=== PATIENT | male | born 1965 | race Caucasian/White ===

== ENCOUNTER 2022-02-05 09:47 | Outpatient (REF) | payer OTHER, SELFPAY ==
[2022-02-05 10:23] LABS: MANUAL DIFF FLAG NO
[2022-02-05 10:35] LABS: Basophils Absolute Auto 0.1 X10*3/uL (0.0-0.2); Basophils Percent Auto 0.7 % (0-2); Eosinophils Absolute Auto 0.5 X10*3/uL (0.0-0.4); Hematocrit 47.3 % (42.0-52.0); Hemoglobin 15.9 g/dl (14.0-18.0); Imm Gran Abs Auto 0.08 X10*3/uL (0.00-0.03); Imm Gran Pct Auto 0.9 % (0.0-0.4); Lymphocytes Absolute Auto 1.1 X10*3/uL (1.2-4.9); Lymphocytes Percent Auto 12.6 % (20-40); Mean Corpuscular HGB Conc 33.6 g/dl (31.0-36.0); Mean Corpuscular Hemoglobin 30.8 pg (27.0-33.0); Mean Corpuscular Volume 91.5 fL (80.0-98.0); Monocytes Absolute Auto 0.9 X10*3/uL (0.1-1.2); Neutrophils Absolute Auto 6.1 x10*3/uL (2.0-8.3); Neutrophils Percent Auto 69.8 % (45-73); Platelet Count 244 X10*3/uL (160-400); Red Blood Count 5.17 X10*6/uL (4.60-5.80); Red Cell Distribution Width 12.7 % (11.0-16.0); White Blood Count 8.7 X10*3/uL (4.8-10.8)
[2022-02-05 11:29] LABS: Alanine Aminotransferase 62 U/L (0-40); Albumin Level 4.7 g/dL (3.5-5.0); Alkaline Phosphatase 68 U/L (39-117); Anion Gap 17 (12-20); Aspartate Amino Transferase 32 U/L (5-37); Bilirubin Total 0.9 mg/dL (0.0-1.0); Blood Urea Nitrogen 18 mg/dL (9-16); Calcium 9.6 mg/dL (8.4-10.2); Carbon Dioxide 24 mmol/L (22-29); Chloride 102 mmol/L (96-108); Cholesterol 283 mg/dL; Estimated Glomerular Filt Rate 51; Glucose Fasting 101 mg/dL (60-99); HDL Cholesterol 47 mg/dL; LDL Cholesterol Calculated 184 mg/dl; Potassium 4.4 mmol/L (3.3-5.1); Sodium 139 mmol/L (135-145); Total Protein 7.5 g/dL (6.5-8.0); Triglycerides 263 mg/dL
[2022-02-12 14:02] LABS: PSA, Ultra Sensitive 0.94 ng/mL
== END 2022-02-05 09:48 | disposition home or self-care (01) ==
LOC: HO.WFDLDS 09:47
PROVIDERS: Visit Provider Nurse Practitioner Family
DX: Z00.00 Encounter for general adult medical examination without abnormal findings (principal); Z12.5 Encounter for screening for malignant neoplasm of prostate
CPT/HCPCS: 36415; 80053; 80061; 84153; 85025

== ENCOUNTER 2022-02-20 07:21 | Outpatient (REF) | payer OTHER, SELFPAY ==
[2022-02-20 12:38] LABS: Alanine Aminotransferase 14 U/L (0-40); Albumin Level 4.6 g/dL (3.5-5.0); Alkaline Phosphatase 68 U/L (39-117); Anion Gap 18 (12-20); Aspartate Amino Transferase 14 U/L (5-37); Blood Urea Nitrogen 16 mg/dL (9-16); Calcium 9.8 mg/dL (8.4-10.2); Carbon Dioxide 26 mmol/L (22-29); Chloride 101 mmol/L (96-108); Estimated Glomerular Filt Rate 52; Glucose Fasting 94 mg/dL (60-99); Potassium 4.1 mmol/L (3.3-5.1); Sodium 141 mmol/L (135-145); Total Protein 7.3 g/dL (6.5-8.0)
== END 2022-02-20 07:22 | disposition home or self-care (01) ==
LOC: HO.WFDLDS 07:21
PROVIDERS: Visit Provider Nurse Practitioner Family
DX: Z00.00 Encounter for general adult medical examination without abnormal findings (principal)
CPT/HCPCS: 36415; 80053

== ENCOUNTER 2022-05-21 08:39 | Outpatient (REF) | payer OTHER, SELFPAY ==
[2022-05-21 12:40] LABS: Influenza A PCR NEGATIVE (Negative); Influenza B PCR NEGATIVE (Negative); Resp Syncy Virus RNA Qual PCR NEGATIVE (Negative); SARS COV2 PCR INHOUSE NEGATIVE (Negative)
== END 2022-05-21 08:40 | disposition home or self-care (01) ==
LOC: HO.LAB 08:39
PROVIDERS: Visit Provider Nurse Practitioner Family
DX: R09.89 Other specified symptoms and signs involving the circulatory and respiratory systems (principal); Z20.822 Contact with and (suspected) exposure to COVID-19
CPT/HCPCS: 0241U

== ENCOUNTER 2022-08-06 09:13 | Outpatient (REF) | payer OTHER, SELFPAY ==
[2022-08-06 11:52] LABS: Estimated Average Glucose 108 mg/dL; Hemoglobin A1c % 5.4 %
[2022-08-06 12:36] LABS: Alanine Aminotransferase 11 U/L (0-40); Alkaline Phosphatase 78 U/L (39-117); Anion Gap 17 (12-20); Aspartate Amino Transferase 12 U/L (5-37); Bilirubin Total 1.3 mg/dL (0.0-1.0); Blood Urea Nitrogen 15 mg/dL (9-16); Calcium 10.1 mg/dL (8.4-10.2); Carbon Dioxide 26 mmol/L (22-29); Chloride 105 mmol/L (96-108); Estimated Glomerular Filt Rate 49; Glucose Fasting 110 mg/dL (60-99); Potassium 4.6 mmol/L (3.3-5.1); Sodium 143 mmol/L (135-145); Total Protein 7.7 g/dL (6.5-8.0)
== END 2022-08-06 09:14 | disposition home or self-care (01) ==
LOC: HO.WFDLDS 09:13
PROVIDERS: Visit Provider Nurse Practitioner Family
DX: E78.5 Hyperlipidemia, unspecified (principal); N17.9 Acute kidney failure, unspecified; R73.01 Impaired fasting glucose
CPT/HCPCS: 36415; 80053; 83036

== ENCOUNTER → 2022-09-08 14:10 | Outpatient (BNVA) | payer OTHER, SELFPAY | PROVIDERS: PCP Nurse Practitioner Family; Visit Provider Nurse Practitioner Family ==

== ENCOUNTER 2022-09-25 07:28 | Outpatient (REF) | payer OTHER, SELFPAY ==
--- NOTE | ~2022-09-25 | CT_ITS ---
EXAMINATION: CT CHEST WITHOUT CONTRAST CLINICAL INFORMATION: Asbestos exposure COMPARISON: None available. TECHNIQUE: Multidetector volumetric CT imaging of the chest was done. Axial MIP volume rendering provided. Sagittal and coronal reformatted images were obtained. This CT examination was performed using dose optimization techniques as appropriate, variously including the following: *Automated exposure control *Adjustment of mA and/or kV according to patient size (this includes techniques or standardized protocols for targeted exams where dose is matched to indication/reason for exam; i.e. extremities or head) *Use of iterative reconstruction technique DLP: 182 mGy-cm FINDINGS: LUNGS: 4 mm middle lobe nodule axial image 1 right middle lobe nodule axial image 111 and 1:30 series 11. 5 mm peripheral or subpleural right lower lobe nodule along the diaphragmatic pleural surface axial image 138 series 11. 7 x 9 mm peripheral or subpleural right lower lobe nodule versus area of atelectasis axial image 140. 3 mm peripheral or subpleural left lower lobe nodule axial image 137 series 11. Scarring or subsegmental atelectasis seen bilaterally greatest at the lung bases. Increased peripheral or subpleural reticulation and interstitial markings questionable for dependent atelectasis versus early interstitial lung disease. This could be better evaluated with prone imaging. MEDIASTINUM: There are enlarged mediastinal and bilateral hilar lymph nodes. Hilar adenopathy difficult to evaluate without IV contrast. Largest lymph node is a subcarinal lymph node measuring 2.3 cm in short axis. Normal heart size. No pericardial effusion. Normal caliber thoracic aorta. Normal thyroid gland. CORONARY ARTERY CALCIFICATION: None PLEURA: There is no pleural effusion. No pleural mass or thickening. AXILLA: No lymphadenopathy. UPPER ABDOMEN: Cystic area in the central left kidney question peripelvic cyst versus hydronephrosis. Spleen not completely imaged but may be upper normal in size. OSSEOUS STRUCTURES: Degenerative changes of the spine. CT/CT chest wo IV con IMPRESSION: Enlarged mediastinal and bilateral hilar lymph nodes. Infectious, inflammatory and neoplastic processes should be considered. Question dependent atelectasis versus mild interstitial lung disease at the lung bases. This could be better evaluated with prone imaging. Bilateral pulmonary nodules. Largest nodule/ question atelectasis measures 7 x 9 mm. According to the UPDATED 2017 Fleischner Society recommendations, the advised follow-up imaging for 6 to 8 mm solid nodule: 6-12 and 18-[address] follow-up recommended. Fleischner guidelines were followed.
== END 2022-09-25 07:29 | disposition home or self-care (01) ==
LOC: HO.CT 07:28
PROVIDERS: Visit Provider Nurse Practitioner Family
DX: Z77.090 Contact with and (suspected) exposure to asbestos (principal)
CPT/HCPCS: 71250

== ENCOUNTER 2022-10-02 15:23 | Outpatient (REF) | payer OTHER, SELFPAY ==
--- NOTE | 2022-10-02 16:06 | PFT_ITS ---
INDICATION: Dyspnea and asthma. SPIROMETRY: The FEV1 to FVC prebronchodilator 68%, postbronchodilator 72% with an FEV1 of 3.43 L, which is 91% predicted and an FVC is 4.79 L, which is 97% predicted. No significant response to bronchodilator is noted. There is some evidence of small airway disease consistent with a diagnosis of asthma. Maximum voluntary ventilation 89% predicted. LUNG VOLUMES: Total lung capacity 90% predicted. DIFFUSION CAPACITY: DLCO of 95% predicted. COMPARISON: None. INTERPRETATION: There appears to be a reversible obstructive ventilatory defects consistent with diagnosis of asthma. No significant response to bronchodilator is noted. There is evidence of small airway disease, likely secondary to asthma. Lung volumes and diffusion capacity are within normal limits. Clinical correlation warranted. Jose Luis Solorio MD MR/MODL / [id number]
== END 2022-10-02 15:24 | disposition home or self-care (01) ==
LOC: HO.RESP 15:23
PROVIDERS: PCP Nurse Practitioner Family; Visit Provider Nurse Practitioner Family
DX: J45.909 Unspecified asthma, uncomplicated (principal)
CPT/HCPCS: 94060; 94727; 94729

== ENCOUNTER 2022-10-29 07:25 | Outpatient (REF) | payer OTHER, SELFPAY ==
[2022-10-29 11:33] LABS: MANUAL DIFF FLAG NO
[2022-10-29 11:54] LABS: Basophils Percent Auto 0.7 % (0-2); Eosinophils Absolute Auto 0.5 X10*3/uL (0.0-0.4); Eosinophils Percent Auto 9.8 % (0-4); Hematocrit 48.2 % (42.0-52.0); Hemoglobin 15.8 g/dl (14.0-18.0); Imm Gran Abs Auto 0.01 X10*3/uL (0.00-0.03); Imm Gran Pct Auto 0.2 % (0.0-0.4); Lymphocytes Absolute Auto 1.1 X10*3/uL (1.2-4.9); Lymphocytes Percent Auto 20.6 % (20-40); Mean Corpuscular HGB Conc 32.8 g/dl (31.0-36.0); Mean Corpuscular Hemoglobin 30.3 pg (27.0-33.0); Mean Corpuscular Volume 92.3 fL (80.0-98.0); Mean Platelet Volume 10.7 fL (9.4-12.4); Monocytes Absolute Auto 0.5 X10*3/uL (0.1-1.2); Monocytes Percent Auto 9.1 % (2-11); Neutrophils Absolute Auto 3.2 x10*3/uL (2.0-8.3); Neutrophils Percent Auto 59.6 % (45-73); Platelet Count 249 X10*3/uL (160-400); Red Blood Count 5.22 X10*6/uL (4.60-5.80); Red Cell Distribution Width 12.2 % (11.0-16.0); White Blood Count 5.4 X10*3/uL (4.8-10.8)
[2022-10-29 14:01] LABS: Cholesterol 111 mg/dL; HDL Cholesterol 35 mg/dL; LDL Cholesterol Calculated 56 mg/dl; Triglycerides 103 mg/dL
[2022-10-31 07:23] LABS: Immunoglobulin E 363 kU/L (<OR=114)
== END 2022-10-29 07:26 | disposition home or self-care (01) ==
LOC: HO.WFDLDS 07:25
PROVIDERS: Nurse Practitioner Family; Visit Provider Nurse Practitioner Family
DX: Z91.09 Other allergy status, other than to drugs and biological substances (principal); R06.02 Shortness of breath; E78.5 Hyperlipidemia, unspecified
CPT/HCPCS: 36415; 80061; 82785; 85025; 86003

== ENCOUNTER 2022-11-03 14:06 | Outpatient (AMB) | payer OTHER, SELFPAY ==
[2022-11-03 14:11] VITALS: BP 124/62; PULSE 76; O2SAT 97; BMI 25.8
--- NOTE | 2022-11-03 14:11 | MHC.OFFVIS ---
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 He quit vaping in April. He did undergo a VATS procedure in 2000 due to empyema, otherwise has not had any respiratory issues until a year ago after his second occurrence of COVID. Today he presents to review chest CT and PFT results. Since the last visit, he reports his symptoms have significantly improved and feels he is back to baseline. He has been using Flovent/Pulmicort regularly with minimal use of albuterol and overall good control of symptoms. He has been able to walk 2-3 miles with no dyspnea. 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 [employer] Current occupational exposures/hazards: Yes Cognitive needs: No Hearing needs: No Vision needs: No Review of Systems Const Denies chills, Denies excessive sweating, Denies fever(s), Denies headache(s) and Denies night sweats Eyes Denies dry eyes and Denies irritation ENT Reports Normal hearing present, Denies headache(s), Denies nasal congestion, Denies post nasal drip and Denies sore throat Card Denies chest pain, Denies chest pain at rest, Denies chest pain with activity and Denies leg edema Resp Denies chest congestion, Denies cough, Denies excessive phlegm production, Denies pain on inspiration, Denies pain with cough and Denies stridor Musc Denies myalgias Neuro Reports Normal hearing present and Denies headache(s) Endo Denies excessive sweating Bal/Lymph Denies lymphadenopathy Physical Exam Vital Signs: Last Vital Signs Pulse 76 11/03/22 14:11 BP 124/62 11/03/22 14:11 Pulse Ox 97 11/03/22 14:11 Oxygen Delivery Method Room Air 11/03/22 14:11 BMI result Body Mass Index 25.8 Const General: cooperative, healthy appearing, comfortable, no acute distress, well developed and alert Orientation/consciousness: patient oriented x3 Limitations: no limitations HEENT Head: Yes normal to inspection, Yes normocephalic and Yes atraumatic Ears: hearing grossly normal bilaterally and external ears normal Eyes General: appearance normal, both eyes and all related structures Eyelids: Yes eyelids normal Sclerae: sclerae normal EOM: EOMs intact bilaterally Neck Neck: Yes normal visual inspection and Yes no lymphadenopathy Lymphatic: no lymphadenopathy noted Chest Chest palpation & inspection: normal inspection of the chest Resp Effort & Inspection: normal respiratory effort, able to speak in complete sentences, no audible wheezes, no cough, no stridor, not tachypneic, no tripod positioning and no use of accessory muscles Auscultation: clear to auscultation bilaterally Cardio Jugular venous distension: no JVD Rate: regular rate Rhythm: regular rhythm Skin Other: warm, dry General skin exam: no rashes or lesions noted Neuro General: patient oriented x3 Cranial nerves: Yes Normal hearing present Cognition (Neuro): normal cognition Gait exam (Neuro): Normal gait present Extrem General: Yes normal to inspection, Yes capillary refill normal, Yes no clubbing, cyanosis or edema and Yes no pedal edema Psych Appearance: grossly normal and well kempt Speech and movement: Normal speech and movement present and Clear speech present Affect: normal affect Attitude: cooperative Thought process: Normal thought process present Thought content: Normal thought content present Insight: Good insight present (Psych) Judgement: Good judgement present (Psych) Results Reviewed Results Reviewed: [place] [address] [address] Scan Report Signed Patient: Alcides Holt MR#: [id number] : 1965 Acct:[id number] Age/Sex: 57 / M ADM Date: 09/25/22 Loc: HO.CT Attending Dr: Eva Mora NP Ordering Physician: Eva Mora NP Date of Service: 09/25/22 Procedure(s): CT chest wo IV con Accession Number(s): [id number] cc: Eva Mora NP~ EXAMINATION: CT CHEST WITHOUT CONTRAST CLINICAL INFORMATION: Asbestos exposure? COMPARISON: None available. TECHNIQUE: Multidetector volumetric CT imaging of the chest was done. Axial MIP volume rendering provided. Sagittal and coronal reformatted images were obtained.? This CT examination was performed using dose optimization techniques as appropriate, variously including the following: *Automated exposure control *Adjustment of mA and/or kV according to patient size (this includes techniques or standardized protocols for targeted exams where dose is matched to indication/reason for exam; i.e. extremities or head) *Use of iterative reconstruction technique DLP: 182 mGy-cm FINDINGS: LUNGS: 4 mm middle lobe nodule axial image 1 right middle lobe nodule axial image 111 and 1:30 series 11. 5 mm peripheral or subpleural right lower lobe nodule along the diaphragmatic pleural surface axial image 138 series 11. 7 x 9 mm peripheral or subpleural right lower lobe nodule versus area of atelectasis axial image 140. 3 mm peripheral or subpleural left lower lobe nodule axial image 137 series 11. Scarring or subsegmental atelectasis seen bilaterally greatest at the lung bases. Increased peripheral or subpleural reticulation and interstitial markings questionable for dependent atelectasis versus early interstitial lung disease. This could be better evaluated with prone imaging. MEDIASTINUM: There are enlarged mediastinal and bilateral hilar lymph nodes. Hilar adenopathy difficult to evaluate without IV contrast. Largest lymph node is a subcarinal lymph node measuring 2.3 cm in short axis. Normal heart size. No pericardial effusion. Normal caliber thoracic aorta. Normal thyroid gland.? CORONARY ARTERY CALCIFICATION: None PLEURA: There is no pleural effusion. No pleural mass or thickening.? AXILLA: No lymphadenopathy.? UPPER ABDOMEN: Cystic area in the central left kidney question peripelvic cyst versus hydronephrosis. Spleen not completely imaged but may be upper normal in size. OSSEOUS STRUCTURES: Degenerative changes of the spine. CT/CT chest wo IV con IMPRESSION: Enlarged mediastinal and bilateral hilar lymph nodes. Infectious, inflammatory and neoplastic processes should be considered. Question dependent atelectasis versus mild interstitial lung disease at the lung bases. This could be better evaluated with prone imaging. Bilateral pulmonary nodules. Largest nodule/ question atelectasis measures 7 x 9 mm. According to the UPDATED 2017 Fleischner Society recommendations, the advised follow-up imaging for 6 to 8 mm solid nodule: 6-12 and 18-[address] follow-up recommended. ? Fleischner guidelines were followed. Dictated By: Unique Manzano MD Assessment & Plan Assessment & Plan (1) Asthma: Code(s): J45.909 - Unspecified asthma, uncomplicated (2) Environmental allergies: Code(s): Z91.09 - Other allergy status, other than to drugs and biological substances (3) Asbestos exposure: Code(s): Z77.090 - Contact with and (suspected) exposure to asbestos (4) Multiple pulmonary nodules: Code(s): R91.8 - Other nonspecific abnormal finding of lung field Plan Since the last visit, Alcides reports he is back to baseline and has had good control of symptoms using an ICS. We reviewed his PFT which revealed a reversible obstructive ventilatory defect consistent with a diagnosis of asthma. Lung volumes and diffusion capacity are within normal limits. At this time, patient would like to continue current regimen. If he becomes more symptomatic will switch to an ICS/LABA. We reviewed chest CT which revealed multiple pulmonary nodules. A 4mm nodule in RML, 5mm nodule in RLL, 7x9mm peripheral RLL nodule versus atelectasis as well as scarring vs atelectatsis of bilateral bases. There was also enlarged mediastinal and bilateral hilar lymph nodes. We discussed the possible etiologies including infection, inflammation or malignancy. Will send for repeat chest CT in three months to evaluate for any changes or resolution. All questions were answered and patient is in agreement of plan. Will follow up in three months to review repeat chest CT or sooner if needed. Coding Level of Care Code Est Pt Level 4 (60025) Diagnoses Asthma J45.909 Environmental allergies Z91.09 Asbestos exposure Z77.090 Multiple pulmonary nodules R91.8
== END 2022-11-03 14:37 | disposition home or self-care (01) ==
PROVIDERS: PCP Nurse Practitioner Family; Visit Provider Nurse Practitioner Family
DX: J45.909 Unspecified asthma, uncomplicated (principal); Z91.09 Other allergy status, other than to drugs and biological substances; Z77.090 Contact with and (suspected) exposure to asbestos; R91.8 Other nonspecific abnormal finding of lung field
CPT/HCPCS: 99214

== ENCOUNTER → 2022-11-03 14:06 | Outpatient (BNVA) | payer OTHER, SELFPAY | PROVIDERS: PCP Nurse Practitioner Family; Visit Provider Nurse Practitioner Family ==

== ENCOUNTER 2022-11-04 08:46 | Outpatient (AMB) | payer OTHER, SELFPAY ==
[2022-11-04 08:50] VITALS: BP 110/74; PULSE 83; RESP 12; TEMP 36.4; O2SAT 99; BMI 25.1
--- NOTE | 2022-11-04 08:50 | A.OFFPC_ITS ---
Vital Signs 11/04/22 08:50 Height 5 ft 10 in Weight 175 lb 4 oz BMI 25.1 BP 110/74 Blood Pressure Location Rt brachial Position Sitting Respiration 12 Pulse 83 Pulse Source Pulse Oximeter Temp 97.5 F Temp Source Temporal Artery Scan Pulse Oximetry (%) 99 Oxygen Delivery Method Room Air Intake Visit Reasons: 3 mos HLD Infrastructure Solutions Architect Required: No Accompanied by: Self / Same As Patient Allergies No Known Allergies Allergy (Verified 11/04/22 09:26) Medication List - Last Reconciled 11/04/22 by Harriet Mccall CNP albuterol sulfate 90 mcg/actuation 2 puffs inhalation Q4-6H PRN 90 days atorvastatin 20 mg PO BEDTIME 90 days budesonide 180 mcg/actuation (Pulmicort Flexhaler) 1 inh inhalation BID Tobacco use date assessed: 08/06/22 Dental Screening Dental Screen Date: 11/04/22 Did you have a dental visit in the last 12 months?: No Did you have a dental problem in the last 6 months where you did not have access to dental care?: No Was dental information given to patient?: Patient has dentist HPI HPI Comments History of Present Illness Details 57-year-old male presents for hyperlipidemia follow-up He is on atorvastatin which he notes he has been taking as prescribed No acute symptoms He notes that he has not been contacted by Gastroenterology for colonoscopy. 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 Current occupational exposures/hazards: Yes Cognitive needs: No Hearing needs: No Vision needs: No Questionnaire Thrive Questionnaire Date Thrive assessed: 03/13/22 Review of Systems Const Details: Const Denies chills, Denies fatigue, Denies fever(s), Denies headache(s) and Denies weakness ENT Denies dizziness and Denies headache(s) Card Denies chest pain, Denies lightheadedness, Denies dyspnea and Denies other (Palpitations) Resp Denies cough, Denies dyspnea, Denies wheezing and Denies other ( shortness of breath) GI Denies abdominal pain, Denies melena, Denies hematochezia, Denies change in bowel habits, Denies dyspepsia and Denies nausea Denies hematuria and Denies dysuria Musc Denies abnormal gait, Denies myalgias, Denies arthralgias, Denies numbness and Denies tingling Skin/Breast Denies rash, Denies unusual bruising and Denies wounds Neuro Denies abnormal gait, Denies dizziness, Denies headache(s), Denies memory loss, Denies numbness, Denies Sensory deficit (Neuro), Denies tingling and Denies weakness Psych Denies anxiety and Denies depression Endo Denies fatigue Aller/Immun Denies wheezing Physical exam (Primary Care) Vital Signs: Last Vital Signs Temp 97.5 F 11/04/22 08:50 Pulse 83 11/04/22 08:50 Resp 12 11/04/22 08:50 BP 110/74 11/04/22 08:50 Pulse Ox 99 11/04/22 08:50 Oxygen Delivery Method Room Air 11/04/22 08:50 BMI result Body Mass Index 25.1 Tobacco/Smoking Status: Tobacco use Status Tobacco use date assessed 08/06/22 11/04/22 08:58 Patient Tobacco Use Status Never used Tobacco 11/04/22 08:58 e-Cigarette/Vaping Use Never Used 11/04/22 08:58 Thrive Assessment: Date of Thrive Assessment Date Thrive assessed 03/13/22 11/04/22 08:58 Const Other: General: no acute distress and well developed Nutritional Appearance: well nourished Orientation/consciousness: patient oriented x3 HENMT Head: Yes normocephalic and Yes atraumatic Eyes General: appearance normal, both eyes and all related structures Pupils: Equal, round and reactive pupils present EOM: EOMs intact bilaterally Resp Effort & Inspection: normal respiratory effort Auscultation: clear to auscultation bilaterally Cardio Rate: regular rate Rhythm: regular rhythm Heart sounds: S1 normal heart sound present, S2 normal heart sound present, no gallops, no murmurs and no rubs GI Palpation (GI): No Abdominal aortic bruit present, Soft to palpation, nontender, No hepatosplenomegaly present and No Rebound tenderness present Auscultation: normal bowel sounds General: Yes no CVA tenderness Back/Spine/Pelvis Back: no CVA tenderness Cervical Spine: cervical ROM normal and No Cervical spine tenderness Thoracic/Lumbar Spine: thoraco-lumbar ROM normal, No pain with thoraco-lumbar ROM, No thoracic spinal tenderness and No lumbar spinal tenderness Extrem General: Yes normal to inspection, No edema and No calf tenderness Skin General: warm and dry. Normal skin color. Normal skin turgor Lesions: no lesions Rashes: no rashes Trauma: no lacerations or abrasions Wounds: no wounds Nails: normal Neuro General: patient oriented x3, gait normal and no focal neuro deficit Cranial nerves: Yes Equal, round and reactive pupils present Cognition (Neuro): normal cognition Gait exam (Neuro): Normal gait present Sensory Exam: No Sensory deficit (Neuro) Psych Affect: normal affect Assessment and Plan Assessment & Plan (1) Hyperlipidemia: Code(s): E78.5 - Hyperlipidemia, unspecified Plan: Lipid levels have significantly improved since January 2022; normal triglycerides, total cholesterol, and LDL, HDL is low Will decrease atorvastatin to 10 mg at bedtime. Take as prescribed Advised to limit foods high in saturated fat and avoid foods high trans fat Routine exercise encouraged Lipid panel ordered. Advised to get fasting blood work done before next visit Follow-up in 3 months for a complete physical exam Return sooner with symptoms or concerns Verbalized understanding and agreed with treatment plan. (2) Colon cancer screening: Code(s): Z12.11 - Encounter for screening for malignant neoplasm of colon Plan: He notes that he has not been contacted by Gastroenterology for colonoscopy. GI referral made He will be contacted by GI department to schedule an appointment (3) Elevated serum creatinine: Code(s): R79.89 - Other specified abnormal findings of blood chemistry Plan: Will also check creatinine level for history of elevated serum creatinine Adequate hydration encouraged Orders: Orders Lipid Panel Today E78.5 - Hyperlipidemia, unspecified Creatinine Today R79.89 - Other specified abnormal findings of blood chemistry Referrals Gastroenterology Referral Z12.11 - Encounter for screening for malignant neoplasm of colon Medications: New atorvastatin 10 mg PO BEDTIME 90 tabs 1RF 90 days Discontinued atorvastatin Discontinued Reason: Doctor's Order 20 mg PO BEDTIME 90 tabs 1RF 90 days Coding Level of Care Code Est Pt Level 3 (26278) Diagnoses Hyperlipidemia E78.5 Colon cancer screening Z12.11 Elevated serum creatinine R79.89 Time Spent (min) 25
== END 2022-11-04 09:38 | disposition home or self-care (01) ==
PROVIDERS: Visit Provider Nurse Practitioner Family
DX: E78.5 Hyperlipidemia, unspecified (principal); Z12.11 Encounter for screening for malignant neoplasm of colon; R79.89 Other specified abnormal findings of blood chemistry
CPT/HCPCS: 99213

== ENCOUNTER 2022-12-21 14:03 | Outpatient (AMB) | payer OTHER, SELFPAY ==
[2022-12-21 14:07] VITALS: BP 138/92; PULSE 96; BMI 25.1
--- NOTE | 2022-12-21 14:07 | A.OFFVIS_ITS ---
Intake Vital Signs 12/21/22 14:07 Height 5 ft 10 in Weight 174 lb 9.698 oz BMI 25.1 BP 138/92 H Blood Pressure Location Rt brachial Position Sitting Pulse 96 Pulse Source Pulse Oximeter Intake Visit Reasons: colon screening Intake Note: Pt presents to the office today for a colonscopy screening. Pt states he is feeling good. Pt denies N/V/D. Allergies No Known Allergies Allergy (Verified 12/21/22 14:07) HPI colon screening HPI Details 57 year old? male here today for pre col onoscopy screening.? Patient was sent to us by his PCP.? This is his first colonoscopy screening.? Patient denies any gastrointestinal symptoms in the past or at present.? Denies any personal or family history of gastrointestinal disease, colon polyps, or cancer.? Denies history of difficulty with sedation or anesthesia in the past.? Negative for history of sleep apnea.? Denies any history of cardiac, pulmonary, or hepatic disease.??History of CKD. No history of infectious? diseases like hepatitis A, B, C, HIV or tuberculosis.? Patient is not on any anticoagulation therapy. 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 Current occupational exposures/hazards: Yes Cognitive needs: No Hearing needs: No Vision needs: No Review of Systems Const Denies weight gain and Denies weight loss ENT Reports no additional complaints, Denies dysphagia and Denies odynophagia Card Reports no additional complaints Resp Reports no additional complaints GI Denies abdominal pain, Denies belching, Denies melena, Denies bloating, Denies change in bowel habits, Denies dysphagia, Denies excessive flatus, Denies dyspepsia, Denies heartburn, Denies diarrhea, Denies loose stools, Denies nausea, Denies odynophagia and Denies vomiting Reports no additional complaints Musc Reports no additional complaints Neuro Reports no additional complaints Psych Reports no additional complaints Endo Reports no additional complaints Physical Exam Vital Signs: Last Vital Signs Pulse 96 12/21/22 14:07 BP 138/92 H 12/21/22 14:07 BMI result Body Mass Index 25.1 Const General: healthy appearing, no acute distress and well developed Nutritional Appearance: well nourished Orientation/consciousness: patient oriented x3 HEENT Head: Yes normal to inspection, Yes normocephalic and Yes atraumatic Face and sinus: Yes normal facial exam Mouth: Normal oral and palatal mucosa present Throat: Yes posterior oropharynx normal, Yes tonsils normal and Yes uvula midline Eyes General: appearance normal, both eyes and all related structures Neck Neck: Yes normal visual inspection, Yes full ROM and Yes trachea midline Thyroid: Thyroid normal Resp Effort & Inspection: normal respiratory effort, able to speak in complete sentences, no tracheal deviation and symmetric chest movement Auscultation: clear to auscultation bilaterally Cardio Rate: regular rate Heart sounds: S1 normal heart sound present and S2 normal heart sound present GI Inspection: Yes normal to inspection and No distended Palpation (GI): Soft to palpation, not firm, nontender and No hepatosplenomegaly present Auscultation: normal bowel sounds General: Yes no CVA tenderness Back/Spine/Pelvis Back: no CVA tenderness Skin General skin exam: elasticity normal, turgor normal and dry skin Neuro General: patient oriented x3 Psych Appearance: grossly normal Mental Status: mental status grossly normal Speech and movement: Normal speech and movement present Assessment & Plan Assessment & Plan (1) Colon cancer screening: Code(s): Z12.11 - Encounter for screening for malignant neoplasm of colon Plan: Patient denies any GI, cardiac or respiratory symptoms.? Denies any issues with anesthesia in the past.? Denies any history of sleep apnea.? No history infectious diseases in the past or present.? Not on any anticoagulation therapy.? No family or personal history of colon cancer or polyps.? Patient denies melena, hematochezia, unintentional weight loss or ribbon like stools.? Discussed at length the pre-procedure,? prep, diet & medications as well as what to expect prior, during and after the procedure.?? Stressed the importance of g ood bowel prep. ?Recommended the use of Vaseline or Calmoseptine OTC & baby wipes with bowel movements to promote comfort.? ?Patient verbalizes understanding and agrees to plan of care.? He was given the opportunity to ask questions and all questions answered.? We will see him after the procedure.? Medications: New bisacodyl (Dulcolax (bisacodyl)) take 2 tabs at noon the day before your colonoscopy 10 mg (2 x 5 mg) PO ONCE 1 day 2 tabs 0RF Z12.11 - Encounter for screening for malignant neoplasm of colon polyethylene glycol 3350 (Miralax) As directed by gastroenterology department at [facility] 238 grams PO ONCE 238 grams 0RF Z12.11 - Encounter for screening for malignant neoplasm of colon Coding Level of Care Code New Pt Level 3 (41584) Diagnoses Colon cancer screening Z12.11 Time Spent (min) 40 Comment 30 minutes spent with patient and additional 10 minutes spent reviewing his records
== END 2022-12-21 16:17 | disposition home or self-care (01) ==
PROVIDERS: PCP Nurse Practitioner Family; Visit Provider Nurse Practitioner Family
DX: Z12.11 Encounter for screening for malignant neoplasm of colon (principal); Z01.818 Encounter for other preprocedural examination
CPT/HCPCS: 99203

== ENCOUNTER → 2022-12-21 14:03 | Outpatient (BNVA) | payer OTHER, SELFPAY | PROVIDERS: PCP Nurse Practitioner Family; Visit Provider Nurse Practitioner Family ==

== ENCOUNTER 2022-12-28 12:36 | Outpatient (REF) | payer OTHER, SELFPAY ==
--- NOTE | ~2022-12-28 | CT_ITS ---
EXAMINATION: CT CHEST WITHOUT CONTRAST CLINICAL INFORMATION: Follow up pulmonary nodules. COMPARISON: Previous chest CT most recent September 2022. TECHNIQUE: Multidetector volumetric CT imaging of the chest was done. Axial MIP volume rendering provided. Sagittal and coronal reformatted images were obtained. This CT examination was performed using dose optimization techniques as appropriate, variously including the following: *Automated exposure control *Adjustment of mA and/or kV according to patient size (this includes techniques or standardized protocols for targeted exams where dose is matched to indication/reason for exam; i.e. extremities or head) *Use of iterative reconstruction technique DLP: 181 mGy-cm FINDINGS: CITY COUNCILMAN: LUNGS: There is interval increase in size now 0.6 x 1.6 cm right lower lobe nodule versus atelectasis posterior costophrenic sulcus axial image 146 series 6 compared to 7 x 10 mm October 2022 exam. Pulmonary nodules are otherwise stable. Largest 5 mm right middle lobe axial image 113 series 6, 5 x 8 mm pleural right lower lobe nodule along the posterior diaphragmatic pleural surface axial image 2 series 6 and 5 mm peripheral or subpleural right lower lobe nodule along the posterior medial costophrenic sulcus axial image 162 series 6. There are increased peripheral reticular markings and parenchymal attenuation questionable for mild interstitial lung disease versus dependent atelectasis. MEDIASTINUM: There are enlarged mediastinal and bilateral hilar lymph nodes. Larger nodes are slightly increased in size, for example subcarinal node measures 3 cm in short axis compared to September 2022 exam. CORONARY ARTERY CALCIFICATION: None visualized on this study. PLEURA: There is no pleural effusion. No pleural mass or thickening. AXILLA: No lymphadenopathy. UPPER ABDOMEN: Central cystic area in the upper pole of the left kidney, question hydronephrosis versus peripelvic cyst. Small upper abdominal retroperitoneal lymph nodes. OSSEOUS STRUCTURES: Unremarkable. CT/CT chest wo IV con IMPRESSION: Increasing right lower lobe posterior costophrenic sulcus nodule versus atelectasis. Other pulmonary nodules are stable. Slight interval increase in size in the enlarged mediastinal and bilateral hilar lymph nodes. Differential would include infectious, Inflammatory neoplastic processes. PET/CT or tissue sampling should be considered. Fleischner guidelines were followed.
== END 2022-12-28 12:37 | disposition home or self-care (01) ==
LOC: HO.CT 12:36
PROVIDERS: PCP Nurse Practitioner Family; Visit Provider Nurse Practitioner Family
DX: R91.8 Other nonspecific abnormal finding of lung field (principal); Z77.090 Contact with and (suspected) exposure to asbestos
CPT/HCPCS: 71250

== ENCOUNTER 2023-01-11 14:44 | Outpatient (AMB) | payer OTHER, SELFPAY ==
[2023-01-11 15:06] VITALS: BP 140/70; PULSE 77; O2SAT 98; BMI 25.4
--- NOTE | 2023-01-11 15:06 | A.OFFVIS_ITS ---
Intake Vital Signs 01/11/23 15:06 Height 5 ft 10 in Weight 177 lb BMI 25.4 BP 140/70 H Blood Pressure Location Rt brachial Position Sitting Pulse 77 Pulse Source Pulse Oximeter Pulse Oximetry (%) 98 Oxygen Delivery Method Room Air Intake Visit Reasons: follow up on CT Surgical Attendant Required: No Lens Finisher: Lens Finisher offered & declined Accompanied by: Self / Same As Patient Allergies No Known Allergies Allergy (Verified 01/11/23 15:15) Medication List - Last Reconciled 01/11/23 by Rizwana Kim LPN albuterol sulfate 90 mcg/actuation 2 puffs inhalation Q4-6H PRN 90 days atorvastatin 10 mg PO BEDTIME 90 days bisacodyl (Dulcolax (bisacodyl)) 10 mg (2 x 5 mg) PO ONCE 1 day budesonide 180 mcg/actuation (Pulmicort Flexhaler) 1 inh inhalation BID fluticasone propionate 44 mcg/actuation (Flovent HFA) 2 puffs inhalation BID 90 days polyethylene glycol 3350 (Miralax) 238 grams PO ONCE HPI follow up on CT HPI Details Alcides is a pleasant 57 year old male, denies any tobacco use but has smoked marijuana as well as vaped for quite some time with underlying asthma and asbestos exposure. He quit vaping in April. He did undergo a VATS procedure in 2000 due to empyema, otherwise has not had any respiratory issues until a year ago after his second occurrence of COVID. Today he presents to review 3 month follow up on chest CT as prior revealed multiple abnormalities. Of note, he did report having an upper respiratory infection at the end of November that lasted approximately 2 weeks. He did state that he felt his symptoms were back to baseline by the time the chest CT was performed. 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 Current occupational exposures/hazards: Yes Cognitive needs: No Hearing needs: No Vision needs: No Review of Systems Const Denies chills, Denies excessive sweating, Denies fever(s), Denies headache(s) and Denies night sweats Eyes Denies dry eyes and Denies irritation ENT Reports Normal hearing present, Denies headache(s), Denies nasal congestion, Denies post nasal drip and Denies sore throat Card Denies chest pain, Denies chest pain at rest, Denies chest pain with activity and Denies leg edema Resp Denies chest congestion, Denies cough, Denies excessive phlegm production, Denies pain on inspiration, Denies pain with cough and Denies stridor Musc Denies myalgias Neuro Reports Normal hearing present and Denies headache(s) Endo Denies excessive sweating Bal/Lymph Denies lymphadenopathy Physical Exam Vital Signs: Last Vital Signs Pulse 77 01/11/23 15:06 BP 140/70 H 01/11/23 15:06 Pulse Ox 98 01/11/23 15:06 Oxygen Delivery Method Room Air 01/11/23 15:06 BMI result Body Mass Index 25.4 Const General: cooperative, healthy appearing, comfortable, no acute distress, well developed and alert Orientation/consciousness: patient oriented x3 Limitations: no limitations HEENT Head: Yes normal to inspection, Yes normocephalic and Yes atraumatic Ears: hearing grossly normal bilaterally and external ears normal Eyes General: appearance normal, both eyes and all related structures Eyelids: Yes eyelids normal Sclerae: sclerae normal EOM: EOMs intact bilaterally Neck Neck: Yes normal visual inspection and Yes no lymphadenopathy Lymphatic: no lymphadenopathy noted Chest Chest palpation & inspection: normal inspection of the chest Resp Effort & Inspection: normal respiratory effort, able to speak in complete sentences, no audible wheezes, no cough, no stridor, not tachypneic, no tripod positioning and no use of accessory muscles Auscultation: clear to auscultation bilaterally Cardio Jugular venous distension: no JVD Rate: regular rate Rhythm: regular rhythm Skin Other: warm, dry General skin exam: no rashes or lesions noted Neuro General: patient oriented x3 Cranial nerves: Yes Normal hearing present Cognition (Neuro): normal cognition Gait exam (Neuro): Normal gait present Extrem General: Yes normal to inspection, Yes capillary refill normal, Yes no clubbing, cyanosis or edema and Yes no pedal edema Psych Appearance: grossly normal and well kempt Speech and movement: Normal speech and movement present and Clear speech present Affect: normal affect Attitude: cooperative Thought process: Normal thought process present Thought content: Normal thought content present Insight: Good insight present (Psych) Judgement: Good judgement present (Psych) Results Reviewed Results Reviewed: [address] [address] [address] Scan Report Signed Patient: Alcides Holt MR#: [id number] : 1965 Acct:[id number] Age/Sex: 57 / M ADM Date: 12/28/22 Loc: .CT Attending Dr: Eva Mora NP Ordering Physician: Eva Mora NP Date of Service: 12/28/22 Procedure(s): CT chest wo IV con Accession Number(s): [id number] cc: Eva Mora SMOKING TOBACCO PACKER HAND; Harriet Mccall EDUCATION COUNSELOR~ EXAMINATION: CT CHEST WITHOUT CONTRAST CLINICAL INFORMATION: Follow up pulmonary nodules. COMPARISON: Previous chest CT most recent September 2022. TECHNIQUE: Multidetector volumetric CT imaging of the chest was done. Axial MIP volume rendering provided. Sagittal and coronal reformatted images were obtained. This CT examination was performed using dose optimization techniques as appropriate, variously including the following: *Automated exposure control *Adjustment of mA and/or kV according to patient size (this includes techniques or standardized protocols for targeted exams where dose is matched to indication/reason for exam; i.e. extremities or head) *Use of iterative reconstruction technique DLP: 181 mGy-cm FINDINGS: CLINICAL CARE LEADER: LUNGS: There is interval increase in size now 0.6 x 1.6 cm right lower lobe nodule versus atelectasis posterior costophrenic sulcus axial image 146 series 6 compared to 7 x 10 mm October 2022 exam. Pulmonary nodules are otherwise stable. Largest 5 mm right middle lobe axial image 113 series 6, 5 x 8 mm pleural right lower lobe nodule along the posterior diaphragmatic pleural surface axial image 2 series 6 and 5 mm peripheral or subpleural right lower lobe nodule along the posterior medial costophrenic sulcus axial image 162 series 6. There are increased peripheral reticular markings and parenchymal attenuation questionable for mild interstitial lung disease versus dependent atelectasis. MEDIASTINUM: There are enlarged mediastinal and bilateral hilar lymph nodes. Larger nodes are slightly increased in size, for example subcarinal node measures 3 cm in short axis compared to September 2022 exam. CORONARY ARTERY CALCIFICATION: None visualized on this study. PLEURA: There is no pleural effusion. No pleural mass or thickening. AXILLA: No lymphadenopathy. UPPER ABDOMEN: Central cystic area in the upper pole of the left kidney, question hydronephrosis versus peripelvic cyst. Small upper abdominal retroperitoneal lymph nodes. OSSEOUS STRUCTURES: Unremarkable. CT/CT chest wo IV con IMPRESSION: Increasing right lower lobe posterior costophrenic sulcus nodule versus atelectasis. Other pulmonary nodules are stable. Slight interval increase in size in the enlarged mediastinal and bilateral hilar lymph nodes. Differential would include infectious, Inflammatory neoplastic processes. PET/CT or tissue sampling should be considered. Fleischner guidelines were followed. Dictated By: Unique Manzano MD Assessment & Plan Assessment & Plan (1) Asthma: Code(s): J45.909 - Unspecified asthma, uncomplicated (2) Environmental allergies: Code(s): Z91.09 - Other allergy status, other than to drugs and biological substances (3) Asbestos exposure: Code(s): Z77.090 - Contact with and (suspected) exposure to asbestos (4) Multiple pulmonary nodules: Code(s): R91.8 - Other nonspecific abnormal finding of lung field (5) Incidental pulmonary nodule, greater than or equal to 8mm: Code(s): R91.1 - Solitary pulmonary nodule Plan We reviewed chest CT which revealed increasing RLL nodule versus atelectasis as well as slight interval increase in size in the enlarged mediastinal and bilateral hilar lymph nodes. We discussed the possible etiologies including infection, inflammation or malignancy. Will send for PET scan to evaluate for malignancies given the increasing size of nodules and lymph nodes compared to the chest CT three months ago. All questions were answered and patient is in agreement of plan. Will follow up to review results. Orders: Orders PET CT fusion skull to thigh Today R91.1 - Solitary pulmonary nodule, R91.8 - Other nonspecific abnormal finding of lung field Coding Level of Care Code Est Pt Level 4 (32880) Diagnoses Asthma J45.909 Environmental allergies Z91.09 Asbestos exposure Z77.090 Multiple pulmonary nodules R91.8 Incidental pulmonary nodule, greater than or equal to 8mm R91.1
== END 2023-01-11 15:31 | disposition home or self-care (01) ==
LOC: HO.HPSW 14:44
PROVIDERS: PCP Nurse Practitioner Family; Visit Provider Nurse Practitioner Family
DX: J45.909 Unspecified asthma, uncomplicated (principal); Z91.09 Other allergy status, other than to drugs and biological substances; Z77.090 Contact with and (suspected) exposure to asbestos; R91.8 Other nonspecific abnormal finding of lung field; R91.1 Solitary pulmonary nodule
CPT/HCPCS: 99214

== ENCOUNTER 2023-01-26 07:15 | Outpatient (REF) | payer OTHER, SELFPAY ==
[2023-01-26 12:21] LABS: Cholesterol 134 mg/dL (<200); Estimated Glomerular Filt Rate 59; HDL Cholesterol 37 mg/dL (>40); LDL Cholesterol Calculated 71 mg/dL (<100); Triglycerides 132 mg/dL (<150)
== END 2023-01-26 07:16 | disposition home or self-care (01) ==
LOC: HO.WFDLDS 07:15
PROVIDERS: Visit Provider Nurse Practitioner Family
DX: R79.89 Other specified abnormal findings of blood chemistry (principal); E78.5 Hyperlipidemia, unspecified
CPT/HCPCS: 36415; 80061; 82565

== ENCOUNTER 2023-02-02 12:57 | Outpatient (AMB) | payer OTHER, SELFPAY ==
--- NOTE | 2023-02-02 13:00 | A.OFFPC_ITS ---
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 Accompanied by: Self / Same As Patient Allergies No Known Allergies Allergy (Verified 02/02/23 13:18) Medication List - Last Reconciled 02/02/23 by Harriet Mccall CNP albuterol sulfate 90 mcg/actuation 2 puffs inhalation Q4-6H PRN 90 days atorvastatin 10 mg PO BEDTIME 90 days bisacodyl (Dulcolax (bisacodyl)) 10 mg (2 x 5 mg) PO ONCE 1 day budesonide 180 mcg/actuation (Pulmicort Flexhaler) 1 inh inhalation BID fluticasone propionate 44 mcg/actuation (Flovent HFA) 2 puffs inhalation BID 90 days polyethylene glycol 3350 (Miralax) 238 grams PO ONCE Tobacco use date assessed: 08/06/22 Dental Screening Dental Screen Date: 02/02/23 Did you have a dental visit in the last 12 months?: No Did you have a dental problem in the last 6 months where you did not have access to dental care?: No Was dental information given to patient?: Patient has dentist HPI HPI Comments History of Present Illness Details 57-year-old male presents for complete p hysical exam. He has past medical history of asthma, hyperlipidemia, chronic bronchitis, chronic kidney disease, and multiple pulmonary nodules. He admits to taking his medications as prescribed. He offers no complaints and denies acute symptoms. He is followed by [facility] pulmonology and was last seen early this month to discuss CT scan in September 2022 which revealed revealed increasing RLL nodule versus atelectasis as well as slight interval increase in size in the enlarged mediastinal and bilateral hilar lymph nodes. PET scan was ordered. He notes that he is followed by [facility] for chronic kidney disease and was advised to follow-up in a year from her last visit in September. However, he requests transferred to [facility] Nephrology for consult. He notes that he is waiting to be contacted by [facility] GI to schedule an appointment for a colonoscopy. He has not received the shingles vaccines but intend to do so. He notes that he no longer vapes. He denies cigarette smoking or drinking alcohol. [facility] Medical History No pertinent past medical history Surgical History No pertinent past surgical history Family History Father Stented coronary artery No family history of mental disorder Mother No family history of mental disorder Social History Household Members: Spouse and Children Housing: House Alcohol intake: never Patient Tobacco Use Status: Never used Tobacco e-Cigarette/Vaping Use: Never Used Substance Use Type: Marijuana service: No Current occupational status: employed 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 Current occupational exposures/hazards: Yes Cognitive needs: No Hearing needs: No Vision needs: No Questionnaire PHQ-9 Over the last 2 weeks, how often have you been bothered by any of the following problems? 1. Little interest or pleasure in doing things: not at all 2. Feeling down, depressed, or hopeless: not at all 3. Trouble falling or staying asleep, or sleeping too much: not at all 4. Feeling tired or having little energy: not at all 5. Poor appetite or overeating: not at all 6. Feeling bad about yourself - or that you are a failure or have let yourself or your family down: not at all 7. Trouble concentrating on things, such as reading the newspaper or watching television: not at all 8. Moving or speaking so slowly that other people could have noticed. Or the opposite - being so fidgety or restless that you have been moving around a lot more than usual: not at all 9. Thoughts that you would be better off or of hurting yourself in some way: not at all Total score: 0 Depression Screening Interpretation: Negative Depression Screening Done: Yes 45352 - PHQ-9 Billing: Yes Source: Developed by Drs. Willie Jrodan, Nickie Aly, Gabriel Caldera and colleagues, with an educational dev from [employer]. Thrive Questionnaire Date Thrive assessed: 02/02/23 I am a: Patient What is your living situation today?: I have a steady place to live Within the past 12 months, did the food you bought not last and you didn't have the money to get more?: Never true Within the past 12 months, did you worry whether your food would run out before you got money to buy more?: Never true Do you have trouble paying for medicines?: No Do you have trouble getting transportation to medical appointments?: No Do you have trouble paying your heating and electricity bill?: No Do you have trouble taking care of your child, family member or friend?: No Do you have trouble with day-to-day activities such as bathing, preparing meals, shopping, managing finances, etc.?: No Are you currently unemployed and looking for a job?: No Are you interested in more education?: No Please select the resources that you would like help with: None Currently or been in a relationship where the following occur: no concerns reported AUDIT C Alcohol Use Questionnaire (AUDIT-C) 1. How often do you have a drink containing alcohol?: Never 3. How often do you have six or more drinks on one occasion?: Never Total Score: 0 MINA-7 AMB Questionnaire MINA-7 Date MINA - 7 assessed: 02/02/23 Feeling nervous, anxious, or on edge: 1 = Several days Not being able to stop or control worryin = Not at all Worrying too much about different things: 0 = Not at all Trouble relaxin = Not at all Being so restless that it is hard to sit still: 0 = Not at all Becoming easily annoyed or irritable: 0 = Not at all Feeling afraid as if something awful might happen: 0 = Not at all Total MINA-7 score (0-4 normal; 5-9 mild; 10-14 moderate; 15-21 severe): 1 Source: Developed by Drs. Willie Jordan, Nickie Aly, Gabriel Caldera and colleagues, with an educational dev from [employer]. ACT Questionnaire In the past 4 weeks, how much of the time did your asthma keep you from getting as much done at work, school or at home?: A little of the time During the past 4 weeks, how often have you had shortness of breath?: 1-2 times a week During the past 4 weeks, how often did your asthma symptoms wake you up at night or earlier than usual in the morning?: Not at all During the past 4 weeks, how often have you had to use your rescue inhaler or nebulizer medication?: Once a week or less How would you rate your asthma control during the past 4 weeks?: Completely controlled ACT Interpretation: Negative Score: 22 Physical exam (Primary Care) Vital Signs: Last Vital Signs Temp 97.3 F 02/02/23 13:01 Pulse 77 02/02/23 13:01 Resp 13 02/02/23 13:01 BP 132/76 02/02/23 13:01 Pulse Ox 99 02/02/23 13:01 Oxygen Delivery Method Room Air 02/02/23 13:01 BMI result Body Mass Index 25.1 Tobacco/Smoking Status: Tobacco use Status Tobacco use date assessed 08/06/22 02/02/23 13:06 Patient Tobacco Use Status Never used Tobacco 02/02/23 13:06 e-Cigarette/Vaping Use Never Used 02/02/23 13:06 PHQ-9: PHQ-9 Score PHQ-9: Total score 0 02/02/23 13:42 Depression Screening Interpretation: Negative Thrive Assessment: Date of Thrive Assessment Date Thrive assessed 02/02/23 02/02/23 13:42 Currently or been in a relationship where the following occur: no concerns reported Assessment and Plan Assessment & Plan (1) Normal physical examination, routine: Code(s): Z00.00 - Encounter for general adult medical examination without abnormal findings Plan: No significant physical restrictions or limitations noted Advised to follow-up in 6 months for hyperlipidemia Continue follow-up with pulmonology as planned Return sooner with worsening or new symptoms Verbalized understanding and agreed with treatment plan. (2) Chronic kidney disease, stage II (mild): Code(s): N18.2 - Chronic kidney disease, stage 2 (mild) Plan: He notes that he was followed by [facility] for chronic kidney disease and was advised to follow-up in a year from her last visit in September. However, he requests transferred to [facility] Nephrology for consult. Recent creatinine and GFR levels have improved Referred to [facility] Nephrology. (3) Hyperlipidemia: Code(s): E78.5 - Hyperlipidemia, unspecified Plan: He had lipid panel blood work done this month. Triglyceride, total cholesterol, and LDL levels were normal. HDL level was slightly low. Continue to take atorvastatin as prescribed Limit foods high in saturated fat and avoid foods high trans fat Routine exercise encouraged Will recheck cholesterol levels in 6 months. Advised to fast for 10-12 hours b efore getting blood work done Follow-up in 6 months or return sooner with symptoms or concerns Verbalized understanding and agreed with treatment plan. (4) Asthma, well controlled: Code(s): J45.909 - Unspecified asthma, uncomplicated Plan: Stable (5) Vaccine counseling: Code(s): Z71.85 - Encounter for immunization safety counseling Plan: He has not had the Shingrix vaccines Instructed on importance of vaccination and advised to get the Shingrix vaccines Verbalized understanding and agreed with the plan. Orders: Orders Lipid Panel 6 Months E78.5 - Hyperlipidemia, unspecified Coding Level of Care Code Est Pt Prev Care 40-64y(10166) Diagnoses Normal physical examination, routine Z00.00 Chronic kidney disease, stage II (mild) N18.2 Hyperlipidemia E78.5 Asthma, well controlled J45.909 Vaccine counseling Z71.85
[2023-02-02 13:01] VITALS: BP 132/76; PULSE 77; RESP 13; TEMP 36.3; O2SAT 99; BMI 25.1
== END 2023-02-02 13:43 | disposition home or self-care (01) ==
PROVIDERS: PCP Nurse Practitioner Family; Visit Provider Nurse Practitioner Family
DX: Z00.00 Encounter for general adult medical examination without abnormal findings (principal); N18.2 Chronic kidney disease, stage 2 (mild); E78.5 Hyperlipidemia, unspecified; J45.909 Unspecified asthma, uncomplicated; Z71.85 Encounter for immunization safety counseling
CPT/HCPCS: 99396

== ENCOUNTER 2023-02-09 12:34 | Outpatient (REF) | payer OTHER, SELFPAY ==
--- NOTE | ~2023-02-09 | PE_ITS ---
EXAMINATION: Fluorine-18 FDG PET/CT Scan CLINICAL INDICATION: Initial treatment management. Solitary pulmonary nodule (abnormal finding lung field) PROCEDURE: 61 minutes following the intravenous administration of 16.4 mCi of fluorine 18 FDG, images from the base of the skull to the mid thighs were obtained using a combined PET/CT scanner with CT scan based attenuation correction. No oral contrast was administered. No intravenous contrast was administered. Transverse, coronal, sagittal, and volume reconstruction projections were obtained. The patient's blood glucose as determined by a finger stick, was 88 mg/dl immediately prior to injection. Total CT exam dose-length product 688.92 mGy-cm * These CT images were obtained using dose optimization techniques as appropriate, variously including the following: Automated exposure control * Adjustment of mA and/or kV according to patient size (this includes techniques or standardized protocols for targeted exams where dose is matched to indication/reason for exam; i.e. extremities or head) * Use of iterative reconstruction technique COMPARISON: No previous PET/CT scan is available for comparison. CT of the chest dated 12/28/2022 is available for comparison. FINDINGS: (Slice numbers described in this report are numbered superiorly to inferiorly with slice #1 in the head) NECK AND VISUALIZED HEAD: Bilateral maxillary sinus mucosal thickening is noted, with mildly increased FDG activity diffusely. No other foci of abnormal FDG activity are noted. The distribution of FDG activity is physiological. There is no cervical lymphadenopathy. THORAX: A focus of scarring or atelectasis abutting the pleura in the right lower lobe measuring 1.6 x 0.7 cm is noted, unchanged from 12/28/2022 and showing no abnormal FDG activity. There is a 0.5 right middle lobe nodule, slice 99/267 and a 0.4 medial costophrenic posterior right lower lobe nodule, slice 123/267. These appear unchanged from 12/28/2022. No additional nodules are visualized on these nondiagnostic CT images, and both of these are much too small to be characterized on the FDG PET images. There is no pleural or pericardial fluid, or pneumothorax. Multiple FDG avid enlarged mediastinal, bilateral hilar and bilateral proximal peribronchial lymph nodes are present. The most superior of these is a right paratracheal lymph node at the T2 level showing SUVmax 6.6, slice 63/267 measuring 1.6 x 0.9 cm in largest transverse dimensions, and the most inferior is a lower paratracheal lymph node showing SUVmax 5.1, slice 112/267 measuring 1.5 x 1.1 cm. The most intense is a right hilar lymph node showing SUVmax 8.5, slice 85/267 measuring 3.7 x 2.6 cm in largest transverse dimensions. Extensive AP window, periaortic and subcarinal FDG avid lymphadenopathy is present. There is no axillary or supraclavicular lymphadenopathy present. ABDOMEN AND PELVIS: There is marked distortion of the left kidney architecture by multiple FDG photopenic fluid density cysts. There is coexisting moderate hydronephrosis with a densely calcified obstructing calculus present in the mid left ureter measuring 1.5 x 0.8 cm at the L4 level. FDG activity in the left ureter distal to this obstructing calculus is not visualized. An additional densely calcified 1.5 x 1.0 cm calculus posteriorly in the lower pole of the left kidney is probably not obstructing. The left kidney is unremarkable and there is faint visualization of the left ureter extending to the urinary bladder which is well visualized. Some bladder wall thickening is present, but the FDG avidity of this cannot be evaluated because of the intense physiological urinary FDG activity within the bladder. There is mild FDG activity throughout the gastrointestinal tract without a suspicious focal component. There is diverticulosis without evidence of diverticulitis. The hollow viscera are otherwise unremarkable. The liver, gallbladder, spleen, adrenal glands, and pancreas appear unremarkable. There is no retroperitoneal, mesenteric, pelvic or inguinal lymphadenopathy. MUSCULOSKELETAL: There are no foci of abnormal FDG activity in the osseous structures. There are diffuse degenerative changes in the spine. There are no suspicious sclerotic or lytic lesions visualized. VASCULAR: No significant abnormalities are present. Reference SUVmax Levels: Mediastinal Blood Pool: 2.3, Slice 115/349 Liver: 3.8, Slice 161/349 PET/PET CT fusion skull to thigh IMPRESSION: 1. Extensive FDG avid mediastinal lymphadenopathy is noted as described above. This is most likely malignant in etiology and strongly suspicious for lymphoma. 2. An opacity abutting the posterior pleura of the right lower lobe is unchanged in appearance from the 12/28/2022 CT scan and shows no abnormal FDG activity. This is likely due to scarring or atelectasis. 3. Additional subcentimeter nodules are present as described above, all too small to be characterized on the FDG PET images. Continued monitoring of these with diagnostic CT imaging in approximately 6 months is recommended. 4. There is left-sided hydronephrosis caused by an obstructing calculus in the mid left ureter as described above. This is likely an acute obstruction as the function of the left kidney appears well-preserved. Coexisting fluid density cysts are also present within this kidney and these are markedly FDG photopenic. Further characterization of these findings with CT colonoscopy is strongly suggested. 5. No additional abnormalities suspicious for other metastatic or malignant lesions are noted. 6. Bilateral maxillary sinusitis.
== END 2023-02-09 12:35 | disposition home or self-care (01) ==
LOC: HO.PET 12:34
PROVIDERS: PCP Nurse Practitioner Family; Visit Provider Internal Medicine Pulmonary Disease
DX: Z13.89 Encounter for screening for other disorder (principal)

== ENCOUNTER 2023-02-12 10:27 | Outpatient (AMB) | payer OTHER, SELFPAY ==
[2023-02-12 10:28] VITALS: BP 142/66; PULSE 114; O2SAT 94
--- NOTE | 2023-02-12 10:28 | MHC.OFFVIS ---
Intake Vital Signs 02/12/23 10:28 Height 5 ft 10 in BP 142/66 H Blood Pressure Location Rt brachial Position Sitting Pulse 114 H Pulse Source Pulse Oximeter Pulse Oximetry (%) 94 Oxygen Delivery Method Room Air Intake Visit Reasons: PET scan review Political Science Research Assistant Required: No Freezer Laboratory Technician: Freezer Laboratory Technician offered & declined Accompanied by: Self / Same As Patient Allergies No Known Allergies Allergy (Verified 02/12/23 10:35) Medication List - Last Reconciled 02/12/23 by Rizwana Kim LPN albuterol sulfate 90 mcg/actuation 2 puffs inhalation Q4-6H PRN 90 days atorvastatin 10 mg PO BEDTIME 90 days bisacodyl (Dulcolax (bisacodyl)) 10 mg (2 x 5 mg) PO ONCE 1 day budesonide 180 mcg/actuation (Pulmicort Flexhaler) 1 inh inhalation BID fluticasone propionate 44 mcg/actuation (Flovent HFA) 2 puffs inhalation BID 90 days polyethylene glycol 3350 (Miralax) 238 grams PO ONCE HPI PET scan review HPI Details Alcides is a pleasant 57 year old male, never tobacco smoker, with underlying asthma and asbestos exposure. He did undergo a VATS procedure in 2000 due to empyema, otherwise has not had any respiratory issues until a year ago after his second occurrence of COVID. Today he presents to review PET scan results. Prior chest CT and three month follow up scan revealed multiple abnormalities including interval increase in size in the enlarged mediastinal and bilateral hilar lymph nodes. He denies any respiratory symptoms at this time. He denies fevers, chills, nightsweats or weight loss. He denies any family history of cancer. [facility] Medical History (Updated 02/12/23 @ 13:39 by Eva Mora NP) Mediastinal lymphadenopathy Multiple pulmonary nodules Asbestos exposure Asthma Environmental allergies Chronic kidney disease, stage II (mild) Hyperlipidemia Surgical History (Updated 02/12/23 @ 08:35 by Natalie Carmona PA-C) History of lung surgery Family History Father Stented coronary artery No family history of mental disorder Mother No family history of mental disorder Social History Household Members: Spouse and Children Housing: House Alcohol intake: never Patient Tobacco Use Status: Never used Tobacco e-Cigarette/Vaping Use: Never Used Substance Use Type: Marijuana service: No Current occupational status: employed 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 Current occupational exposures/hazards: Yes Cognitive needs: No Hearing needs: No Vision needs: No Review of Systems Const Denies chills, Denies excessive sweating, Denies fever(s), Denies headache(s) and Denies night sweats Eyes Denies dry eyes and Denies irritation ENT Reports Normal hearing present, Denies headache(s), Denies nasal congestion, Denies post nasal drip and Denies sore throat Card Denies chest pain, Denies chest pain at rest, Denies chest pain with activity and Denies leg edema Resp Denies chest congestion, Denies cough, Denies excessive phlegm production, Denies pain on inspiration, Denies pain with cough and Denies stridor Musc Denies myalgias Neuro Reports Normal hearing present and Denies headache(s) Endo Denies excessive sweating Bal/Lymph Denies lymphadenopathy Physical Exam Vital Signs: Last Vital Signs Pulse 114 H 02/12/23 10:28 BP 142/66 H 02/12/23 10:28 Pulse Ox 94 02/12/23 10:28 Oxygen Delivery Method Room Air 02/12/23 10:28 Const General: cooperative, healthy appearing, comfortable, no acute distress, well developed and alert Orientation/consciousness: patient oriented x3 Limitations: no limitations HEENT Head: Yes normal to inspection, Yes normocephalic and Yes atraumatic Ears: hearing grossly normal bilaterally and external ears normal Eyes General: appearance normal, both eyes and all related structures Eyelids: Yes eyelids normal Sclerae: sclerae normal EOM: EOMs intact bilaterally Neck Neck: Yes normal visual inspection and Yes no lymphadenopathy Lymphatic: no lymphadenopathy noted Chest Chest palpation & inspection: normal inspection of the chest Resp Effort & Inspection: normal respiratory effort, able to speak in complete sentences, no audible wheezes, no cough, no stridor, not tachypneic, no tripod positioning and no use of accessory muscles Cardio Jugular venous distension: no JVD Rate: regular rate Rhythm: regular rhythm Skin Other: warm, dry General skin exam: no rashes or lesions noted Neuro General: patient oriented x3 Cranial nerves: Yes Normal hearing present Cognition (Neuro): normal cognition Gait exam (Neuro): Normal gait present Extrem General: Yes normal to inspection, Yes capillary refill normal, Yes no clubbing, cyanosis or edema and Yes no pedal edema Psych Appearance: grossly normal and well kempt Speech and movement: Normal speech and movement present and Clear speech present Affect: normal affect Attitude: cooperative Thought process: Normal thought process present Thought content: Normal thought content present Insight: Good insight present (Psych) Judgement: Good judgement present (Psych) Results Reviewed Results Reviewed: [address] [address] PET Report Signed with Addenda Patient: Alcides Holt MR#: [id number] : 1965 Acct:[id number] Age/Sex: 57 / M ADM Date: 02/09/23 Loc: HO.PET Attending Dr: Asif Epstein MD Ordering Physician: Eva Mora NP Date of Service: 02/09/23 Procedure(s): PET CT fusion skull to thigh Accession Number(s): [id number] cc: Eva Mora DATA CENTER PROJECT MANAGER; Harriet Mccall [facility]~ ADDENDUMThis Critical Result was discussed with Dr. Epstein at 11:32 AM on 02/11/2023 and it was ascertained that the content and urgency of the report was understood at the time of direct communication. Addendum Dictated By: Rocco Wright MD Addendum Signed By: <Electronically signed by Rocco Wright MD in OV> 02/11/23 1136 Addendum Cosigned By: DD/ TD/TT: / EXAMINATION: Fluorine-18 FDG PET/CT Scan CLINICAL INDICATION: Initial treatment management. Solitary pulmonary nodule (abnormal finding lung field) PROCEDURE: 61 minutes following the intravenous administration of 16.4 mCi of fluorine 18 FDG, images from the base of the skull to the mid thighs were obtained using a combined PET/CT scanner with CT scan based attenuation correction. No oral contrast was administered. No intravenous contrast was administered. Transverse, coronal, sagittal, and volume reconstruction projections were obtained. The patient's blood glucose as determined by a finger stick, was 88 mg/dl immediately prior to injection. Total CT exam dose-length product 688.92 mGy-cm * These CT images were obtained using dose optimization techniques as appropriate, variously including the following: Automated exposure control * Adjustment of mA and/or kV according to patient size (this includes techniques or standardized protocols for targeted exams where dose is matched to indication/reason for exam; i.e. extremities or head) * Use of iterative reconstruction technique COMPARISON: No previous PET/CT scan is available for comparison. CT of the chest dated 12/28/2022 is available for comparison. FINDINGS: (Slice numbers described in this report are numbered superiorly to inferiorly with slice #1 in the head) NECK AND VISUALIZED HEAD: Bilateral maxillary sinus mucosal thickening is noted, with mildly increased FDG activity diffusely. No other foci of abnormal FDG activity are noted. The distribution of FDG activity is physiological. There is no cervical lymphadenopathy. THORAX: A focus of scarring or atelectasis abutting the pleura in the right lower lobe measuring 1.6 x 0.7 cm is noted, unchanged from 12/28/2022 and showing no abnormal FDG activity. There is a 0.5 right middle lobe nodule, slice 99/267 and a 0.4 medial costophrenic posterior right lower lobe nodule, slice 123/267. These appear unchanged from 12/28/2022. No additional nodules are visualized on these nondiagnostic CT images, and both of these are much too small to be characterized on the FDG PET images. There is no pleural or pericardial fluid, or pneumothorax. Multiple FDG avid enlarged mediastinal, bilateral hilar and bilateral proximal peribronchial lymph nodes are present. The most superior of these is a right paratracheal lymph node at the T2 level showing SUVmax 6.6, slice 63/267 measuring 1.6 x 0.9 cm in largest transverse dimensions, and the most inferior is a lower paratracheal lymph node showing SUVmax 5.1, slice 112/267 measuring 1.5 x 1.1 cm. The most intense is a right hilar lymph node showing SUVmax 8.5, slice 85/267 measuring 3.7 x 2.6 cm in largest transverse dimensions. Extensive AP window, periaortic and subcarinal FDG avid lymphadenopathy is present. There is no axillary or supraclavicular lymphadenopathy present. ABDOMEN AND PELVIS: There is marked distortion of the left kidney architecture by multiple FDG photopenic fluid density cysts. There is coexisting moderate hydronephrosis with a densely calcified obstructing calculus present in the mid left ureter measuring 1.5 x 0.8 cm at the L4 level. FDG activity in the left ureter distal to this obstructing calculus is not visualized. An additional densely calcified 1.5 x 1.0 cm calculus posteriorly in the lower pole of the left kidney is probably not obstructing. The left kidney is unremarkable and there is faint visualization of the left ureter extending to the urinary bladder which is well visualized. Some bladder wall thickening is present, but the FDG avidity of this cannot be evaluated because of the intense physiological urinary FDG activity within the bladder. There is mild FDG activity throughout the gastrointestinal tract without a suspicious focal component. There is diverticulosis without evidence of diverticulitis. The hollow viscera are otherwise unremarkable. The liver, gallbladder, spleen, adrenal glands, and pancreas appear unremarkable. There is no retroperitoneal, mesenteric, pelvic or inguinal lymphadenopathy. MUSCULOSKELETAL: There are no foci of abnormal FDG activity in the osseous structures. There are diffuse degenerative changes in the spine. There are no suspicious sclerotic or lytic lesions visualized. VASCULAR: No significant abnormalities are present. Reference SUVmax Levels: Mediastinal Blood Pool: 2.3, Slice 115/349 Liver: 3.8, Slice 161/349 PET/PET CT fusion skull to thigh IMPRESSION: 1. Extensive FDG avid mediastinal lymphadenopathy is noted as described above. This is most likely malignant in etiology and strongly suspicious for lymphoma. 2. An opacity abutting the posterior pleura of the right lower lobe is unchanged in appearance from the 12/28/2022 CT scan and shows no abnormal FDG activity. This is likely due to scarring or atelectasis. 3. Additional subcentimeter nodules are present as described above, all too small to be characterized on the FDG PET images. Continued monitoring of these with diagnostic CT imaging in approximately 6 months is recommended. 4. There is left-sided hydronephrosis caused by an obstructing calculus in the mid left ureter as described above. This is likely an acute obstruction as the function of the left kidney appears well-preserved. Coexisting fluid density cysts are also present within this kidney and these are markedly FDG photopenic. Further characterization of these findings with CT colonoscopy is strongly suggested. 5. No additional abnormalities suspicious for other metastatic or malignant lesions are noted. 6. Bilateral maxillary sinusitis. Assessment & Plan Assessment & Plan (1) Asthma: Code(s): J45.909 - Unspecified asthma, uncomplicated (2) Environmental allergies: Code(s): Z91.09 - Other allergy status, other than to drugs and biological substances (3) Asbestos exposure: Code(s): Z77.090 - Contact with and (suspected) exposure to asbestos (4) Multiple pulmonary nodules: Code(s): R91.8 - Other nonspecific abnormal finding of lung field (5) Incidental pulmonary nodule, greater than or equal to 8mm: Code(s): R91.1 - Solitary pulmonary nodule (6) Hydronephrosis: Code(s): N13.30 - Unspecified hydronephrosis Plan We reviewed PET scan which revealed extensive FDG avid mediastinal lymphadenopathy which is concerning for malignancy. Discussed in detail with patient the findings and the possibility of a neoplastic process, but can not be certain without biopsy. Reviewed with Dr. Epstein and will schedule patient for EBUS. Also reviewed incidental finding of left sided hydronephrosis. Patient states he is aware he had an obstruction as well as elevated creatinine and was previously under the care of nephrology but has had difficulty following up. Denies any back pain, fevers, nausea/vomiting or difficulty urinating. Will enter urgent referral to urology. All questions were answered and patient is in agreement of plan. Will follow up to review results. Orders: Referrals Urology Referral N13.30 - Unspecified hydronephrosis Coding Level of Care Code Est Pt Level 4 (80323) Diagnoses Asthma J45.909 Environmental allergies Z91.09 Asbestos exposure Z77.090 Multiple pulmonary nodules R91.8 Incidental pulmonary nodule, greater than or equal to 8mm R91.1 Hydronephrosis N13.30
== END 2023-02-12 10:51 | disposition home or self-care (01) ==
PROVIDERS: PCP Nurse Practitioner Family; Visit Provider Nurse Practitioner Family
DX: J45.909 Unspecified asthma, uncomplicated (principal); Z91.09 Other allergy status, other than to drugs and biological substances; Z77.090 Contact with and (suspected) exposure to asbestos; R91.8 Other nonspecific abnormal finding of lung field; R91.1 Solitary pulmonary nodule; N13.30 Unspecified hydronephrosis
CPT/HCPCS: 99214

== ENCOUNTER → 2023-02-12 10:27 | Outpatient (BNVA) | payer OTHER, SELFPAY | PROVIDERS: PCP Nurse Practitioner Family; Visit Provider Nurse Practitioner Family ==

== ENCOUNTER 2023-02-16 13:37 | Outpatient (REF) | payer OTHER, SELFPAY | END 2023-02-16 13:38 | disposition home or self-care (01) | LOC: HO.LNP 13:37 | PROVIDERS: PCP Nurse Practitioner Family; Visit Provider Nurse Practitioner Family | DX: N13.30 Unspecified hydronephrosis (principal); N39.0 Urinary tract infection, site not specified; N13.2 Hydronephrosis with renal and ureteral calculous obstruction | CPT/HCPCS: 81003; 87086 ==

== ENCOUNTER 2023-02-16 13:37 | Outpatient (AMB) | payer OTHER, SELFPAY ==
--- NOTE | 2023-02-16 14:00 | A.OFFVIS_ITS ---
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 Vocal Required: No Accompanied by: Self / Same As Patient Allergies No Known Allergies Allergy (Verified 02/16/23 14:53) Medication List - Last Reconciled 02/16/23 by HAI Thomas- albuterol sulfate 90 mcg/actuation 2 puffs inhalation Q4-6H PRN 90 days atorvastatin 10 mg PO BEDTIME 90 days bisacodyl (Dulcolax (bisacodyl)) 10 mg (2 x 5 mg) PO ONCE 1 day fluticasone propionate 44 mcg/actuation (Flovent HFA) 2 puffs inhalation BID 90 days polyethylene glycol 3350 (Miralax) 238 grams PO ONCE HPI HPI Comments History of Present Illness Details Alcides is a very pleasant 57-year-old male patient of Dr. Mccall. He has a past medical history of mediastinal lymphadenopathy, multiple pulmonary nodules, asbestos exposure, asthma, environmental allergies, chronic kidney disease stage 2, and hyperlipidemia. He presents to the office today as a new patient for left-sided hydronephrosis noted on recent PET scan. Patient reports having had recent PET scan due to recent diagnosis of lung cancer. There is left-sided hydronephrosis caused by an obstructing calculus in the mid left ureter as described above. This is likely an acute obstruction as the function of the left kidney appears well-preserved. Coexisting fluid density cysts are also present within this kidney and these are markedly FDG photopenic. When asked patient reports previous history of nephrolithiasis and having had ESWL in the past with [facility]. He reports last follow-up with Urology was approximately 5-6 years ago. He discusses having had a bad experience with [facility] regarding loss of kidney stone he had given them for further assessment evaluation. He otherwise denies any bothersome urinary issues or concerns at this time. In office urinalysis with 3+ leukocytes and 2+ microscopic hematuria. When asked patient currently denies urinary urgency, urinary frequency, incontinence, nocturia, hematuria, dysuria, foul smelling urine, changes to urinary stream, flank pain, fever, and or chills. He is happy with his current voiding parameters. Discussed at length surgical intervention regarding left-sided hydronephrosis related to obstructing calculus. Discussed risks and benefits of cystoscopy, retrograde, ureteroscopy, possible lithotripsy/stone basketing and stent on the left side. All questions were answered. [facility] Medical History Mediastinal lymphadenopathy Multiple pulmonary nodules Asbestos exposure Asthma Environmental allergies Chronic kidney disease, stage II (mild) Hyperlipidemia Surgical History History of lung surgery Family History Father Stented coronary artery No family history of mental disorder Mother No family history of mental disorder Social History Household Members: Spouse and Children Housing: House Alcohol intake: never Patient Tobacco Use Status: Never used Tobacco e-Cigarette/Vaping Use: Never Used Substance Use Type: Marijuana service: No Current occupational status: employed 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 Current occupational exposures/hazards: Yes Cognitive needs: No Hearing needs: No Vision needs: No Review of Systems Const Reports as per HPI Eyes Reports no additional complaints ENT Reports no additional complaints Card Reports as per HPI Resp Reports as per HPI GI Reports as per HPI Reports as per HPI Musc Reports no additional complaints Neuro Reports no additional complaints Psych Reports no additional complaints Endo Reports no additional complaints Bal/Lymph Reports as per HPI Physical Exam Const General: cooperative, healthy appearing, comfortable, no acute distress, well developed, alert and awake Nutritional Appearance: average body habitus Orientation/consciousness: patient oriented x3 Limitations: no limitations HEENT Head: Yes normal to inspection, Yes normocephalic and Yes atraumatic Ears: hearing grossly normal bilaterally Eyes General: appearance normal, both eyes and all related structures Neck Neck: Yes normal visual inspection and Yes trachea midline Chest Chest palpation & inspection: normal inspection of the chest Resp Effort & Inspection: normal respiratory effort and able to speak in complete sentences Cardio Rate: regular rate GI Inspection: Yes normal to inspection General: Yes no CVA tenderness Back/Spine/Pelvis Back: no CVA tenderness Skin General skin exam: no rashes or lesions noted Neuro General: patient oriented x3 Extrem General: Yes normal to inspection Psych Appearance: grossly normal and well kempt Mental Status: mental status grossly normal Speech and movement: Normal speech and movement present and Clear speech present Affect: normal affect Attitude: cooperative Thought process: Normal thought process present Thought content: Normal thought content present Insight: Fair insight present (Psych) Judgement: Fair judgement present (Psych) Results AMB Urinalysis, Automated UA Leukoctes 500 Lisa/uL Last Edit by Goyo Aguilar on 02/16/23 14:24 UA Nitrite Negative Last Edit by Goyo Aguilar on 02/16/23 14:24 UA Urobilinogen 0.2 mg/dL Last Edit by Goyo Aguilar on 02/16/23 14:24 UA Protein 30 mg/dL Last Edit by [employer] Aguilar on 02/16/23 14:24 UA pH 6.0 Last Edit by Goyo Aguilar on 02/16/23 14:24 UA Blood 80 Dario/uL Last Edit by Goyo Aguilar on 02/16/23 14:24 UA Specific [place] 1.025 Last Edit by Goyo Aguilar on 02/16/23 14:24 UA Ketone Negative Last Edit by Goyo Aguilar on 02/16/23 14:24 UA Bilirubin 0 mg/dL Last Edit by [employer] Agu[facility] on 02/16/23 14:24 UA Glucose 0 mg/dL Last Edit by Goyo Aguilar on 02/16/23 14:24 Results Reviewed Results Reviewed: Laboratory Last Values Urine pH (Auto) 6.0 02/16/23 14:23 Specific [place] (Auto) 1.025 02/16/23 14:23 Urine Protein (Auto) 30 mg/dL 02/16/23 14:23 Glucose (UA)(Auto) 0 mg/dL 02/16/23 14:23 Urine Ketones (Auto) Negative 02/16/23 14:23 Urine Blood (Auto) 80 Dario/uL 02/16/23 14:23 Urine Nitrite (Auto) Negative 02/16/23 14:23 Urine Bilirubin (Auto) 0 mg/dL 02/16/23 14:23 Urine Urobilinogen (Auto) 0.2 mg/dL 02/16/23 14:23 Leukocyte Esterase (Auto) 500 Lisa/uL 02/16/23 14:23 Date of Service: 02/09/23 Procedure(s): PET CT fusion skull to thigh EXAMINATION: Fluorine-18 FDG PET/CT Scan FINDINGS: (Slice numbers described in this report are numbered superiorly to inferiorly with slice #1 in the head) NECK AND VISUALIZED HEAD: Bilateral maxillary sinus mucosal thickening is noted, with mildly increased FDG activity diffusely. No other foci of abnormal FDG activity are noted. The distribution of FDG activity is physiological. There is no cervical lymphadenopathy. THORAX: A focus of scarring or atelectasis abutting the pleura in the right lower lobe measuring 1.6 x 0.7 cm is noted, unchanged from 12/28/2022 and showing no abnormal FDG activity. There is a 0.5 right middle lobe nodule, slice 99/267 and a 0.4 medial costophrenic posterior right lower lobe nodule, slice 123/267. These appear unchanged from 12/28/2022. No additional nodules are visualized on these nondiagnostic CT images, and both of these are much too small to be characterized on the FDG PET images. There is no pleural or pericardial fluid, or pneumothorax. Multiple FDG avid enlarged mediastinal, bilateral hilar and bilateral proximal peribronchial lymph nodes are present. The most superior of these is a right paratracheal lymph node at the T2 level showing SUVmax 6.6, slice 63/267 measuring 1.6 x 0.9 cm in largest transverse dimensions, and the most inferior is a lower paratracheal lymph node showing SUVmax 5.1, slice 112/267 measuring 1.5 x 1.1 cm. The most intense is a right hilar lymph node showing SUVmax 8.5, slice 85/267 measuring 3.7 x 2.6 cm in largest transverse dimensions. Extensive AP window, periaortic and subcarinal FDG avid lymphadenopathy is present. There is no axillary or supraclavicular lymphadenopathy present. ABDOMEN AND PELVIS: There is marked distortion of the left kidney architecture by multiple FDG photopenic fluid density cysts. There is coexisting moderate hydronephrosis with a densely calcified obstructing calculus present in the mid left ureter measuring 1.5 x 0.8 cm at the L4 level. FDG activity in the left ureter distal to this obstructing calculus is not visualized. An additional densely calcified 1.5 x 1.0 cm calculus posteriorly in the lower pole of the left kidney is probably not obstructing. The left kidney is unremarkable and there is faint visualization of the left ureter extending to the urinary bladder which is well visualized. Some bladder wall thickening is present, but the FDG avidity of this cannot be evaluated because of the intense physiological urinary FDG activity within the bladder. There is mild FDG activity throughout the gastrointestinal tract without a suspicious focal component. There is diverticulosis without evidence of diverticulitis. The hollow viscera are otherwise unremarkable. The liver, gallbladder, spleen, adrenal glands, and pancreas appear unremarkable. There is no retroperitoneal, mesenteric, pelvic or inguinal lymphadenopathy. MUSCULOSKELETAL: There are no foci of abnormal FDG activity in the osseous structures. There are diffuse degenerative changes in the spine. There are no suspicious sclerotic or lytic lesions visualized. VASCULAR: No significant abnormalities are present. Reference SUVmax Levels: Mediastinal Blood Pool: 2.3, Slice 115/349 Liver: 3.8, Slice 161/349 IMPRESSION: 1. Extensive FDG avid mediastinal lymphadenopathy is noted as described above. This is most likely malignant in etiology and strongly suspicious for lymphoma. 2. An opacity abutting the posterior pleura of the right lower lobe is unchanged in appearance from the 12/28/2022 CT scan and shows no abnormal FDG activity. This is likely due to scarring or atelectasis. 3. Additional subcentimeter nodules are present as described above, all too small to be characterized on the FDG PET images. Continued monitoring of these with diagnostic CT imaging in approximately 6 months is recommended. 4. There is left-sided hydronephrosis caused by an obstructing calculus in the mid left ureter as described above. This is likely an acute obstruction as the function of the left kidney appears well-preserved. Coexisting fluid density cysts are also present within this kidney and these are markedly FDG photopenic. Further characterization of these findings with CT colonoscopy is strongly suggested. 5. No additional abnormalities suspicious for other metastatic or malignant lesions are noted. 6. Bilateral maxillary sinusitis. Assessment & Plan Assessment & Plan (1) Hydronephrosis: Code(s): N13.30 - Unspecified hydronephrosis (2) Urinary tract infection: Code(s): N39.0 - Urinary tract infection, site not specified (3) Hydronephrosis with obstructing calculus: Code(s): N13.2 - Hydronephrosis with renal and ureteral calculous obstruction Plan: Ureteroscopy We discussed the nature of the decision and reasonable alternatives for performing ureteroscopy. Options such as medical therapy were discussed. Interventions include chemical dissolution, ESWL, ureteroscopy with laser lithotripsy and stent placement, PCNL. The relative uncertainties and benefits related to each alternate procedure were adequately discussed. General surgical risks including, but not limited to - pain, bleeding, infection, myocardial infarction, pulmonary embolus, deep vein thrombosis and cerebrovascular accident which may result in further hospitalization were discussed.? Full disclosure of the procedure as well as all major risks, benefits and complications were discussed including but not limited to damage to the urethra, bladder and kidney infection, damage to the ureter, stent migration or malposition, scarring to the renal pelvis, remnant stone fragments, subsequent stone passage with need for secondary procedures. The overall secondary procedure rate is approximately 10-15%.? The overall clearance rate is approximately 90-95%. Success of the procedure in the short-term does not necessarily guarantee that long-term success will be maintained. Suitable follow up will need to be maintained. The patient showed understanding of discussion and wishes to proceed with - cystoscopy, retrograde, ureteroscopy, possible lithotripsy/stone basketing and stent on the left side Plan In office urinalysis results reviewed with the patient today; as noted above; will send for urine culture. Start Bactrim b.i.d. as discussed and prescribed. Will schedule for left-sided cystoscopy, retrograde, ureteroscopy, possible lithotripsy/stone basketing and stent placement; this was discussed at length risks and benefits. Information provided regarding surgical procedure. Patient denies any bothersome urinary issues or concerns at this time. PET scan results reviewed with the patient today; as noted above. Patient reports be happy with current voiding parameters. All questions were answered. Will schedule for surgical procedure with Dr. Graff; or sooner with any issues, concerns, and or questions. Orders: Orders AMB Urinalysis Automated Today Z13.9 - Encounter for screening, unspecified Urine Culture Today N39.0 - Urinary tract infection, site not specified Medications: New sulfamethoxazole-trimethoprim 800-160 mg (Bactrim DS) 1 tab PO BID 20 tabs 0RF 10 days N39.0 - Urinary tract infection, site not specified Patient Instructions: The patient had an opportunity to ask questions regarding the treatment plan. All questions were answered. Physical exam, labs, and imaging were discussed and reviewed in detail. As well as risks, benefits, and discussion of treatment choices. No major barriers to understanding were identified. The patient expressed understanding and agreement with the above treatment plan. The patient was made aware they should contact our office by phone for worsening of their current condition, the appearance of new symptoms, or with any questions or concerns. Compliance is encouraged with any medications and follow up testing that is ordered. It is a privilege to be allowed the opportunity to participate in? your urological care.? Again, if you have any questions or concerns If you have any questions or concerns please do not hesitate to contact me. The office is [phone]. This note is constructed using voice recognition software. While every effort has been made to ensure accuracy jboss architect errors may have been included. Yours sincerely, ANA Thomas Coding Level of Care Code New Pt Level 4 (47177) Diagnoses Hydronephrosis N13.30 Urinary tract infection N39.0 Hydronephrosis with obstructing calculus N13.2
== END 2023-02-16 14:51 | disposition home or self-care (01) ==
PROVIDERS: PCP Nurse Practitioner Family; Visit Provider Nurse Practitioner Family
DX: N13.30 Unspecified hydronephrosis (principal); N39.0 Urinary tract infection, site not specified; N13.2 Hydronephrosis with renal and ureteral calculous obstruction; Z13.9 Encounter for screening, unspecified
CPT/HCPCS: 99204

== ENCOUNTER 2023-02-22 12:02 | Day surgery (SDC) | payer OTHER, SELFPAY ==
[2023-02-22] VITALS (7 sets, daily range): BP systolic 115–149; BP diastolic 79–97; PULSE 90–99; RESP 18–24; TEMP 36.1–36.4; O2SAT 95–99; BMI 24.4
--- NOTE | ~2023-02-22 | FL_ITS ---
EXAMINATION: XR FLUOROSCOPY WITH IMAGES CLINICAL INFORMATION: Cystoscopy, ureteroscopy, retrograde, left. COMPARISON: Head CT January 2023 TECHNIQUE: Fluoroscopy Supervised By: Dr. Ronnie Graff. Fluoroscopy Time: 370.3 seconds. Cumulative Dose: 97.43 mGy. DAP: Not available. Images: 3. FINDINGS: Initial image demonstrates contrast opacification of the left proximal ureter. There is a filling defect seen which when compared with PET scan probably represents a stone. Later images demonstrate placement of a left internal ureteral stent. There may be contrast extravasation around the left renal collecting system. FL/FL guidance in OR IMPRESSION: Fluoroscopy guidance for left retrograde exam and ureteral stent placement.
[2023-02-22] MEDS: Lactated Ringers 1,000 ML 100 ML IVCONT (12:32)
--- NOTE | 2023-02-22 15:09 | P.CONAN_ITS ---
[facility] Active Problems Active Problems: All Active Problems (Updated 02/16/23 @ 15:22 by Joanne Menon [facility]) Hydronephrosis with obstructing calculus (Acute) Urinary tract infection (Acute) Hydronephrosis (Acute) Chronic kidney disease, stage II (mild) (Acute) Elevated fasting glucose (Acute) Hyperlipidemia (Acute) Mediastinal lymphadenopathy (Acute) Multiple pulmonary nodules (Acute) Asthma (Acute) Asbestos exposure (Acute) Environmental allergies (Acute) Incidental pulmonary nodule, greater than or equal to 8mm (Acute) Shortness of breath (Acute) Current cannabis vaping on some days (Acute) Bronchitis, chronic with acute exacerbation (Acute) Elevated serum creatinine (Acute) Colon cancer screening (Acute) Vaccine counseling (Acute) Past Medical History Medical History Mediastinal lymphadenopathy Multiple pulmonary nodules Asbestos exposure Asthma Environmental allergies Chronic kidney disease, stage II (mild) Hyperlipidemia Family History Family History Father Stented coronary artery No family history of mental disorder Mother No family history of mental disorder Surgical History Surgical History History of lung surgery History of Problems with Anesthesia: No Social History Social History Household Members: Spouse and Children Housing: House Alcohol intake: never Patient Tobacco Use Status: Never used Tobacco e-Cigarette/Vaping Use: Never Used Substance Use Type: Marijuana Substance Use Frequency: Weekly Have you been hit, kicked, punched, or otherwise hurt by someone within the past year? 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 Current occupational exposures/hazards: Yes Cognitive needs: No Hearing needs: No Vision needs: No Meds Allergies Allergy/AdvReac Type Severity Reaction Status Date / Time No Known Allergies Allergy Verified 02/16/23 14:53 Active Medications: Current Medications Albuterol Sulfate (Albuterol Sulfate (0.083%) 2.5 Mg/3 Ml Vial.Neb) 2.5 mg INHALE ONCE PRN PRN Reason: Shortness of Breath/Wheezing Lactated Ringer's (Lr) 1,000 mls @ 100 mls/hr IVCONT .Q10H EUGENIA Last Admin: 02/22/23 12:32 Dose: 100 mls/hr Levofloxacin (Levaquin) 500 mg in 100 mls @ 100 mls/hr IV PREOP ONE Stop: 02/22/23 15:14 Exam Exam Date and Time: February 22, 2023 1509 Height,Weight and Vital Signs: Height 5 ft 10 in Weight 77.111 kg Last Vital Signs Temp 97.5 F 02/22/23 12:27 Pulse 90 02/22/23 12:27 Resp 18 02/22/23 12:27 BP 115/79 02/22/23 12:27 Pulse Ox 95 02/22/23 12:27 O2 Del Method Room Air 02/22/23 12:27 Airway Mallampati Class: II TM Dist: >3cm Neck ROM: Full Loose/Missing/Broken Teeth: No Heart: RRR Lungs: CTA Assessment and Plan Assessment Anesthesia Assessment: Anesthesia Plan Discussed and Chart Reviewed Final Anesthetic Review History of Problems with Anesthesia: No NPO: Yes ASA Class: III Final Preanesthetic Review: Meds/Allgs Chart Reviewed, Consent Obtained/Reviewed and Anes Risks/Benef Reviewed Patient Risk: Intermediate Procedure Risk: Low Anesthetic Plan Anesthetic Plan: GA Disposition: Standard PACU
--- NOTE | 2023-02-22 16:02 | P.HPSUR_ITS ---
Pre-Procedural Eval Section A Date of Service: 02/22/23 The patient is an INPATIENT: No Changes since office visit: No Cold of Flu in the past 2 weeks, No New Medical Problems, No Changes in Medication and No Patient answered all questions The History & Physical has been completed within 30 days and I have reviewed it.: Yes Section B Chief Complaint: Unspecified hydronephrosis Details of Present Illness: Left hydronephrosis with left upper ureteric stone Allergies: Allergies Allergy/AdvReac Type Severity Reaction Status Date / Time No Known Allergies Allergy Verified 02/16/23 14:53 Review of Systems Sugical H&P ROS: Negative: Constitution, Cardiovascular, Respiratory, Neur ological, Psychiatric, Hem-Onc, Allergic/Immunologic, Gastrointestinal, Genitourinary, Musculoskeletal, Integumentary, Endocrine and Eyes/Ears/Nose/Throat Exam Surgical H&P Exam: Normal: HEENT, Normal: Heart, Normal: Lungs, Normal: Extremities, Normal: Abdomen, Normal: Skin and Normal: Neurological Plan Diagnosis/Plan: Unchanged ( cystoscopy, left retrograde, left ureteroscopy with laser lithotripsy and stent placement) I have reviewed the history and physical and performed a pertinent physical examination on my patient. No changes have occurred unless specified. Time Spent With Patient Time: Total time managing care of this patient today ____ minutes.
--- NOTE | 2023-02-22 17:28 | P.OP_ITS ---
Operative Note Operative Note Date of Service: 02/22/23 Narrative: PreOperative Diagnosis: impacted left proximal ureteric stone with hydronephrosis Post Operative Diagnosis: same Procedure: - cystoscopy, left retrograde - left dilatation of ureteric orifice under fluoroscopy - left ureteroscopy, laser lithotripsy - modified 22 tortuous ureter, embedded stone - 100% longer than typical - left stent placement Surgeon: Dr Ronnie Graff Anesthesia: General Indications for procedure: PET-CT performed last week for oncology showed left hydronephrosis with impacted proximal stone. No prior symptoms. Did have ESWL performed proximally 5 years ago. Procedure performed to try to salvage renal function, current creatinine 1.2 Procedure: After informed consent was verified the patient was brought to the operating room and placed in a supine position. Anesthesia was administered per protocol. The patient was placed in a modified dorsal lithotomy position and prepped and draped in a sterile fashion. Safety pause time-out and side of surgery were confirmed. Images were available for review. Antibiotic administration confirmed. A 22 [place] cystoscope was inserted per urethra. The urethra was without aabnormality. The bladder was normal in its entirety. Both ureteric orifices were seen in normal position. The left ureteric orifice was cannulated and a retrograde examination was performed. significant tortuosity seen, impacted stone in proximal ureter. Attempt made to place a Sensor guidewire. Wire unable to be advanced. Open- ended catheter placed over wire. Angled Glidewire placed. Angled Glidewire with lubrication able to navigate past stone. Open it catheter placed. Retrograde examination performed. Appeared to be in renal pelvis. Due to tortuosity and difficulty superstiff wire placed. The rigid cystoscope was removed. A Servando dilator was placed over the Sensor guidewire and used to dilate the ureteric orifice under fluoroscopy. The dilator was removed. The semi rigid ureteral scope was placed alongside the Sensor guidewire. Impacted stone encountered.. Using a 365 micro holmium laser fiber the stone was broken into small pieces using a combination of hammer and dusting techiques - This took 30 minutes of approximately 100% longer than typical. Once tunnel had been both through stone that was seen that the superstiff wire entered submucosally. The Sensor guidewire was placed through uterus scope into the renal pelvis. This was confirmed on fluoroscopy. The rigid ureteral scope was removed. The updated catheter was placed of the Sensor guidewire. The superstiff wire was removed. The Sensor guidewire was removed. The hydronephrotic left renal pelvis was aspirated. Retrograde performed once again confirming outline. The superstiff wire was placed through the open-ended catheter into the renal pelvis. The decision was made to place a variable length Stent. The rigid cystoscope was backloaded over the wire and advanced into the bladder. A 6 [place]er by Variable length cm double-J stent was placed into the renal pelvis and bladder under a combination of fluoroscopy and direct visualization. The bladder was emptied. The patient tolerated the procedure well and was extubated in the operating room. They were transferred in stable condition to the recovery area. Pathology: - Drains: Double J stent as described above
[2023-02-22] MEDS: Albuterol Sulfate (0.083%) 2.5 MG/3 ML VIAL.NEB INHALE (17:48)
--- NOTE | 2023-02-22 17:57 | PC.NURSE ---
PATIENT REPORTS NAUSEA AFTER SIPS PO FLUIDS. HOB ELEVATED. +BURP LARGE. MEDICATED FOR NAUSEA.
[2023-02-22] MEDS: ondansetron HCL 4 MG/2 ML VIAL IVPUSH (17:58)
== END 2023-02-24 10:28 | disposition home or self-care (01) ==
PROVIDERS: PCP Nurse Practitioner Family; Visit Provider Urology
PROC: (CPT 52356; principal; 2023-02-22 16:00)
DX: N13.2 Hydronephrosis with renal and ureteral calculous obstruction (principal); N18.2 Chronic kidney disease, stage 2 (mild); N39.0 Urinary tract infection, site not specified; E78.5 Hyperlipidemia, unspecified; J45.909 Unspecified asthma, uncomplicated; R91.8 Other nonspecific abnormal finding of lung field; Z77.090 Contact with and (suspected) exposure to asbestos; Z79.51 Long term (current) use of inhaled steroids; Z79.899 Other long term (current) drug therapy
CPT/HCPCS: 52356; 94640; C1758; C1769; C2617; J1100; J1956; J2250; J2405; J2704; J3010; Q9967

== ENCOUNTER → 2023-02-22 12:02 | Outpatient (BNV) | payer OTHER, SELFPAY | PROVIDERS: PCP Nurse Practitioner Family; Visit Provider Urology | DX: N13.2 Hydronephrosis with renal and ureteral calculous obstruction (principal) | CPT/HCPCS: 52356; 74420 ==

== ENCOUNTER 2023-02-24 09:33 | Day surgery (SDC) | payer OTHER, SELFPAY ==
--- NOTE | 2023-02-18 08:50 | P.CONAN_ITS ---
HPI - Anesthesia Eval Consult details Narrative: 57yo M for Endoscopic Bronchial Ultrasound [facility] Active Problems Active Problems: All Active Problems (Updated 02/16/23 @ 15:22 by [facility]) Hydronephrosis with obstructing calculus (Acute) Urinary tract infection (Acute) Hydronephrosis (Acute) Chronic kidney disease, stage II (mild) (Acute) Elevated fasting glucose (Acute) Hyperlipidemia (Acute) Mediastinal lymphadenopathy (Acute) Multiple pulmonary nodules (Acute) Asthma (Acute) Asbestos exposure (Acute) Environmental allergies (Acute) Incidental pulmonary nodule, greater than or equal to 8mm (Acute) Shortness of breath (Acute) Current cannabis vaping on some days (Acute) Bronchitis, chronic with acute exacerbation (Acute) Elevated serum creatinine (Acute) Colon cancer screening (Acute) Vaccine counseling (Acute) Past Medical History Medical History Mediastinal lymphadenopathy Multiple pulmonary nodules Asbestos exposure Asthma Environmental allergies Chronic kidney disease, stage II (mild) Hyperlipidemia Family History Family History Father Stented coronary artery No family history of mental disorder Mother No family history of mental disorder Surgical History Surgical History History of lung surgery Social History Social History Household Members: Spouse and Children Housing: House Alcohol intake: never Patient Tobacco Use Status: Never used Tobacco e-Cigarette/Vaping Use: Never Used Second Hand Smoke Exposure: No Substance Use Type: Marijuana service: No Current occupational status: employed 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 Current occupational exposures/hazards: Yes Cognitive needs: No Hearing needs: No Vision needs: No Meds Allergies Allergy/AdvReac Type Severity Reaction Status Date / Time No Known Allergies Allergy Verified 02/16/23 14:53 Exam Exam Date and Time: February 18, 2023 0850 Pertinent Lab Results Pertinent Lab Results: Laboratory Tests 08/06/22 08/06/22 10/29/22 09:20 09:20 07:28 WBC 5.4 Hgb 15.8 Hct 48.2 Plt Count 249 Sodium 143 Potassium 4.6 Chloride 105 Carbon Dioxide 26 BUN 15 Creatinine 01/26/23 07:18 WBC Hgb Hct Plt Count Sodium Potassium Chloride Carbon Dioxide BUN Creatinine 1.26 Narrative Narrative: PFT 09/2022 INTERPRETATION: There appears to be a reversible obstructive ventilatory defects consistent with diagnosis of asthma. No significant response to bronchodilator is noted. There is evidence of small airway disease, likely secondary to asthma. Lung volumes and diffusion capacity are within normal limits. Clinical correlation warranted. Assessment and Plan Assessment Anesthesia Assessment: Chart Reviewed
[2023-02-24] VITALS (11 sets, daily range): BP systolic 115–145; BP diastolic 70–85; PULSE 94–110; RESP 16–20; TEMP 36.8–37.2; O2SAT 88–98; BMI 24.4
[2023-02-24] MEDS: Lactated Ringers 1,000 ML 100 ML IVCONT (10:26)
--- NOTE | 2023-02-24 10:27 | HO.ANESPROP2 ---
[facility] Active Problems Active Problems: All Active Problems (Updated 02/16/23 @ 15:22 by Joanne Menon [facility]) Hydronephrosis with obstructing calculus (Acute) Urinary tract infection (Acute) Hydronephrosis (Acute) Chronic kidney disease, stage II (mild) (Acute) Elevated fasting glucose (Acute) Hyperlipidemia (Acute) Mediastinal lymphadenopathy (Acute) Multiple pulmonary nodules (Acute) Asthma (Acute) Asbestos exposure (Acute) Environmental allergies (Acute) Incidental pulmonary nodule, greater than or equal to 8mm (Acute) Shortness of breath (Acute) Current cannabis vaping on some days (Acute) Bronchitis, chronic with acute exacerbation (Acute) Elevated serum creatinine (Acute) Colon cancer screening (Acute) Vaccine counseling (Acute) Past Medical History Medical History Mediastinal lymphadenopathy Multiple pulmonary nodules Asbestos exposure Asthma Environmental allergies Chronic kidney disease, stage II (mild) Hyperlipidemia Functional capacity: independent ambulation Family History Family History Father Stented coronary artery No family history of mental disorder Mother No family history of mental disorder Family history of problems with anesthesia: No Surgical History Surgical History History of lung surgery History of Problems with Anesthesia: No Social History Social History Household Members: Spouse and Children Housing: House Alcohol intake: never Patient Tobacco Use Status: Never used Tobacco e-Cigarette/Vaping Use: Never Used Second Hand Smoke Exposure: No Use of substances other than those prescribed or required for medical reasons: Yes Substance Use Type: Marijuana Substance Use Frequency: Weekly Are you DNR?: No Advance Directives: No Advance Directives Information Provided: Yes Advance Directives on File: No service: No Current occupational status: employed 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 Current occupational exposures/hazards: Yes Cognitive needs: No Hearing needs: No Vision needs: No Meds Allergies Allergy/AdvReac Type Severity Reaction Status Date / Time No Known Allergies Allergy Verified 02/16/23 14:53 Active Medications: Current Medications Lactated Ringer's (Lr) 1,000 mls @ 100 mls/hr IVCONT .Q10H EUGENIA Last Admin: 02/24/23 10:26 Dose: 100 mls/hr Exam Exam Date and Time: February 24, 2023 1027 Height,Weight and Vital Signs: Height 5 ft 10 in Weight 77.09 kg Last Vital Signs Temp 98.9 F 02/24/23 10:15 Pulse 102 H 02/24/23 10:15 Resp 18 02/24/23 10:15 BP 131/81 02/24/23 10:15 Pulse Ox 92 02/24/23 10:15 O2 Del Method Room Air 02/24/23 10:15 Airway Mallampati Class: II TM Dist: >3cm Neck ROM: Full Heart: RRR Lungs: CTA Assessment and Plan Assessment Anesthesia Assessment: Anesthesia Plan Discussed and Smoking Cess. Discussed Final Anesthetic Review Family History of Problems with Anesthesia: No History of Problems with Anesthesia: No NPO: Yes ASA Class: II Final Preanesthetic Review: Meds/Allgs Chart Reviewed, Consent Obtained/Reviewed and Anes Risks/Benef Reviewed Patient Risk: Low Procedure Risk: Low Anesthetic Plan Anesthetic Plan: GA Disposition: Standard PACU
--- NOTE | 2023-02-24 10:36 | MHC.SHP ---
Pre-Procedural Eval Section A Date of Service: 02/24/23 Changes since office visit: No Cold of Flu in the past 2 weeks, No New Medical Problems and No Changes in Medication The History & Physical has been completed within 30 days and I have reviewed it.: Yes Section B Chief Complaint: Solitary pulmonary nodule Allergies: Allergies Allergy/AdvReac Type Severity Reaction Status Date / Time No Known Allergies Allergy Verified 02/16/23 14:53 Plan Diagnosis/Plan: Unchanged I have reviewed the history and physical and performed a pertinent physical examination on my patient. No changes have occurred unless specified. Time Spent With Patient Time: Total time managing care of this patient today ____ minutes.
--- NOTE | 2023-02-24 13:23 | P.BOP_ITS ---
Brief Operative Note Date of Service: 02/24/23 Pre-op diagnosis: Mediastinal lymphadenopathy Post-op diagnosis: same Procedure: EBUS flexible bronchoscope advanced through ET tube with patient intubated for the procedure. Tracheobronchial tree surveyed to segmental level with no endobronchial lesions noted. Thereafter station 4R and station 7 mediastinal lymph nodes biopsied under endobronchial ultrasound guidance with 19 gauge needl e. Aspiration samples were sent for pathology testing. Post biopsy puncture sites were observed with no active bleeding noted. Patient tolerated procedure well and was returned to PACU in stable condition. Surgeon: Asif Epstein MD Anesthesia: GETA Was an Rn Oncology Research used for this Procedure?: No Estimated blood loss (mL): 0 Condition: stable Disposition: PACU
[2023-02-24] MEDS: Albuterol/Iprat 2.5/0.5MG 3 ML AMPUL.NEB INHALE (13:37)
== END 2023-02-24 15:37 | disposition home or self-care (01) ==
PROVIDERS: PCP Nurse Practitioner Family; Visit Provider Internal Medicine Pulmonary Disease
PROC: (CPT 31652; principal; 2023-02-24 11:30)
DX: R59.0 Localized enlarged lymph nodes (principal); J84.10 Pulmonary fibrosis, unspecified; J45.909 Unspecified asthma, uncomplicated; R91.8 Other nonspecific abnormal finding of lung field; E78.5 Hyperlipidemia, unspecified; N18.2 Chronic kidney disease, stage 2 (mild); R06.02 Shortness of breath; N13.2 Hydronephrosis with renal and ureteral calculous obstruction; Z79.51 Long term (current) use of inhaled steroids; Z79.899 Other long term (current) drug therapy; F12.90 Cannabis use, unspecified, uncomplicated; Z77.090 Contact with and (suspected) exposure to asbestos; Z98.890 Other specified postprocedural states
CPT/HCPCS: 31652; 36415; 88172; 88173; 88177; 88184; 88185; 88305; 88312; 88342; 94640; J0171; J1100; J2250; J2405; J2704; J3010

== ENCOUNTER → 2023-02-24 09:33 | Outpatient (BNV) | payer OTHER, SELFPAY | PROVIDERS: PCP Nurse Practitioner Family; Visit Provider Internal Medicine Pulmonary Disease | DX: R59.0 Localized enlarged lymph nodes (principal) | CPT/HCPCS: 31653 ==

== ENCOUNTER 2023-02-26 00:55 | Emergency (ER) | payer OTHER, SELFPAY ==
[2023-02-26 01:00] VITALS: BP 141/97; PULSE 106; RESP 18; TEMP 37; O2SAT 96; BMI 24.4
[2023-02-26 01:16] LABS: MANUAL DIFF FLAG NO
[2023-02-26 01:20] LABS: Basophils Absolute Auto 0.1 X10*3/uL (0.0-0.2); Basophils Percent Auto 0.8 % (0-2); Eosinophils Absolute Auto 0.3 X10*3/uL (0.0-0.4); Eosinophils Percent Auto 3.5 % (0-4); Hematocrit 41.8 % (42.0-52.0); Hemoglobin 14.1 g/dl (14.0-18.0); Imm Gran Abs Auto 0.04 X10*3/uL (0.00-0.03); Imm Gran Pct Auto 0.5 % (0.0-0.4); Lymphocytes Absolute Auto 1.3 X10*3/uL (1.2-4.9); Lymphocytes Percent Auto 16.4 % (20-40); Mean Corpuscular HGB Conc 33.7 g/dl (31.0-36.0); Mean Corpuscular Hemoglobin 30.3 pg (27.0-33.0); Mean Corpuscular Volume 89.7 fL (80.0-98.0); Mean Platelet Volume 9.9 fL (9.4-12.4); Monocytes Absolute Auto 0.7 X10*3/uL (0.1-1.2); Monocytes Percent Auto 8.9 % (2-11); Neutrophils Absolute Auto 5.6 x10*3/uL (2.0-8.3); Neutrophils Percent Auto 69.9 % (45-73); Platelet Count 294 X10*3/uL (160-400); Red Blood Count 4.66 X10*6/uL (4.60-5.80); Red Cell Distribution Width 12.5 % (11.0-16.0)
[2023-02-26 01:36] LABS: Alanine Aminotransferase 11 U/L (0-40); Albumin Level 4.2 g/dL (3.5-5.0); Alkaline Phosphatase 61 U/L (39-117); Anion Gap 13 (12-20); Aspartate Amino Transferase 13 U/L (5-37); Bilirubin Total 0.5 mg/dL (0.0-1.0); Blood Urea Nitrogen 16 mg/dL (9-16); Calcium 9.2 mg/dL (8.4-10.2); Carbon Dioxide 26 mmol/L (22-29); Chloride 105 mmol/L (96-108); Creatinine Clr Calc Pharmacy 75.5; Estimated Glomerular Filt Rate > 60; Glucose Random 131 mg/dL (60-115); Lipase 42 U/L (8-78); Potassium 3.4 mmol/L (3.3-5.1); Sodium 141 mmol/L (135-145); Total Protein 6.9 g/dL (6.5-8.0)
[2023-02-26 02:27] LABS: Appearance Urine Turbid; Color Urine RED; Glucose Urine UA Negative (Negative); Leukocyte Esterase Urine Moderate (2+) (Negative); Nitrite Urine Positive (Negative); Specific Gravity - Urine 1.025 (1.005-1.025); UMIC TRIGGER UACC YES; Urine Blood Large (3+) (Negative); Urine Ketones Trace mg/dL (Negative); Urine Protein 300 (3+) mg/dL (Neg-Trace)
[2023-02-26 02:28] LABS: Bacteria Urine 1+ (None Seen); Hyaline Casts Urine 0-2 /LPF (0-2); RBC Urine >20 /HPF (0-2); Squamous Epithelial Cell Urine 0-2 /HPF (0-2); UACC Culture Trigger YES
[2023-02-26 03:17] VITALS: BP 128/78; PULSE 86; RESP 16; TEMP 36.9; O2SAT 94
[2023-02-26 06:26] VITALS: BP 142/90; PULSE 99; TEMP 36.9; O2SAT 96
--- NOTE | 2023-02-26 07:05 | ED.MALEGU ---
HPI - Male Genitourinary General Chief complaint: Urogenital-Male Stated complaint: Blood in Urine Time Seen by Provider: 02/26/23 06:23 Source: patient Mode of arrival: ambulatory Limitations: no limitations History of Present Illness HPI Narrative: Patient is a 57-year-old male presenting to the emergency department with complaint of hematuria since Wednesday after having lithotropsy with stent with Dr. Graff. States he did not contact Dr. Graff's office or his PCP with his concerns. Denies any difficulty or inability to urinate. Denies any spontaneous bleeding outside of urination. Complains of lower abdominal pain and mild right flank pain. Also had a biopsy with Dr. Epstein on for a pulmonary nodule. Denies fevers, nausea, vomiting diarrhea. Denies chest pain, palpitations, shortness of breath. Denies dizziness or lightheadedness. He is not anticoagulated. MD Complaint: other (hematuria) Onset (ago): day(s) Duration: constant Location: penis Radiation: penis Quality: aching Relieving factors: none Exacerbating factors: none Context: recent surgery Associated symptoms: Reports denies other symptoms Related Data Previous Rx's Medication Instructions Recorded albuterol sulfate 90 mcg/actuation 2 puff inhalation Q4-6H PRN 08/26/22 aerosol inhaler shortness of breath or wheezing 90 days #6.7 grams atorvastatin 10 mg tablet 10 mg PO BEDTIME 90 days #90 tabs 11/04/22 fluticasone propionate 44 2 puff inhalation BID 90 days 11/04/22 mcg/actuation HFA aerosol inhaler #10.6 grams (Flovent HFA) bisacodyl 5 mg tablet,delayed 10 mg (2 x 5 mg) PO ONCE 1 day #2 12/21/22 release (Dulcolax (bisacodyl)) tabs polyethylene glycol 3350 17 238 g PO ONCE #238 grams 12/21/22 gram/dose oral powder (Miralax) amoxicillin 875 mg-potassium 1 tab PO BID UTI 10 days #20 tabs 02/18/23 clavulanate 125 mg tablet nitrofurantoin macrocrystal 50 mg 50 mg PO BEDTIME #10 caps 02/22/23 capsule oxycodone-acetaminophen 5 mg-325 1 tab PO Q4H PRN pain (scale score 02/22/23 mg tablet 4-6) 7 days #14 tabs phenazopyridine 100 mg tablet 100 mg PO TID PRN Spasm 4 days #12 02/22/23 (Pyridium) tabs sulfamethoxazole 400 1 tab PO DAILY #10 tabs 02/22/23 mg-trimethoprim 80 mg tablet (Bactrim) tamsulosin 0.4 mg capsule 0.4 mg PO BEDTIME 14 days #14 caps 02/22/23 cefuroxime axetil 500 mg tablet 500 mg PO BID #10 tabs 02/26/23 Allergies Allergy/AdvReac Type Severity Reaction Status Date / Time No Known Allergies Allergy Verified 02/26/23 01:03 Review of Systems Review of Systems: As per HPI. Yes all other systems are reviewed and are negative PMFSH Past Medical History Medical History Mediastinal lymphadenopathy Multiple pulmonary nodules Asbestos exposure Asthma Environmental allergies Chronic kidney disease, stage II (mild) Hyperlipidemia Surgical History History of lung surgery Family History Family History Father Stented coronary artery No family history of mental disorder Mother No family history of mental disorder Social History Social History Household Members: Spouse and Children Housing: House Alcohol intake: never Patient Tobacco Use Status: Never used Tobacco e-Cigarette/Vaping Use: Never Used Second Hand Smoke Exposure: No Use of substances other than those prescribed or required for medical reasons: No Substance Use Type: Marijuana Advance Directives: No Advance Directives Information Provided: No service: No Current occupational status: employed 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 Graff. On exam patient is awake, A+Ox3, VS WNL, afebrile, normal neurological exam without focal deficits, physical exam findings as above. Given reported symptoms and physical exam findings, initial differential includes post-op hematuria, UTI, MARTY. Labs notable for no leukocytosis, no anemia, normal BUN/creatinine. Urine positive for 2+ leukocytes, + nitrites, 1+ bacteria. Case discussed with Dr. Graff who does not feel additional imaging is necessary but recommends treatment with antibiotics for UTI. Will discharge home on cefuroxime and instruct patient to follow up with Dr. Graff outpatient. Discussed use of probiotics to prevent antibiotic associated diarrhea with patient. Return precautions discussed at bedside. Patient verbalized understanding of and agreement with plan. Differential Diagnosis Differential Diagnoses: The differential diagnosis associated with the presentation includes As per [facility] Admission/Observation Consideration of admission/observation: Escalation of care including admission/observation considered Consult Healthcare Provider Management of the patient was discussed with: Strapping Machine Tender (Dr. Graff) Lab Data [facility] Lab Attestation statement: I reviewed the patient's lab results. As per [facility] 02/26/23 01:10 02/26/23 01:10 Labs: Lab Results 02/26/23 02/26/23 Range/Units 01:10 02:04 WBC 8.0 (4.8-10.8) X10*3/uL RBC 4.66 (4.60-5.80) X10*6/uL Hgb 14.1 (14.0-18.0) g/dl Hct 41.8 L (42.0-52.0) % MCV 89.7 (80.0-98.0) fL MCH 30.3 (27.0-33.0) pg MCHC 33.7 (31.0-36.0) g/dl RDW 12.5 (11.0-16.0) % Plt Count 294 (160-400) X10*3/uL MPV 9.9 (9.4-12.4) fL Immature Gran % (Auto) 0.5 H (0.0-0.4) % Neut % (Auto) 69.9 (45-73) % Lymph % (Auto) 16.4 L (20-40) % [place] % (Auto) 8.9 (2-11) % Eos % (Auto) 3.5 (0-4) % Baso % (Auto) 0.8 (0-2) % Lymph # (Auto) 1.3 (1.2-4.9) X10*3/uL [place] # (Auto) 0.7 (0.1-1.2) X10*3/uL Eos # (Auto) 0.3 (0.0-0.4) X10*3/uL Baso # (Auto) 0.1 (0.0-0.2) X10*3/uL Abs Immat Gran (auto) 0.04 H (0.00-0.03) X10*3/uL Absolute Neuts (auto) 5.6 (2.0-8.3) x10*3/uL Absolute Nucleated RBC 0.000 (0.0-0.012) X10*3/uL Nucleated RBC % (auto) 0.0 (0.0-0.2) /100WBC Sodium 141 (135-145) mmol/L Potassium 3.4 D (3.3-5.1) mmol/L Chloride 105 (96-108) mmol/L Carbon Dioxide 26 (22-29) mmol/L Anion Gap 13 (12-20) BUN 16 (9-16) mg/dL Creatinine 1.14 (0.5-1.4) mg/dL Estim Creat Clear Calc 75.5 Estimated GFR > 60 Random Glucose 131 H (60-115) mg/dL Calcium 9.2 D (8.4-10.2) mg/dL Total Bilirubin 0.5 (0.0-1.0) mg/dL AST 13 (5-37) U/L ALT 11 (0-40) U/L Alkaline Phosphatase 61 (39-117) U/L Total Protein 6.9 (6.5-8.0) g/dL Albumin 4.2 (3.5-5.0) g/dL Lipase 42 (8-78) U/L Urine Color RED Urine Appearance Turbid Urine pH 7.0 (5.0-9.0) Ur Specific [place] 1.025 (1.005-1.025) Urine Protein 300 (3+) H (Neg-Trace) mg/dL Urine Glucose (UA) Negative (Negative) mg/dL Urine Ketones Trace (Negative) mg/dL Urine Blood Large (3+) H (Negative) Urine Nitrite Positive H (Negative) Ur Leukocyte Esterase Moderate (2+) H (Negative) Urine RBC >20 H (0-2) /HPF Urine WBC 11-20 H (0-5) /HPF Ur Squamous Epith Cells 0-2 (0-2) /HPF Urine Bacteria 1+ (None Seen) Hyaline Casts 0-2 (0-2) /LPF External Record Review External record reviewed: Inpatient record, Office record and Outpatient record Tests considered The following testing was considered but not selected: considered CT, not recommended by urology Prescription Management I considered prescription management with: Antibiotic Discharge Plan Discharge Clinical Impression: Urinary tract infection, Gross hematuria Patient Disposition: Home, Self-Care Instructions: Urinary Tract Infection in Men (DC), Hematuria (ED), Ureteral Stent Placement (DC) Additional Instructions: You have been evaluated in the emergency department today for your urinary symptoms. Your evaluation, including urinalysis, suggests that your symptoms are due to urinary tract infection. Please take your prescribed antibiotics for the full course of medication as directed. Please follow-up with Dr. Graff's office within 2 days. You should follow up with your primary care provider as well. Return to the emergency department if you experience fevers 100.4? F or greater, worsening or uncontrolled pain, vomiting, flank pain, or for any other concerning symptoms. You should begin taking saccharomyces boulardii which is a probiotic to prevent antibiotic associated diarrhea. Prescriptions: New cefuroxime axetil 500 mg tablet 500 mg PO BID Qty: 10 0RF No Action albuterol sulfate 90 mcg/actuation HFA aerosol inhaler 2 puff inhalation Q4-6H PRN (Reason: shortness of breath or wheezing) 90 Days Qty: 6.7 1RF fluticasone propionate [Flovent HFA] 44 mcg/actuation HFA aerosol inhaler 2 puff inhalation BID 90 Days Qty: 10.6 1RF Rx Instructions: administer with spacer No substitution amoxicillin-pot clavulanate 875-125 mg tablet 1 tab PO BID 10 Days Qty: 20 0RF nitrofurantoin macrocrystal 50 mg capsule 50 mg PO BEDTIME Qty: 10 0RF Rx Instructions: must administer with a meal/food sulfamethoxazole-trimethoprim [Bactrim] 400-80 mg tablet 1 tab PO DAILY Qty: 10 0RF oxycodone-acetaminophen 5-325 mg tablet 1 tab PO Q4H PRN (Reason: pain (scale score 4-6)) 7 Days Qty: 14 0RF Rx Instructions: Partial Fill upon patient request. tamsulosin 0.4 mg capsule 0.4 mg PO BEDTIME 14 Days Qty: 14 0RF phenazopyridine [Pyridium] 100 mg tablet 100 mg PO TID PRN (Reason: Spasm) 4 Days Qty: 12 0RF atorvastatin 10 mg tablet 10 mg PO BEDTIME 90 Days Qty: 90 1RF bisacodyl [Dulcolax (bisacodyl)] 5 mg tablet,delayed release (DR/EC) 10 mg PO ONCE 1 Days Qty: 2 0RF Rx Instructions: take 2 tabs at noon the day before your colonoscopy polyethylene glycol 3350 [Miralax] 17 gram/dose powder 238 g PO ONCE Qty: 238 0RF Rx Instructions: As directed by gastroenterology department at [facility] Referrals: [facility] [Provider Group]
--- NOTE | 2023-02-26 07:06 | PC.NURSE ---
Notified provider pt requesting to be seen, Charge nurse Yuly notified several times. Pt continues to have blood in his urine since post op. Provider will be in shortly to assess pt.
== END 2023-02-26 08:19 | disposition home or self-care (01) ==
PROVIDERS: Emergency Provider Emergency Medicine; PCP Nurse Practitioner Family
DX: N39.0 Urinary tract infection, site not specified (principal); R31.9 Hematuria, unspecified; Z79.899 Other long term (current) drug therapy
CPT/HCPCS: 36415; 80053; 81001; 83690; 85025; 87086; 99283; 99284

== ENCOUNTER 2023-03-12 14:40 | Outpatient (AMB) | payer OTHER, SELFPAY ==
[2023-03-12 14:44] VITALS: BP 130/70; PULSE 78; O2SAT 97; BMI 26.7
--- NOTE | 2023-03-12 14:44 | A.OFFVIS_ITS ---
Intake Vital Signs 3 03/12/23 14:44 Height 5 ft 10 in Weight 186 lb BMI 26.7 BP 130/70 Blood Pressure Location Lt brachial Position Sitting Pulse 78 Pulse Source Pulse Oximeter Pulse Oximetry (%) 97 Oxygen Delivery Method Room Air Intake Visit Reasons: s/p ebus Patent Chemist Required: No Recyclable Materials Sorter: Recyclable Materials Sorter offered & declined Accompanied by: Self / Same As Patient Allergies No Known Allergies Allergy (Verified 03/12/23 14:53) Medication List - Last Reconciled 03/12/23 by Rizwana Kim LPN albuterol sulfate 90 mcg/actuation 2 puffs inhalation Q4-6H PRN 90 days atorvastatin 10 mg PO BEDTIME 90 days bisacodyl (Dulcolax (bisacodyl)) 10 mg (2 x 5 mg) PO ONCE 1 day fluticasone propionate 44 mcg/actuation (Flovent HFA) 2 puffs inhalation BID 90 days nitrofurantoin macrocrystal 50 mg PO BEDTIME polyethylene glycol 3350 (Miralax) 238 grams PO ONCE prednisone 50 mg PO DAILY tamsulosin 0.4 mg PO BEDTIME 14 days HPI s/p ebus 2 HPI0 Details Alcides is a pleasant 57 year old male, never tobacco smoker, with underlying asthma and asbestos exposure. He did undergo a VATS procedure in 2000 due to empyema, otherwise has not had any respiratory issues until a year ago after his second occurrence of COVID. He was sent for a PET after chest CT revealed multiple abnormalities including interval increase in size in the enlarged mediastinal and bilateral hilar lymph nodes. PET revleaed extensive FDG avid mediastinal lymphadenopathy which was concerning for malignancy, therefore underwent EBUS on 02/[address] Epstein. Today he presents to review results. He denies any respiratory symptoms at this time. [facility] Medical History Mediastinal lymphadenopathy Multiple pulmonary nodules Asbestos exposure Asthma Environmental allergies Chronic kidney disease, stage II (mild) Hyperlipidemia Surgical History History of lung surgery Family History Father Stented coronary artery No family history of mental disorder Mother No family history of mental disorder Social History (Updated 03/12/23 @ 14:57 by Rizwana Kim LPN) Household Members: Spouse and Children Housing: House Alcohol intake: never Comment: non counts needed Patient Tobacco Use Status: Never used Tobacco e-Cigarette/Vaping Use: Never Used Second Hand Smoke Exposure: No Substance Use Type: Marijuana service: No Current occupational status: employed 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 Current occupational exposures/hazards: Yes Cognitive needs: No Hearing needs: No Vision needs: No Review of Systems Const Denies chills, Denies excessive sweating, Denies fever(s), Denies headache(s) and Denies night sweats Eyes Denies dry eyes and Denies irritation ENT Reports Normal hearing present, Denies headache(s), Denies nasal congestion, Denies post nasal drip and Denies sore throat Card Denies chest pain, Denies chest pain at rest, Denies chest pain with activity and Denies leg edema Resp Denies chest congestion, Denies cough, Denies excessive phlegm production, Denies pain on inspiration, Denies pain with cough and Denies stridor Musc Denies myalgias Neuro Reports Normal hearing present and Denies headache(s) Endo Denies excessive sweating Bal/Lymph Denies lymphadenopathy Physical Exam Vital Signs: Last Vital Signs Pulse 78 03/12/23 14:44 BP 130/70 03/12/23 14:44 Pulse Ox 97 03/12/23 14:44 Oxygen Delivery Method Room Air 03/12/23 14:44 BMI result Body Mass Index 26.7 Const General: cooperative, healthy appearing, comfortable, no acute distress, well developed and alert Orientation/consciousness: patient oriented x3 Limitations: no limitations HEENT Head: Yes normal to inspection, Yes normocephalic and Yes atraumatic Ears: hearing grossly normal bilaterally and external ears normal Eyes General: appearance normal, both eyes and all related structures Eyelids: Yes eyelids normal Sclerae: sclerae normal EOM: EOMs intact bilaterally Neck Neck: Yes normal visual inspection and Yes no lymphadenopathy Lymphatic: no lymphadenopathy noted Chest Chest palpation & inspection: normal inspection of the chest Resp Effort & Inspection: normal respiratory effort, able to speak in complete sentences, no audible wheezes, no cough, no stridor, not tachypneic, no tripod positioning and no use of accessory muscles Cardio Jugular venous distension: no JVD Rate: regular rate Rhythm: regular rhythm Skin Other: warm, dry General skin exam: no rashes or lesions noted Neuro General: patient oriented x3 Cranial nerves: Yes Normal hearing present Cognition (Neuro): normal cognition Gait exam (Neuro): Normal gait present Extrem General: Yes normal to inspection, Yes capillary refill normal, Yes no clubbing, cyanosis or edema and Yes no pedal edema Psych Appearance: grossly normal and well kempt Speech and movement: Normal speech and movement present and Clear speech present Affect: normal affect Attitude: cooperative Thought process: Normal thought process present Thought content: Normal thought content present Insight: Good insight present (Psych) Judgement: Good judgement present (Psych) Results Reviewed Results Reviewed: Assessment & Plan Assessment & Plan (1) Sarcoidosis: Code(s): D86.9 - Sarcoidosis, unspecified (2) Asthma: Code(s): J45.909 - Unspecified asthma, uncomplicated (3) Environmental allergies: Code(s): Z91.09 - Other allergy status, other than to drugs and biological substances (4) Asbestos exposure: Code(s): Z77.090 - Contact with and (suspected) exposure to asbestos (5) Multiple pulmonary nodules: Code(s): R91.8 - Other nonspecific abnormal finding of lung field Plan We reviewed results from lymph node biopsy which was negative for carcinoma and revealed granulomas with AFB stain negative as well as negative fungal stain, suggestive of sarcoidosis. We discussed in length what sarcoidosis is, potential organs it may affect and course of treatment. Will send for baseline EKG and recommended ophthalmology exam. At this time, he denies any respiratory symptoms or systemic symptoms, other than symptoms associated with acute hydronephrosis which he is under the care of urology. He was given patient education from [facility] regarding this diagnosis. He was started on prednisone 50 mg and will continue for a total of 4 weeks then have a follow up chest CT performed. This has been already scheduled. Patient is aware that he will either continue on 50 mg prednisone x 3 months or taper depending on results of chest CT. We reviewed importance of tapering and not discontinuing prednisone abruptly. At this time, he is tolerating prednisone well. We again discussed potential side effects. All questions were answered and patient is in agreement of plan. Will follow up to review chest CT results or sooner if needed. Coding Level of Care Code Est Pt Level 4 (38331) Diagnoses Sarcoidosis D86.9 Asthma J45.909 Environmental allergies Z91.09 Asbestos exposure Z77.090 Multiple pulmonary nodules R91.8
== END 2023-03-12 15:21 | disposition home or self-care (01) ==
PROVIDERS: PCP Nurse Practitioner Family; Visit Provider Nurse Practitioner Family
DX: D86.9 Sarcoidosis, unspecified (principal); J45.909 Unspecified asthma, uncomplicated; Z91.09 Other allergy status, other than to drugs and biological substances; Z77.090 Contact with and (suspected) exposure to asbestos; R91.8 Other nonspecific abnormal finding of lung field
CPT/HCPCS: 99214

== ENCOUNTER → 2023-03-12 14:40 | Outpatient (BNVA) | payer OTHER, SELFPAY | PROVIDERS: PCP Nurse Practitioner Family; Visit Provider Nurse Practitioner Family ==

== ENCOUNTER 2023-04-01 07:13 | Outpatient (REF) | payer OTHER, SELFPAY | END 2023-04-01 07:14 | disposition home or self-care (01) | LOC: HO.CT 07:13 | PROVIDERS: PCP Nurse Practitioner Family; Visit Provider Nurse Practitioner Family | DX: J84.9 Interstitial pulmonary disease, unspecified (principal) | CPT/HCPCS: 71250 ==

== ENCOUNTER 2023-05-27 14:35 | Outpatient (AMB) | payer OTHER, SELFPAY ==
--- NOTE | 2023-05-27 14:41 | A.OFFVIS_ITS ---
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 Mccall. He has a past medical history of mediastinal lymphadenopathy, multiple pulmonary nodules, asbestos exposure, asthma, environmental allergies, chronic kidney disease stage 2, and hyperlipidemia. He presents to the office today for follow-up. Of note, patient underwent previous surgical intervention with Dr. Graff on 02/22/2023. Cystoscopy, left retrograde, left dilatation of ureteric orifice under fluoroscopy, left ureteroscopy, laser lithotripsy and left ureteral stent was placed as PET-CT with oncology had showed left hydronephrosis with impacted proximal stone. He reports having seeked emergency room care last week for new onset right-sided flank pain at which time a CT of the abdomen was ordered and performed. These results were reviewed with the patient today. Mild right hydronephrosis secondary to a 0.3 cm calculus in the right mid ureter. Moderate left hydronephrosis, with nephroureteral stent in place. There are calculi along the course of the left stent measuring up to 0.8 cm at the midportion. 0.9 cm focal soft tissue thickening along the right UVJ, possibly a urethral lesion. He discusses having follow-up with pulmonology and undergoing EBUS on 02/[address] Epstein. He reports having followed up with Eva Mora approximately 2 months ago to review biopsy results. He reports biopsy results were suggestive of sarcoidosis. He reports having completed steroid therapy as prescribed and is undergoing CT for surveillance monitoring. He does have a previous history of surgical intervention for nephrolithiasis approximately 5 years ago. In office urinalysis results reviewed with the patient today 3+ leukocytes negative nitrates. Discussed at length further surgical intervention with cystoscopy, left-sided stent exchange, ureteroscopy, retrograde, and laser lithotripsy on the left side as well as right-sided retrograde with possible cystoscopy, ureteroscopy, laser lithotripsy and stent placement. He does continue to report urinary frequency, urgency, and dysuria. Discussed sending urine today for urine culture for further assessment evaluation. He otherwise denies incontinence, nocturia, hematuria, foul smelling urine, changes to urinary stream, flank pain, fever, and or chills. All questions were answered. [facility] Medical History Mediastinal lymphadenopathy Multiple pulmonary nodules Asbestos exposure Asthma Environmental allergies Chronic kidney disease, stage II (mild) Hyperlipidemia Surgical History History of lung surgery Family History Father Stented coronary artery No family history of mental disorder Mother No family history of mental disorder Social History Household Members: Spouse and Children Housing: House Alcohol intake: never Comment: non counts needed Patient Tobacco Use Status: Never used Tobacco e-Cigarette/Vaping Use: Never Used Second Hand Smoke Exposure: No Substance Use Type: Marijuana service: No Current occupational status: employed 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[employer] Current occupational exposures/hazards: Yes Cognitive needs: No Hearing needs: No Vision needs: No Review of Systems Const Reports as per HPI Eyes Reports no additional complaints ENT Reports no additional complaints Card Reports as per HPI Resp Reports as per HPI GI Reports as per HPI Reports as per HPI Musc Reports no additional complaints Neuro Reports no additional complaints Psych Reports no additional complaints Endo Reports no additional complaints Bal/Lymph Reports as per HPI Physical Exam Const General: cooperative, healthy appearing, comfortable, no acute distress, well developed, alert and awake Nutritional Appearance: average body habitus Orientation/consciousness: patient oriented x3 Limitations: no limitations HEENT Head: Yes normal to inspection, Yes normocephalic and Yes atraumatic Ears: hearing grossly normal bilaterally Eyes General: appearance normal, both eyes and all related structures Neck Neck: Yes normal visual inspection and Yes trachea midline Chest Chest palpation & inspection: normal inspection of the chest Resp Effort & Inspection: normal respiratory effort and able to speak in complete sentences Cardio Rate: regular rate GI Inspection: Yes normal to inspection General: Yes no CVA tenderness Back/Spine/Pelvis Back: no CVA tenderness Skin General skin exam: no rashes or lesions noted Neuro General: patient oriented x3 Extrem General: Yes normal to inspection Psych Appearance: grossly normal and well kempt Mental Status: mental status grossly normal Speech and movement: Normal speech and movement present and Clear speech present Affect: normal affect Attitude: cooperative Thought process: Normal thought process present Thought content: Normal thought content present Insight: Fair insight present (Psych) Judgement: Fair judgement present (Psych) Results AMB Urinalysis, Automated UA Leukoctes 500 Lisa/uL Last Edit by [employer] on 05/27/23 14:58 UA Nitrite Negative Last Edit by [employer] on 05/27/23 14:58 UA Urobilinogen 0.2 mg/dL Last Edit by [employer] on 05/27/23 14:58 UA Protein 300 mg/dL Last Edit by [employer] on 05/27/23 14:58 UA pH 6.0 Last Edit by [employer] on 05/27/23 14:58 UA Blood 200 Dario/uL Last Edit by [employer] on 05/27/23 14:58 UA Specific [place] 1.030 Last Edit by [employer] on 05/27/23 14:58 UA Ketone Negative Last Edit by [employer] on 05/27/23 14:58 UA Bilirubin 0 mg/dL Last Edit by [employer] on 05/27/23 14:58 UA Glucose 0 mg/dL Last Edit by [employer] on 05/27/23 14:58 Results Reviewed Results Reviewed: Laboratory Last Values Urine pH (Auto) 6.0 05/27/23 14:50 Specific [place] (Auto) 1.030 05/27/23 14:50 Urine Protein (Auto) 300 mg/dL 05/27/23 14:50 Glucose (UA)(Auto) 0 mg/dL 05/27/23 14:50 Urine Ketones (Auto) Negative 05/27/23 14:50 Urine Blood (Auto) 200 Dario/uL 05/27/23 14:50 Urine Nitrite (Auto) Negative 05/27/23 14:50 Urine Bilirubin (Auto) 0 mg/dL 05/27/23 14:50 Urine Urobilinogen (Auto) 0.2 mg/dL 05/27/23 14:50 Leukocyte Esterase (Auto) 500 Lisa/uL 05/27/23 14:50 Assessment & Plan Assessment & Plan (1) Hydronephrosis with obstructing calculus: Code(s): N13.2 - Hydronephrosis with renal and ureteral calculous obstruction (2) Urinary tract infection: Code(s): N39.0 - Urinary tract infection, site not specified (3) Lower urinary tract symptoms: Code(s): R39.9 - Unspecified symptoms and signs involving the genitourinary system Plan: Ureteroscopy We discussed the nature of the decision and reasonable alternatives for performing ureteroscopy. Options such as medical therapy were discussed. Int erventions include chemical dissolution, ESWL, ureteroscopy with laser lithotripsy and stent placement, PCNL. The relative uncertainties and benefits related to each alternate procedure were adequately discussed. General surgical risks including, but not limited to - pain, bleeding, infection, myocardial infarction, pulmonary embolus, deep vein thrombosis and cerebrovascular accident which may result in further hospitalization were discussed.? Full disclosure of the procedure as well as all major risks, benefits and complications were discussed including but not limited to damage to the urethra, bladder and kidney infection, damage to the ureter, stent migration or malposition, scarring to the renal pelvis, remnant stone fragments, subsequent stone passage with need for secondary procedures. The overall secondary procedure rate is approximately 10-15%.? The overall clearance rate is approximately 90-95%. Success of the procedure in the short-term does not necessarily guarantee that long-term success will be maintained. Suitable follow up will need to be maintained. The patient showed understanding of discussion and wishes to proceed with - cystoscopy, retrograde, ureteroscopy, possible lithotripsy/stone basketing and stent exchange on the left side with right sided retrograde and possible ureteroscopy, possible lithotripsy/stone basketing and stent placement on the right Plan In office urinalysis results reviewed with the patient today; as noted above; will send for urine culture. Recent CT results reviewed with the patient today; as noted above. Start Bactrim as discussed and prescribed. Discussed at length surgical procedure as noted above discussed risks and benefits of this intervention at length Discussed, educated, encouraged on the importance of drinking plenty of water daily. Discussed at length potential causes of nephrolithiasis and near future metabolic workup with 24 hour urine collection and labs as well as further assessment of hydronephrosis with possible nuclear renal scan. Will schedule for procedure with Dr. Noguera. Follow-up status post Dr. Guru Brody's orders or sooner with any issues, concerns, or questions. Orders: Orders Urine Culture 05/27/23 N39.0 - Urinary tract infection, site not specified AMB Urinalysis Automated 05/27/23 Z13.9 - Encounter for screening, unspecified Urine Cytology 05/27/23 N13.2 - Hydronephrosis with renal and ureteral calculous obstruction Medications: New sulfamethoxazole-trimethoprim 800-160 mg (Bactrim DS) 1 tab PO BID 14 tabs 0RF 7 days N39.0 - Urinary tract infection, site not specified Patient Instructions: The patient had an opportunity to ask questions regarding the treatment plan. All questions were answered. Physical exam, labs, and imaging were discussed and reviewed in detail. As well as risks, benefits, and discussion of treatment choices. No major barriers to understanding were identified. The patient expressed understanding and agreement with the above treatment plan. The patient was made aware they should contact our office by phone for worsening of their current condition, the appearance of new symptoms, or with any questions or concerns. Compliance is encouraged with any medications and follow up testing that is ordered. It is a privilege to be allowed the opportunity to participate in? your urological care.? Again, if you have any questions or concerns If you have any questions or concerns please do not hesitate to contact me. The office is [phone]. This note is constructed using voice recognition software. While every effort has been made to ensure accuracy software intern errors may have been included. Yours sincerely, ANA Thomas Coding Level of Care Code Est Pt Level 4 (78951) Diagnoses Hydronephrosis with obstructing calculus N13.2 Urinary tract infection N39.0 Lower urinary tract symptoms R39.9
== END 2023-05-27 15:26 | disposition home or self-care (01) ==
PROVIDERS: PCP Nurse Practitioner Family; Visit Provider Nurse Practitioner Family
DX: N13.2 Hydronephrosis with renal and ureteral calculous obstruction (principal); N39.0 Urinary tract infection, site not specified; R39.9 Unspecified symptoms and signs involving the genitourinary system
CPT/HCPCS: 99214

== ENCOUNTER 2023-05-27 14:35 | Outpatient (REF) | payer OTHER, SELFPAY ==
[2023-05-27 16:30] LABS: Urine Cytology See Pathology rpt
== END 2023-05-27 14:36 | disposition home or self-care (01) ==
LOC: HO.LNP 14:35
PROVIDERS: PCP Nurse Practitioner Family; Visit Provider Nurse Practitioner Family
DX: N13.2 Hydronephrosis with renal and ureteral calculous obstruction (principal); N39.0 Urinary tract infection, site not specified; R39.9 Unspecified symptoms and signs involving the genitourinary system
CPT/HCPCS: 81003; 87086; 88112

== ENCOUNTER 2023-06-02 15:21 | Outpatient (AMB) | payer OTHER, SELFPAY ==
[2023-06-02 15:26] VITALS: BP 130/70; PULSE 82; O2SAT 97; BMI 26.0
--- NOTE | 2023-06-02 15:26 | MHC.OFFVIS ---
Intake Vital Signs 06/02/23 15:26 Height 5 ft 10 in Weight 181 lb BMI 26.0 BP 130/70 Blood Pressure Location Lt brachial Position Sitting Pulse 82 Pulse Source Pulse Oximeter Pulse Oximetry (%) 97 Oxygen Delivery Method Room Air Intake Visit Reasons: pulmonary clearance Abrasives Sales Representative Required: No Senior Data Analyst: Senior Data Analyst offered & declined Accompanied by: Self / Same As Patient Allergies No Known Allergies Allergy (Verified 06/02/23 15:29) Medication List - Last Reconciled 06/02/23 by Rizwana Kim LPN albuterol sulfate 90 mcg/actuation 2 puffs inhalation Q4-6H PRN 90 days atorvastatin 10 mg PO BEDTIME 90 days bisacodyl (Dulcolax (bisacodyl)) 10 mg (2 x 5 mg) PO ONCE 1 day polyethylene glycol 3350 (Miralax) 238 grams PO ONCE sulfamethoxazole-trimethoprim 800-160 mg (Bactrim DS) 1 tab PO BID 7 days tamsulosin 0.4 mg PO DAILY 30 days HPI pulmonary clearance HPI Details Alcides is a pleasant 57 year old male, never tobacco smoker, with underlying asthma and asbestos exposure. He did undergo a VATS procedure in 2000 due to empyema, otherwise has not had any respiratory issues until a year ago after his second occurrence of COVID. He was sent for a PET after chest CT revealed multiple abnormalities including interval increase in size in the enlarged mediastinal and bilateral hilar lymph nodes. PET revealed extensive FDG avid mediastinal lymphadenopathy which was concerning for malignancy, therefore underwent EBUS on 02/24/[address] Epstein. Lymph node biopsy was negative for carcinoma and revealed granulomas with negative AFB stain as well as negative fungal stain, suggestive of sarcoidosis. Since the last visit patient denies any respiratory symptoms and has used albuterol very infrequently. Not currently using Flovent. Today he presents for perioperative pulmonary evaluation for proposed urological procedure scheduled for next week. [facility] Medical History Mediastinal lymphadenopathy Multiple pulmonary nodules Asbestos exposure Asthma Environmental allergies Chronic kidney disease, stage II (mild) Hyperlipidemia Surgical History History of lung surgery Family History Father Stented coronary artery No family history of mental disorder Mother No family history of mental disorder Social History Household Members: Spouse and Children Housing: House Alcohol intake: never Comment: non counts needed Patient Tobacco Use Status: Never used Tobacco e-Cigarette/Vaping Use: Never Used Second Hand Smoke Exposure: No Substance Use Type: Marijuana service: No Current occupational status: employed 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or Current occupational exposures/hazards: Yes Cognitive needs: No Hearing needs: No Vision needs: No Review of Systems Const Denies chills, Denies excessive sweating, Denies fever(s), Denies headache(s) and Denies night sweats Eyes Denies dry eyes and Denies irritation ENT Reports Normal hearing present and Denies headache(s) Card Denies chest pain, Denies chest pain at rest, Denies chest pain with activity and Denies leg edema Resp Denies chest congestion, Denies cough, Denies excessive phlegm production, Denies pain on inspiration, Denies pain with cough and Denies stridor Musc Denies myalgias Neuro Reports Normal hearing present and Denies headache(s) Endo Denies excessive sweating Bal/Lymph Denies lymphadenopathy Physical Exam Vital Signs: Last Vital Signs Pulse 82 06/02/23 15:26 BP 130/70 06/02/23 15:26 Pulse Ox 97 06/02/23 15:26 Oxygen Delivery Method Room Air 06/02/23 15:26 BMI result Body Mass Index 26.0 Const General: cooperative, healthy appearing, comfortable, no acute distress, well developed and alert Orientation/consciousness: patient oriented x3 Limitations: no limitations HEENT Head: Yes normal to inspection, Yes normocephalic and Yes atraumatic Ears: hearing grossly normal bilaterally and external ears normal Eyes General: appearance normal, both eyes and all related structures Eyelids: Yes eyelids normal Sclerae: sclerae normal EOM: EOMs intact bilaterally Neck Neck: Yes normal visual inspection and Yes no lymphadenopathy Lymphatic: no lymphadenopathy noted Chest Chest palpation & inspection: normal inspection of the chest Resp Effort & Inspection: normal respiratory effort, able to speak in complete sentences, no audible wheezes, no cough, no stridor, not tachypneic, no tripod positioning and no use of accessory muscles Auscultation: clear to auscultation bilaterally Cardio Jugular venous distension: no JVD Rate: regular rate Rhythm: regular rhythm Skin Other: warm, dry General skin exam: no rashes or lesions noted Neuro General: patient oriented x3 Cranial nerves: Yes Normal hearing present Cognition (Neuro): normal cognition Gait exam (Neuro): Normal gait present Extrem General: Yes normal to inspection, Yes capillary refill normal, Yes no clubbing, cyanosis or edema and Yes no pedal edema Psych Appearance: grossly normal and well kempt Speech and movement: Normal speech and movement present and Clear speech present Affect: normal affect Attitude: cooperative Thought process: Normal thought process present Thought content: Normal thought content present Insight: Good insight present (Psych) Judgement: Good judgement present (Psych) Assessment & Plan Assessment & Plan (1) Sarcoidosis: Code(s): D86.9 - Sarcoidosis, unspecified (2) Asthma: Code(s): J45.909 - Unspecified asthma, uncomplicated (3) Environmental allergies: Code(s): Z91.09 - Other allergy status, other than to drugs and biological substances (4) Asbestos exposure: Code(s): Z77.090 - Contact with and (suspected) exposure to asbestos (5) Multiple pulmonary nodules: Code(s): R91.8 - Other nonspecific abnormal finding of lung field (6) Encounter for preoperative pulmonary examination: Code(s): Z01.811 - Encounter for preprocedural respiratory examination Plan Alcides presents for preoperative pulmonary evaluation for proposed urologic procedure under general anesthesia. He denies respiratory symptoms at this time. He had COVID at the end of March but was asymptomic, otherwise denies any URI. He has not required steroids or antibiotics in the last three months. At this time, he is considered low risk for perioperative pulmonary complications. Consider bronchodilators during the perioperative period. All questions were answered and patient is in agreement of plan. Will follow up to review chest CT results or sooner if needed. Coding Level of Care Code Est Pt Level 4 (93077) Diagnoses Sarcoidosis D86.9 Asthma J45.909 Environmental allergies Z91.09 Asbestos exposure Z77.090 Multiple pulmonary nodules R91.8 Encounter for preoperative pulmonary examination Z01.811
== END 2023-06-02 15:51 | disposition home or self-care (01) ==
PROVIDERS: PCP Nurse Practitioner Family; Visit Provider Nurse Practitioner Family
DX: D86.9 Sarcoidosis, unspecified (principal); J45.909 Unspecified asthma, uncomplicated; Z91.09 Other allergy status, other than to drugs and biological substances; Z77.090 Contact with and (suspected) exposure to asbestos; R91.8 Other nonspecific abnormal finding of lung field; Z01.811 Encounter for preprocedural respiratory examination
CPT/HCPCS: 99214

== ENCOUNTER → 2023-06-02 15:21 | Outpatient (BNVA) | payer OTHER, SELFPAY | PROVIDERS: PCP Nurse Practitioner Family; Visit Provider Nurse Practitioner Family ==

== ENCOUNTER 2023-06-08 19:12 | Observation (INO) | payer OTHER, SELFPAY ==
--- NOTE | 2023-06-07 10:47 | P.CONAN_ITS ---
Documented by User: Yesy Cole NP 06/07/23 10:52 HPI - Anesthesia Eval Consult details Narrative: 57yo M for Left Cystoscopy, Ureteroroscopy, Retro, Laser,with stent exchange, Right Cystoscopy retrograde with possible Cystoscopy, Ureteroroscopy, Retro, Laser,possible stent placement s/p cysto, etc 02/2023 with GA-LMA 4 s/p EBUS 02/2023 with GA-ETT 7.5 (negative for infection or malignancy) Pulmo cleared at low risk. Hx asbestos exposure, sarcoid, ILD, hx VATS 2000 [facility] Active Problems Active Problems: All Active Problems (Updated 06/02/23 @ 16:46 by Eva Mora NP) Encounter for preoperative pulmonary examination (Acute) Lower urinary tract symptoms (Acute) Sarcoidosis (Acute) Interstitial lung disease (Acute) Hydronephrosis with obstructing calculus (Acute) Urinary tract infection (Acute) Hydronephrosis (Acute) Chronic kidney disease, stage II (mild) (Acute) Elevated fasting glucose (Acute) Hyperlipidemia (Acute) Mediastinal lymphadenopathy (Acute) Multiple pulmonary nodules (Acute) Asthma (Acute) Asbestos exposure (Acute) Environmental allergies (Acute) Incidental pulmonary nodule, greater than or equal to 8mm (Acute) Shortness of breath (Acute) Current cannabis vaping on some days (Acute) Bronchitis, chronic with acute exacerbation (Acute) Elevated serum creatinine (Acute) Colon cancer screening (Acute) Vaccine counseling (Acute) Past Medical History Medical History Mediastinal lymphadenopathy Multiple pulmonary nodules Asbestos exposure Asthma Environmental allergies Chronic kidney disease, stage II (mild) Hyperlipidemia Family History Family History Father Stented coronary artery No family history of mental disorder Mother No family history of mental disorder Family history of problems with anesthesia: No Surgical History Surgical History History of lung surgery History of Problems with Anesthesia: No Social History Social History Household Members: Spouse and Children Housing: House Alcohol intake: never Comment: non counts needed Patient Tobacco Use Status: Never used Tobacco e-Cigarette/Vaping Use: Never Used Second Hand Smoke Exposure: No Use of substances other than those prescribed or required for medical reasons: No Substance Use Type: Marijuana Are you DNR?: No Advance Directives: No Advance Directives Information Provided: Yes Advance Directives on File: No service: No Current occupational status: employed 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 Current occupational exposures/hazards: Yes Cognitive needs: No Hearing needs: No Vision needs: No Meds Allergies Allergy/AdvReac Type Severity Reaction Status Date / Time No Known Allergies Allergy Verified 06/02/23 15:29 Exam Pertinent Lab Results Pertinent Lab Results: Laboratory Tests 02/26/23 01:10 WBC 8.0 Hgb 14.1 Hct 41.8 L Plt Count 294 Sodium 141 Potassium 3.4 D Chloride 105 Carbon Dioxide 26 BUN 16 Creatinine 1.14 Assessment and Plan Assessment Anesthesia Assessment: Chart Reviewed Final Anesthetic Review Family History of Problems with Anesthesia: No History of Problems with Anesthesia: No Documented by User: Job Guajardo MD 06/08/23 11:42 PMFSH Past Medical History Medical History Mediastinal lymphadenopathy Multiple pulmonary nodules Asbestos exposure Asthma Environmental allergies Chronic kidney disease, stage II (mild) Hyperlipidemia Family History Family History Father Stented coronary artery No family history of mental disorder Mother No family history of mental disorder Surgical History Surgical History History of lung surgery Social History Social History Household Members: Spouse and Children Housing: House Alcohol intake: never Comment: non counts needed Patient Tobacco Use Status: Never used Tobacco e-Cigarette/Vaping Use: Never Used Second Hand Smoke Exposure: No Use of substances other than those prescribed or required for medical reasons: No Substance Use Type: Marijuana Are you DNR?: No Advance Directives: No Advance Directives Information Provided: Yes Advance Directives on File: No service: No Current occupational status: employed 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 Assessment and Plan Assessment Anesthesia Assessment: Anesthesia Plan Discussed Final Anesthetic Review NPO: Yes ASA Class: III Final Preanesthetic Review: No Changes in Pt Med Stat, Meds/Allgs Chart Reviewed, Consent Obtained/Reviewed and Anes Risks/Benef Reviewed Patient Risk: Intermediate Procedure Risk: Low Anesthetic Plan Anesthetic Plan: GA and Agree w/ Assess. and Plan Disposition: Standard PACU
[2023-06-08] VITALS (33 sets, daily range): BP systolic 121–181; BP diastolic 68–107; PULSE 66–93; RESP 16–20; TEMP 36.2–37.2; O2SAT 94–98; BMI 25.5
--- NOTE | ~2023-06-08 | FL_ITS ---
EXAMINATION: XR FLUOROSCOPY WITH IMAGES CLINICAL INFORMATION: Stone, stent. COMPARISON: Chest CT from 04/01/[address] imaging from 02/09/2023. TECHNIQUE: Fluoroscopy Supervised By: Dr. Noguera. Fluoroscopy Time: 31 seconds Cumulative Dose: 8.33 mGy. DAP: This information is not provided on the dose data sheet. Images: 6. FL/FL guidance in OR FINDINGS AND IMPRESSION: Fluoroscopic imaging equipment utilized during urologic procedures. One of the images was acquired during retrograde injection of iodinated contrast into the right ureter, and there appears to be normal opacification of the right renal collecting system; no right sided hydronephrosis. A left ureteral stent is in its expected position.
[2023-06-08] MEDS: Lactated Ringers 1,000 ML 100 ML IVCONT (10:13)
--- NOTE | 2023-06-08 10:56 | MHC.SHP ---
Pre-Procedural Eval Section A - 24 Hr Update-Section A only Date of Service: 06/08/23 The patient is an INPATIENT: No The patient has been examined within 24 hours of the surgical procedure. The History & Physical has been completed within 30 days and I have reviewed it.: Yes Section B - Complete if H&P > 30 days Chief Complaint: Hydronephrosis with renal and ureteral calculous Details of Present Illness: Alcides is a 57-year-old male who had a left ureteral ureteroscopy laser lithotripsy and stent placement in February. He was evaluated for right flank pain CT scan imaging noted a 3 mm mid ureteral stone, left hydronephrosis with ureteral stent in place and ureteral calcifications along the stent and bilateral renal stones. A 0.9 cm soft tissue defect was noted in the area of the right ureteral orifice. Allergies: Allergies Allergy/AdvReac Type Severity Reaction Status Date / Time No Known Allergies Allergy Verified 06/02/23 15:29 Plan Diagnosis/Plan: Unchanged I have reviewed the history and physical and performed a pertinent physical examination on my patient. No changes have occurred unless specified. Cystoscopy left ureteroscopy laser lithotripsy, left ureteral stent exchange versus removal. Right retrograde ureteroscopy possible laser ureteral stent insertion Possible bladder biopsy. Time Spent With Patient Time: Total time managing care of this patient today ____ minutes.
--- NOTE | 2023-06-08 13:13 | W.PM.OPN ---
Operative Note Operative Note Date of Service: 06/08/23 Narrative: PreOperative Diagnosis:?? Right ureteral stone, retained left ureteral stent with ureteral stone. Post Operative Diagnosis:?? Retained left ureteral stent with ureteral stone. Procedure: Cystoscopy, right retrograde, left ureteroscopy, laser lithotripsy greater than 75 % of usual time due to stone being impacted Surgeon:?Dr Frances Noguera Anesthesia:? General Indications for procedure: The patient had a left ureteroscopy laser lithotripsy and stent placement 02/22/2023. CT scan imaging 05/13/2023 noted a 3 mm mid right ureteral stone, left hydronephrosis with ureteral stent in place and ureteral calcifications along the stent and bilateral renal stones. A 0.9 cm soft tissue defect was noted in the area of the right ureteral orifice. Findings: No suspicious bladder lesions visualized, mild edema along the right trigone, distal end of the left ureteral stent calcified with moderate edema at the left ureteral orifice. Proximal left ureteral stone visualized impacted. Procedure: After informed consent was verified the patient was brought to the operating placed on the OR table in supine position.? General Anesthesia was administered per protocol.? The patient was placed in lithotomy position, prepped and draped in the usual sterile fashion.? Safety pause time-out and side of surgery confirmed.? Antibiotics confirmed. A 22 [place] cystoscope was inserted transurethrally, the bulbous urethra was within normal limits. The prostatic urethra was nonobstructive. The bladder was visualized.? No suspicious bladder lesions visualized, mild edema along the right trigone, the distal end of the left ureteral stent was calcified and moderate edema which is expected was noted at the left ureteral orifice. The? distal end of the left ureteral stent was grasped with the flexible grasping forceps. The stent was not able to be pulled out of the ureter. A guidewire was passed alongside the stent up into the kidney. The cystoscope was removed, leaving the guidewire in place. The guidewire was used as the safety and was attached to the draping. The semi rigid ureteroscope was passed transurethrally to the level of the stone in the proximal left ureter. The stone was impacted along the brown of the ureter. Laser lithotripsy of the stone was done using the 365 fiber with a combination of dusting and hammer technique, settings 0.5 J by 20 hertz and 0.6 joules by 6 hertz was adjusted and up to 1.0 J by 12 hertz, due to the density of the stone; care was taken and the lower settings were used in the area where the stone was adherent to the ureter; lithotripsy of the stone took 75% more time due to the density of the stone and as it was impacted along the ureter. There was not significant calcifications along the mid portion of the stent in the ureter. The ureteroscope was removed the guidewire was left in place. The cystoscope was placed and again using the grasping forceps attempts to remove the stent was not successful. On fluoroscopy the proximal curl of the stent remained in the left renal pelvis. The guidewire was removed. The patient will need further management to remove the retained stent. The bladder was emptied.? The rigid cystoscope was removed. ? The patient tolerated the procedure well and was brought to the recovery room in stable condition. Complications: None Drains: Retained Ureteral stent, review of chart the patient had a multi length (22 cm -32 cm) left ureteral stent placed February 22, 2023
[2023-06-08] MEDS: ondansetron HCL 4 MG/2 ML VIAL IVPUSH (15:21)
[2023-06-08] MEDS: fentaNYL citrate/PF 100 MCG/2 ML VIAL 50 MCG IVPUSH ×4 (16:02→16:20)
[2023-06-08] MEDS: HYDROmorphone HCl 0.5 MG/0.5 ML SYRINGE 0.25 MG IVPUSH ×2 (16:28→16:33)
[2023-06-08] MEDS: Ketorolac Tromethamine 15 MG/ML VIAL IVPUSH (17:42)
[2023-06-08] MEDS: oxyCODONE HCl Immed Release 5 MG TABLET 10 MG PO (17:51)
[2023-06-08] MEDS: droPERidol 5 MG/2 ML VIAL 1.25 MG IVPUSH (18:40)
[2023-06-08] MEDS: Phenazopyridine HCL 200 MG TABLET PO (19:51)
--- NOTE | 2023-06-08 20:53 | PHA.MEDREC ---
Pharmacy Consult ? Medication Reconciliation Pharmacy has completed the medication reconciliation. Patient confirmed medications. Reports that he is not using Flovent anymore, and rarely uses his albuterol inhaler.
[2023-06-08] MEDS: 0.9 % Sodium Chloride 1,000 ML 100 ML IVCONT (21:48)
[2023-06-09 03:23] VITALS: BP 137/82; PULSE 85; RESP 16; TEMP 36.8; O2SAT 97
[2023-06-09 05:52] LABS: MANUAL DIFF FLAG NO
[2023-06-09 05:57] LABS: Basophils Percent Auto 0.3 % (0-2); Eosinophils Percent Auto 0.3 % (0-4); Hematocrit 31.8 % (42.0-52.0); Hemoglobin 10.9 g/dl (14.0-18.0); Imm Gran Abs Auto 0.06 X10*3/uL (0.00-0.03); Imm Gran Pct Auto 0.6 % (0.0-0.4); Lymphocytes Absolute Auto 0.7 X10*3/uL (1.2-4.9); Lymphocytes Percent Auto 7.3 % (20-40); Mean Corpuscular HGB Conc 34.3 g/dl (31.0-36.0); Mean Corpuscular Hemoglobin 31.5 pg (27.0-33.0); Mean Corpuscular Volume 91.9 fL (80.0-98.0); Mean Platelet Volume 10.2 fL (9.4-12.4); Monocytes Absolute Auto 0.9 X10*3/uL (0.1-1.2); Monocytes Percent Auto 9.1 % (2-11); Neutrophils Absolute Auto 8.3 x10*3/uL (2.0-8.3); Neutrophils Percent Auto 82.4 % (45-73); Platelet Count 247 X10*3/uL (160-400); Red Blood Count 3.46 X10*6/uL (4.60-5.80)
[2023-06-09 06:15] LABS: Anion Gap 11 (12-20); Carbon Dioxide 23 mmol/L (22-29); Chloride 107 mmol/L (96-108); Potassium 4.6 mmol/L (3.3-5.1); Sodium 136 mmol/L (135-145)
[2023-06-09] MEDS: 0.9 % Sodium Chloride 1,000 ML 100 ML IVCONT (06:27)
[2023-06-09 07:34] VITALS: BP 145/87; PULSE 97; RESP 18; TEMP 36.7; O2SAT 97
[2023-06-09 09:26] VITALS: O2SAT 94
--- NOTE | 2023-06-09 09:45 | MHC.CM.PN ---
Addendum entered by Ruby Neri RN 06/09/23 13:48: Patient medically cleared for dc home self care. will transport home. Original Note: [facility] DELIVERED. PATIENT IS FROM HOME W/ AND ADULT SON. FUNCTIONALLY INDEPENDENT. DENIES USE OF SERVICES OR DME. PCP - JEANNA FIORE [employer] DRIVER HCP - PT COMPLETED HCP NAMING AGENTS: 1) [facility] [phone], 2) SON [employer] [phone] DP: GOAL IS HOME SELF CARE. TO TRANSPORT. CM WILL CONTINUE TO FOLLOW.
[2023-06-09 10:42] VITALS: O2SAT 93
[2023-06-09 11:20] VITALS: BP 142/90; PULSE 98; RESP 18; TEMP 37.1; O2SAT 93
--- NOTE | 2023-06-09 14:20 | HO.POSTANES ---
Post Anesthesia Evaluation Post Anesthesia Evaluation Date of Service: 06/09/23 Vital Signs: Vital Signs Temp Pulse Resp BP Pulse Ox O2 Del Method O2 Flow Rate 06/09/23 11:20 98.8 F 98 18 142/90 H 93 Room Air 06/09/23 10:42 93 Room Air 06/09/23 09:26 94 Room Air 06/09/23 07:34 98.1 F 97 18 145/87 H 97 Nasal Cannula 2 06/09/23 03:23 98.3 F 85 16 137/82 97 Nasal Cannula 2 Anesthesia: General Mental Status: Awake Pain Control: Satisfactory Nausea/Vomiting: None Hydration: Adequate Anesthesia-Related Issues: No Anes. Related Issues
[2023-06-09] MEDS: oxyCODONE HCl Immed Release 5 MG TABLET 10 MG PO (14:21)
--- NOTE | 2023-06-16 10:02 | PM.DS ---
DS: Providers Provider Date of Service: 06/09/23 Date of admission: 06/08/23 19:12 Primary care physician: Harriet Mccall CNP DS: Diagnosis Discharge Diagnosis (1) Hydronephrosis with obstructing calculus: Start date: 06/08/23 Status: Acute DS: Summary Hospital Course Hospital Course: Underwent intervention with left-sided stone Procedure Time spent discussing smoking cessation with patient: 3 to 10 minutes Status at Discharge Functional status at discharge: independent ambulation Overall status at discharge: patient is back to baseline Time Attestation Discharge Coordination Time: discharge time of ____ minutes Quality: Safe Use of Opioids Does Pt have an Active Cancer Diagnosis on the Problem List?: No Quality: Stroke Does the patient have a stroke diagnosis?: No Physical Exam Vital Signs: Vital Signs: Last Vital Signs Temp 98.8 F 06/09/23 11:20 Pulse 98 06/09/23 11:20 Resp 18 06/09/23 11:20 BP 142/90 H 06/09/23 11:20 Pulse Ox 93 06/09/23 11:20 O2 Del Method Room Air 06/09/23 11:20 O2 Flow Rate 2 06/09/23 07:34 BMI result Body Mass Index 25.5 DS: Data Imaging CT scan - abdomen: Radiologist's impression: ITS Impressions Guidance Fluoroscopy 06/08/23 12:57 FINDINGS AND IMPRESSION: Fluoroscopic imaging equipment utilized during urologic procedures. One of the images was acquired during retrograde injection of iodinated contrast into the right ureter, and there appears to be normal opacification of the right renal collecting system; no right sided hydronephrosis. A left ureteral stent is in its expected position. Discharge Plan Discharge Patient Disposition: Home, Self-Care Referrals: Harriet Mccall CNP [Primary Care Provider] - None Discharge Medications: New phenazopyridine [Pyridium] 200 mg tablet 200 mg PO TID PRN (Reason: Urinary discomfort) Qty: 20 0RF oxycodone-acetaminophen 5-325 mg tablet 1 tab PO Q4H PRN (Reason: pain (scale score 4-6)) 7 Days Qty: 14 0RF Rx Instructions: Partial Fill upon patient request. Continued albuterol sulfate 90 mcg/actuation HFA aerosol inhaler 2 puff inhalation Q4-6H PRN (Reason: shortness of breath or wheezing) 90 Days Qty: 6.7 1RF tamsulosin 0.4 mg capsule 0.4 mg PO DAILY 30 Days Qty: 30 2RF atorvastatin 10 mg tablet 10 mg PO BEDTIME 90 Days Qty: 90 1RF Discharge Orders: Discharge Order (Routine); Ordered 06/09/23 Ordered By: Ronnie Graff Diet: Advance to usual diet Activity on Discharge: As tolerated Activity Restrictions/Additional Instructions: The patient will need follow up imaging for further re-evaluation of retained left ureteral stent, Dr. Brody will schedule and Urology staff will call patient for follow-up appointment with Dr. Brody. Care Plan Goals: stent Health Concerns: stent Plan of Treatment: stent Assessment: stent Discharge Date/Time: 06/09/23 15:23
== END 2023-06-09 15:23 | disposition home or self-care (01) ==
LOC: HO.S3 20:12
PROVIDERS: Admitting Provider Urology; PCP Nurse Practitioner Family; Visit Provider Urology
PROC: (CPT 52353; principal; 2023-06-08 11:50)
PROC: 0TJB8ZZ Inspection of Bladder, Via Natural or Artificial Opening Endoscopic (ICD-10-PCS; CPT 52000; 2023-06-08 11:50)
DX: N13.2 Hydronephrosis with renal and ureteral calculous obstruction (principal); Z96.0 Presence of urogenital implants; N18.2 Chronic kidney disease, stage 2 (mild)
CPT/HCPCS: 52353; 36415; 80051; 85025; 96361; 96374; 96375; 96376; 99221; C1769; J0690; J1170; J1790; J1885; J2405; J2704; J3010; Q9967

== ENCOUNTER → 2023-06-08 19:12 | Outpatient (BNV) | payer OTHER, SELFPAY | PROVIDERS: Admitting Provider Urology; PCP Nurse Practitioner Family; Visit Provider Urology | DX: N13.2 Hydronephrosis with renal and ureteral calculous obstruction (principal) | CPT/HCPCS: 52353; 74420; 99238 ==

== ENCOUNTER 2023-06-21 14:56 | Outpatient (AMB) | payer OTHER, SELFPAY ==
--- NOTE | 2023-06-21 14:58 | A.OFFVIS_ITS ---
Intake Intake Visit Reasons: Discuss next procedure (confirmed Intake Note: Patient of Rodolfo presents today via telephone to discuss next procedure for Hydronephrosis: Urology Medications: Tamsulosin & Pyridium Blood Thinner: none Nursing Home Assistant Required: No Accompanied by: Self / Same As Patient Allergies No Known Allergies Allergy (Verified 06/21/23 15:00) Medication List - Last Reconciled 06/21/23 by Frances Noguera MD albuterol sulfate 90 mcg/actuation 2 puffs inhalation Q4-6H PRN 90 days atorvastatin 10 mg PO BEDTIME 90 days oxycodone-acetaminophen 5-325 mg 1 tab PO Q4H PRN 7 days phenazopyridine (Pyridium) 200 mg PO TID PRN tamsulosin 0.4 mg PO DAILY 30 days HPI HPI Comments History of Present Illness Details 06/21/2023--status post OR procedure on -- cystoscopy right retrograde which was within normal limits no filling defects noted. Left ureteroscopy laser lithotripsy for impacted proximal ureteral stone. Unable to remove retained left ureteral stent at the time of the procedure. The patient was admitted overnight for evaluation due to pain. He states that since being discharged he is feeling much better he does have some discomfort from the stent but no significant pain. I have discussed that he passed the right ureteral stone as it was not seen at time of procedure on 06/08/2023 I have discussed follow-up evaluation with [facility] x-ray and will need further stone management and stent removal to be scheduled. Review of chart: 05/27/2023-- Alcides is a very pleasa nt 57-year-old male patient of Dr. Mccall. He has a past medical history of mediastinal lymphadenopathy, multiple pulmonary nodules, asbestos exposure, asthma, environmental allergies, chronic kidney disease stage 2, and hyperlipidemia. He presents to the office today for follow-up. Of note, patient underwent previous surgical intervention with Dr. Graff on 02/22/2023. Cystoscopy, left retrograde, left dilatation of ureteric orifice under fluoroscopy, left ureteroscopy, laser lithotripsy and left ureteral stent was placed as PET-CT with oncology had showed left hydronephrosis with impacted proximal stone. He reports having seeked emergency room care last week for new onset right-sided flank pain at which time a CT of the abdomen was ordered and performed. These results were reviewed with the patient today. Mild right hydronephrosis secondary to a 0.3 cm calculus in the right mid ureter. Moderate left hydronephrosis, with nephroureteral stent in place. There are calculi along the course of the left stent measuring up to 0.8 cm at the midportion. 0.9 cm focal soft tissue thickening along the right UVJ, possibly a urethral lesion. He discusses having follow-up with pulmonology and undergoing EBUS on 02/[address] Epstein. He reports having followed up with Eva Mora approximately 2 months ago to review biopsy results. He reports biopsy results were suggestive of sarcoidosis. He reports having completed steroid therapy as prescribed and is undergoing CT for surveillance monitoring. He does have a previous history of surgical intervention for nephrolithiasis approximately 5 years ago. In office urinalysis results reviewed with the patient today 3+ leukocytes negative nitrates. Discussed at length further surgical intervention with cystoscopy, left-sided stent exchange, ureteroscopy, retrograde, and laser lithotripsy on the left side as well as right-sided retrograde with possible cystoscopy, ureteroscopy, laser lithotripsy and stent placement. He does continue to report urinary frequency, urgency, and dysuria. Discussed sending urine today for urine culture for further assessment evaluation. He otherwise denies incontinence, nocturia, hematuria, foul smelling urine, changes to urinary stream, flank pain, fever, and or chills. All questions were answered. 06/21/2023--PLAN: [facility] x-ray follow-up post [facility] Medical History Mediastinal lymphadenopathy Multiple pulmonary nodules Asbestos exposure Asthma Environmental allergies Chronic kidney disease, stage II (mild) Hyperlipidemia Surgical History History of lung surgery Family History Father Stented coronary artery No family history of mental disorder Mother No family history of mental disorder Social History Household Members: Spouse and Children Housing: House Alcohol intake: never Comment: non counts needed Patient Tobacco Use Status: Never used Tobacco e-Cigarette/Vaping Use: Never Used Second Hand Smoke Exposure: No Substance Use Type: Marijuana service: No Current occupational status: employed 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 Current occupational exposures/hazards: Yes Cognitive needs: No Hearing needs: No Vision needs: No Review of Systems Const All systems reviewed & are unremarkable except as noted in HPI and below Reports no additional complaints Eyes Reports no additional complaints ENT Reports no additional complaints Card Denies dyspnea Resp Denies cough and Denies dyspnea GI Reports no additional complaints Musc Reports no additional complaints Skin/Breast Denies rash and Denies unusual bruising Neuro Reports no additional complaints Psych Reports no additional complaints Endo Reports no additional complaints Bal/Lymph Reports no additional complaints Aller/Immun Reports no additional complaints Assessment & Plan Assessment & Plan (1) Ureteral stent retained: Code(s): Z96.0 - Presence of urogenital implants (2) Kidney stone on left side: Code(s): N20.0 - Calculus of kidney (3) Hydronephrosis: Code(s): N13.30 - Unspecified hydronephrosis Plan KUB x-ray follow-up post Orders: Orders XR KUB Today N20.0 - Calculus of kidney, Z96.0 - Presence of urogenital implants Patient Instructions: The patient had an opportunity to ask questions regarding treatment plan. All questions were answered. Imaging, Laboratory studies and physical exam results were discussed and reviewed in detail. No major barriers to understanding were identified. The patient expressed understanding and agreement with the above treatment plan. The patient is aware they should contact our office by phone for worsening of their current condition or the appearance of new symptoms. Compliance is encouraged with any medications and followup testing that is ordered. It is a privilege to be allowed the opportunity to participate in the urologic care of your patient. If you have any questions or concerns regarding treatment for the above conditions please do not hesitate to contact me. The office telephone contact is [phone]. This note is constructed in part using voice recognition software. While every effort has been made to ensure accuracy technology director errors may have been included. Yours sincerely, Frances Noguera MD Telehealth Telehealth Location of provider rendering services: practice address Location of patient: address on file Patient Identification confirmed using: Name, : Yes Telehealth method: voice only Patient verbally consented to treatment: Yes Patient verbally consented to billing insurance company: Yes Patient informed of any privacy concerns related to visit: Yes Minutes spent on Phone/Video with Pt.: 18 Coding Level of Care Code Tele Est Pt Level 4 (87653) Diagnoses Ureteral stent retained Z96.0 Kidney stone on left side N20.0 Hydronephrosis N13.30
== END 2023-06-21 16:13 | disposition home or self-care (01) ==
LOC: HO.HUSH 14:56
PROVIDERS: PCP Nurse Practitioner Family; Visit Provider Urology
DX: Z96.0 Presence of urogenital implants (principal); N20.0 Calculus of kidney; N13.30 Unspecified hydronephrosis
CPT/HCPCS: 99214

== ENCOUNTER → 2023-06-21 14:56 | Outpatient (BNVA) | payer OTHER, SELFPAY | PROVIDERS: PCP Nurse Practitioner Family; Visit Provider Urology ==

== ENCOUNTER 2023-06-29 14:36 | Outpatient (REF) | payer OTHER, SELFPAY ==
--- NOTE | ~2023-06-29 | XR_ITS ---
EXAMINATION: XR ABDOMEN KUB CLINICAL INDICATION: Calculus of kidney. COMPARISON: 06/08/2023 fluoroscopic guidance in OR images, TECHNIQUE: 2 AP views of the abdomen. FINDINGS: Left ureteral stent with proximal portion overlying left kidney and distal portion overlying bladder. 5 mm calculus along the [id number] course of the stent. Multiple renal calcifications, largest calcification/cluster of calcifications lower pole measures 1.3 cm. Nonobstructive bowel gas pattern. Degenerative changes in the lumbar spine. Moderate amount of stool in the colon. XR/XR KUB IMPRESSION: 1. Left ureteral stent with proximal portion overlying left kidney and distal portion overlying bladder. 5 mm calculus along the [id number] course of the stent. 2. Multiple renal calcifications, largest calcification/cluster of calcifications lower pole measures 1.3 cm.
== END 2023-06-29 14:37 | disposition home or self-care (01) ==
LOC: HO.XRAY 14:36
PROVIDERS: PCP Nurse Practitioner Family; Visit Provider Urology
DX: N20.0 Calculus of kidney (principal); Z96.0 Presence of urogenital implants
CPT/HCPCS: 74018

== ENCOUNTER 2023-08-10 14:46 | Outpatient (AMB) | payer OTHER, SELFPAY ==
--- NOTE | 2023-08-10 14:51 | A.OFFPC_ITS ---
Vital Signs 08/10/23 14:52 Height 5 ft 10 in Weight 182 lb BMI 26.1 BP 142/70 H Blood Pressure Location Rt brachial Position Sitting Respiration 14 Pulse 95 Pulse Source Pulse Oximeter Temp 97.6 F Temp Source Temporal Artery Scan Pulse Oximetry (%) 99 Oxygen Delivery Method Room Air Intake Visit Reasons: HDF visit Methods Specialist Required: No Accompanied by: Self / Same As Patient Allergies No Known Allergies Allergy (Verified 08/10/23 15:21) Medication List - Last Reconciled 08/10/23 by Harriet Mccall CNP albuterol sulfate 90 mcg/actuation 2 puffs inhalation Q4-6H PRN 90 days atorvastatin 10 mg PO BEDTIME 90 days tamsulosin 0.4 mg PO DAILY 30 days Tobacco use date assessed: 08/10/23 Dental Screening Dental Screen Date: 08/10/23 Did you have a dental visit in the last 12 months?: No Did you have a dental problem in the last 6 months where you did not have access to dental care?: No Was dental information given to patient?: Patient has dentist HPI HPI Comments History of Present Illness Details 58-year-old male presents for a HDF. He was evaluated and treated at [facility] ED for right flank pain on 05/18/2023. X-ray revealed mild right hydronephrosis caused by 3 mm stone in the right ureter near the junction of the proximal and middle thirds of the right ureter. CT abdomen and pelvis without contrast revealed mild right hydronephrosis secondary to a 0.3 cm call us in the right mid ureter. He was diagnosed with renal colic on the right side and discharged home on tamsulosin 0.4 mg daily and instructed to follow-up with his urologist and PCP. He is followed by [facility] who is aware of his history of urethral stents, calculus of kidney, and hydronephrosis; he had lithotripsy of left renal colic last month; he has a follow up appointment next month. He denies flank pain or any acute symptoms at this time [facility] Medical History Mediastinal lymphadenopathy Multiple pulmonary nodules Asbestos exposure Asthma Environmental allergies Chronic kidney disease, stage II (mild) Hyperlipidemia Surgical History History of lung surgery Family History Father Stented coronary artery No family history of mental disorder Mother No family history of mental disorder Social History (Updated 08/10/23 @ 15:03 by TONNY Arias) Household Members: Spouse and Children Both parents involved: No Caregiver staying overnight: No Housing: House Are you a primary resident care aid to a significant other at home: No Do you presently have visiting nurse or other home services: No 75 years or older and lives alone: No Alcohol intake: never Comment: non counts needed Patient Tobacco Use Status: Never used Tobacco e-Cigarette/Vaping Use: Never Used Second Hand Smoke Exposure: No Substance Use Type: Marijuana service: No Current occupational status: employed 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 Willie Jordan, Nickie Aly, Gabriel Caldera and colleagues, with an educational dev from [employer]. Review of Systems Const Details: Const Denies chills, Denies fatigue, Denies fever(s), Denies headache(s) and Denies weakness ENT Denies dizziness and Denies headache(s) Card Denies chest pain, Denies lightheadedness, Denies dyspnea and Denies other (Palpitations) Resp Denies cough, Denies dyspnea, Denies wheezing and Denies other ( shortness of breath) GI Denies abdominal pain, Denies melena, Denies hematochezia, Denies change in bowel habits, Denies dyspepsia and Denies nausea Denies hematuria and Denies dysuria Musc Denies abnormal gait, Denies myalgias, Denies arthralgias, Denies numbness and Denies tingling Skin/Breast Denies rash, Denies unusual bruising and Denies wounds Neuro Denies abnormal gait, Denies dizziness, Denies headache(s), Denies memory loss, Denies numbness, Denies Sensory deficit (Neuro), Denies tingling and Denies weakness Psych Denies anxiety, Denies depression, Denies memory loss Endo Denies cold intolerance, Denies fatigue, Denies heat intolerance, Denies polydipsia and Denies polyuria Aller/Immun Denies wheezing Physical exam (Primary Care) Vital Signs: Last Vital Signs Temp 97.6 F 08/10/23 14:52 Pulse 95 08/10/23 14:52 Resp 14 08/10/23 14:52 BP 142/70 H 08/10/23 14:52 Pulse Ox 99 08/10/23 14:52 Oxygen Delivery Method Room Air 08/10/23 14:52 BMI result Body Mass Index 26.1 Tobacco/Smoking Status: Tobacco use Status Tobacco use date assessed 08/10/23 08/10/23 15:03 Patient Tobacco Use Status Never used Tobacco 08/10/23 15:03 e-Cigarette/Vaping Use Never Used 08/10/23 15:03 Thrive Assessment: Date of Thrive Assessment Date Thrive assessed 06/09/23 08/10/23 15:03 Const Other: General: no acute distress and well developed Nutritional Appearance: well nourished Orientation/consciousness: patient oriented x3 HENMT Head: Yes normocephalic and Yes atraumatic Eyes General: appearance normal, both eyes and all related structures Pupils: Equal, round and reactive pupils present EOM: EOMs intact bilaterally Resp Effort & Inspection: normal respiratory effort Auscultation: clear to auscultation bilaterally Cardio Rate: regular rate Rhythm: regular rhythm Heart sounds: S1 normal heart sound present, S2 normal heart sound present, no gallops, no murmurs and no rubs GI Palpation (GI): No Abdominal aortic bruit present, Soft to palpation, nontender, No hepatosplenomegaly present and No Rebound tenderness present Auscultation: normal bowel sounds General: Yes no CVA tenderness Back/Spine/Pelvis Back: no CVA tenderness Cervical Spine: cervical ROM normal and No Cervical spine tenderness Thoracic/Lumbar Spine: thoraco-lumbar ROM normal, No pain with thoraco-lumbar ROM, No thoracic spinal tenderness and No lumbar spinal tenderness Extrem General: Yes normal to inspection, No edema and No calf tenderness Skin General: warm and dry. Normal skin color. Normal skin turgor Neuro General: patient oriented x3, gait normal and no focal neuro deficit Cranial nerves: Yes Equal, round and reactive pupils present Cognition (Neuro): normal cognition Gait exam (Neuro): Normal gait present Sensory Exam: No Sensory deficit (Neuro) Psych Appearance: grossly normal Affect: normal affect Attitude: cooperative Thought process: Normal thought process present Assessment and Plan Assessment & Plan (1) Hospital discharge follow-up: Code(s): Z09 - Encounter for follow-up examination after completed treatment for conditions other than malignant neoplasm Plan: He was evaluated and treated at [facility] ED for right flank pain on 05/18/2023. X-ray revealed mild right hydronephrosis caused by 3 mm stone in the right ureter near the junction of the proximal and middle thirds of the right ureter. CT abdomen and pelvis without contrast revealed mild right hydronephrosis secondary to a 0.3 cm call us in the right mid ureter. He was diagnosed with renal colic on the right side and discharged home on tamsulosin 0.4 mg daily and instructed to follow-up with his urologist and PCP. He denies flank pain or any acute symptoms at this time. Advised to continue current treatment regimen. Follow-up with urology as planned Encouraged to get lipid panel blood work done before his next visit; fast for 10-12 hours, may drink water only Follow-up in 1 month or return sooner with symptoms or concerns Verbalized understanding and agreed with the plan Coding Level of Care Code Est Pt Level 4 (10449) Diagnoses Hospital discharge follow-up Z09
[2023-08-10 14:52] VITALS: BP 142/70; PULSE 95; RESP 14; TEMP 36.4; O2SAT 99; BMI 26.1
== END 2023-08-10 15:39 | disposition home or self-care (01) ==
PROVIDERS: PCP Nurse Practitioner Family; Visit Provider Nurse Practitioner Family
DX: Z09 Encounter for follow-up examination after completed treatment for conditions other than malignant neoplasm (principal)
CPT/HCPCS: 99214

== ENCOUNTER 2023-08-31 16:04 | Outpatient (REF) | payer OTHER, SELFPAY ==
--- NOTE | ~2023-08-31 | CT_ITS ---
EXAMINATION: CT abdomen pelvis wo IV con CLINICAL INFORMATION: Reason for Exam Z96.0 - Presence of urogenital implants COMPARISON: Prior PET/CT January 2023 TECHNIQUE: Multidetector volumetric imaging was performed from the superior aspect of the liver through the pubic symphysis noncontrasted CT Sagittal and coronal reformatted images were obtained on the technologist's workstation. This CT examination was performed using dose optimization techniques as appropriate, variously including the following: *Automated exposure control *Adjustment of mA and/or kV according to patient size (this includes techniques or standardized protocols for targeted exams where dose is matched to indication/reason for exam; i.e. extremities or head) *Use of iterative reconstruction technique DLP: 462 mGy-cm FINDINGS: LOWER THORAX: Included lung bases are clear. HEPATOBILIARY: Evaluation of the liver is limited due to lack of contrast. No discrete liver mass. GALLBLADDER: Gallbladder small contracted. SPLEEN: Spleen is enlarged measuring 14.5 x 8.5 cm. PANCREAS: No focal mass or ductal dilatation. STOMACH AND GASTROINTESTINAL TRACT: Stomach is grossly unremarkable. There is diverticulosis without CT evidence of acute diverticulitis. No CT evidence of appendicitis. ADRENALS: No adrenal nodules. KIDNEYS/URETERS: There is moderate to severe left renal hydronephrosis and hydroureter, double pigtail stent properly positioned in the left ureter with its proximal loop in the left renal pelvis, distal loop in the urinary bladder. There is mild perinephric fat stranding around the left kidney. There is a stone in the lower calyx left kidney measures up to 1.3 cm unchanged. URINARY BLADDER: Partially decompressed. PELVIC VISCERA: Unremarkable PERITONEUM: No free air or fluid. LYMPH NODES: Borderline enlarged retroperitoneal para-aortic lymph nodes unchanged from prior exam. No bulky adenopathy. VASCULAR:Abdominal aorta normal in size, no aneurysm found. BONES, ABDOMINAL WALL AND SOFT TISSUES: Age-appropriate changes of the spine and skeletal system, no destructive osteolytic or osteosclerotic bone lesion found CT/CT abdomen pelvis wo IV con IMPRESSION: 1. Moderate to severe left renal hydronephrosis and hydroureter, double pigtail stent properly positioned in the left ureter. There is mild perinephric fat stranding around the left kidney could be sequela of prior obstruction and/or caused by nephritis. Please correlate clinically.. 2. Stable 1.3 cm stone lower calyx left kidney. 3. Splenomegaly. 4. Diverticulosis without evidence of acute diverticulitis. 5. Borderline enlarged retroperitoneal para-aortic lymph nodes unchanged.
== END 2023-08-31 16:05 | disposition home or self-care (01) ==
LOC: HO.CT 16:04
PROVIDERS: PCP Nurse Practitioner Family; Visit Provider Urology
DX: N20.0 Calculus of kidney (principal); N20.1 Calculus of ureter; Z96.0 Presence of urogenital implants
CPT/HCPCS: 74176

== ENCOUNTER 2023-09-03 07:21 | Outpatient (REF) | payer OTHER, SELFPAY ==
[2023-09-03 11:56] LABS: Cholesterol 126 mg/dL (<200); HDL Cholesterol 41 mg/dL (>40); LDL Cholesterol Calculated 69 mg/dL (<100); Triglycerides 80 mg/dL (<150)
== END 2023-09-03 07:22 | disposition home or self-care (01) ==
LOC: HO.WFDLDS 07:21
PROVIDERS: Visit Provider Nurse Practitioner Family
DX: E78.5 Hyperlipidemia, unspecified (principal)
CPT/HCPCS: 36415; 80061

== ENCOUNTER 2023-09-10 14:43 | Outpatient (AMB) | payer OTHER, SELFPAY ==
[2023-09-10 14:47] VITALS: BP 124/80; PULSE 82; RESP 14; TEMP 36.6; O2SAT 99; BMI 25.7
--- NOTE | 2023-09-10 14:47 | A.OFFPC_ITS ---
Vital Signs 09/10/23 14:47 Height 5 ft 10 in Weight 179 lb 6 oz BMI 25.7 BP 124/80 Blood Pressure Location Rt brachial Position Sitting Respiration 14 Pulse 82 Pulse Source Pulse Oximeter Temp 97.8 F Temp Source Temporal Artery Scan Pulse Oximetry (%) 99 Oxygen Delivery Method Room Air Intake Visit Reasons: 1 months HLD Procedures Nurse Required: No Accompanied by: Self / Same As Patient Allergies No Known Allergies Allergy (Verified 09/10/23 15:04) Medication List - Last Reconciled 09/10/23 by Harriet Mccall CNP albuterol sulfate 90 mcg/actuation 2 puffs inhalation Q4-6H PRN 90 days atorvastatin 10 mg PO BEDTIME 90 days tamsulosin 0.4 mg PO DAILY 30 days Tobacco use date assessed: 08/10/23 Dental Screening Dental Screen Date: 08/10/23 HPI HPI Comments History of Present Illness Details 57-year-old male presents for hyperlipid emia follow-up He is on atorvastatin which he notes he has been taking as prescribed without adverse reactions He admits to making healthy dietary choices No acute symptoms at this time [facility] Medical History Mediastinal lymphadenopathy Multiple pulmonary nodules Asbestos exposure Asthma Environmental allergies Chronic kidney disease, stage II (mild) Hyperlipidemia Surgical History History of lung surgery Family History Father Stented coronary artery No family history of mental disorder Mother No family history of mental disorder Social History (Updated 08/10/23 @ 15:03 by TONNY Arias) Household Members: Spouse and Children Both parents involved: No Caregiver staying overnight: No Housing: House Are you a primary care analyst to a significant other at home: No Do you presently have visiting nurse or other home services: No 75 years or older and lives alone: No Alcohol intake: never Comment: non counts needed Patient Tobacco Use Status: Never used Tobacco e-Cigarette/Vaping Use: Never Used Second Hand Smoke Exposure: No Substance Use Type: Marijuana service: No Current occupational status: employed 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 Current occupational exposures/hazards: Yes Cognitive needs: No Hearing needs: No Vision needs: No Questionnaire Thrive Questionnaire Date Thrive assessed: 06/09/23 MINA-7 AMB Questionnaire MINA-7 Date MINA - 7 assessed: 02/02/23 Source: Developed by Drs. Willie Jordan, Nickie Aly, Gabriel Caldera and colleagues, with an educational dev from [employer]. Review of Systems Const Details: Const Denies chills, Denies fatigue, Denies fever(s), Denies headache(s) and Denies weakness ENT Denies dizziness and Denies headache(s) Card Denies chest pain, Denies lightheadedness, Denies dyspnea and Denies other (Palpitations) Resp Denies cough, Denies dyspnea, Denies wheezing and Denies other ( shortness of breath) GI Denies abdominal pain, Denies melena, Denies hematochezia, Denies change in bowel habits, Denies dyspepsia and Denies nausea Denies hematuria and Denies dysuria Musc Denies abnormal gait, Denies myalgias, Denies arthralgias, Denies numbness and Denies tingling Skin/Breast Denies rash, Denies unusual bruising and Denies wounds Neuro Denies abnormal gait, Denies dizziness, Denies headache(s), Denies memory loss, Denies numbness, Denies Sensory deficit (Neuro), Denies tingling and Denies weakness Psych Denies anxiety, Denies depression, Denies memory loss Endo Denies cold intolerance, Denies fatigue, Denies heat intolerance, Denies polydipsia and Denies polyuria Aller/Immun Denies wheezing Physical exam (Primary Care) Tobacco/Smoking Status: Tobacco use Status Tobacco use date assessed 08/10/23 08/10/23 15:03 Patient Tobacco Use Status Never used Tobacco 08/10/23 15:03 e-Cigarette/Vaping Use Never Used 08/10/23 15:03 Thrive Assessment: Date of Thrive Assessment Date Thrive assessed 06/09/23 08/10/23 15:03 Const Other: General: no acute distress and well developed Nutritional Appearance: well nourished Orientation/consciousness: patient oriented x3 HENMT Head: Yes normocephalic and Yes atraumatic Eyes General: appearance normal, both eyes and all related structures Pupils: Equal, round and reactive pupils present EOM: EOMs intact bilaterally Resp Effort & Inspection: normal respiratory effort Auscultation: clear to auscultation bilaterally Cardio Rate: regular rate Rhythm: regular rhythm Heart sounds: S1 normal heart sound present, S2 normal heart sound present, no gallops, no murmurs and no rubs GI Palpation (GI): No Abdominal aortic bruit present, Soft to palpation, nontender, No hepatosplenomegaly present and No Rebound tenderness present Auscultation: normal bowel sounds General: Yes no CVA tenderness Back/Spine/Pelvis Back: no CVA tenderness Cervical Spine: cervical ROM normal and No Cervical spine tenderness Thoracic/Lumbar Spine: thoraco-lumbar ROM normal, No pain with thoraco-lumbar ROM, No thoracic spinal tenderness and No lumbar spinal tenderness Extrem General: Yes normal to inspection, No edema and No calf tenderness Skin General: warm and dry. Normal skin color. Normal skin turgor Neuro General: patient oriented x3, gait normal and no focal neuro deficit Cranial nerves: Yes Equal, round and reactive pupils present Cognition (Neuro): normal cognition Gait exam (Neuro): Normal gait present Sensory Exam: No Sensory deficit (Neuro) Psych Appearance: grossly normal Affect: normal affect Attitude: cooperative Thought process: Normal thought process present Assessment and Plan Assessment & Plan (1) Hyperlipidemia: Code(s): E78.5 - Hyperlipidemia, unspecified Plan: Triglycerides, total cholesterol, LDL, and HDL levels on 09/03/2023 were normal, 80, 126, 69, and 41 respectively Continue current treatment regimen Advised to limit foods high in saturated fat and avoid foods high in trans fat Routine exercise encouraged Advised to get fasting blood work before his next visit Follow-up in 5 months for an extended physical exam and hyperlipidemia or return sooner with symptoms or concerns Verbalized understanding and agreed with treatment plan (2) Mild anemia: Code(s): D64.9 - Anemia, unspecified Plan: RBC and H&H in 06/01/2023 were low, 3.46 and 10.9/31.8 respectively. MCV was normal Unlikely iron-deficiency anemia Will recheck CBC Will check vitamin B12 and folate levels (3) Laboratory tests ordered as part of a complete physical exam (CPE): Code(s): Z00.00 - Encounter for general adult medical examination without abnormal findings Plan: Fasting labs ordered in preparation of a complete physical exam. Advised to fast for at least 10 hours before getting labs drawn. May drink water Verbalized understanding and agreed with treatment plan. Orders: Orders Complete Blood Count no Diff Today D64.9 - Anemia, unspecified Comprehensive [place]. Panel Fast 5 Months Z00.00 - Encounter for general adult medical examination without abnormal findings TSH reflex Free T4 5 Months Z00.00 - Encounter for general adult medical examination without abnormal findings UA CC w/rflx Micro + Cult 5 Months Z00.00 - Encounter for general adult medical examination without abnormal findings Complete Blood Count Auto Diff 5 Months Z00.00 - Encounter for general adult medical examination without abnormal findings Lipid Panel 5 Months Z00.00 - Encounter for general adult medical examination without abnormal findings Microalbumin, Random (w Creat) 5 Months Z00.00 - Encounter for general adult medical examination without abnormal findings PSA, Ultra Sensitive 5 Months Z00.00 - Encounter for general adult medical examination without abnormal findings Vitamin B12 and Folate Today D64.9 - Anemia, unspecified Coding Level of Care Code Est Pt Level 4 (25262) Complex EM visit Add On G2211 Diagnoses Hyperlipidemia E78.5 Mild anemia D64.9 Laboratory tests ordered as part of a complete physical exam (CPE) Z00.00
== END 2023-09-10 15:14 | disposition home or self-care (01) ==
PROVIDERS: PCP Nurse Practitioner Family; Visit Provider Nurse Practitioner Family
DX: E78.5 Hyperlipidemia, unspecified (principal); D64.9 Anemia, unspecified; Z00.00 Encounter for general adult medical examination without abnormal findings
CPT/HCPCS: 99214; G2211

== ENCOUNTER 2023-09-17 13:05 | Outpatient (REF) | payer OTHER, SELFPAY ==
[2023-09-17 14:39] LABS: Hematocrit 44.3 % (42.0-52.0); Hemoglobin 14.8 g/dl (14.0-18.0); Mean Corpuscular HGB Conc 33.4 g/dl (31.0-36.0); Mean Corpuscular Hemoglobin 29.4 pg (27.0-33.0); Mean Corpuscular Volume 87.9 fL (80.0-98.0); Mean Platelet Volume 10.8 fL (9.4-12.4); Platelet Count 244 X10*3/uL (160-400); Red Blood Count 5.04 X10*6/uL (4.60-5.80); Red Cell Distribution Width 13.1 % (11.0-16.0); White Blood Count 4.9 X10*3/uL (4.8-10.8)
[2023-09-17 15:32] LABS: Folate 5.5 ng/mL (> or = 4.0); Vitamin B12 225 pg/mL (200-900)
== END 2023-09-17 13:06 | disposition home or self-care (01) ==
LOC: HO.WFDLDS 13:05
PROVIDERS: Visit Provider Nurse Practitioner Family
DX: D64.9 Anemia, unspecified (principal)
CPT/HCPCS: 36415; 82607; 82746; 85027

== ENCOUNTER 2023-09-28 08:51 | Day surgery (SDC) | payer OTHER, SELFPAY ==
[2023-09-24 13:06] VITALS: BMI 25.7
--- NOTE | 2023-09-27 10:39 | HO.ANESPROP2 ---
Documented by User: Yesy Cole NP 09/27/23 10:41 HPI - Anesthesia Eval Consult details Narrative: 58yo M for Colonoscopy s/p cysto, etc 05/2023 with GA-LMA 5 Pulmo optimized prior (Hx asbestos exposure, sarcoid, ILD, hx VATS 2000, s/p EBUS 02/2023 with GA-ETT 7.5: negative for infection or malignancy, +sarcoid) PMFSH Active Problems Active Problems: All Active Problems (Updated 09/24/23 @ 13:16 by Misty Hutchins RN) Mild anemia (Acute) Hospital discharge follow-up (Acute) Ureteral calculus, left (Acute) Ureteral stent retained (Acute) Kidney stone on left side (Acute) Encounter for preoperative pulmonary examination (Acute) Lower urinary tract symptoms (Acute) Sarcoidosis (Acute) Interstitial lung disease (Acute) Hydronephrosis with obstructing calculus (Acute) Urinary tract infection (Acute) Hydronephrosis (Acute) Vaccine counseling (Acute) Incidental pulmonary nodule, greater than or equal to 8mm (Acute) Elevated serum creatinine (Acute) Colon cancer screening (Acute) Shortness of breath (Acute) Elevated fasting glucose (Acute) Bronchitis, chronic with acute exacerbation (Acute) Current cannabis vaping on some days (Acute) Chronic kidney disease, stage II (mild) (Acute) Hyperlipidemia (Acute) Mediastinal lymphadenopathy (Acute) Multiple pulmonary nodules (Acute) Asthma (Acute) Asbestos exposure (Acute) Environmental allergies (Acute) Past Medical History Medical History (Updated 09/24/23 @ 13:16 by Misty Hutchins RN) Sarcoidosis Mediastinal lymphadenopathy Multiple pulmonary nodules Asbestos exposure Asthma Environmental allergies Chronic kidney disease, stage II (mild) Hyperlipidemia Family History Family History Father Stented coronary artery No family history of mental disorder Mother No family history of mental disorder Family history of problems with anesthesia: No Surgical History Surgical History History of bronchoscopy Hx of cystoscopy History of lung surgery History of Problems with Anesthesia: No Social History Social History Household Members: Spouse and Children Housing: House Are you a primary residential care officer to a significant other at home: No Do you presently have visiting nurse or other home services: No Alcohol intake: never Comment: non counts needed Patient Tobacco Use Status: Never used Tobacco e-Cigarette/Vaping Use: Never Used Second Hand Smoke Exposure: No Use of substances other than those prescribed or required for medical reasons: Yes Substance Use Type: Marijuana Substance Use Type Other:: CBD/THC edibles Are you DNR?: No Advance Directives: No Advance Directives Information Provided: Yes service: No Current occupational status: employed 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er Current occupational exposures/hazards: Yes Cognitive needs: No Hearing needs: No Vision needs: No Meds Allergies Allergy/AdvReac Type Severity Reaction Status Date / Time No Known Allergies Allergy Verified 09/10/23 15:04 Exam Height,Weight and Vital Signs: Height 5 ft 10 in Weight 81.193 kg Pertinent Lab Results Pertinent Lab Results: Laboratory Tests 02/26/23 01:10 WBC 8.0 Hgb 14.1 Hct 41.8 L Plt Count 294 Sodium 141 Potassium 3.4 D Chloride 105 Carbon Dioxide 26 BUN 16 Creatinine 1.14 Narrative Narrative: CT chest wo IV con 03/2023 IMPRESSION: 1. Mediastinal lymphadenopathy. 2. Splenomegaly. 3. Stable lung nodules. 4. Left renal cyst versus hydronephrosis. Assessment and Plan Assessment Anesthesia Assessment: Chart Reviewed Final Anesthetic Review Family History of Problems with Anesthesia: No History of Problems with Anesthesia: No Documented by User: Job Guajardo MD 09/28/23 10:01 [facility] Past Medical History Medical History (Updated 09/24/23 @ 13:16 by Misty Hutchins RN) Sarcoidosis Mediastinal lymphadenopathy Multiple pulmonary nodules Asbestos exposure Asthma Environmental allergies Chronic kidney disease, stage II (mild) Hyperlipidemia Family History Family History Father Stented coronary artery No family history of mental disorder Mother No family history of mental disorder Surgical History Surgical History History of bronchoscopy Hx of cystoscopy History of lung surgery Social History Social History Household Members: Spouse and Children Housing: House Are you a primary residential care officer to a significant other at home: No Do you presently have visiting nurse or other home services: No Alcohol intake: never Comment: non counts needed Patient Tobacco Use Status: Never used Tobacco e-Cigarette/Vaping Use: Never Used Second Hand Smoke Exposure: No Use of substances other than those prescribed or required for medical reasons: Yes Substance Use Type: Marijuana Substance Use Type Other:: CBD/THC edibles Are you DNR?: No Advance Directives: No Advance Directives Information Provided: Yes service: No Current occupational status: employed 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er Current occupational exposures/hazards: Yes Cognitive needs: No Hearing needs: No Vision needs: No Meds Allergies Allergy/AdvReac Type Severity Reaction Status Date / Time No Known Allergies Allergy Verified 09/10/23 15:04 Exam Airway Mallampati Class: I TM Dist: >3cm Neck ROM: Full Loose/Missing/Broken Teeth: No Heart: ok Lungs: ok Assessment and Plan Assessment Anesthesia Assessment: Anesthesia Plan Discussed Final Anesthetic Review NPO: Yes ASA Class: III Final Preanesthetic Review: No Changes in Pt Med Stat, Meds/Allgs Chart Reviewed, Consent Obtained/Reviewed and Anes Risks/Benef Reviewed Patient Risk: Intermediate Procedure Risk: Low Anesthetic Plan Anesthetic Plan: MAC: and Agree w/ Assess. and Plan Disposition: Standard PACU
--- NOTE | 2023-09-28 09:19 | P.HPSUR_ITS ---
Pre-Procedural Eval Section A - 24 Hr Update-Section A only Date of Service: 09/28/23 The patient is an INPATIENT: No The patient has been examined within 24 hours of the surgical procedure. The History & Physical has been completed within 30 days and I have reviewed it.: No Section B - Complete if H&P > 30 days Chief Complaint: Colon cancer screening Relevant Family History (Specify if Yes): No Relevant Social History: None Present Medications: see Short Stay Collaborative assessment Medical History: No relevant PMH History of Previous Operations: No relevant previous surgery Allergies: Allergies Allergy/AdvReac Type Severity Reaction Status Date / Time No Known Allergies Allergy Verified 09/10/23 15:04 Review of Systems Sugical H&P ROS: Negative: Constitution, Cardiovascular, Respiratory and Gastro intestinal Exam Surgical H&P Exam: Normal: Heart, Normal: Lungs, Normal: Extremities and Normal: Abdomen Plan Diagnosis/Plan: Unchanged I have reviewed the history and physical and performed a pertinent physical examination on my patient. No changes have occurred unless specified. Time Spent With Patient Time: Total time managing care of this patient today ____ minutes.
[2023-09-28 09:34] VITALS: BP 143/97; PULSE 83; RESP 16; TEMP 37.1; O2SAT 94
[2023-09-28] MEDS: Lactated Ringers 1,000 ML 100 ML IVCONT (09:47)
--- NOTE | 2023-09-28 10:55 | HO.OPN-COLON ---
Colonoscopy Operative Note Operative Note Date of Service: 09/28/23 Narrative: COLONOSCOPY TILL CECUM WITH SNARE POLYPECTOMY AND HEMOCLIP PLACEMENT Pre-op diagnosis: Colon cancer screening (First coonoscopy). Post-op diagnosis:? Colon polyp, Diverticulosis, hemorrhoids Endoscopist:? Ruy Leal MD Anesthesia:?MAC Consent: Indications for the procedure and potential complications of bleeding, perforation, reaction to medications and missed diagnosis were discussed with the patient and informed consent was obtained. Instrument: Olympus CF H 190 L variable stiffness adult colonoscope Monitoring: Vital signs and clinical assessment, intermittent blood pressure monitoring, continuous EKG monitoring, Pulse oximetry and Carbon Dioxide monitoring were done throughout the procedure. Please see anesthesia flowsheet. Colon withdrawl time was 25 minutes. Procedure: The patient was placed in the left lateral decubitis position and pre-procedure medications were administered. After a digital rectal examination of the ano-rectum, the video colonoscope was inserted into the rectum and advanced through the colon to the cecum. The colonoscope was slowly withdrawn in a retrograde panoramic fashion and the colon mucosa was carefully examined including a retroflexed view of the rectum. Findings and interventions are described below. Procedure Difficulty: without difficulty Findings: Terminal Ileum: Not evaluated Cecum: Normal Ascending Colon: Normal Transverse Colon: Normal Descending Colon: Normal Sigmoid Colon: Moderate diverticulosis Rectum: A 7-8 mm sessile polyp - removed with a cold snare. Some bleeding noted from polypectomy site controlled with application of 1 hemoclip Ano-rectum: Small internal hemorrhoids Colon preparation: Good after some irrigation. [place] Bowel Preparation Scale Right colon; 2 Transverse colon: 2 Left colon; 2 (0 = Unprepared colon segment with mucosa not seen due to solid stool that cannot be cleared. 1 = Portion of mucosa of the colon segment seen, but other areas of the colon segment not well seen due to staining, residual stool and/or opaque liquid. 2 = Minor amount of residual staining, small fragments of stool and/or opaque liquid, but mucosa of colon segment seen well. 3 = Entire mucosa of colon segment seen well with no residual staining, small fragments of stool or opaque liquid) Impression and Post Procedure Diagnosis: Colonoscopy Findings: One small polyp was removed Moderate diverticulosis seen in the sigmoid colon Small hemorrhoids on retroflexed exam. Plan: I will send a letter with biopsy results. Repeat Colonoscopy in 5 years if polyps are adenomatous and 10 year if polyps are hyperplastic. Above findings were reviewed with the patient and relevant handouts were given and the discharge area.
[2023-09-28 11:02] VITALS: BP 126/88; PULSE 80; RESP 12; TEMP 36.6; O2SAT 98
[2023-09-28 11:16] VITALS: BP 153/87; PULSE 75; RESP 18; TEMP 36.2; O2SAT 99
== END 2023-09-28 11:41 | disposition home or self-care (01) ==
PROVIDERS: PCP Nurse Practitioner Family; Visit Provider Internal Medicine Gastroenterology
PROC: 0DJD8ZZ Inspection of Lower Intestinal Tract, Via Natural or Artificial Opening Endoscopic (ICD-10-PCS; CPT 45378; principal; 2023-09-28 10:00)
DX: Z12.11 Encounter for screening for malignant neoplasm of colon (principal); D12.8 Benign neoplasm of rectum; K57.30 Diverticulosis of large intestine without perforation or abscess without bleeding; K64.8 Other hemorrhoids; N18.2 Chronic kidney disease, stage 2 (mild); E78.5 Hyperlipidemia, unspecified; D86.9 Sarcoidosis, unspecified; R91.8 Other nonspecific abnormal finding of lung field; R59.0 Localized enlarged lymph nodes; J45.909 Unspecified asthma, uncomplicated; Z79.899 Other long term (current) drug therapy; Z77.090 Contact with and (suspected) exposure to asbestos
CPT/HCPCS: 45385; 88305; J2704

== ENCOUNTER → 2023-09-28 08:51 | Outpatient (BNV) | payer OTHER, SELFPAY | PROVIDERS: PCP Nurse Practitioner Family; Visit Provider Internal Medicine Gastroenterology | DX: Z12.11 Encounter for screening for malignant neoplasm of colon (principal); D12.8 Benign neoplasm of rectum; K57.30 Diverticulosis of large intestine without perforation or abscess without bleeding; K64.8 Other hemorrhoids | CPT/HCPCS: 45385 ==

== ENCOUNTER 2023-10-04 14:45 | Outpatient (REF) | payer OTHER, SELFPAY ==
--- NOTE | ~2023-10-04 | CT_ITS ---
EXAMINATION: CT CHEST WITHOUT CONTRAST CLINICAL INFORMATION: Sarcoidosis COMPARISON: 04/01/2023 TECHNIQUE: Multidetector volumetric CT imaging of the chest was done. Axial MIP volume rendering provided. Sagittal and coronal reformatted images were obtained. This CT examination was performed using dose optimization techniques as appropriate, variously including the following: *Automated exposure control *Adjustment of mA and/or kV according to patient size (this includes techniques or standardized protocols for targeted exams where dose is matched to indication/reason for exam; i.e. extremities or head) *Use of iterative reconstruction technique DLP: 177 mGy-cm FINDINGS: LUNGS: Central airways are patent. No new or enlarging pulmonary nodule. Right middle lobe 4 mm nodule is unchanged (4:117). PLEURA: No pleural effusion. MEDIASTINUM: No cardiomegaly. Aorta and pulmonary artery are normal in caliber. Prominent right mediastinal lymph node measuring approximately 2.3 cm (10:29). Subcarinal mediastinal lymph node measures 1.2 cm (10:26), unchanged. Additional subcarinal bulky adenopathy measures up to 2.6 cm in short axis, increased from prior study when it measured 1.9 cm. Bulky appearance of the marisel may reflect underlying hilar adenopathy, although lack of IV contrast limits evaluation. CORONARY ARTERY CALCIFICATION: No coronary artery calcification appreciated. CHEST WALL/AXILLA: No axillary or internal mammary lymphadenopathy. UPPER ABDOMEN: Unremarkable. OSSEOUS STRUCTURES: Degenerative changes of the thoracolumbar spine. CT/CT chest wo IV con IMPRESSION: * Right middle lobe 4 mm nodule is unchanged. No new or enlarging pulmonary nodule. * Interval increase in mediastinal adenopathy. Bulky appearance of the marisel may reflect underlying hilar adenopathy, although lack of IV contrast limits evaluation.
== END 2023-10-04 14:46 | disposition home or self-care (01) ==
LOC: HO.CT 14:45
PROVIDERS: PCP Nurse Practitioner Family; Visit Provider Nurse Practitioner Family
DX: D86.9 Sarcoidosis, unspecified (principal)
CPT/HCPCS: 71250

== ENCOUNTER 2023-10-25 15:25 | Outpatient (AMB) | payer OTHER, SELFPAY ==
--- NOTE | 2023-10-25 15:26 | A.OFFVIS_ITS ---
Intake Visit Reasons: follow up/CT Intake Note: Patient presents today for follow up visit on: hydronephrosis, kidney stones, and CT Scan results Imaging Completed: 08/31/23 Urology Medications: Tamsulosin Blood Thinner: none Director Industrial Relations Required: No Accompanied by: Self / Same As Patient Allergies No Known Allergies Allergy (Verified 10/25/23 16:52) Medication List - Last Reconciled 10/25/23 by GUNNAR Thomas albuterol sulfate 90 mcg/actuation 2 puffs inhalation Q4-6H PRN 90 days atorvastatin 10 mg PO BEDTIME 90 days tamsulosin 0.4 mg PO DAILY 30 days HPI Comments Details: Alcides is a very pleasant 58-year-old male patient of Dr. Mccall. He has a past medical history of mediastinal lymphadenopathy, multiple pulmonary nodules, asbestos exposure, asthma, environmental allergies, chronic kidney disease stage 2, and hyperlipidemia. He presents to the office today for follow-up of his nephrolithiasis and hydronephrosis. Of note, patient s/p OR procedure on 06/08/2023-- cystoscopy right retrograde which was within normal limits no filling defects noted. Left ureteroscopy laser lithotripsy for impacted proximal ureteral stone. Unable to remove retained left ureteral stent at the time of the procedure. The patient was admitted overnight for evaluation due to pain. Recent CT KUB results reviewed with the patient today. There is moderate to severe left renal hydronephrosis and hydroureter, double pigtail st ent properly positioned in the left ureter with its proximal loop in the left renal pelvis, distal loop in the urinary bladder. There is mild perinephric fat stranding around the left kidney. There is a stone in the lower calyx left kidney measures up to 1.3 cm unchanged. The bladder is partially. In discussion with the patient today he reports to be doing and feeling well. He discusses having followed up with Gastroenterology and undergoing colonoscopy. When asked he does report noting episodes of urinary urgency and frequency however feels they have somewhat subsided when compared to symptoms he had been feeling in May of this year. In office urinalysis results reviewed with the patient today 3+ leukocytes negative nitrates. 3+ protein. 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 Will send for urine culture. Discussed further treatment options of nephrolithiasis as well as left-sided ureteral stent. He otherwise denies any other issues or concerns at this time. [facility] Medical History Sarcoidosis Mediastinal lymphadenopathy Multiple pulmonary nodules Asbestos exposure Asthma Environmental allergies Chronic kidney disease, stage II (mild) Hyperlipidemia Surgical History History of bronchoscopy Hx of cystoscopy History of lung surgery Family History Father Stented coronary artery No family history of mental disorder Mother No family history of mental disorder Social History Household Members: Spouse and Children Both parents involved: No Caregiver staying overnight: No Housing: House Are you a primary pediatric care coordinator to a significant other at home: No Do you presently have visiting nurse or other home services: No 75 years or older and lives alone: No Alcohol intake: never Comment: non counts needed Patient Tobacco Use Status: Never used Tobacco e-Cigarette/Vaping Use: Never Used Second Hand Smoke Exposure: No Substance Use Type: Marijuana service: No Current occupational status: employed 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 Current occupational exposures/hazards: Yes Cognitive needs: No Hearing needs: No Vision needs: No Review of Systems Const Reports as per HPI Eyes Reports no additional complaints ENT Reports no additional complaints Card Reports as per HPI Resp Reports as per HPI GI Reports as per HPI Reports as per HPI Musc Reports no additional complaints Neuro Reports no additional complaints Psych Reports no additional complaints Endo Reports no additional complaints Bal/Lymph Reports as per HPI Physical Exam Const General: cooperative, healthy appearing, comfortable, no acute distress, well developed, alert and awake Nutritional Appearance: average body habitus Orientation/consciousness: patient oriented x3 Limitations: no limitations HEENT Head: Yes normal to inspection, Yes normocephalic and Yes atraumatic Ears: hearing grossly normal bilaterally Eyes General: appearance normal, both eyes and all related structures Neck Neck: Yes normal visual inspection and Yes trachea midline Chest Chest palpation & inspection: normal inspection of the chest Resp Effort & Inspection: normal respiratory effort and able to speak in complete sentences Cardio Rate: regular rate GI Inspection: Yes normal to inspection General: Yes no CVA tenderness Back/Spine/Pelvis Back: no CVA tenderness Skin General skin exam: no rashes or lesions noted Neuro General: patient oriented x3 Extrem General: Yes normal to inspection Psych Appearance: grossly normal and well kempt Mental Status: mental status grossly normal Speech and movement: Normal speech and movement present and Clear speech present Affect: normal affect Attitude: cooperative Thought process: Normal thought process present Thought content: Normal thought content present Insight: Fair insight present (Psych) Judgement: Fair judgement present (Psych) Results AMB Urinalysis, Automated UA Leukoctes 500 Lisa/uL Last Edit by Technical Machine on 10/25/23 16:15 UA Nitrite Negative Last Edit by Technical Machine on 10/25/23 16:15 UA Urobilinogen 0.2 mg/dL Last Edit by Technical Machine on 10/25/23 16:15 UA Protein 300 mg/dL Last Edit by Technical Machine on 10/25/23 16:15 UA pH 6.0 Last Edit by Technical Machine on 10/25/23 16:15 UA Blood 200 Dario/uL Last Edit by Technical Machine on 10/25/23 16:15 UA Specific [place] 1.025 Last Edit by Technical Machine on 10/25/23 16:15 UA Ketone Negative Last Edit by Technical Machine on 10/25/23 16:15 UA Bilirubin 0 mg/dL Last Edit by Technical Machine on 10/25/23 16:15 UA Glucose 0 mg/dL Last Edit by Technical Machine on 10/25/23 16:15 Results Reviewed Results Reviewed: Laboratory Last Values Urine pH (Auto) 6.0 10/25/23 16:04 Specific [place] (Auto) 1.025 10/25/23 16:04 Urine Protein (Auto) 300 mg/dL 10/25/23 16:04 Glucose (UA)(Auto) 0 mg/dL 10/25/23 16:04 Urine Ketones (Auto) Negative 10/25/23 16:04 Urine Blood (Auto) 200 Dario/uL 10/25/23 16:04 Urine Nitrite (Auto) Negative 10/25/23 16:04 Urine Bilirubin (Auto) 0 mg/dL 10/25/23 16:04 Urine Urobilinogen (Auto) 0.2 mg/dL 10/25/23 16:04 Leukocyte Esterase (Auto) 500 Lisa/uL 10/25/23 16:04 Date of Service: 08/31/23 EXAMINATION: CT abdomen pelvis wo IV con FINDINGS: LOWER THORAX: Included lung bases are clear. HEPATOBILIARY: Evaluation of the liver is limited due to lack of contrast. No discrete liver mass. GALLBLADDER: Gallbladder small contracted. SPLEEN: Spleen is enlarged measuring 14.5 x 8.5 cm. PANCREAS: No focal mass or ductal dilatation. STOMACH AND GASTROINTESTINAL TRACT: Stomach is grossly unremarkable. There is diverticulosis without CT evidence of acute diverticulitis. No CT evidence of appendicitis. ADRENALS: No adrenal nodules. KIDNEYS/URETERS: There is moderate to severe left renal hydronephrosis and hydroureter, double pigtail stent properly positioned in the left ureter with its proximal loop in the left renal pelvis, distal loop in the urinary bladder. There is mild perinephric fat stranding around the left kidney. There is a stone in the lower calyx left kidney measures up to 1.3 cm unchanged. URINARY BLADDER: Partially decompressed. PELVIC VISCERA: Unremarkable PERITONEUM: No free air or fluid. LYMPH NODES: Borderline enlarged retroperitoneal para-aortic lymph nodes unchanged from prior exam. No bulky adenopathy. VASCULAR:Abdominal aorta normal in size, no aneurysm found. BONES, ABDOMINAL WALL AND SOFT TISSUES: Age-appropriate changes of the spine and skeletal system, no destructive osteolytic or osteosclerotic bone lesion found IMPRESSION: 1. Moderate to severe left renal hydronephrosis and hydroureter, double pigtail stent properly positioned in the left ureter. There is mild perinephric fat stranding around the left kidney could be sequela of prior obstruction and/or caused by nephritis. Please correlate clinically.. 2. Stable 1.3 cm stone lower calyx left kidney. 3. Splenomegaly. 4. Diverticulosis without evidence of acute diverticulitis. 5. Borderline enlarged retroperitoneal para-aortic lymph nodes unchanged. Assessment & Plan Assessment & Plan (1) Proteinuria: Code(s): R80.9 - Proteinuria, unspecified Category: Medical (2) Ureteral calculus, left: Code(s): N20.1 - Calculus of ureter Category: Medical (3) Ureteral stent retained: Code(s): Z96.0 - Presence of urogenital implants Category: Medical (4) Kidney stone on left side: Code(s): N20.0 - Calculus of kidney Category: Medical (5) Hydronephrosis with obstructing calculus: Code(s): N13.2 - Hydronephrosis with renal and ureteral calculous obstruction Category: Medical Plan: Plan Extracorporeal Shock Wave Lithotripsy We discussed the nature of the decision and reasonable alternatives for performing the above surgery. Interventions include chemical dissolution, ESWL, ureteroscopy with laser lithotripsy and stent placement, PCNL. ? Options such as medical therapy were discussed. The relative uncertainties and benefits related to each alternate procedure were adequately discussed. General surgical risks including, but not limited to, pain, bleeding, infection, myocardial infarction, pulmonary embolus, deep vein thrombosis and cerebrovascular accident which may result in further hospitalization were discussed.? Full disclosure of the procedure as well as all major risks, benefits and complications were discussed including but not limited to risks of bleeding, injury to the kidney with hematoma or jd-hematoma, failure to fragments stone, potential for ureteric obstruction from stone passage and need for secondary procedures.? There is a small long-term risk of hypertension and a question samantha of diabetes.? Success rate of fragmentation and passage is approximately 70- 75%.? This is compared to the risks and benefits for ureteroscopy which has a higher success rate but is a more invasive procedure. The success rate of the procedure was discussed. Success of the procedure in the short-term does not necessarily guarantee that long-term success will be maintained. Suitable follow up will need to be maintained. The patient showed understanding of the discussion as well as the typical recovery time, and the outpatient nature of this procedure. Opportunity was given for questions. Repeat-back protocol used to confirm understanding. They wish to proceed with Left ESWL Plan In office urinalysis results reviewed with the patient today; as noted above; will send for urine culture. Recent CT results reviewed with the patient today; as noted above. Patient currently denies any bothersome urinary issues or concerns. He reports be happy with current voiding parameters. Will refer to Nephrology for further assessment evaluation of proteinuria. Discussed at length left-sided ESWL. Discussed importance of adequate hydration in relation to nephrolithiasis as well as overall health and well being. All questions were answered. Follow-up per doctor's orders; or sooner with any issues, concerns, and or questions. Orders: Orders Urine Culture Today R39.9 - Unspecified symptoms and signs involving the genitourinary system AMB Urinalysis Automated Today R39.9 - Unspecified symptoms and signs involving the genitourinary system, Z13.9 - Encounter for screening, unspecified Referrals Nephrology Referral R80.9 - Proteinuria, unspecified Patient Instructions: The patient had an opportunity to ask questions regarding the treatment plan. All questions were answered. Physical exam, labs, and imaging were discussed and reviewed in detail. As well as risks, benefits, and discussion of treatment choices. No major barriers to understanding were identified. The patient expressed understanding and agreement with the above treatment plan. The patient was made aware they should contact our office by phone for worsening of their current condition, the appearance of new symptoms, or with any questions or concerns. Compliance is encouraged with any medications and follow up testing that is ordered. It is a privilege to be allowed the opportunity to participate in? your urological care.? Again, if you have any questions or concerns If you have any questions or concerns please do not hesitate to contact me. The office is [phone]. This note is constructed using voice recognition software. While every effort has been made to ensure accuracy power sewing machine operator errors may have been included. Yours sincerely, ANA Thomas Coding Level of Care Code Est Pt Level 4 (05965) Diagnoses Proteinuria R80.9 Ureteral calculus, left N20.1 Ureteral stent retained Z96.0 Kidney stone on left side N20.0 Hydronephrosis with obstructing calculus N13.2
== END 2023-10-25 16:02 | disposition home or self-care (01) ==
PROVIDERS: PCP Nurse Practitioner Family; Visit Provider Nurse Practitioner Family
DX: N13.2 Hydronephrosis with renal and ureteral calculous obstruction (principal); R80.9 Proteinuria, unspecified; Z96.0 Presence of urogenital implants; Z13.9 Encounter for screening, unspecified; R39.9 Unspecified symptoms and signs involving the genitourinary system
CPT/HCPCS: 99214

== ENCOUNTER 2023-10-25 15:25 | Outpatient (REF) | payer OTHER, SELFPAY | END 2023-10-25 15:26 | disposition home or self-care (01) | LOC: HO.LNP 15:25 | PROVIDERS: PCP Nurse Practitioner Family; Visit Provider Nurse Practitioner Family | DX: R39.9 Unspecified symptoms and signs involving the genitourinary system (principal); R80.9 Proteinuria, unspecified; N13.2 Hydronephrosis with renal and ureteral calculous obstruction | CPT/HCPCS: 81003; 87086 ==

== ENCOUNTER 2023-11-11 14:22 | Outpatient (AMB) | payer OTHER, SELFPAY ==
[2023-11-11 14:24] VITALS: BP 112/80; PULSE 75; O2SAT 95; BMI 25.3
--- NOTE | 2023-11-11 14:24 | HO.NEPHOV ---
Vital Signs 11/11/23 14:24 Height 5 ft 10 in Weight 176 lb BMI 25.3 BP 112/80 Blood Pressure Location Lt brachial Position Sitting Pulse 75 Pulse Source Pulse Oximeter Pulse Oximetry (%) 95 Oxygen Delivery Method Room Air Intake Visit Reasons: Proteinuria/ Conf Game Artist Required: No Accompanied by: Self / Same As Patient Allergies No Known Allergies Allergy (Verified 11/11/23 14:26) Medication List - Last Reconciled 11/11/23 by Melvin Gimenez MD albuterol sulfate 90 mcg/actuation 2 puffs inhalation Q4-6H PRN 90 days atorvastatin 10 mg PO BEDTIME 90 days tamsulosin 0.4 mg PO DAILY 30 days HPI Comments Details: . 58-year-old man with a history of sarcoidosis and multiple renal stones has been referred for evaluation of proteinuria. He had nephrolithiasis several years ago and underwent ESWL. Left kidney is atrophic with chronic hydronephrosis. Stent is in place. Right kidney had a 0.3 cm stone and underwent ESWL. He has history of sarcoidosis he was treated with the prednisone. He is currently in remission. In Recent serum calcium levels have been normal. He has not undergone any metabolic workup for nephrolithiasis [facility] Medical History Sarcoidosis Mediastinal lymphadenopathy Multiple pulmonary nodules Asbestos exposure Asthma Environmental allergies Chronic kidney disease, stage II (mild) Hyperlipidemia Surgical History History of bronchoscopy Hx of cystoscopy History of lung surgery Family History Father Stented coronary artery No family history of mental disorder Mother No family history of mental disorder Social History Household Members: Spouse and Children Both parents involved: No Caregiver staying overnight: No Housing: House Are you a primary rehab care assistant to a significant other at home: No Do you presently have visiting nurse or other home services: No 75 years or older and lives alone: No Alcohol intake: never Comment: non counts needed Patient Tobacco Use Status: Never used Tobacco e-Cigarette/Vaping Use: Never Used Second Hand Smoke Exposure: No Substance Use Type: Marijuana service: No Current occupational status: employed 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 Current occupational exposures/hazards: Yes Cognitive needs: No Hearing needs: No Vision needs: No Review of Systems Const Denies fever(s) and Denies weight loss Card Denies chest pain Resp Denies cough and Denies hemoptysis GI Denies abdominal pain, Denies diarrhea and Denies nausea Musc Denies back pain Neuro Denies focal weakness Physical Exam Vital Signs: Last Vital Signs Pulse 75 11/11/23 14:24 BP 112/80 11/11/23 14:24 Pulse Ox 95 11/11/23 14:24 Oxygen Delivery Method Room Air 11/11/23 14:24 BMI result Body Mass Index 25.3 Const General: comfortable; No acute distress Orientation/consciousness: patient oriented x3 Eyes General: appearance normal, both eyes and all related structures Visual Holbrook: normal visual holbrook by confrontation Neck Neck: Yes supple and Yes no JVD Resp Effort & Inspection: normal respiratory effort and respiratory effort not decreased Auscultation: rhonchi Cardio Palpation: no palpable S3 and no palpable S4 Heart sounds: no rubs GI Inspection: Yes normal to inspection Palpation (GI): Soft to palpation Percussion: Yes normal to percussion Auscultation: normal bowel sounds General: Yes no CVA tenderness Back/Spine/Pelvis Back: no CVA tenderness Skin General skin exam: no petechiae and no purpura Neuro General: patient oriented x3 and no focal motor deficits Extrem General: No clubbing and No edema Results Reviewed Results Reviewed: All medical records from [facility] and [facility] were reviewed Nephrology Results: Hgb 14.8 g/dl (14.0-18.0) 09/17/23 WBC 4.9 X10*3/uL (4.8-10.8) 09/17/23 Plt Count 244 X10*3/uL (160-400) 09/17/23 Assessment & Plan Assessment & Plan (1) Kidney stone on left side: Code(s): N20.0 - Calculus of kidney Category: Medical (2) Sarcoidosis: Code(s): D86.9 - Sarcoidosis, unspecified Category: Medical Plan Middle-aged man with a sarcoidosis has recurrent nephrolithiasis. History of atrophic left kidney with chronic hydronephrosis. I will initiate a metabolic workup for nephrolithiasis. Obtain 24 urine collection for stone studies Check intact PTH serum calcium and phosphorus levels. Check vitamin-D levels as well. Encouraged him to stay on low-sodium diet Maintain urine output more than 2 L by increasing p.o. fluid intake. Stay on low oxalate diet and increase citrate intake by drinking lemonade. Check urine protein creatinine ratio Further workup will be based on the outcome of the above investigations. Orders: Orders Comprehensive Met. Panel Today N20.0 - Calculus of kidney Phosphorus Today N20.0 - Calculus of kidney Total Protein Urine Random Today N20.0 - Calculus of kidney Creatinine Urine Today N20.0 - Calculus of kidney Sodium, 24Hr Urine Group Today N20.0 - Calculus of kidney Calcium, 24 Hr Ur Today N20.0 - Calculus of kidney Complete Blood Count Auto Diff Today N20.0 - Calculus of kidney Parathyroid Hormone Intact Today N20.0 - Calculus of kidney Vitamin D 25-OH (D2 and D3) Today N20.0 - Calculus of kidney Creatinine, 24 Hr Group Today N20.0 - Calculus of kidney Oxalate, 24 Hr Today N20.0 - Calculus of kidney Uric Acid, 24Hr Urine Group Today N20.0 - Calculus of kidney Citric Acid 24hr Urine Today N20.0 - Calculus of kidney Coding Level of Care Code New Pt Level 4 (99477) Diagnoses Kidney stone on left side N20.0 Sarcoidosis D86.9
== END 2023-11-11 14:57 | disposition home or self-care (01) ==
PROVIDERS: PCP Nurse Practitioner Family; Referring Provider Nurse Practitioner Family; Visit Provider Internal Medicine Hypertension Specialist
DX: N20.0 Calculus of kidney (principal); D86.9 Sarcoidosis, unspecified
CPT/HCPCS: 99204

== ENCOUNTER → 2023-11-11 14:22 | Outpatient (BNVA) | payer OTHER, SELFPAY | PROVIDERS: PCP Nurse Practitioner Family; Referring Provider Nurse Practitioner Family; Visit Provider Internal Medicine Hypertension Specialist ==

== ENCOUNTER 2023-11-22 13:32 | Outpatient (AMB) | payer OTHER, SELFPAY ==
[2023-11-22 13:39] VITALS: BP 150/84; PULSE 71; BMI 25.4
--- NOTE | 2023-11-22 13:39 | A.OFFVIS_ITS ---
Vital Signs 11/22/23 13:39 Height 5 ft 10 in Weight 177 lb 4.026 oz BMI 25.4 BP 150/84 H Blood Pressure Location Lt brachial Position Sitting Pulse 71 Intake Visit Reasons: post-op Intake Note: Alcides returns to in office follow up s/p colonoscopy. CC: Patient reports doing good. Denies having any GI concerns today. 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 Denies any issues with anesthesia in the past.? Denies any history of sleep apnea.? No history infectious diseases in the past or present.? Not on any anticoagulation therapy.? No family or personal history of colon cancer or polyps.? Patient denies melena, hematochezia, unintentional weight loss or ribbon like stools.? Discussed at length the pre-procedure,? prep, diet & medications as well as what to expect prior, during and after the procedure.?? Stressed the importance of good bowel prep. ?Recommended the use of Vaseline or Calmoseptine OTC & baby wipes with bowel movements to promote comfort.? ?Patient verbalizes understanding and agrees to plan of care.? He was given the opportunity to ask questions and all questions answered.? We will see him after the procedure.? Plan Medications New bisacodyl (Dulcolax (bisacodyl)) take 2 tabs at noon the day before your colonoscopy 10 mg (2 x 5 mg) PO ONCE 1 day 2 tabs 0RF Z12.11 polyethylene glycol 3350 (Miralax) As directed by gastroenterology department at [facility] 238 grams PO ONCE 238 grams 0RF Z12.11 COLONOSCOPY Findings: Terminal Ileum: Not evaluated Cecum: Normal Ascending Colon: Normal Transverse Colon: Normal Descending Colon: Normal Sigmoid Colon: Moderate diverticulosis Rectum: A 7-8 mm sessile polyp - removed with a cold snare. Some bleeding noted from polypectomy site controlled with application of 1 hemoclip Ano-rectum: Small internal hemorrhoids Colon preparation: Good after some irrigation. [place] Bowel Preparation Scale Right colon; 2 Transverse colon: 2 Left colon; 2 (0 = Unprepared colon segment with mucosa not seen due to solid stool that cannot be cleared. 1 = Portion of mucosa of the colon segment seen, but other areas of the colon segment not well seen due to staining, residual stool and/or opaque liquid. 2 = Minor amount of residual staining, small fragments of stool and/or opaque liquid, but mucosa of colon segment seen well. 3 = Entire mucosa of colon segment seen well with no residual staining, small fragments of stool or opaque liquid) Impression and Post Procedure Diagnosis: Colonoscopy Findings: One small polyp was removed Moderate diverticulosis seen in the sigmoid colon Small hemorrhoids on retroflexed exam. Plan: I will send a letter with biopsy results. Repeat Colonoscopy in 5 years if polyps are adenomatous and 10 year if polyps are hyperplastic. PATHOLOGY RESULTS Diagnosis Rectum, polypectomy: Tubular adenoma; negative for high-grade dysplasia TODAY'S VISIT Patient is here today for follow-up and to discuss colonoscopy results. Denies any ill effects from the prep, anesthesia or procedure itself. Patient denies melena, hematochezia. Reports that he moves his bowels without any issues. One tubular adenoma without high-grade dysplasia or carcinoma found in rectum, Hemoccult clipped. Patient denies any rectal pain. Colonoscopy in 5 years recommended, patient denies any GI concerning symptoms. [facility] Medical History (Updated 11/22/23 @ 14:00 by Cynthia Garcia, [facility]-) Tubular adenoma of colon Diverticulosis Sarcoidosis Mediastinal lymphadenopathy Multiple pulmonary nodules Asbestos exposure Asthma Environmental allergies Chronic kidney disease, stage II (mild) Hyperlipidemia Surgical History H/O colonoscopy History of bronchoscopy Hx of cystoscopy History of lung surgery Family History Father Stented coronary artery No family history of mental disorder Mother No family history of mental disorder Social History Household Members: Spouse and Children Both parents involved: No Caregiver staying overnight: No Housing: House Are you a primary care navigator to a significant other at home: No Do you presently have visiting nurse or other home services: No 75 years or older and lives alone: No Alcohol intake: never Comment: non counts needed Patient Tobacco Use Status: Never used Tobacco e-Cigarette/Vaping Use: Never Used Second Hand Smoke Exposure: No Substance Use Type: Marijuana service: No Current occupational status: employed 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 Current occupational exposures/hazards: Yes Cognitive needs: No Hearing needs: No Vision needs: No Review of Systems Const Denies weight gain and Denies weight loss ENT Reports no additional complaints, Denies dysphagia and Denies odynophagia Card Reports no additional complaints Resp Reports no additional complaints GI Denies abdominal pain, Denies belching, Denies melena, Denies bloating, Denies change in bowel habits, Denies dysphagia, Denies excessive flatus, Denies dyspepsia, Denies heartburn, Denies diarrhea, Denies loose stools, Denies nausea, Denies odynophagia and Denies vomiting Reports no additional complaints Musc Reports no additional complaints Neuro Reports no additional complaints Psych Reports no additional complaints Endo Reports no additional complaints Physical Exam Vital Signs: Last Vital Signs Pulse 71 11/22/23 13:39 BP 150/84 H 11/22/23 13:39 BMI result Body Mass Index 25.4 Const General: healthy appearing, no acute distress and well developed Nutritional Appearance: well nourished Orientation/consciousness: patient oriented x3 Resp Effort & Inspection: normal respiratory effort, able to speak in complete sentences, no tracheal deviation and symmetric chest movement Auscultation: clear to auscultation bilaterally Cardio Rate: regular rate GI Inspection: Yes normal to inspection and No distended Palpation (GI): Soft to palpation, not firm, nontender and No hepatosplenomegaly present Auscultation: normal bowel sounds General: Yes no CVA tenderness Back/Spine/Pelvis Back: no CVA tenderness Skin General skin exam: elasticity normal, turgor normal and dry skin Neuro General: patient oriented x3 Psych Appearance: grossly normal Mental Status: mental status grossly normal Assessment & Plan Assessment & Plan (1) Diverticulosis: Code(s): K57.90 - Diverticulosis of intestine, part unspecified, without perforation or abscess without bleeding Category: Medical (2) Tubular adenoma of colon: Code(s): D12.6 - Benign neoplasm of colon, unspecified Category: Medical (3) Status post colonoscopy: Code(s): Z98.890 - Other specified postprocedural states Plan Tubular adenoma without high-grade dysplasia or carcinoma, colonoscopy in 5 years, sooner if clinically necessary. Moderate diverticulosis in sigmoid colon. Discussed with patient the importance of increasing fiber in his diet. List of food high in fiber given to patient. Patient can start also fiber supplement supplement and probiotic. Follow-up in the office on as needed basis. He is agreeable to this plan and verbalizes understanding of instructions. He was given the opportunity to ask questions and all questions answered. Thank you for allowing me to participate in his care Coding Level of Care Code Est Pt Level 3 (85475) Diagnoses Diverticulosis K57.90 Tubular adenoma of colon D12.6 Status post colonoscopy Z98.890 Time Spent (min) 25 Comment 15 minutes spent with patient and additional 10 minutes spent reviewing his records
== END 2023-11-22 14:02 | disposition home or self-care (01) ==
PROVIDERS: PCP Nurse Practitioner Family; Visit Provider Nurse Practitioner Family
DX: K57.90 Diverticulosis of intestine, part unspecified, without perforation or abscess without bleeding (principal); D12.6 Benign neoplasm of colon, unspecified; Z98.890 Other specified postprocedural states
CPT/HCPCS: 99213

== ENCOUNTER → 2023-11-22 13:32 | Outpatient (BNVA) | payer OTHER, SELFPAY | PROVIDERS: PCP Nurse Practitioner Family; Visit Provider Nurse Practitioner Family ==

== ENCOUNTER 2023-11-26 07:46 | Outpatient (REF) | payer OTHER, SELFPAY ==
[2023-11-26 11:08] LABS: MANUAL DIFF FLAG NO
[2023-11-26 11:20] LABS: Basophils Absolute Auto 0.1 X10*3/uL (0.0-0.2); Eosinophils Absolute Auto 0.4 X10*3/uL (0.0-0.4); Eosinophils Percent Auto 8.2 % (0-4); Hematocrit 44.3 % (42.0-52.0); Imm Gran Abs Auto 0.03 X10*3/uL (0.00-0.03); Imm Gran Pct Auto 0.6 % (0.0-0.4); Lymphocytes Absolute Auto 0.8 X10*3/uL (1.2-4.9); Lymphocytes Percent Auto 15.3 % (20-40); Mean Corpuscular HGB Conc 33.9 g/dl (31.0-36.0); Mean Corpuscular Hemoglobin 30.1 pg (27.0-33.0); Mean Corpuscular Volume 88.8 fL (80.0-98.0); Mean Platelet Volume 10.4 fL (9.4-12.4); Monocytes Absolute Auto 0.5 X10*3/uL (0.1-1.2); Monocytes Percent Auto 8.6 % (2-11); Neutrophils Absolute Auto 3.5 x10*3/uL (2.0-8.3); Neutrophils Percent Auto 66.3 % (45-73); Platelet Count 237 X10*3/uL (160-400); Red Blood Count 4.99 X10*6/uL (4.60-5.80); Red Cell Distribution Width 13.7 % (11.0-16.0); White Blood Count 5.2 X10*3/uL (4.8-10.8)
[2023-11-26 11:48] LABS: Total Protein Urine Random 89 mg/dL (<12)
[2023-11-26 11:49] LABS: Alanine Aminotransferase 12 U/L (0-40); Albumin Level 4.2 g/dL (3.5-5.0); Alkaline Phosphatase 69 U/L (39-117); Anion Gap 11 (12-20); Aspartate Amino Transferase 13 U/L (5-37); Bilirubin Total 0.9 mg/dL (0.0-1.0); Blood Urea Nitrogen 13 mg/dL (9-16); Calcium 9.3 mg/dL (8.4-10.2); Carbon Dioxide 28 mmol/L (22-29); Chloride 106 mmol/L (96-108); Estimated Glomerular Filt Rate 54; Glucose Random 107 mg/dL (60-115); Phosphorus 2.5 mg/dL (2.7-4.5); Potassium 3.9 mmol/L (3.3-5.1); Sodium 141 mmol/L (135-145); Total Protein 6.6 g/dL (6.5-8.0)
[2023-11-26 11:55] LABS: Parathyroid Hormone Intact 33.8 pg/mL (8.7-77.1)
[2023-12-03 15:37] LABS: Vitamin D 25-OH, D2 <4 ng/mL; Vitamin D 25-OH, D3 23 ng/mL; Vitamin D 25-OH, Total 23 ng/mL (30-100)
== END 2023-11-26 07:47 | disposition home or self-care (01) ==
LOC: HO.WFDLDS 07:46
PROVIDERS: Visit Provider Internal Medicine Hypertension Specialist
DX: N20.0 Calculus of kidney (principal)
CPT/HCPCS: 36415; 80053; 82306; 83970; 84100; 84156; 85025

== ENCOUNTER 2023-11-29 11:56 | Outpatient (REF) | payer OTHER, SELFPAY ==
[2023-11-29 12:59] LABS: Creatinine, mg/dL 78.35
[2023-11-29 13:00] LABS: Creatinine, mg/dL 80.47
[2023-11-29 13:02] LABS: Creatinine, mg/dL 78.05; Uric Acid, mg/dL 20.6 mg/dL
[2023-11-29 13:12] LABS: Creatinine, 24Hr Urine 1.7 G/Day (1.0-2.0); Sodium 24 Hr Urine 141.9 mmol/Day (40-220); Total Volume 24 Hour Urine 2150 mL; Uric Acid, 24 Hr Urine 442.9 mg/Day (250-750)
[2023-11-29 13:13] LABS: Creatinine, 24Hr Urine 1.7 G/Day (1.0-2.0); Total Volume 24 Hour Urine 2150 mL
[2023-11-30 18:29] LABS: Calcium, 24 Hr Urine 288 mg/24 h; Calcium/Creatinine Ratio 163 mg/g creat (30-210); Creatinine 24Hr Urine 1.76 g/24 h (0.50-2.15)
[2023-12-03 08:23] LABS: 24hr Urine Total Volume 2150 mL; Citric Acid, 24hr Urine 449 mg/24 h (100-1300); Citric Acid/Creat Ratio 24U 255 mg/g creat (60-660); Creatinine, 24U 1.76 g/24 h (0.50-2.15)
[2023-12-09 21:33] LABS: 24hr Urine Total Volume 2150 mL; Oxalic Acid 24 Urine 43.1 mg/24 h (3.6-38.0)
== END 2023-11-29 11:57 | disposition home or self-care (01) ==
LOC: HO.WFDLDS 11:56
PROVIDERS: Visit Provider Internal Medicine Hypertension Specialist
DX: N20.0 Calculus of kidney (principal)
CPT/HCPCS: 82340; 82507; 82570; 83945; 84300; 84560

== ENCOUNTER 2023-12-01 08:28 | Day surgery (SDC) | payer OTHER, SELFPAY ==
--- NOTE | 2023-11-29 15:05 | HO.ANESPROP2 ---
HPI - Anesthesia Eval Consult details Narrative: 58yo M for Left Lithotripsy ESW s/p colo 09/2023 with TIVA Hx asbestos exposure, sarcoid, ILD, hx VATS 2000, s/p EBUS 02/2023 with GA-ETT 7.5: negative for infection or malignancy, +sarcoid PMFSH Active Problems Active Problems: All Active Problems Tubular adenoma of colon (Acute) Diverticulosis (Acute) Proteinuria (Acute) Mild anemia (Acute) Hospital discharge follow-up (Acute) Ureteral calculus, left (Acute) Ureteral stent retained (Acute) Kidney stone on left side (Acute) Encounter for preoperative pulmonary examination (Acute) Lower urinary tract symptoms (Acute) Sarcoidosis (Acute) Interstitial lung disease (Acute) Hydronephrosis with obstructing calculus (Acute) Urinary tract infection (Acute) Hydronephrosis (Acute) Vaccine counseling (Acute) Incidental pulmonary nodule, greater than or equal to 8mm (Acute) Elevated serum creatinine (Acute) Colon cancer screening (Acute) Shortness of breath (Acute) Elevated fasting glucose (Acute) Bronchitis, chronic with acute exacerbation (Acute) Current cannabis vaping on some days (Acute) Chronic kidney disease, stage II (mild) (Acute) Hyperlipidemia (Acute) Mediastinal lymphadenopathy (Acute) Multiple pulmonary nodules (Acute) Asthma (Acute) Asbestos exposure (Acute) Environmental allergies (Acute) Past Medical History Medical History Tubular adenoma of colon Diverticulosis Sarcoidosis Mediastinal lymphadenopathy Multiple pulmonary nodules Asbestos exposure Asthma Environmental allergies Chronic kidney disease, stage II (mild) Hyperlipidemia Family History Family History Father Stented coronary artery No family history of mental disorder Mother No family history of mental disorder Family history of problems with anesthesia: No Surgical History Surgical History H/O lithotripsy H/O colonoscopy History of bronchoscopy Hx of cystoscopy History of lung surgery History of Problems with Anesthesia: No Social History Social History Household Members: Spouse and Children Housing: House Are you a primary care center manager to a significant other at home: No Do you presently have visiting nurse or other home services: No Alcohol intake: never Comment: non counts needed Patient Tobacco Use Status: Never used Tobacco e-Cigarette/Vaping Use: Never Used Second Hand Smoke Exposure: No Substance Use Type: Marijuana service: No Current occupational status: employed 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 Mediastinal lymphadenopathy. 2. Splenomegaly. 3. Stable lung nodules. 4. Left renal cyst versus hydronephrosis. Assessment and Plan Assessment Anesthesia Assessment: Chart Reviewed Final Anesthetic Review Family History of Problems with Anesthesia: No History of Problems with Anesthesia: No
--- NOTE | ~2023-12-01 | XR_ITS ---
EXAMINATION: XR ABDOMEN KUB CLINICAL INDICATION: Left kidney stone COMPARISON: KUB on 06/29/2023 TECHNIQUE: AP view of the abdomen. FINDINGS: AP supine x-rays of the abdomen show nonspecific bowel gas pattern. Air-filled colon is seen. A prominent left lower pole calcification is seen measuring 0.6 cm in vertical height, 1.5 cm in width (previously 1.3 cm. Additional smaller left mid renal calcification is seen. Unchanged Left ureteric double pigtail stent is seen. XR/XR KUB IMPRESSION: 1. Unchanged left renal calculi. 2. No interval change in position of left ureteric stent . 3. Interval passage of the left ureteric calculus at L3 level. 4. No signs of intestinal obstruction on supine x-rays. Electronically signed by: Chel Tracey MD 12/01/2023 12:24 PM EDT
[2023-12-01 09:23] VITALS: BMI 25.0
[2023-12-01 09:40] VITALS: BP 141/87; PULSE 77; RESP 16; TEMP 36.8; O2SAT 94
[2023-12-01] MEDS: levoFLOXacin 500 MG TABLET PO (09:51)
[2023-12-01] MEDS: Lactated Ringers 1,000 ML 100 ML IVCONT (10:03)
--- NOTE | 2023-12-01 10:25 | P.CONAN_ITS ---
[facility] Active Problems Active Problems: All Active Problems Proteinuria (Acute) Mild anemia (Acute) Hospital discharge follow-up (Acute) Ureteral calculus, left (Acute) Ureteral stent retained (Acute) Kidney stone on left side (Acute) Encounter for preoperative pulmonary examination (Acute) Lower urinary tract symptoms (Acute) Sarcoidosis (Acute) Interstitial lung disease (Acute) Hydronephrosis with obstructing calculus (Acute) Urinary tract infection (Acute) Hydronephrosis (Acute) Vaccine counseling (Acute) Incidental pulmonary nodule, greater than or equal to 8mm (Acute) Elevated serum creatinine (Acute) Colon cancer screening (Acute) Shortness of breath (Acute) Elevated fasting glucose (Acute) Bronchitis, chronic with acute exacerbation (Acute) Current cannabis vaping on some days (Acute) Tubular adenoma of colon (Acute) Diverticulosis (Acute) Chronic kidney disease, stage II (mild) (Acute) Hyperlipidemia (Acute) Mediastinal lymphadenopathy (Acute) Multiple pulmonary nodules (Acute) Asthma (Acute) Asbestos exposure (Acute) Environmental allergies (Acute) Past Medical History Medical History (Updated 11/22/23 @ 14:00 by Cynthia Garcia [facility]) Tubular adenoma of colon Diverticulosis Sarcoidosis Mediastinal lymphadenopathy Multiple pulmonary nodules Asbestos exposure Asthma Environmental allergies Chronic kidney disease, stage II (mild) Hyperlipidemia Family History Family History Father Stented coronary artery No family history of mental disorder Mother No family history of mental disorder Family history of problems with anesthesia: No Surgical History Surgical History H/O lithotripsy H/O colonoscopy History of bronchoscopy Hx of cystoscopy History of lung surgery History of Problems with Anesthesia: No Social History Social History Household Members: Spouse and Children Housing: House Are you a primary care technician to a significant other at home: No Do you presently have visiting nurse or other home services: No Alcohol intake: never Comment: non counts needed Patient Tobacco Use Status: Never used Tobacco e-Cigarette/Vaping Use: Never Used Second Hand Smoke Exposure: No Use of substances other than those prescribed or required for medical reasons: Yes Substance Use Type: Marijuana Are you DNR?: No Advance Directives: No Advance Directives Information Provided: Yes service: No Current occupational status: employed 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 [employer] Current occupational exposures/hazards: Yes Cognitive needs: No Hearing needs: No Vision needs: No Meds Allergies Allergy/AdvReac Type Severity Reaction Status Date / Time No Known Allergies Allergy Verified 11/11/23 14:26 Active Medications: Current Medications Albuterol Sulfate (Albuterol Sulfate (0.083%) 2.5 Mg/3 Ml Vial.Neb) 2.5 mg INHALE ONCE PRN PRN Reason: Shortness of Breath/Wheezing Lactated Ringer's (Lr) 1,000 mls @ 100 mls/hr IVCONT .Q10H [facility] Last Admin: 12/01/23 10:03 Dose: 100 mls/hr Exam Height,Weight and Vital Signs: Height 5 ft 10 in Weight 79.038 kg Last Vital Signs Temp 98.2 F 12/01/23 09:40 Pulse 77 12/01/23 09:40 Resp 16 12/01/23 09:40 BP 141/87 H 12/01/23 09:40 Pulse Ox 94 12/01/23 09:40 O2 Del Method Room Air 12/01/23 09:40 Airway Mallampati Class: II TM Dist: >3cm Neck ROM: Full Heart: RRR Lungs: CTA Assessment and Plan Assessment Anesthesia Assessment: Anesthesia Plan Discussed Final Anesthetic Review Family History of Problems with Anesthesia: No History of Problems with Anesthesia: No NPO: Yes ASA Class: II Final Preanesthetic Review: Meds/Allgs Chart Reviewed, Consent Obtained/Reviewed and Anes Risks/Benef Reviewed Patient Risk: Low Procedure Risk: Low Anesthetic Plan Anesthetic Plan: MAC: Disposition: Standard PACU
[2023-12-01] MEDS: Lactated Ringers 1,000 ML 50 ML IVCONT (11:20)
--- NOTE | 2023-12-01 12:06 | MHC.SHP ---
Pre-Procedural Eval Section A - 24 Hr Update-Section A only Date of Service: 12/01/23 The patient is an INPATIENT: No Changes since office visit: No Cold of Flu in the past 2 weeks, No New Medical Problems, No Changes in Medication and No Patient answered all questions The patient has been examined within 24 hours of the surgical procedure. The History & Physical has been completed within 30 days and I have reviewed it.: No Section B - Complete if H&P > 30 days Chief Complaint: Calculus of kidney Details of Present Illness: ESWL of left retained stent with cystoscopy stent removal Relevant Family History (Specify if Yes): No Relevant Social History: None Present Medications: see Short Stay Collaborative assessment Medical History: No relevant PMH History of Previous Operations: Relevant previous surgery/procedure and date(s) Allergies: Allergies Allergy/AdvReac Type Severity Reaction Status Date / Time No Known Allergies Allergy Verified 11/11/23 14:26 Review of Systems Sugical H&P ROS: Negative: Constitution, Cardiovascular, Respiratory, Neurological, Psychiatric, Hem-Onc, Allergic/Immunologic, Gastrointestinal, Genitourinary, Musculoskeletal, Integumentary, Endocrine and Eyes/Ears/Nose/Throat Exam Surgical H&P Exam: Normal: HEENT, Normal: Heart, Normal: Lungs, Normal: Extremities, Normal: Abdomen, Normal: Skin and Normal: Neurological Plan Diagnosis/Plan: Unchanged (left stent eswl with cysto and stent removal) I have reviewed the history and physical and performed a pertinent physical examination on my patient. No changes have occurred unless specified. Time Spent With Patient Time: Total time managing care of this patient today ____ minutes.
--- NOTE | 2023-12-01 12:46 | W.PM.OPN ---
Operative Note Operative Note Date of Service: 12/01/23 Narrative: PreOperative Diagnosis: Retained left renal stent with calcification Post Operative Diagnosis: Retained left renal stent calcification Procedure: Left stent ESWL Surgeon: Dr Ronnie Graff Anesthesia: mac/sedation Indications for procedure: The patient understands ESWL may be a staged procedure and subsequent intervention may be required based on imaging after ESWL. Quoted stone clearance rates for a solitary procedure are in the 70-80% range based primarily on stone location. They also understand there is a risk of bleeding to the kidney, infection, damage to adjacent organs, and stone migration following the procedure. - Imaging retained left renal stent with calcification Procedure optimization has been performed with IV acetaminophen given in the holding area and 1 L of lactated Ringer's to be given in order to optimize the fluid-stone interface. 20 mg of IV Lasix will be given in the last 5 minutes of the procedure to optimize stone clearance. Procedure: After informed consent was verified the patient was brought to the operating room and placed in a supine position. Anesthesia was performed per protocol. Safety pause time-out was performed. Imaging was displayed in the room and laterality confirmed. ESWL was performed. The 1st 500 shocks were performed at 60 hertz. These were performed with increasing power. Once maximum power was reached the rate was increased to 180 hertz. A total of 2500 shocks were given. Targeted imaging with ultrasound/fluoroscopy showed stone smudging around stent The patient tolerated the procedure well and was transferred to the recovery area upon completion. Post procedure imaging will be organized. There was no evidence for flank discoloration.
--- NOTE | 2023-12-01 12:49 | HO.ANESPROP2 ---
[facility] Active Problems Active Problems: All Active Problems Proteinuria (Acute) Mild anemia (Acute) Hospital discharge follow-up (Acute) Ureteral calculus, left (Acute) Ureteral stent retained (Acute) Kidney stone on left side (Acute) Encounter for preoperative pulmonary examination (Acute) Lower urinary tract symptoms (Acute) Sarcoidosis (Acute) Interstitial lung disease (Acute) Hydronephrosis with obstructing calculus (Acute) Urinary tract infection (Acute) Hydronephrosis (Acute) Vaccine counseling (Acute) Incidental pulmonary nodule, greater than or equal to 8mm (Acute) Elevated serum creatinine (Acute) Colon cancer screening (Acute) Shortness of breath (Acute) Elevated fasting glucose (Acute) Bronchitis, chronic with acute exacerbation (Acute) Current cannabis vaping on some days (Acute) Tubular adenoma of colon (Acute) Diverticulosis (Acute) Chronic kidney disease, stage II (mild) (Acute) Hyperlipidemia (Acute) Mediastinal lymphadenopathy (Acute) Multiple pulmonary nodules (Acute) Asthma (Acute) Asbestos exposure (Acute) Environmental allergies (Acute) Past Medical History Medical History (Updated 11/22/23 @ 14:00 by Cynthia Garcia [facility]) Tubular adenoma of colon Diverticulosis Sarcoidosis Mediastinal lymphadenopathy Multiple pulmonary nodules Asbestos exposure Asthma Environmental allergies Chronic kidney disease, stage II (mild) Hyperlipidemia Family History Family History Father Stented coronary artery No family history of mental disorder Mother No family history of mental disorder Family history of problems with anesthesia: No Surgical History Surgical History H/O lithotripsy H/O colonoscopy History of bronchoscopy Hx of cystoscopy History of lung surgery History of Problems with Anesthesia: No Social History Social History Household Members: Spouse and Children Housing: House Are you a primary residential caregiver to a significant other at home: No Do you presently have visiting nurse or other home services: No Alcohol intake: never Comment: non counts needed Patient Tobacco Use Status: Never used Tobacco e-Cigarette/Vaping Use: Never Used Second Hand Smoke Exposure: No Substance Use Type: Marijuana service: No Current occupational status: employed 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 Current occupational exposures/hazards: Yes Cognitive needs: No Hearing needs: No Vision needs: No Meds Allergies Allergy/AdvReac Type Severity Reaction Status Date / Time No Known Allergies Allergy Verified 11/11/23 14:26 Active Medications: Current Medications Albuterol Sulfate (Albuterol Sulfate (0.083%) 2.5 Mg/3 Ml Vial.Neb) 2.5 mg INHALE ONCE PRN PRN Reason: Shortness of Breath/Wheezing Fentanyl (Fentanyl Citrate/Pf 100 Mcg/2 Ml Vial) 25 mcg IVPUSH Q5M PRN PRN Reason: Pain, Moderate to Severe (Pain Scale 4-10) Stop: 12/01/23 16:28 Lactated Ringer's (Lr) 1,000 mls @ 100 mls/hr IVCONT .Q10H [facility] Last Admin: 12/01/23 10:03 Dose: 100 mls/hr Lactated Ringer's (Lr) 1,000 mls @ 50 mls/hr IVCONT .Q20H [facility] Last Admin: 12/01/23 11:20 Dose: 50 mls/hr Ondansetron HCl (Ondansetron Odt 4 Mg Tab.Rapdis) 4 mg TRANSLINGU ONCE PRN PRN Reason: Nausea and Vomiting Stop: 12/01/23 16:28 Oxycodone HCl (Oxycodone Hcl Immed Release 5 Mg Tablet) 5 mg PO Q4H PRN PRN Reason: Pain, Mild (Pain Scale 1-3) Exam Height,Weight and Vital Signs: Height 5 ft 10 in Weight 79.038 kg Last Vital Signs Temp 98.2 F 12/01/23 09:40 Pulse 77 12/01/23 09:40 Resp 16 12/01/23 09:40 BP 141/87 H 12/01/23 09:40 Pulse Ox 94 12/01/23 09:40 O2 Del Method Room Air 12/01/23 09:40 Assessment and Plan Final Anesthetic Review Family History of Problems with Anesthesia: No History of Problems with Anesthesia: No
[2023-12-01 13:17] VITALS: BP 128/82; PULSE 84; RESP 16; TEMP 36.6; O2SAT 94
[2023-12-01 13:21] VITALS: BP 138/89; PULSE 85; RESP 18; O2SAT 94
[2023-12-01 13:27] VITALS: BP 132/82; PULSE 86; RESP 18; O2SAT 94
[2023-12-01 13:32] VITALS: BP 124/86; PULSE 84; RESP 18; O2SAT 95
[2023-12-01 13:47] VITALS: BP 156/93; PULSE 85; RESP 16; TEMP 36.6; O2SAT 96
--- NOTE | 2023-12-01 14:31 | HO.POSTANES ---
Post Anesthesia Evaluation Post Anesthesia Evaluation Date of Service: 12/01/23 Vital Signs: Vital Signs Temp Pulse Resp BP Pulse Ox O2 Del Method 12/01/23 13:47 97.9 F 85 16 156/93 H 96 Room Air 12/01/23 13:32 84 18 124/86 95 12/01/23 13:27 86 18 132/82 94 12/01/23 13:21 85 18 138/89 94 12/01/23 13:17 97.9 F 84 16 128/82 94 Room Air 12/01/23 09:40 98.2 F 77 16 141/87 H 94 Room Air Anesthesia: General LMA Mental Status: Awake Pain Control: Satisfactory Nausea/Vomiting: None Hydration: Adequate Anesthesia-Related Issues: No Anes. Related Issues
== END 2023-12-01 14:26 | disposition home or self-care (01) ==
PROVIDERS: PCP Nurse Practitioner Family; Visit Provider Urology
PROC: (CPT 50590; principal; 2023-12-01 10:50)
DX: N20.0 Calculus of kidney (principal); Z96.0 Presence of urogenital implants; Z87.442 Personal history of urinary calculi; E78.5 Hyperlipidemia, unspecified; N18.2 Chronic kidney disease, stage 2 (mild); D86.9 Sarcoidosis, unspecified; R91.8 Other nonspecific abnormal finding of lung field; Z79.899 Other long term (current) drug therapy; J45.909 Unspecified asthma, uncomplicated; Z98.890 Other specified postprocedural states
CPT/HCPCS: 50590; 74018; J0131; J1940; J2250; J2405; J2704; J3010

== ENCOUNTER → 2023-12-01 08:28 | Outpatient (BNV) | payer OTHER, SELFPAY | PROVIDERS: PCP Nurse Practitioner Family; Visit Provider Urology | DX: N20.0 Calculus of kidney (principal) | CPT/HCPCS: 50590 ==

== ENCOUNTER 2023-12-06 13:30 | Day surgery (SDC) | payer OTHER, SELFPAY ==
[2023-12-06] VITALS (7 sets, daily range): BP systolic 134–169; BP diastolic 88–98; PULSE 82–108; RESP 16–18; TEMP 36.3–36.8; O2SAT 93–96; BMI 24.7
[2023-12-06] MEDS: Lactated Ringers 1,000 ML 80 ML IVCONT (14:09)
--- NOTE | 2023-12-06 18:05 | PC.NURSE ---
Report given to Megan Good RN.
--- NOTE | 2023-12-06 18:13 | HO.ANESPROP2 ---
HPI - Anesthesia Eval Consult details Narrative: retained ureter stent PMFSH Active Problems Active Problems: All Active Problems Proteinuria (Acute) Mild anemia (Acute) Hospital discharge follow-up (Acute) Ureteral calculus, left (Acute) Ureteral stent retained (Acute) Kidney stone on left side (Acute) Encounter for preoperative pulmonary examination (Acute) Lower urinary tract symptoms (Acute) Sarcoidosis (Acute) Interstitial lung disease (Acute) Hydronephrosis with obstructing calculus (Acute) Urinary tract infection (Acute) Hydronephrosis (Acute) Vaccine counseling (Acute) Incidental pulmonary nodule, greater than or equal to 8mm (Acute) Elevated serum creatinine (Acute) Colon cancer screening (Acute) Shortness of breath (Acute) Elevated fasting glucose (Acute) Bronchitis, chronic with acute exacerbation (Acute) Current cannabis vaping on some days (Acute) Tubular adenoma of colon (Acute) Diverticulosis (Acute) Chronic kidney disease, stage II (mild) (Acute) Hyperlipidemia (Acute) Mediastinal lymphadenopathy (Acute) Multiple pulmonary nodules (Acute) Asthma (Acute) Asbestos exposure (Acute) Environmental allergies (Acute) Past Medical History Medical History Tubular adenoma of colon Diverticulosis Sarcoidosis Mediastinal lymphadenopathy Multiple pulmonary nodules Asbestos exposure Asthma Environmental allergies Chronic kidney disease, stage II (mild) Hyperlipidemia Family History Family History Father Stented coronary artery No family history of mental disorder Mother No family history of mental disorder Family history of problems with anesthesia: No Surgical History Surgical History H/O lithotripsy H/O colonoscopy History of bronchoscopy Hx of cystoscopy History of lung surgery History of Problems with Anesthesia: No Social History Social History Household Members: Spouse and Children Housing: House Are you a primary hemodialysis patient care specialist to a significant other at home: No Do you presently have visiting nurse or other home services: No Alcohol intake: never Comment: non counts needed Patient Tobacco Use Status: Never used Tobacco e-Cigarette/Vaping Use: Never Used Second Hand Smoke Exposure: No Use of substances other than those prescribed or required for medical reasons: No Substance Use Type: Marijuana Have you been hit, kicked, punched, or otherwise hurt by someone within the past year? 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 Current occupational exposures/hazards: Yes Cognitive needs: No Hearing needs: No Vision needs: No Meds Allergies Allergy/AdvReac Type Severity Reaction Status Date / Time No Known Allergies Allergy Verified 11/11/23 14:26 Active Medications: Current Medications Lactated Ringer's (Lr) 1,000 mls @ 80 mls/hr IVCONT .[id number] EUGENIA Last Admin: 12/06/23 14:09 Dose: 80 mls/hr Exam Height,Weight and Vital Signs: Height 5 ft 10 in Weight 78.018 kg Last Vital Signs Temp 97.3 F 12/06/23 14:07 Pulse 82 12/06/23 14:07 Resp 16 12/06/23 14:07 BP 140/98 H 12/06/23 14:07 Pulse Ox 94 12/06/23 14:07 O2 Del Method Room Air 12/06/23 14:07 Airway Mallampati Class: II TM Dist: >3cm Neck ROM: Full Loose/Missing/Broken Teeth: No Heart: RRR Lungs: CTA Assessment and Plan Assessment Anesthesia Assessment: Anesthesia Plan Discussed, Smoking Cess. Discussed and Chart Reviewed Final Anesthetic Review Family History of Problems with Anesthesia: No History of Problems with Anesthesia: No NPO: Yes ASA Class: III Final Preanesthetic Review: No Changes in Pt Med Stat, Meds/Allgs Chart Reviewed, Consent Obtained/Reviewed and Anes Risks/Benef Reviewed Patient Risk: Intermediate Procedure Risk: Low Anesthetic Plan Anesthetic Plan: GA Disposition: Standard PACU
--- NOTE | 2023-12-06 20:57 | W.PM.OPN ---
Operative Note Operative Note Date of Service: 12/06/23 Narrative: PreOperative Diagnosis: Retained, calcified ureteric stent Post Operative Diagnosis: Retained, calcified ureteric stent Procedure: - cystoscopy - laser of bladder stone that had formed around retained ureteric stent. Stone greater than 2 cm. - modifier 22 - left retrograde - left semi rigid and flexible ureteroscopy, laser lithotripsy of stone around retained stent - partial left stent removal Surgeon: Dr Ronnie Graff Anesthesia: General Indications for procedure: Stent placed in 03/01/2023 for a proximal left ureteric stent. Patient then had delayed follow-up secondary to scheduling. Initially underwent attempted removal of stent in May. Subsequently underwent recent ESWL for retained stent however minimal change was seen. Presents today for planned and staged removal of calcified left retained stent. Procedure: After informed consent was verified the patient was brought to the operating room and placed in a supine position. Anesthesia was administered per protocol. The patient was placed in a modified dorsal lithotomy position and prepped and draped in a sterile fashion. Safety pause time-out and side of surgery were confirmed. Images were available for review. Antibiotic administration confirmed. A 22 [place] cystoscope was inserted per urethra. The urethra was without abnormality. Calcified stent seen emerging from left ureteric orifice. This is known to be a variable length stent. It appeared to be just a single stone running in a coil around the stent. Using a 550 micron fiber through the cystoscope the stone was broken up slowly. During the slow breaking up we found that both coils of the stent were present within the stone. The entire length of the coils had to be traced exiting the ureteric orifice. This took approximately 60 minutes which is under% longer than typical. At this point in time the end of the stent was grasped and brought to the penile meatus. A clamp was used to keep it in position. Fluoroscopy of the proximal portion of the stent showed calcification on the proximal 3rd. Retrograde was performed which similarly showed this approach to narrowed portion of the upper ureter. The semi rigid ureteral scope was placed alongside the Sensor guidewire. An attempt was made to laser the stone from the stent. The angle was quite difficult and could not be easily achieved. The sensor wire had stopped at the upper ureter and not passed into the kidney. The sensor wire was removed. A Glidewire was placed. Again this could not pass the narrowed part of the stent. The semi rigid stent was removed. Flexible ureteral scope was placed. The wire was removed. A 265 nm holmium laser was then used to start breaking the stone on the stent. Decision was made to laser through 1 spot to break the stent and remove the stent from the distal portion of the ureter and from the bladder and allow this area to heal. The proximal portion will remain retained and will be addressed at a 2nd stage. This was able to be accomplished. The stent stone was broken and the stent itself divided. It was then able to be removed under direct visualization which was achieved and the ureter had minimal other irritation. The bladder was emptied. The patient tolerated the procedure well and was extubated in the operating room. They were transferred in stable condition to the recovery area. Pathology: stones Drains: Proximal portion of stent
[2023-12-06] MEDS: droPERidol 5 MG/2 ML VIAL 0.625 MG IVPUSH (21:14)
== END 2023-12-06 21:54 | disposition home or self-care (01) ==
PROVIDERS: PCP Nurse Practitioner Family; Visit Provider Urology
PROC: (CPT 52353; principal; 2023-12-06 15:40)
DX: T83.192A Other mechanical complication of indwelling ureteral stent, initial encounter (principal); N20.1 Calculus of ureter; Z96.0 Presence of urogenital implants; Y73.2 Prosthetic and other implants, materials and accessory gastroenterology and urology devices associated with adverse incidents; N18.2 Chronic kidney disease, stage 2 (mild); Z87.442 Personal history of urinary calculi; J45.909 Unspecified asthma, uncomplicated; R91.8 Other nonspecific abnormal finding of lung field; Z79.899 Other long term (current) drug therapy; Z98.890 Other specified postprocedural states
CPT/HCPCS: 52353; 88300; C1758; C1769; J0131; J1100; J1790; J1885; J1956; J2704; J3010; Q9967

== ENCOUNTER → 2023-12-06 13:30 | Outpatient (BNV) | payer OTHER, SELFPAY | PROVIDERS: PCP Nurse Practitioner Family; Visit Provider Urology | DX: N20.1 Calculus of ureter (principal) | CPT/HCPCS: 52353; 74420 ==

== ENCOUNTER 2023-12-07 14:29 | Outpatient (AMB) | payer OTHER, SELFPAY ==
--- NOTE | 2023-12-07 14:33 | A.OFFVIS_ITS ---
Vital Signs 12/07/23 14:34 Height 5 ft 10 in Weight 173 lb 6 oz BMI 24.9 BP 136/78 Blood Pressure Location Rt brachial Position Sitting Pulse 75 Pulse Source Pulse Oximeter Pulse Oximetry (%) 96 Oxygen Delivery Method Room Air Intake Visit Reasons: CT Scan results Allergies No Known Allergies Allergy (Verified 12/07/23 14:38) HPI HPI CT Scan results : Details: Alcides is a pleasant 57 year old male, never tobacco smoker, with underlying asthma and asbestos exposure. He did undergo a VATS procedure in 2000 due to empyema, otherwise has not had any respiratory issues until a year ago after his second occurrence of COVID. He noted ongoing cough and was sent for chest CT which revealed medistinal lymphadenopathy. Ultimately sent for PET which revealed extensive FDG avid mediastinal lymphadenopathy which was concerning for malignancy, therefore underwent EBUS on 02/24/[address] Epstein. Lymph node biopsy was negative for carcinoma and revealed granulomas with negative AFB stain as well as negative fungal stain, suggestive of sarcoidosis. He continues to deny any respiratory symptoms and has used albuterol very infrequently. Today he presents to review repeat chest CT. Of note, since the last visit, patient has had multiple visits with urology and nephrology for recurrent nephrolithiasis and atrophic left kidney with chronic hydronephrosis, thought to have a component of sarcoidosis affecting kidneys. [facility] Medical History Tubular adenoma of colon Diverticulosis Sarcoidosis Mediastinal lymphadenopathy Multiple pulmonary nodules Asbestos exposure Asthma Environmental allergies Chronic kidney disease, stage II (mild) Hyperlipidemia Surgical History H/O lithotripsy H/O colonoscopy History of bronchoscopy Hx of cystoscopy History of lung surgery Family History Father Stented coronary artery No family history of mental disorder Mother No family history of mental disorder Social History Household Members: Spouse and Children Housing: House Are you a primary health care law specialist to a significant other at home: No Do you presently have visiting nurse or other home services: No Alcohol intake: never Comment: non counts needed Patient Tobacco Use Status: Never used Tobacco e-Cigarette/Vaping Use: Never Used Second Hand Smoke Exposure: No Substance Use Type: Marijuana service: No Current occupational status: employed 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 Current occupational exposures/hazards: Yes Cognitive needs: No Hearing needs: No Vision needs: No Review of Systems Const Denies chills, Denies excessive sweating, Denies fever(s), Denies headache(s) and Denies night sweats Eyes Denies dry eyes, Denies irritation and Denies itchy eyes ENT Reports Normal hearing present, Denies headache(s), Denies nasal congestion, Denies nasal discharge, Denies post nasal drip and Denies sore throat Card Denies chest pain, Denies chest pain at rest, Denies chest pain with activity, Denies claudication, Denies leg edema, Denies dyspnea, Denies dyspnea on exertion, Denies orthopnea and Denies paroxysmal nocturnal dyspnea Resp Denies chest congestion, Denies cough, Denies excessive phlegm production, Denies pain on inspiration, Denies pain with cough, Denies dyspnea, Denies dyspnea on exertion, Denies stridor and Denies wheezing Musc Denies myalgias Neuro Reports Normal hearing present and Denies headache(s) Endo Denies excessive sweating Bal/Lymph Denies lymphadenopathy Aller/Immun Denies itchy eyes, Denies seasonal rhinorrhea and Denies wheezing Physical Exam Vital Signs: Last Vital Signs Pulse 75 12/07/23 14:34 BP 136/78 12/07/23 14:34 Pulse Ox 96 12/07/23 14:34 Oxygen Delivery Method Room Air 12/07/23 14:34 BMI result Body Mass Index 24.9 Const General: cooperative, healthy appearing, comfortable, no acute distress, well developed and alert Orientation/consciousness: patient oriented x3 Limitations: no limitations HEENT Head: Yes normal to inspection, Yes normocephalic and Yes atraumatic Ears: hearing grossly normal bilaterally and external ears normal Eyes General: appearance normal, both eyes and all related structures Eyelids: Yes eyelids normal Sclerae: sclerae normal EOM: EOMs intact bilaterally Neck Neck: Yes normal visual inspection and Yes no lymphadenopathy Lymphatic: no lymphadenopathy noted Chest Chest palpation & inspection: normal inspection of the chest Resp Effort & Inspection: normal respiratory effort, able to speak in complete sentences, no audible wheezes, no cough, no stridor, not tachypneic, no tripod positioning and no use of accessory muscles Auscultation: clear to auscultation bilaterally Cardio Jugular venous distension: no JVD Rate: regular rate Rhythm: regular rhythm Skin Other: warm, dry General skin exam: no rashes or lesions noted Neuro General: patient oriented x3 Cranial nerves: Yes Normal hearing present Cognition (Neuro): normal cognition Gait exam (Neuro): Normal gait present Extrem General: Yes normal to inspection, Yes capillary refill normal, Yes no clubbing, cyanosis or edema and Yes no pedal edema Psych Appearance: grossly normal and well kempt Speech and movement: Normal speech and movement present and Clear speech present Affect: normal affect Attitude: cooperative Thought process: Normal thought process present Thought content: Normal thought content present Insight: Good insight present (Psych) Judgement: Good judgement present (Psych) Results Reviewed Results Reviewed: [address] [address] [address] Scan Report Signed Patient: Alcides Holt MR#: [id number] : 1965 Acct:[id number] Age/Sex: 58 / M ADM Date: 10/04/23 Loc: HO.CT Attending Dr: Eva Mora NP Ordering Physician: Eva Mora NP Date of Service: 10/04/23 Procedure(s): CT chest wo IV con Accession Number(s): [id number] cc: Eva Mora HOCKEY PLAYER; Harriet Mccall STEAM FLATTENER~ EXAMINATION: CT CHEST WITHOUT CONTRAST CLINICAL INFORMATION: Sarcoidosis COMPARISON: 04/01/2023 TECHNIQUE: Multidetector volumetric CT imaging of the chest was done. Axial MIP volume rendering provided. Sagittal and coronal reformatted images were obtained. This CT examination was performed using dose optimization techniques as appropriate, variously including the following: *Automated exposure control *Adjustment of mA and/or kV according to patient size (this includes techniques or standardized protocols for targeted exams where dose is matched to indication/reason for exam; i.e. extremities or head) *Use of iterative reconstruction technique DLP: 177 mGy-cm FINDINGS: LUNGS: Central airways are patent. No new or enlarging pulmonary nodule. Right middle lobe 4 mm nodule is unchanged (4:117). PLEURA: No pleural effusion. MEDIASTINUM: No cardiomegaly. Aorta and pulmonary artery are normal in caliber. Prominent right mediastinal lymph node measuring approximately 2.3 cm (10:29). Subcarinal mediastinal lymph node measures 1.2 cm (10:26), unchanged. Additional subcarinal bulky adenopathy measures up to 2.6 cm in short axis, increased from prior study when it measured 1.9 cm. Bulky appearance of the marisel may reflect underlying hilar adenopathy, although lack of IV contrast limits evaluation. CORONARY ARTERY CALCIFICATION: No coronary artery calcification appreciated. CHEST WALL/AXILLA: No axillary or internal mammary lymphadenopathy. UPPER ABDOMEN: Unremarkable. OSSEOUS STRUCTURES: Degenerative changes of the thoracolumbar spine. CT/CT chest wo IV con IMPRESSION: * Right middle lobe 4 mm nodule is unchanged. No new or enlarging pulmonary nodule. * Interval increase in mediastinal adenopathy. Bulky appearance of the marisel may reflect underlying hilar adenopathy, although lack of IV contrast limits evaluation. Dictated By: Ira Sheets MD Signed By: <Electronically signed by Ira Sheets MD in OV> 11/16/23 195 DD/ 1500 TD/TT: Park Attendant: Assessment & Plan Assessment & Plan (1) Sarcoidosis: Code(s): D86.9 - Sarcoidosis, unspecified Category: Medical (2) Asthma: Code(s): J45.909 - Unspecified asthma, uncomplicated Category: Medical (3) Multiple pulmonary nodules: Code(s): R91.8 - Other nonspecific abnormal finding of lung field Category: Medical (4) Mediastinal lymphadenopathy: Code(s): R59.0 - Localized enlarged lymph nodes Category: Medical Plan Reviewed chest CT which revealed stable RML 4 mm nodule and unchanged subcarinal mediastinal lymph node measuring 1.2 cm. However there was an increase in the subcarinal lymph node, previously measured 1.9 cm, now 2.6 cm with associated bulky hilar adenopathy. Had long discussion with patient that although previously lymphadenopathy and biopsy were consistent with sarcoidosis, CT findings did not improve with steroids and now patient with increasing lymphadenopathy, which may be suggestive of carcinoma. Discussed importance of a more definitive diagnosis with mediastinoscopy. He was agreeable to procedure and referral to thoracic surgery however requested to wait a few weeks before procedure is performed. Discussed importance of early definitive diagnosis if this is a carcinoma. He is aware that waiting may lead to progression of carcinoma and delays in treatment. Will enter referral to be placed in two weeks for consultation to thoracic surgery. All questions were answered and patient is in agreement of plan. Will follow up to review results or sooner if needed. Orders: Referrals Thoracic/General Surgery Referral R59.0 - Localized enlarged lymph nodes Coding Level of Care Code Est Pt Level 4 (85361) Diagnoses Sarcoidosis D86.9 Asthma J45.909 Multiple pulmonary nodules R91.8 Mediastinal lymphadenopathy R59.0
[2023-12-07 14:34] VITALS: BP 136/78; PULSE 75; O2SAT 96; BMI 24.9
== END 2023-12-07 15:09 | disposition home or self-care (01) ==
PROVIDERS: PCP Nurse Practitioner Family; Visit Provider Nurse Practitioner Family
DX: D86.9 Sarcoidosis, unspecified (principal); J45.909 Unspecified asthma, uncomplicated; R91.8 Other nonspecific abnormal finding of lung field; R59.0 Localized enlarged lymph nodes
CPT/HCPCS: 99214

== ENCOUNTER → 2023-12-07 14:29 | Outpatient (BNVA) | payer OTHER, SELFPAY | PROVIDERS: PCP Nurse Practitioner Family; Visit Provider Nurse Practitioner Family ==

== ENCOUNTER → 2023-12-20 05:54 | Outpatient (BNV) | payer OTHER, SELFPAY | PROVIDERS: PCP Nurse Practitioner Family; Visit Provider Urology | DX: R09.02 Hypoxemia (principal) | CPT/HCPCS: 52353; 74420; 99238 ==

== ENCOUNTER 2023-12-20 15:01 | Inpatient (IN) | payer OTHER, SELFPAY ==
[2023-12-16 10:55] VITALS: BMI 24.7
--- NOTE | 2023-12-17 09:40 | P.CONAN_ITS ---
Documented by User: Yesy Cole NP 12/17/23 09:41 HPI - Anesthesia Eval Consult details Narrative: 58yo M for Left Cystoscopy, Ureteroroscopy, Retro, Laser with stent removal s/p cysto, etc 11/2023 with [facility] 5 Hx asbestos exposure, sarcoid, ILD, hx VATS 2000, s/p EBUS 02/2023 with [facility]-ETT 7.5: negative for infection or malignancy, +sarcoid PMFSH Active Problems Active Problems: All Active Problems Proteinuria (Acute) Mild anemia (Acute) Hospital discharge follow-up (Acute) Ureteral calculus, left (Acute) Ureteral stent retained (Acute) Kidney stone on left side (Acute) Encounter for preoperative pulmonary examination (Acute) Lower urinary tract symptoms (Acute) Sarcoidosis (Acute) Interstitial lung disease (Acute) Hydronephrosis with obstructing calculus (Acute) Urinary tract infection (Acute) Hydronephrosis (Acute) Vaccine counseling (Acute) Incidental pulmonary nodule, greater than or equal to 8mm (Acute) Elevated serum creatinine (Acute) Colon cancer screening (Acute) Shortness of breath (Acute) Elevated fasting glucose (Acute) Bronchitis, chronic with acute exacerbation (Acute) Current cannabis vaping on some days (Acute) Tubular adenoma of colon (Acute) Diverticulosis (Acute) Chronic kidney disease, stage II (mild) (Acute) Hyperlipidemia (Acute) Mediastinal lymphadenopathy (Acute) Multiple pulmonary nodules (Acute) Asthma (Acute) Asbestos exposure (Acute) Environmental allergies (Acute) Past Medical History Medical History Tubular adenoma of colon Diverticulosis Sarcoidosis Mediastinal lymphadenopathy Multiple pulmonary nodules Asbestos exposure Asthma Environmental allergies Chronic kidney disease, stage II (mild) Hyperlipidemia Family History Family History Father Stented coronary artery No family history of mental disorder Mother No family history of mental disorder Family history of problems with anesthesia: No Surgical History Surgical History H/O lithotripsy H/O colonoscopy History of bronchoscopy Hx of cystoscopy History of lung surgery History of Problems with Anesthesia: No Social History Social History Household Members: Spouse and Children Housing: House Are you a primary animal care technician to a significant other at home: No Do you presently have visiting nurse or other home services: No Alcohol intake: never Comment: non counts needed Patient Tobacco Use Status: Never used Tobacco e-Cigarette/Vaping Use: Never Used Second Hand Smoke Exposure: No Substance Use Type: Marijuana Substance Use Type Other:: vapes marijuana last smoked yesterday Have you been hit, kicked, punched, or otherwise hurt by someone within the past year? 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 Mediastinal lymphadenopathy. 2. Splenomegaly. 3. Stable lung nodules. 4. Left renal cyst versus hydronephrosis. Assessment and Plan Assessment Anesthesia Assessment: Chart Reviewed Final Anesthetic Review Family History of Problems with Anesthesia: No History of Problems with Anesthesia: No Documented by User: Job Guajardo MD 12/20/23 07:35 [facility] Past Medical History Medical History Tubular adenoma of colon Diverticulosis Sarcoidosis Mediastinal lymphadenopathy Multiple pulmonary nodules Asbestos exposure Asthma Environmental allergies Chronic kidney disease, stage II (mild) Hyperlipidemia Family History Family History Father Stented coronary artery No family history of mental disorder Mother No family history of mental disorder Surgical History Surgical History H/O lithotripsy H/O colonoscopy History of bronchoscopy Hx of cystoscopy History of lung surgery Social History Social History Household Members: Spouse and Children Housing: House Are you a primary animal care technician to a significant other at home: No Do you presently have visiting nurse or other home services: No Alcohol intake: never Comment: non counts needed Patient Tobacco Use Status: Never used Tobacco e-Cigarette/Vaping Use: Never Used Second Hand Smoke Exposure: No Substance Use Type: Marijuana Substance Use Type Other:: vapes marijuana last smoked yesterday Have you been hit, kicked, punched, or otherwise hurt by someone within the past year? 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 Current occupational exposures/hazards: Yes Cognitive needs: No Hearing needs: No Vision needs: No Meds Allergies Allergy/AdvReac Type Severity Reaction Status Date / Time No Known Allergies Allergy Verified 12/07/23 14:38 Exam Airway Mallampati Class: II TM Dist: <=3cm Neck ROM: Full Loose/Missing/Broken Teeth: No Heart: ok Lungs: ok Other: ok Assessment and Plan Assessment Anesthesia Assessment: Anesthesia Plan Discussed Final Anesthetic Review NPO: Yes ASA Class: III Final Preanesthetic Review: No Changes in Pt Med Stat, Meds/Allgs Chart Reviewed, Consent Obtained/Reviewed and Anes Risks/Benef Reviewed Patient Risk: Intermediate Procedure Risk: Low Anesthetic Plan Anesthetic Plan: GA and Agree w/ Assess. and Plan Disposition: Standard PACU
[2023-12-20] VITALS (20 sets, daily range): BP systolic 105–155; BP diastolic 60–95; PULSE 71–112; RESP 11–22; TEMP 36.1–37.1; O2SAT 88–97; BMI 25.1; BMI 27.5
--- NOTE | ~2023-12-20 | XR_ITS ---
EXAMINATION: XR CHEST CLINICAL INFORMATION: Evaluate for aspiration. COMPARISON: CT chest 10/04/2023. TECHNIQUE: Frontal view of the chest was obtained. FINDINGS: No focal air space density, pleural effusion or pneumothorax. Subcentimeter right middle lobe nodule better visualized on prior CT. Prominent appearance of the right cardiomediastinum and bilateral hilar regions, most likely related with lymphadenopathy described on recent CT chest. No acute osseous findings. XR/XR chest 1V IMPRESSION: 1. No focal airspace opacities, pleural effusion or pneumothorax. 2. Prominent appearance of the right cardiomediastinum and bilateral hilar regions, most likely related with lymphadenopathy described on prior CT chest. Electronically signed by: Pooja Monroy MD 12/20/2023 12:12 PM EDT
[2023-12-20] MEDS: Lactated Ringers 1,000 ML 100 ML IVCONT ×2 (06:24→16:23)
--- NOTE | 2023-12-20 07:38 | MHC.SHP ---
Pre-Procedural Eval Section A - 24 Hr Update-Section A only Date of Service: 12/20/23 The patient is an INPATIENT: No Changes since office visit: No Cold of Flu in the past 2 weeks, No New Medical Problems, No Changes in Medication and No Patient answered all questions The patient has been examined within 24 hours of the surgical procedure. The History & Physical has been completed within 30 days and I have reviewed it.: No Section B - Complete if H&P > 30 days Chief Complaint: Presence of urogenital implants Details of Present Illness: Has reatined left ureteric stent Relevant Family History (Specify if Yes): No Relevant Social History: None Present Medications: see Short Stay Collaborative assessment Medical History: No relevant PMH History of Previous Operations: Relevant previous surgery/procedure and date(s) Allergies: Allergies Allergy/AdvReac Type Severity Reaction Status Date / Time No Known Allergies Allergy Verified 12/07/23 14:38 Review of Systems Sugical H&P ROS: Negative: Constitution, Cardiovascular, Respiratory, Neurological, Psychiatric, Hem-Onc, Allergic/Immunologic, Gastrointestinal, Genitourinary, Musculoskeletal, Integumentary, Endocrine and Eyes/Ears/Nose/Throat Exam Surgical H&P Exam: Normal: HEENT, Normal: Heart, Normal: Lungs, Normal: Extremities, Normal: Abdomen, Normal: Skin and Normal: Neurological Plan Diagnosis/Plan: Unchanged (Cystoscopy, left retrograde, left ureteroscopy with laser lithotripsy) I have reviewed the history and physical and performed a pertinent physical examination on my patient. No changes have occurred unless specified. Time Spent With Patient Time: Total time managing care of this patient today ____ minutes.
--- NOTE | 2023-12-20 11:32 | P.OP_ITS ---
Operative Note Operative Note Date of Service: 12/20/23 Narrative: PreOperative Diagnosis: Left retained stent with extensive calcifications Post Operative Diagnosis: Left retained ureteric stent with extensive proximal calcifications Procedure: - cystoscopy, left retrograde - left dilatation of ureteric orifice under fluoroscopy - left ureteroscopy, laser lithotripsy, stone basketing - stent removal modifier 22 150% longer than typical proximally 120 minutes longer Surgeon: Dr Ronnie Graff Anesthesia: General Indications for procedure: Retained left stent. Stent had been retained for 9 months. Patient at formed extensive calcifications around proximal stent coil and through the entire length of the stent and distal coil inside bladder. Has had previous procedure were bladder coil was lasered and lithotripsy used to break down stone around the stent. The stent had then been divided at the junction between the proximal and middle 3rd of the stent. Here for completion procedure to remove the proximal portion of the stent prevent any further stone encrustation. Procedure: After informed consent was verified patient was brought to the operating placed in supine position. Anesthesia was administered per protocol. Patient was placed in modified dorsal lithotomy position and prepped and draped in a sterile fashion. Safety pause time-out and side of surgery confirmed. Antibiotics confirmed. 22 [place]ian cystoscope was inserted per urethra. Bladder was normal in its entirety. Both ureteric orifices were in normal position. The left ureteric orifice was cannulated and a retrograde examination was performed. Proximal stent portion seen with extensive calcification. A Sensor guidewire was placed up to the level of the renal pelvis under fluoroscopy. The rigid cystoscope was removed and the inner cannula of ureteric access sheath was used under fluoroscopy to dilate the ureteric orifice. The ureteric access sheath was placed and the inner cannula with access wire removed. The digital flexible ureteral scope was placed. The stent with nephrolithiasis encasing it was encountered in the proximal 3rd of the ureter. Using the 350 nm holmium laser the stone was removed circumferentially around the length of the stent. This was slow progress and was followed gradually into the kidney. The whole area in the kidney the coiled stent was also covered with stone and this was also addressed. This took approximately 2-1/2 hours. This is over 150% longer than typical. Once the stent was exposed decision was made to then try and basket the stent and and remove it. This was done using a ZeroTip basket. Initially small pieces of stent were removed. Then segment was removed. The remaining stent ended up partially in the proximal ureter and in the renal pelvis. It was restricted from for movement by stone that had not been fully removed along the length of the stent. We alternated between basketing and lasering the stone that was further around the stent. In order to remove the stent with more ease we lasered and divided the stent in [address]. We then used the open-ended basket to remove each piece. Under fluoroscopy there was no evidence of any further remaining stent. The sheath and the flexible scope were removed under direct vision. The bladder was emptied. The patient tolerated the procedure well and was extubated in the operating room, and transferred in stable condition to the recovery area. Pathology: Stent pieces plus stone Drains: []
[2023-12-20] MEDS: ondansetron HCL 4 MG/2 ML VIAL IVPUSH ×2 (12:45→15:26)
[2023-12-20] MEDS: ceFAZolin Sodium/Dextrose,Iso 2 GM/50 ML PIGGYBACK IV (14:35)
[2023-12-20] MEDS: Albuterol Sulfate (0.083%) 2.5 MG/3 ML VIAL.NEB INHALE (14:46)
[2023-12-20] MEDS: Haloperidol Lactate 5 MG/ML VIAL 1 MG IVPUSH (15:49)
[2023-12-20] MEDS: 0.9 % Sodium Chloride Flush 3 ML SYRINGE IVFLUSH (16:20)
--- NOTE | 2023-12-20 16:29 | HO.PM.IMCN ---
History of Present Illness Data of Consult Service Date: 12/20/23 Requesting physician: Ronnie Graff Primary Care Provider: Harriet Mccall CNP HPI Reason for consult: hypoxia, concern for aspriation 58 year old male with history of asbestos exposure, sarcoidosis, hld admitted to urology for left retained ureteric stent with extensive proximal calcifications s/p cystoscopy with left-sided dilatation of the ureteric orifice under fluoroscopy with laser lithotripsy and stone basketing with consult placed hospitalist service due to intraoperative hypoxia. The patient reportedly had a regurgitation event while intubated and desaturated to 88% was placed on 2 L supplemental O2. Upon arrival to the floor, oxygen was removed and is now maintaining oximetry 96% on room air. He was mildly tachycardic during procedure up to 105 with heart rate now 95, no fevers. CBC and lactic acid pending. He denies any productive cough, shortness of breath, chest pain. He is experiencing postoperative nausea, lightheadedness, and sweats. No syncope. The procedure was longer than anticipated. See operative note. Review of Systems Review of Systems: Yes all other systems are reviewed and are negative REPLACED BY [facility] Medical History Tubular adenoma of colon Diverticulosis Sarcoidosis Mediastinal lymphadenopathy Multiple pulmonary nodules Asbestos exposure Asthma Environmental allergies Chronic kidney disease, stage II (mild) Hyperlipidemia Family History Father Stented coronary artery No family history of mental disorder Mother No family history of mental disorder Surgical History H/O lithotripsy H/O colonoscopy History of bronchoscopy Hx of cystoscopy History of lung surgery Social History Household Members: Spouse, Family and Children Housing: House Are you a primary rn progressive care to a significant other at home: No Do you presently have visiting nurse or other home services: No Alcohol intake: never Comment: non counts needed Patient Tobacco Use Status: Never used Tobacco e-Cigarette/Vaping Use: Never Used Second Hand Smoke Exposure: No Use of substances other than those prescribed or required for medical reasons: Yes Substance Use Type: Marijuana Substance Use Type Other:: vapes marijuana last smoked yesterday Substance Use Frequency: Daily Last Used Substance: Days (ago) Last Used Substance Other:: Yesterday Currently Displaying Signs/Symptoms of Drug Intoxication Withdrawal: No Any prior treatment program specific to substance use: No Have you been hit, kicked, punched, or otherwise hurt by someone within the past year? If so, by whom?: No Do you feel safe in your current relationship?: Yes Is there a partner from a previous relationship who is making you feel unsafe now?: No Are you made to feel afraid or neglected: No Are you DNR?: No Advance Directives: No Advance Directives Information Provided: Yes Do you have a plan to hurt others: No Plan Recently lost weight without trying: No Nutrition Risks: No Nutritional Risk Poor oral hygiene: No service: No Current occupational status: employed 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 Current occupational exposures/hazards: Yes Cognitive needs: No Hearing needs: No Vision needs: No Meds Allergies Allergy/AdvReac Type Severity Reaction Status Date / Time No Known Allergies Allergy Verified 12/07/23 14:38 Active Medications: Current Medications Acetaminophen (Acetaminophen 325 Mg Tablet) 650 mg PO Q6H PRN PRN Reason: Pain, Mild (Pain Scale 1-3), fever or headache Albuterol Sulfate (Albuterol Sulfate (0.083%) 2.5 Mg/3 Ml Vial.Neb) 2.5 mg INHALE ONCE PRN PRN Reason: Shortness of Breath/Wheezing Last Admin: 12/20/23 14:46 Dose: 2.5 mg Calcium Carbonate (Calcium Carbonate 750 Mg Tab.Chew) 750 mg PO Q4H PRN PRN Reason: Heartburn Haloperidol Lactate (Haloperidol Lactate 5 Mg/Ml Vial) 1 mg IVPUSH ONCE PRN PRN Reason: Nausea and Vomiting Last Admin: 12/20/23 15:49 Dose: 1 mg Lactated Ringer's (Lr) 1,000 mls @ 100 mls/hr IVCONT .Q10H EUGENIA Last Admin: 12/20/23 16:23 Dose: 100 mls/hr Magnesium Hydroxide (Milk Of Magnesia 30 Ml Oral.Susp) 30 ml PO DAILY PRN PRN Reason: Constipation Melatonin (Melatonin 3 Mg Tablet) 6 mg PO BEDTIME PRN PRN Reason: Insomnia Oxycodone HCl (Oxycodone Hcl Immed Release 5 Mg Tablet) 5 mg PO Q4H PRN PRN Reason: Pain, Mild (Pain Scale 1-3) Sodium Chloride (0.9 % Sodium Chloride Flush 3 Ml Syringe) 3 ml IVFLUSH QSHIFT [facility] Last Admin: 12/20/23 16:20 Dose: 3 ml Physical Exam Vital Signs and Narrative: Vital Signs: Last Vital Signs Temp 97 F 12/20/23 16:28 Pulse 95 12/20/23 16:28 Resp 20 12/20/23 16:28 BP 126/70 12/20/23 16:28 Pulse Ox 96 12/20/23 16:28 O2 Del Method Room Air 12/20/23 16:28 O2 Flow Rate 2 12/20/23 15:47 BMI result Body Mass Index 27.5 Constitutional - Awake and Alert, No apparent distress Eyes - PERRLA, EOMI Cardiovascular - S1S2, RRR, No edema Respiratory - Normal lung expansion, Normal respiratory effort, No respiratory distress, CTA bilaterally Gastrointestinal - NT / ND; +BS; No rebound or guarding Extremities - no calf tenderness bilaterally, no swelling Skin - Warm/Dry Neurological - Alert & oriented x3 Psychological - Appropriate affect Results Imaging Radiologist's Impressions: Impressions Chest X-Ray 12/20/23 11:25 IMPRESSION: 1. No focal airspace opacities, pleural effusion or pneumothorax. 2. Prominent appearance of the right cardiomediastinum and bilateral hilar regions, most likely related with lymphadenopathy described on prior CT chest. Electronically signed by: Pooja Monroy MD 12/20/2023 12:12 PM EDT RP Assessment and Plan (1) Hypoxia: Status: Acute Plan 58 year old male with history of asbestos exposure, sarcoidosis, hld admitted to urology for left retained ureteric stent with extensive proximal calcifications s/p cystoscopy with left-sided dilatation of the ureteric orifice under fluoroscopy with laser lithotripsy and stone basketing with consult placed hospitalist service due to intraoperative hypoxia. #Retained ureteral stent -plan per urology. Admit to urology #Intra operative hypoxia- resolved on arrival to the floor -per surgery, had witnessed regurg event while intubated. Pt without fevers, productive cough, sob, chest pain -cxr negative for pneumonia -Maintaining oximetry 96% on RA -?atelectasis vs aspiration even in the OR. No evidence of evolving pneumonia at this time and hypoxia appears to have resolved -CBC, lactic acid/BC ordered by surery, would defer ax at this time. Doubt infection at this time or sepsis but will continue monitoring -Continuous O2 monitoring Thank you for this consult, will continue following
[2023-12-20] MEDS: Metoclopramide HCl 10 MG/2 ML VIAL IVPUSH (16:38)
[2023-12-20 16:56] LABS: Basophils Percent Auto 0.2 % (0-2); Eosinophils Percent Auto 0.1 % (0-4); Hematocrit 44.9 % (42.0-52.0); Hemoglobin 15.6 g/dl (14.0-18.0); Imm Gran Abs Auto 0.07 X10*3/uL (0.00-0.03); Imm Gran Pct Auto 0.4 % (0.0-0.4); Lymphocytes Absolute Auto 0.4 X10*3/uL (1.2-4.9); Lymphocytes Percent Auto 2.6 % (20-40); MANUAL DIFF FLAG SCAN; Mean Corpuscular HGB Conc 34.7 g/dl (31.0-36.0); Mean Corpuscular Hemoglobin 30.8 pg (27.0-33.0); Mean Corpuscular Volume 88.7 fL (80.0-98.0); Mean Platelet Volume 9.9 fL (9.4-12.4); Neutrophils Absolute Auto 14.6 x10*3/uL (2.0-8.3); Neutrophils Percent Auto 90.7 % (45-73); Platelet Count 262 X10*3/uL (160-400); Red Blood Count 5.06 X10*6/uL (4.60-5.80); Red Cell Distribution Width 13.2 % (11.0-16.0); SCAN SMEAR FLAG 1; White Blood Count 16.1 X10*3/uL (4.8-10.8)
[2023-12-20 17:28] LABS: SLIDE REVIEW VERIFIED
--- NOTE | 2023-12-20 18:30 | PHA.MEDREC ---
Pharmacy Consult ? Medication Reconciliation Pharmacy has completed the medication reconciliation. Spoke to patient and confirmed medication list. Patient said he hasn't taken his atorvastatin in about a month so it was taken off of his med list.
[2023-12-21 01:57] VITALS: BP 121/56; PULSE 75; RESP 18; TEMP 36.2; O2SAT 95
[2023-12-21] MEDS: Lactated Ringers 1,000 ML 100 ML IVCONT (02:09)
[2023-12-21 07:59] VITALS: BP 168/76; PULSE 73; RESP 12; TEMP 36.9; O2SAT 97
--- NOTE | 2023-12-21 08:31 | P.PNIM_ITS ---
Subjective Subjective Date of Service: 12/21/23 Interval History: no sob or cough, comfortable on room air Physical Exam 2 Vital Signs: Vital Signs: Last Vital Signs Temp 98.5 F 12/21/23 07:59 Pulse 73 12/21/23 07:59 Resp 12 12/21/23 07:59 BP 168/76 H 12/21/23 07:59 Pulse Ox 97 12/21/23 07:59 O2 Del Method Room Air 12/21/23 07:59 O2 Flow Rate 2 12/20/23 15:47 BMI result Body Mass Index 27.5 General: AO X 3, no acute distress Resp: CTA bilateral, no accessory muscles used CVS: S1,S2,RRR GI: soft, non tender, non distended Neuro: motor grossly intact, alert Psych: appropriate affect, appropriate insight Objective Data Active Medications Acetaminophen (Acetaminophen 325 Mg Tablet) 650 mg PO Q6H PRN PRN Reason: Pain, Mild (Pain Scale 1-3), fever or headache Albuterol Sulfate (Albuterol Sulfate (0.083%) 2.5 Mg/3 Ml Vial.Neb) 2.5 mg INHALE ONCE PRN PRN Reason: Shortness of Breath/Wheezing Last Admin: 12/20/23 14:46 Dose: 2.5 mg Documented By: MORENITA Calcium Carbonate (Calcium Carbonate 750 Mg Tab.Chew) 750 mg PO Q4H PRN PRN Reason: Heartburn Haloperidol Lactate (Haloperidol Lactate 5 Mg/Ml Vial) 1 mg IVPUSH ONCE PRN PRN Reason: Nausea and Vomiting Last Admin: 12/20/23 15:49 Dose: 1 mg Documented By: SANJUANITA Lactated Ringer's (Lr) 1,000 mls @ 100 mls/hr IVCONT .Q10H EUGENIA Last Infusion: 12/21/23 08:30 Dose: Infused Documented By: OBED Magnesium Hydroxide (Milk Of Magnesia 30 Ml Oral.Susp) 30 ml PO DAILY PRN PRN Reason: Constipation Melatonin (Melatonin 3 Mg Tablet) 6 mg PO BEDTIME PRN PRN Reason: Insomnia Oxycodone HCl (Oxycodone Hcl Immed Release 5 Mg Tablet) 5 mg PO Q4H PRN PRN Reason: Pain, Mild (Pain Scale 1-3) Sodium Chloride (0.9 % Sodium Chloride Flush 3 Ml Syringe) 3 ml IVFLUSH QSHIFT [facility] Last Admin: 12/21/23 07:30 Dose: Not Given Documented By: OBED Non-Admin Reason: IV Running Labs 12/20/23 16:45 Labs: Laboratory Results - last 24 hr 12/20/23 16:45 MCV 88.7 MCH 30.8 MCHC 34.7 RDW 13.2 Plt Count 262 MPV 9.9 Immature Gran % (Auto) 0.4 Neut % (Auto) 90.7 H Lymph % (Auto) 2.[address] [place] % (Auto) 6.0 Eos % (Auto) 0.1 Baso % (Auto) 0.2 Lymph # (Auto) 0.[address] [place] # (Auto) 1.0 Eos # (Auto) 0.0 Baso # (Auto) 0.0 Abs Immat Gran (auto) 0.07 H Absolute Neuts (auto) 14.6 H Absolute Nucleated RBC 0.000 Nucleated RBC % (auto) 0.0 Smear Tech's Comments VERIFIED Assessment and Plan (1) Hypoxia: Status: Acute Plan 58M PMH asbestos exposure, hyperlipidemia, sarcoidosis presented with left retained ureteric stent with extensive proximal calcification status post cystoscopy with left-sided dilatation of the ureteric orifice under fluoroscopy with laser lithotripsy and stone basketing. Hospitalist consulted for intraoperative hypoxia Acute hypoxia, intraoperative Resolved Possibly aspiration pneumonitis Patient now comfortable on room air, no need for antibiotics Appears medically stable will sign off for now, please recall if needed Quality Stroke Does the patient have a stroke diagnosis?: No VTE Prior VTE?: No VTE Risk Level:: Surgical - low VTE Device Contraindication: Treatment Not Indicated VTE Drug Contraindication: Treatment Not Indicated
--- NOTE | 2023-12-21 09:05 | HO.POSTANES ---
Post Anesthesia Evaluation Post Anesthesia Evaluation Date of Service: 12/21/23 Vital Signs: Vital Signs Temp Pulse Resp BP Pulse Ox O2 Del Method 12/21/23 07:59 98.5 F 73 12 168/76 H 97 Room Air 12/21/23 01:57 97.2 F 75 18 121/56 L 95 Room Air 12/20/23 23:13 97.6 F 76 18 108/60 96 Room Air Anesthesia: General LMA Mental Status: Awake Pain Control: Satisfactory Nausea/Vomiting: None Hydration: Adequate Anesthesia-Related Issues: No Anes. Related Issues
--- NOTE | 2023-12-21 09:16 | PC.NURSE ---
plan to d/c home today per MD
--- NOTE | 2023-12-21 09:26 | MHC.CM.PN ---
Addendum entered by Ruby Neri RN 12/21/23 10:10: Patient medically cleared for dc home self care. Son will transport. Original Note: Patient lives in a home w/ and adult son. Functionally independent. Denies use of DME or services. PCP Harriet Mccall CNP Reports he has an HCP at home w/ , Ethel, listed as [facility]. Copy requested. DP: Home self care, likely later today. Son will transport. CM will continue to follow.
--- NOTE | 2023-12-21 10:04 | PM.DS ---
DS: Providers Provider Date of Service: 12/21/23 Date of admission: 12/20/23 15:01 Primary care physician: Harriet Mccall CNP Consults: 12/20/23 15:03 Consult to Hospitalist Stat Comment: Consulting Provider: Hospitalist Reason For Exam: desat after surgery - possible aspiration DS: Diagnosis Discharge Diagnosis (1) Hypoxia: Status: Acute DS: Summary Hospital Course Hospital Course: Had hypoxia during procedure Kept overnight Status at Discharge Functional status at discharge: independent ambulation Overall status at discharge: patient is back to baseline Time Attestation Discharge Coordination Time (in mins): 15 Quality: Safe Use of Opioids Does Pt have an Active Cancer Diagnosis on the Problem List?: No Quality: Stroke Does the patient have a stroke diagnosis?: No Physical Exam Vital Signs: Vital Signs: Last Vital Signs Temp 98.5 F 12/21/23 07:59 Pulse 73 12/21/23 07:59 Resp 12 12/21/23 07:59 BP 168/76 H 12/21/23 07:59 Pulse Ox 97 12/21/23 07:59 O2 Del Method Room Air 12/21/23 07:59 O2 Flow Rate 2 12/20/23 15:47 BMI result Body Mass Index 27.5 DS: Data Data Completed and Pending Completed studies during hospitalization [Text1]: Underwent procedure for retained stent with nephrolithiasis Pending studies at discharge: Pending at discharge 12/20/23 11:09 Surgical [PTH] Routine Labs on day of discharge: Laboratory Results - last 24 hr 12/20/23 16:45 WBC 16.1 H RBC 5.06 Hgb 15.6 Hct 44.9 MCV 88.7 MCH 30.8 MCHC 34.7 RDW 13.2 Plt Count 262 MPV 9.9 Immature Gran % (Auto) 0.4 Neut % (Auto) 90.7 H Lymph % (Auto) 2.6 L [place] % (Auto) 6.0 Eos % (Auto) 0.1 Baso % (Auto) 0.2 Lymph # (Auto) 0.4 L [place] # (Auto) 1.0 Eos # (Auto) 0.0 Baso # (Auto) 0.0 Abs Immat Gran (auto) 0.07 H Absolute Neuts (auto) 14.6 H Absolute Nucleated RBC 0.000 Nucleated RBC % (auto) 0.0 Smear Tech's Comments VERIFIED Discharge Plan Discharge Anticipated Discharge Date/Time: 12/21/23 10:03 Patient Disposition: Home, Self-Care Discharge Diagnosis: Hypoxia Referrals: Harriet Mccall CNP [Primary Care Provider] - 1 Week Discharge Medications: Continued albuterol sulfate 90 mcg/actuation HFA aerosol inhaler 2 puff inhalation Q4-6H PRN (Reason: shortness of breath or wheezing) 90 Days Qty: 6.7 1RF Discharge Orders: Discharge Order (Routine); Ordered 12/21/23 Ordered By: Ronnie Graff Diet: Advance to usual diet Activity on Discharge: As tolerated Print Language: German Care Plan Goals: Hypoxia Health Concerns: Hypoxia Plan of Treatment: Hypoxia Assessment: Hypoxia Patient Instructions: Aspiration Pneumonia (GEN)
[2023-12-25 19:43] LABS: Stone Source LEFT RENAL STONE
== END 2023-12-21 10:27 | disposition home or self-care (01) | DRG 446 ==
LOC: HO.SSSA 15:35 → HO.S3 15:42
PROVIDERS: Admitting Provider Urology; PCP Nurse Practitioner Family; Visit Provider Urology
PROC: 0TC78ZZ Extirpation of Matter from Left Ureter, Via Natural or Artificial Opening Endoscopic (ICD-10-PCS; CPT 52353; principal; 2023-12-20 07:30)
DX: T83.192A Other mechanical complication of indwelling ureteral stent, initial encounter (principal); N20.1 Calculus of ureter; Z79.899 Other long term (current) drug therapy; R09.02 Hypoxemia
CPT/HCPCS: 52353; 36415; 71045; 82365; 85025; 87040; 88300; 99221; C1758; C1769; C1894; J0360; J0690; J1630; J1956; J2405; J2704; J2765; J3010; J7120; Q9967

== ENCOUNTER → 2023-12-20 15:01 | Outpatient (BNV) | payer OTHER, SELFPAY | PROVIDERS: Admitting Provider Urology; PCP Nurse Practitioner Family; Visit Provider Physician Assistant | DX: R09.02 Hypoxemia (principal); J95.88 Other intraoperative complications of respiratory system, not elsewhere classified | CPT/HCPCS: 99222; 99232 ==

== ENCOUNTER 2023-12-23 14:42 | Outpatient (AMB) | payer OTHER, SELFPAY ==
[2023-12-23 14:40] VITALS: BP 134/78; PULSE 80; O2SAT 96; BMI 25.1
--- NOTE | 2023-12-23 14:40 | HO.NEPHOV ---
Vital Signs 12/23/23 14:40 Height 5 ft 10 in Weight 175 lb BMI 25.1 BP 134/78 Blood Pressure Location Lt brachial Position Sitting Pulse 80 Pulse Source Pulse Oximeter Pulse Oximetry (%) 96 Oxygen Delivery Method Room Air Intake Visit Reasons: 6wk follow up/ Conf Machine Feeder Floorperson Required: No Accompanied by: Self / Same As Patient Allergies No Known Allergies Allergy (Verified 12/23/23 14:40) Medication List - Last Reconciled 12/23/23 by Melvin Gimenez MD albuterol sulfate 90 mcg/actuation 2 puffs inhalation Q4-6H PRN 90 days HPI Comments Details: . 58-year-old man with a history of sarcoidosis and multiple renal stones has been referred for evaluation of proteinuria. He had nephrolithiasis several years ago and underwent ESWL. Left kidney is atrophic with chronic hydronephrosis. Stent is in place. Right kidney had a 0.3 cm stone and underwent ESWL. He has history of sarcoidosis he was treated with the prednisone. He is currently in remission. In Recent serum calcium levels have been normal. He has not undergone any metabolic workup for nephrolithiasis 12/23/23 Underwent uro proceedure on 12/20/23: PreOperative Diagnosis: Left retained stent with extensive calcifications Post Operative Diagnosis: Left retained ureteric stent with extensive proximal calcifications Procedure: - cystoscopy, left retrograde - left dilatation of ureteric orifice under fluoroscopy - left ureteroscopy, laser lithotripsy, stone basketing - stent removal modifier 22 150% longer than typical proximally 120 minutes longer PFSH Medical History Tubular adenoma of colon Diverticulosis Sarcoidosis Mediastinal lymphadenopathy Multiple pulmonary nodules Asbestos exposure Asthma Environmental allergies Chronic kidney disease, stage II (mild) Hyperlipidemia Surgical History H/O lithotripsy H/O colonoscopy History of bronchoscopy Hx of cystoscopy History of lung surgery Family History Father Stented coronary artery No family history of mental disorder Mother No family history of mental disorder Social History Household Members: Spouse, Family and Children Both parents involved: No Caregiver staying overnight: No Housing: House Are you a primary intensive care anaesthetist to a significant other at home: No Do you presently have visiting nurse or other home services: No 75 years or older and lives alone: No Alcohol intake: never Comment: non counts needed Patient Tobacco Use Status: Never used Tobacco e-Cigarette/Vaping Use: Never Used Second Hand Smoke Exposure: No Substance Use Type: Marijuana service: No Current occupational status: employed 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 Current occupational exposures/hazards: Yes Cognitive needs: No Hearing needs: No Vision needs: No Physical Exam Vital Signs: Last Vital Signs Pulse 80 12/23/23 14:40 BP 134/78 12/23/23 14:40 Pulse Ox 96 12/23/23 14:40 Oxygen Delivery Method Room Air 12/23/23 14:40 BMI result Body Mass Index 25.1 Const General: comfortable; No acute distress Orientation/consciousness: patient oriented x3 Eyes General: appearance normal, both eyes and all related structures Visual Holbrook: normal visual holbrook by confrontation Neck Neck: Yes supple and Yes no JVD Resp Effort & Inspection: normal respiratory effort and respiratory effort not decreased Auscultation: rhonchi Cardio Palpation: no palpable S3 and no palpable S4 Heart sounds: no rubs GI Inspection: Yes normal to inspection Palpation (GI): Soft to palpation Percussion: Yes normal to percussion Auscultation: normal bowel sounds General: Yes no CVA tenderness Back/Spine/Pelvis Back: no CVA tenderness Skin General skin exam: no petechiae and no purpura Neuro General: patient oriented x3 and no focal motor deficits Extrem General: No clubbing and No edema Results Reviewed Nephrology Results: Hgb 15.6 g/dl (14.0-18.0) 12/20/23 WBC 16.1 X10*3/uL (4.8-10.8) H 12/20/23 Plt Count 262 X10*3/uL (160-400) 12/20/23 Sodium 141 mmol/L (135-145) 11/26/23 Potassium 3.9 mmol/L (3.3-5.1) 11/26/23 Chloride 106 mmol/L (96-108) 11/26/23 Carbon Dioxide 28 mmol/L (22-29) 11/26/23 BUN 13 mg/dL (9-16) 11/26/23 Creatinine 1.36 mg/dL (0.5-1.4) 11/26/23 Calcium 9.3 mg/dL (8.4-10.2) 11/26/23 Phosphorus 2.5 mg/dL (2.7-4.5) L 11/26/23 PTH Intact 33.8 pg/mL (8.7-77.1) 11/26/23 Assessment & Plan Assessment & Plan (1) Kidney stone on left side: Code(s): N20.0 - Calculus of kidney Category: Medical (2) Sarcoidosis: Code(s): D86.9 - Sarcoidosis, unspecified Category: Medical Plan Middle-aged man with a Sarcoidosis has recurrent nephrolithiasis. History of atrophic left kidney with chronic hydronephrosis. PreOperative Diagnosis: Left retained stent with extensive calcifications Post Operative Diagnosis: Left retained ureteric stent with extensive proximal calcifications Procedure: - cystoscopy, left retrograde - left dilatation of ureteric orifice under fluoroscopy - left ureteroscopy, laser lithotripsy, stone basketing - stent removal modifier 22 150% longer than typical proximally 120 minutes longer will order repeat renal panel. Results of 24 hour urine collection was reviewed. Encouraged him to stay on low-sodium diet Maintain urine output more than 2 L by increasing p.o. fluid intake. Stay on low oxalate diet and increase citrate intake by drinking lemonade. Avoid strawberries and cola drinks. Orders: Orders Basic Metabolic Panel Today N20.0 - Calculus of kidney Coding Level of Care Code Est Pt Level 4 (98999) Diagnoses Kidney stone on left side N20.0 Sarcoidosis D86.9
== END 2023-12-23 15:01 | disposition home or self-care (01) ==
PROVIDERS: PCP Nurse Practitioner Family; Visit Provider Internal Medicine Hypertension Specialist
DX: N20.0 Calculus of kidney (principal); D86.9 Sarcoidosis, unspecified
CPT/HCPCS: 99214

== ENCOUNTER → 2023-12-23 14:42 | Outpatient (BNVA) | payer OTHER, SELFPAY | PROVIDERS: PCP Nurse Practitioner Family; Visit Provider Internal Medicine Hypertension Specialist ==

== ENCOUNTER 2023-12-27 14:52 | Outpatient (AMB) | payer OTHER, SELFPAY ==
--- NOTE | 2023-12-27 14:55 | MHC.PC.OV ---
Vital Signs 12/27/23 15:13 Height 5 ft 10 in Weight 176 lb 6 oz BMI 25.3 BP 138/80 Blood Pressure Location Lt brachial Position Sitting Respiration 16 Pulse 90 Pulse Source Pulse Oximeter Temp 98.1 F Temp Source Oral Pulse Oximetry (%) 98 Oxygen Delivery Method Room Air Intake Visit Reasons: TCM/Desaturation Intake Note: patient here for TCM/Desaturation. Careers Counsellor Required: No Allergies No Known Allergies Allergy (Verified 12/27/23 15:16) Medication List - Last Reconciled 12/27/23 by Harriet Mccall CNP albuterol sulfate 90 mcg/actuation 2 puffs inhalation Q4-6H PRN 90 days Tobacco use date assessed: 12/27/23 Dental Screening Dental Screen Date: 12/27/23 Did you have a dental visit in the last 12 months?: No Did you have a dental problem in the last 6 months where you did not have access to dental care?: No Was dental information given to patient?: Patient has dentist HPI HPI Comments History of Present Illness Details 58-year-old male presents for TCM He was hospitalized at [facility] urology on 12/20/2023 and 12/21/2023 Hospital notes below: 58 year old male with history of asbestos exposure, sarcoidosis, hld admitted to urology for left retained ureteric stent with extensive proximal calcifications s/p cystoscopy with left-sided dilatation of the ureteric orifice under fluoroscopy with laser lithotripsy and stone basketing with consult placed hospitalist service due to intraoperative hypoxia. #Retained ureteral stent -plan per urology. Admit to urology #Intra operative hypoxia- resolved on arrival to the floor -per surgery, had witnessed regurg event while intubated. Pt without fevers, productive cough, sob, chest pain -cxr negative for pneumonia -Maintaining oximetry 96% on RA -?atelectasis vs aspiration even in the OR. No evidence of evolving pneumonia at this time and hypoxia appears to have resolved -CBC, lactic acid/BC ordered by surery, would defer ax at this time. Doubt infection at this time or sepsis but will continue monitoring -Continuous O2 monitoring He notes that he has been well since his discharge He stopped taking his tamsulosin and atorvastatin about a month ago. He notes that he read about statin can cause amloid plaques buildup. He will consider taking the medication after his next lipid pain blood work. He has been making healthy lifestyle changes, including diet and exercise He denies acute symptoms at this time [facility] Medical History Tubular adenoma of colon Diverticulosis Sarcoidosis Mediastinal lymphadenopathy Multiple pulmonary nodules Asbestos exposure Asthma Environmental allergies Chronic kidney disease, stage II (mild) Hyperlipidemia Surgical History H/O lithotripsy H/O colonoscopy History of bronchoscopy Hx of cystoscopy History of lung surgery Family History Father Stented coronary artery No family history of mental disorder Mother No family history of mental disorder Social History Household Members: Spouse, Family and Children Both parents involved: No Caregiver staying overnight: No Housing: House Are you a primary pharmacist critical care to a significant other at home: No Do you presently have visiting nurse or other home services: No 75 years or older and lives alone: No Alcohol intake: never Comment: non counts needed Patient Tobacco Use Status: Never used Tobacco e-Cigarette/Vaping Use: Former Use Second Hand Smoke Exposure: No Substance Use Type: Marijuana service: No Current occupational status: employed 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 1. Little interest or pleasure in doing things: not at all 2. Feeling down, depressed, or hopeless: not at all 3. Trouble falling or staying asleep, or sleeping too much: not at all 4. Feeling tired or having little energy: not at all 5. Poor appetite or overeating: not at all 6. Feeling bad about yourself - or that you are a failure or have let yourself or your family down: not at all 7. Trouble concentrating on things, such as reading the newspaper or watching television: not at all 8. Moving or speaking so slowly that other people could have noticed. Or the opposite - being so fidgety or restless that you have been moving around a lot more than usual: not at all 9. Thoughts that you would be better off or of hurting yourself in some way: not at all Total score: 0 Depression Screening Done: Yes 88510 - PHQ-9 Billing: Yes Source: Developed by Drs. Willie Jordan, Nickie Aly, Gabriel Caldera and colleagues, with an educational dev from [employer]. Thrive Questionnaire Date Thrive assessed: 12/21/23 MINA-7 AMB Questionnaire MINA-7 Date MINA - 7 assessed: 02/02/23 Source: Developed by Drs. Willie Jordan, Nickie Aly, Gabriel Caldera and colleagues, with an educational dev from [employer]. Review of Systems Const Details: Const Denies chills, Denies fatigue, Denies fever(s), Denies headache(s) and Denies weakness ENT Denies dizziness and Denies headache(s) Card Denies chest pain, Denies lightheadedness, Denies dyspnea and Denies other (Palpitations) Resp Denies cough, Denies dyspnea, Denies wheezing and Denies other ( shortness of breath) GI Denies abdominal pain, Denies melena, Denies hematochezia, Denies change in bowel habits, Denies dyspepsia and Denies nausea Denies hematuria and Denies dysuria Musc Denies abnormal gait, Denies myalgias, Denies arthralgias, Denies numbness and Denies tingling Skin/Breast Denies rash, Denies unusual bruising and Denies wounds Neuro Denies abnormal gait, Denies dizziness, Denies headache(s), Denies memory loss, Denies numbness, Denies Sensory deficit (Neuro), Denies tingling and Denies weakness Psych Denies anxiety, Denies depression, Denies memory loss Endo Denies cold intolerance, Denies fatigue, Denies heat intolerance, Denies polydipsia and Denies polyuria Aller/Immun Denies wheezing Physical exam (Primary Care) Tobacco/Smoking Status: Tobacco use Status Tobacco use date assessed 08/10/23 12/27/23 14:56 Patient Tobacco Use Status Never used Tobacco 12/27/23 14:56 e-Cigarette/Vaping Use Never Used 12/27/23 14:56 Thrive Assessment: Date of Thrive Assessment Date Thrive assessed 12/21/23 12/27/23 14:56 Const Other: General: no acute distress and well developed Nutritional Appearance: well nourished Orientation/consciousness: patient oriented x3 HENMT Head: Yes normocephalic and Yes atraumatic Eyes General: appearance normal, both eyes and all related structures Pupils: Equal, round and reactive pupils present EOM: EOMs intact bilaterally Resp Effort & Inspection: normal respiratory effort Auscultation: clear to auscultation bilaterally Cardio Rate: regular rate Rhythm: regular rhythm Heart sounds: S1 normal heart sound present, S2 normal heart sound present, no gallops, no murmurs and no rubs GI Palpation (GI): No Abdominal aortic bruit present, Soft to palpation, nontender, No hepatosplenomegaly present and No Rebound tenderness present Auscultation: normal bowel sounds General: Yes no CVA tenderness Back/Spine/Pelvis Back: no CVA tenderness Cervical Spine: cervical ROM normal and No Cervical spine tenderness Thoracic/Lumbar Spine: thoraco-lumbar ROM normal, No pain with thoraco-lumbar ROM, No thoracic spinal tenderness and No lumbar spinal tenderness Extrem General: Yes normal to inspection, No edema and No calf tenderness Skin General: warm and dry. Normal skin color. Normal skin turgor Neuro General: patient oriented x3, gait normal and no focal neuro deficit Cranial nerves: Yes Equal, round and reactive pupils present Cognition (Neuro): normal cognition Gait exam (Neuro): Normal gait present Sensory Exam: No Sensory deficit (Neuro) Psych Appearance: grossly normal Affect: normal affect Attitude: cooperative Thought process: Normal thought process present Assessment and Plan Assessment & Plan (1) Hypoxia: Code(s): R09.02 - Hypoxemia Plan: Resolved He had leukocytosis. WBC was 16.1. He notes that he had blood work done after surgery. Likely due to inflammation following surgery He will get CBC done before his next appointment. Will review results and make changes as needed (2) Hyperlipidemia: Code(s): E78.5 - Hyperlipidemia, unspecified Plan: He stopped taking atorvastatin about a month ago after meeting online that it can cause amyloid plaque buildup His recent lipid panel level is unremarkable Advised to limit foods high in saturated fat and avoid foods high in trans fat Routine exercise encouraged Encouraged to get fasting lab work done before his next visit Follow-up next month as planned for an extended physical exam Return sooner with symptoms or concerns Verbalized understanding and agreed with treatment plan (3) Vitamin D deficiency: Code(s): E55.9 - Vitamin D deficiency, unspecified Plan: Recent vitamin-D level is low, 23 Vitamin D3 2000 units daily ordered. Advised to take as prescribed Inform the vitamin-D level tends to be low in individuals residing in areas with lack of sunshine Verbalized understanding and agreed with the plan Medications: New cholecalciferol (vitamin D3) 50 mcg PO DAILY 90 days 90 tabs 1RF Coding Level of Care Code TCM Mod MDM <= 7 Days Diagnoses Hypoxia R09.02 Hyperlipidemia E78.5 Vitamin D deficiency E55.9
[2023-12-27 15:13] VITALS: BP 138/80; PULSE 90; RESP 16; TEMP 36.7; O2SAT 98; BMI 25.3
== END 2023-12-27 15:48 | disposition home or self-care (01) ==
PROVIDERS: PCP Nurse Practitioner Family; Visit Provider Nurse Practitioner Family
DX: R09.02 Hypoxemia (principal); E78.5 Hyperlipidemia, unspecified; E55.9 Vitamin D deficiency, unspecified

== ENCOUNTER → 2023-12-27 14:52 | Outpatient (BNVA) | payer OTHER, SELFPAY | PROVIDERS: PCP Nurse Practitioner Family; Visit Provider Nurse Practitioner Family | DX: R09.02 Hypoxemia (principal); E78.5 Hyperlipidemia, unspecified; E55.9 Vitamin D deficiency, unspecified ==

== ENCOUNTER 2024-01-10 12:47 | Outpatient (AMB) | payer OTHER, SELFPAY ==
--- NOTE | 2024-01-10 12:54 | MHC.OFFVIS ---
Vital Signs 01/10/24 13:00 Height 5 ft 10 in Weight 175 lb BMI 25.1 BP 135/85 Blood Pressure Location Rt brachial Position Sitting Pulse 86 Intake Visit Reasons: Mediastinoscopy consult Intake Note: Patient referred by Dr. Mccall for Mediastinoscopy consult. Patient c/o: denies SOB. Chest X-ray: 12-20-2023. PFT's>: 10-02-2022. Activities Leader Required: No Accompanied by: Self / Same As Patient Allergies No Known Allergies Allergy (Verified 01/10/24 12:58) HPI Comments Details: Patient presents for evaluation of progressively enlarging mediastinal adenopathy. Fact his case was presented at our weekly lung cancer/thoracic conference recently. Because of significant progression of mediastinal adenopathy although the patient had a prior EBUS consistent with sarcoidosis, concern is that there may be underlying neoplastic process per Pulmonary evaluation. At present, patient denies any cough, wheeze, chest pain, or hemoptysis. He denies any fever, chills, night sweats, weight loss. Chart was reviewed and patient evaluated. Patient has history of significant nephrolithiasis as well as presumed sarcoidosis [facility] Medical History Tubular adenoma of colon Diverticulosis Sarcoidosis Mediastinal lymphadenopathy Multiple pulmonary nodules Asbestos exposure Asthma Environmental allergies Chronic kidney disease, stage II (mild) Hyperlipidemia Surgical History H/O lithotripsy H/O colonoscopy History of bronchoscopy Hx of cystoscopy History of lung surgery Family History Father Stented coronary artery No family history of mental disorder Mother No family history of mental disorder Social History Household Members: Spouse, Family and Children Both parents involved: No Caregiver staying overnight: No Housing: House Are you a primary home health care social worker to a significant other at home: No Do you presently have visiting nurse or other home services: No 75 years or older and lives alone: No Alcohol intake: never Comment: non counts needed Patient Tobacco Use Status: Never used Tobacco e-Cigarette/Vaping Use: Former Use Second Hand Smoke Exposure: No Substance Use Type: Marijuana service: No Current occupational status: employed 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 Chest Other: Chest breath sounds bilaterally, HS 1 in 2 GI Other: Abdomen is soft, benign Assessment & Plan Assessment & Plan (1) Mediastinal adenopathy: Code(s): R59.0 - Localized enlarged lymph nodes Category: Surgical Plan A lengthy discussion was had regarding the risks, benefits, and alternatives of mediastinoscopy with the patient which included but not limited to bleeding, infection, non diagnosis, numbness, pain, scarring and the patient wished to proceed. All questions answered. Arrangements were made for this on a day which is convenient for him. Coding Level of Care Code New Pt Level 5 (92386) Diagnoses Mediastinal adenopathy R59.0
[2024-01-10 13:00] VITALS: BP 135/85; PULSE 86; BMI 25.1
== END 2024-01-10 13:06 | disposition home or self-care (01) ==
LOC: HO.HGS 12:47
PROVIDERS: PCP Nurse Practitioner Family; Visit Provider Surgery
DX: J98.59 Other diseases of mediastinum, not elsewhere classified (principal); R59.0 Localized enlarged lymph nodes
CPT/HCPCS: 99205

== ENCOUNTER → 2024-01-10 12:47 | Outpatient (BNVA) | payer OTHER, SELFPAY | PROVIDERS: PCP Nurse Practitioner Family; Visit Provider Surgery ==

== ENCOUNTER 2024-01-27 07:34 | Outpatient (REF) | payer OTHER, SELFPAY ==
[2024-01-27 11:18] LABS: MANUAL DIFF FLAG NO
[2024-01-27 11:22] LABS: Basophils Absolute Auto 0.1 X10*3/uL (0.0-0.2); Basophils Percent Auto 0.8 % (0-2); Eosinophils Absolute Auto 0.3 X10*3/uL (0.0-0.4); Eosinophils Percent Auto 4.3 % (0-4); Hemoglobin 15.3 g/dl (14.0-18.0); Imm Gran Abs Auto 0.02 X10*3/uL (0.00-0.03); Imm Gran Pct Auto 0.3 % (0.0-0.4); Lymphocytes Absolute Auto 0.9 X10*3/uL (1.2-4.9); Lymphocytes Percent Auto 13.7 % (20-40); Mean Corpuscular HGB Conc 33.3 g/dl (31.0-36.0); Mean Corpuscular Hemoglobin 30.8 pg (27.0-33.0); Mean Corpuscular Volume 92.7 fL (80.0-98.0); Mean Platelet Volume 10.6 fL (9.4-12.4); Monocytes Absolute Auto 0.6 X10*3/uL (0.1-1.2); Monocytes Percent Auto 9.6 % (2-11); Neutrophils Absolute Auto 4.6 x10*3/uL (2.0-8.3); Neutrophils Percent Auto 71.3 % (45-73); Platelet Count 274 X10*3/uL (160-400); Red Blood Count 4.96 X10*6/uL (4.60-5.80); Red Cell Distribution Width 12.3 % (11.0-16.0); White Blood Count 6.5 X10*3/uL (4.8-10.8)
[2024-01-27 11:44] LABS: Alanine Aminotransferase 21 U/L (0-40); Albumin Level 4.5 g/dL (3.5-5.0); Alkaline Phosphatase 82 U/L (39-117); Anion Gap 12 (12-20); Aspartate Amino Transferase 16 U/L (5-37); Blood Urea Nitrogen 15 mg/dL (9-16); Calcium 9.7 mg/dL (8.4-10.2); Carbon Dioxide 30 mmol/L (22-29); Chloride 102 mmol/L (96-108); Cholesterol 111 mg/dL (<200); Estimated Glomerular Filt Rate 52; Glucose Fasting 102 mg/dL (60-99); Glucose Random 101 mg/dL (60-115); HDL Cholesterol 39 mg/dL (>40); LDL Cholesterol Calculated 52 mg/dL (<100); Sodium 140 mmol/L (135-145); Triglycerides 101 mg/dL (<150)
[2024-01-27 11:56] LABS: TSH reflex Free T4 1.06 uIU/mL (0.32-4.0)
[2024-01-27 14:40] LABS: Appearance Urine Cloudy; Color Urine Yellow; Glucose Urine UA Negative (Negative); Leukocyte Esterase Urine Trace (Negative); Nitrite Urine Negative (Negative); PH 7.5 (5.0-9.0); Specific Gravity - Urine 1.015 (1.005-1.025); UMIC TRIGGER UACC YES; Urine Blood Negative (Negative); Urine Ketones Negative (Negative); Urine Protein Negative (Neg-Trace)
[2024-01-27 14:48] LABS: Bacteria Urine None Seen (None Seen); Hyaline Casts Urine 0-2 /LPF (0-2); RBC Urine 0-2 /HPF (0-2); Squamous Epithelial Cell Urine 0-2 /HPF (0-2); UACC Culture Trigger YES; WBC Urine 21-50 /HPF (0-5)
[2024-01-27 15:27] LABS: Creatinine Urine 121.14 mg/dL; Microalbum/Creatinine Ratio Ur 40.4 ug/mg cr (<30)
[2024-02-01 21:53] LABS: PSA, Ultra Sensitive 0.56 ng/mL
== END 2024-01-27 07:35 | disposition home or self-care (01) ==
LOC: HO.WFDLDS 07:34
PROVIDERS: Referring Provider Internal Medicine Hypertension Specialist; Visit Provider Nurse Practitioner Family
DX: Z00.00 Encounter for general adult medical examination without abnormal findings (principal); N20.0 Calculus of kidney; Z12.5 Encounter for screening for malignant neoplasm of prostate
CPT/HCPCS: 36415; 80048; 80053; 80061; 81001; 82043; 82570; 84153; 84443; 85025; 87086

== ENCOUNTER 2024-02-17 08:54 | Day surgery (SDC) | payer OTHER, SELFPAY ==
[2024-02-15 07:44] VITALS: BMI 25.1
--- NOTE | 2024-02-15 14:54 | HO.ANESPROP2 ---
Documented by User: Yesy Cole NP 02/15/24 14:59 HPI - Anesthesia Eval Consult details Narrative: 58yo M for Mediastinoscopy s/p cysto etc 12/2023 with GA-LMA 5 - desat post op, CXR negative for aspiration, admit for obs, uneventful with D/C home the next day prior EBUS consistent with sarcoidosis Prominent appearance of the right cardiomediastinum and bilateral hilar regions, most likely related with lymphadenopathy described on prior CT chest. noted on post op CXR PMFSH Active Problems Active Problems: All Active Problems Mediastinal adenopathy (Acute) Vitamin D deficiency (Acute) Proteinuria (Acute) Mild anemia (Acute) Hospital discharge follow-up (Acute) Ureteral calculus, left (Acute) Ureteral stent retained (Acute) Kidney stone on left side (Acute) Encounter for preoperative pulmonary examination (Acute) Lower urinary tract symptoms (Acute) Sarcoidosis (Acute) Interstitial lung disease (Acute) Hydronephrosis with obstructing calculus (Acute) Urinary tract infection (Acute) Hydronephrosis (Acute) Vaccine counseling (Acute) Incidental pulmonary nodule, greater than or equal to 8mm (Acute) Elevated serum creatinine (Acute) Colon cancer screening (Acute) Shortness of breath (Acute) Elevated fasting glucose (Acute) Bronchitis, chronic with acute exacerbation (Acute) Current cannabis vaping on some days (Acute) Tubular adenoma of colon (Acute) Diverticulosis (Acute) Chronic kidney disease, stage II (mild) (Acute) Hyperlipidemia (Acute) Mediastinal lymphadenopathy (Acute) Multiple pulmonary nodules (Acute) Asthma (Acute) Asbestos exposure (Acute) Environmental allergies (Acute) Past Medical History Medical History Tubular adenoma of colon Diverticulosis Sarcoidosis Mediastinal lymphadenopathy Multiple pulmonary nodules Asbestos exposure Asthma Environmental allergies Chronic kidney disease, stage II (mild) Hyperlipidemia Family History Family History Father Stented coronary artery No family history of mental disorder Mother No family history of mental disorder Family history of problems with anesthesia: No Surgical History Surgical History H/O lithotripsy H/O colonoscopy History of bronchoscopy Hx of cystoscopy History of lung surgery History of Problems with Anesthesia: No Social History Social History Household Members: Spouse, Family and Children Housing: House Are you a primary career technical education instructor to a significant other at home: No Do you presently have visiting nurse or other home services: No Alcohol intake: never Comment: non counts needed Patient Tobacco Use Status: Never used Tobacco e-Cigarette/Vaping Use: Former Use Second Hand Smoke Exposure: No Substance Use Type: Marijuana Substance Use Frequency: Occasionally Have you been hit, kicked, punched, or otherwise hurt by someone within the past year? 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 No focal airspace opacities, pleural effusion or pneumothorax. 2. Prominent appearance of the right cardiomediastinum and bilateral hilar regions, most likely related with lymphadenopathy described on prior CT chest. Assessment and Plan Assessment Anesthesia Assessment: Chart Reviewed Final Anesthetic Review Family History of Problems with Anesthesia: No History of Problems with Anesthesia: No Documented by User: Brina Bull MD 02/17/24 10:05 [facility] Past Medical History Medical History Tubular adenoma of colon Diverticulosis Sarcoidosis Mediastinal lymphadenopathy Multiple pulmonary nodules Asbestos exposure Asthma Environmental allergies Chronic kidney disease, stage II (mild) Hyperlipidemia Family History Family History Father Stented coronary artery No family history of mental disorder Mother No family history of mental disorder Surgical History Surgical History H/O lithotripsy H/O colonoscopy History of bronchoscopy Hx of cystoscopy History of lung surgery History of Problems with Anesthesia: Yes (ponv, low saturations in pacu per patient) Social History Social History Household Members: Spouse, Family and Children Housing: House Are you a primary career technical education instructor to a significant other at home: No Do you presently have visiting nurse or other home services: No Alcohol intake: never Comment: non counts needed Patient Tobacco Use Status: Never used Tobacco e-Cigarette/Vaping Use: Former Use Second Hand Smoke Exposure: No Substance Use Type: Marijuana Substance Use Frequency: Occasionally Have you been hit, kicked, punched, or otherwise hurt by someone within the past year? 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 Current occupational exposures/hazards: Yes Cognitive needs: No Hearing needs: No Vision needs: No Meds Allergies Allergy/AdvReac Type Severity Reaction Status Date / Time No Known Allergies Allergy Verified 02/17/24 09:24 Exam Airway Mallampati Class: II TM Dist: >3cm Neck ROM: Full Heart: rrr Lungs: cta Assessment and Plan Assessment Anesthesia Assessment: Anesthesia Plan Discussed Final Anesthetic Review History of Problems with Anesthesia: Yes (ponv, low saturations in pacu per patient) NPO: Yes ASA Class: III Final Preanesthetic Review: No Changes in Pt Med Stat, Meds/Allgs Chart Reviewed, Consent Obtained/Reviewed and Anes Risks/Benef Reviewed Patient Risk: Intermediate Procedure Risk: Intermediate Anesthetic Plan Anesthetic Plan: GA Disposition: Standard PACU
--- NOTE | 2024-02-16 18:01 | MHC.SHP ---
Pre-Procedural Eval Section A - 24 Hr Update-Section A only Date of Service: 02/17/24 The patient is an INPATIENT: No Changes since office visit: No Cold of Flu in the past 2 weeks, No New Medical Problems, No Changes in Medication and No Patient answered all questions Section B - Complete if H&P > 30 days Chief Complaint: Localized enlarged lymph nodes Allergies: Allergies Allergy/AdvReac Type Severity Reaction Status Date / Time No Known Allergies Allergy Verified 01/10/24 12:58 Review of Systems Sugical H&P ROS: Negative: Constitution, Cardiovascular, Respiratory, Neurological, Psychiatric, Hem-Onc, Allergic/Immunologic, Gastrointestinal, Genitourinary, Musculoskeletal, Integumentary, Endocrine and Eyes/Ears/Nose/Throat Exam Surgical H&P Exam: Normal: HEENT, Normal: Heart, Normal: Lungs, Normal: Extremities, Normal: Abdomen, Normal: Skin and Normal: Neurological Plan I have reviewed the history and physical and performed a pertinent physical examination on my patient. No changes have occurred unless specified. Time Spent With Patient Time: Total time managing care of this patient today ____ minutes.
[2024-02-17] VITALS (7 sets, daily range): BP systolic 147–158; BP diastolic 82–94; PULSE 68–91; RESP 18–28; TEMP 36.4–36.7; O2SAT 95–100; BMI 24.5
[2024-02-17] MEDS: Lactated Ringers 1,000 ML 100 ML IVCONT (09:14)
[2024-02-17] MEDS: Scopolamine 1.5 MG PATCH.TD.3 TRANSDERMA (10:08)
--- NOTE | 2024-02-17 11:17 | W.PM.OPN ---
Operative Note Operative Note Date of Service: 02/17/24 Narrative: Preoperative diagnosis: [] Mediastinal adenopathy Postop diagnosis: [] The same Procedure [] mediastinoscopy Surgeon: [] Vj Computer Science Teacher: [] General Type of Anesthesia: [] Kvng Indication for surgery: [] Mediastinal adenopathy. 2R and 4R mediastinal lymph node samples sent both in formalin and in saline for pathologic evaluation Findings: [] Patient was brought to the operating room, placed on operative table supine position, after an adequate level of general anesthesia was induced, patient was appropriately positioned with a shoulder roll and the anterior chest and neck area were prepped and draped in usual sterile fashion. Using a transverse incision approximately 1 fingerbreadth above the sternal notch, this carried down through skin, subcutaneous tissue, cervical fascia. Linea cervicalis was opened and pretracheal fascia was entered and digitally dissected into the mediastinum. Mediastinoscopy was then performed where mediastinal lymph node specimens/biopsy from the above-mentioned stations were uneventfully performed. Wound was irrigated, secured hemostasis. Wound was closed in the following manner; strap muscles reapproximated using interrupted 3-0 Vicryl suture. Cervical fascia was reapproximated using interrupted 3-0 Vicryl suture. Interrupted inverted deep dermal 3-0 Vicryl sutures followed by running subcuticular 4-0 Vicryl sutures were placed. Steri-Strips and sterile dressings were applied. Wound was infiltrated 0.5% Marcaine at completion. Sponge, needle, and instrument counts reported correct. Patient tolerated the procedure well and emerged from anesthesia stable condition. EBL minimal
== END 2024-02-17 12:46 | disposition home or self-care (01) ==
PROVIDERS: Pathology Anatomic Pathology & Clinical Pathology; PCP Nurse Practitioner Family; Visit Provider Surgery
PROC: 0WJC4ZZ Inspection of Mediastinum, Percutaneous Endoscopic Approach (ICD-10-PCS; CPT 39401; principal; 2024-02-17 11:10)
DX: R59.0 Localized enlarged lymph nodes (principal); D86.9 Sarcoidosis, unspecified; J30.2 Other seasonal allergic rhinitis; J45.909 Unspecified asthma, uncomplicated; N18.2 Chronic kidney disease, stage 2 (mild); R91.8 Other nonspecific abnormal finding of lung field; E78.5 Hyperlipidemia, unspecified; Z77.090 Contact with and (suspected) exposure to asbestos; Z87.442 Personal history of urinary calculi; Z98.890 Other specified postprocedural states
CPT/HCPCS: 39402; 88184; 88185; 88305; 88312; J0131; J0690; J1100; J1885; J2003; J2250; J2405; J2704; J2795; J3010

== ENCOUNTER → 2024-02-17 08:54 | Outpatient (BNV) | payer OTHER, SELFPAY | PROVIDERS: PCP Nurse Practitioner Family; Visit Provider Surgery | DX: J98.59 Other diseases of mediastinum, not elsewhere classified (principal) | CPT/HCPCS: 39402 ==

== ENCOUNTER 2024-02-28 10:19 | Outpatient (AMB) | payer OTHER, SELFPAY ==
--- NOTE | 2024-02-28 10:23 | A.OFFVIS_ITS ---
Intake Visit Reasons: S/P mediastinoscopy Intake Note: Patient here s/p mediastinoscopy on 02-17-2024. Reports incision healing well. Patient c/o: denies SOB, pain. Cell Phone Repair Technician Required: No Accompanied by: Self / Same As Patient Allergies No Known Allergies Allergy (Verified 02/28/24 10:25) HPI Comments Details: Patient presents for follow-up. He has minimal incisional discomfort. He is increasing his activity level. Pathology was reviewed as well as having been reviewed with him by pulmonology. Consistent with sarcoid [facility] Medical History Tubular adenoma of colon Diverticulosis Sarcoidosis Mediastinal lymphadenopathy Multiple pulmonary nodules Asbestos exposure Asthma Environmental allergies Chronic kidney disease, stage II (mild) Hyperlipidemia Surgical History H/O lithotripsy H/O colonoscopy History of bronchoscopy Hx of cystoscopy History of lung surgery Family History Father Stented coronary artery No family history of mental disorder Mother No family history of mental disorder Social History Household Members: Spouse, Family and Children Both parents involved: No Caregiver staying overnight: No Housing: House Are you a primary childcare administrator to a significant other at home: No Do you presently have visiting nurse or other home services: No 75 years or older and lives alone: No Alcohol intake: never Comment: non counts needed Patient Tobacco Use Status: Never used Tobacco e-Cigarette/Vaping Use: Former Use Second Hand Smoke Exposure: No Substance Use Type: Marijuana service: No Current occupational status: employed 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 He is scheduled to follow up with his construction millwright. All questions answered. Coding Level of Care Code Global (23113) Diagnoses Postop check Z09
== END 2024-02-28 10:31 | disposition home or self-care (01) ==
PROVIDERS: PCP Nurse Practitioner Family; Visit Provider Surgery
DX: Z09 Encounter for follow-up examination after completed treatment for conditions other than malignant neoplasm (principal)
CPT/HCPCS: 99212

== ENCOUNTER → 2024-02-28 10:19 | Outpatient (BNVA) | payer OTHER, SELFPAY | PROVIDERS: PCP Nurse Practitioner Family; Visit Provider Surgery ==

== ENCOUNTER 2024-06-20 09:19 | Outpatient (AMB) | payer OTHER, SELFPAY ==
[2024-06-20 09:25] VITALS: BP 118/70; PULSE 85; O2SAT 97; BMI 24.7
--- NOTE | 2024-06-20 09:25 | HO.NEPHOV ---
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 58-year-old man with a history of sarcoidosis and multiple renal stones has been referred for evaluation of proteinuria. He had nephrolithiasis several years ago and underwent ESWL. Left kidney is atrophic with chronic hydronephrosis. Stent is in place. Right kidney had a 0.3 cm stone and underwent ESWL. He has history of sarcoidosis he was treated with the prednisone. He is currently in remission. In Recent serum calcium levels have been normal. He has not undergone any metabolic workup for nephrolithiasis 12/23/23 Underwent uro proceedure on 12/20/23: PreOperative Diagnosis: Left retained stent with extensive calcifications Post Operative Diagnosis: Left retained ureteric stent with extensive proximal calcifications Procedure: - cystoscopy, left retrograde - left dilatation of ureteric orifice under fluoroscopy - left ureteroscopy, laser lithotripsy, stone basketing - stent removal modifier 22 150% longer than typical proximally 120 minutes longer PFSH Medical History Tubular adenoma of colon Diverticulosis Sarcoidosis Mediastinal lymphadenopathy Multiple pulmonary nodules Asbestos exposure Asthma Environmental allergies Chronic kidney disease, stage II (mild) Hyperlipidemia Surgical History H/O lithotripsy H/O colonoscopy History of bronchoscopy Hx of cystoscopy History of lung surgery Family History Father Stented coronary artery No family history of mental disorder Mother No family history of mental disorder Social History Household Members: Spouse, Family and Children Both parents involved: No Caregiver staying overnight: No Housing: House Are you a primary director long term care to a significant other at home: No Do you presently have visiting nurse or other home services: No 75 years or older and lives alone: No Alcohol intake: never Comment: non counts needed Patient Tobacco Use Status: Never used Tobacco e-Cigarette/Vaping Use: Former Use Second Hand Smoke Exposure: No Substance Use Type: Marijuana service: No Current occupational status: employed 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 Current occupational exposures/hazards: Yes Cognitive needs: No Hearing needs: No Vision needs: No Physical Exam Vital Signs: Last Vital Signs Pulse 85 06/20/24 09:25 BP 118/70 06/20/24 09:25 Pulse Ox 97 06/20/24 09:25 Oxygen Delivery Method Room Air 06/20/24 09:25 BMI result Body Mass Index 24.7 Const General: comfortable; No acute distress Orientation/consciousness: patient oriented x3 Eyes General: appearance normal, both eyes and all related structures Visual Holbrook: normal visual holbrook by confrontation Neck Neck: Yes supple and Yes no JVD Resp Effort & Inspection: normal respiratory effort and respiratory effort not decreased Auscultation: rhonchi Cardio Palpation: no palpable S3 and no palpable S4 Heart sounds: no rubs GI Inspection: Yes normal to inspection Palpation (GI): Soft to palpation Percussion: Yes normal to percussion Auscultation: normal bowel sounds General: Yes no CVA tenderness Back/Spine/Pelvis Back: no CVA tenderness Skin General skin exam: no petechiae and no purpura Neuro General: patient oriented x3 and no focal motor deficits Extrem General: No clubbing and No edema Results Reviewed Nephrology Results: Hgb 15.3 g/dl (14.0-18.0) 01/27/24 WBC 6.5 X10*3/uL (4.8-10.8) 01/27/24 Plt Count 274 X10*3/uL (160-400) 01/27/24 Sodium 140 mmol/L (135-145) 01/27/24 Potassium 4.0 mmol/L (3.3-5.1) 01/27/24 Chloride 102 mmol/L (96-108) 01/27/24 Carbon Dioxide 30 mmol/L (22-29) H 01/27/24 BUN 15 mg/dL (9-16) 01/27/24 Creatinine 1.41 mg/dL (0.5-1.4) H 01/27/24 Calcium 9.7 mg/dL (8.4-10.2) 01/27/24 Urine Protein Negative mg/dL (Neg-Trace) 01/27/24 Urine Creatinine 121.14 mg/dL 01/27/24 Assessment & Plan Assessment & Plan (1) Kidney stone on left side: Code(s): N20.0 - Calculus of kidney Category: Medical (2) Sarcoidosis: Code(s): D86.9 - Sarcoidosis, unspecified Category: Medical (3) Chronic kidney disease, stage II (mild): Code(s): N18.2 - Chronic kidney disease, stage 2 (mild) Category: Medical Plan Middle-aged man with a Sarcoidosis has recurrent nephrolithiasis. History of atrophic left kidney with chronic hydronephrosis. PreOperative Diagnosis: Left retained stent with extensive calcifications Post Operative Diagnosis: Left retained ureteric stent with extensive proximal calcifications Procedure: - cystoscopy, left retrograde - left dilatation of ureteric orifice under fluoroscopy - left ureteroscopy, laser lithotripsy, stone basketing - stent removal modifier 22 150% longer than typical proximally 120 minutes longer repeat renal panel ordered Results of 24 hour urine collection was reviewed. Encouraged him to stay on low-sodium diet Maintain urine output more than 2 L by increasing p.o. fluid intake. Stay on low oxalate diet and increase citrate intake by drinking lemonade. Avoid strawberries and cola drinks. Orders: Orders Basic Metabolic Panel Today N18.2 - Chronic kidney disease, stage 2 (mild) Coding Level of Care Code Est Pt Level 4 (87359) Diagnoses Kidney stone on left side N20.0 Sarcoidosis D86.9 Chronic kidney disease, stage II (mild) N18.2
--- OUTSIDE RECORDS SUMMARY | 2024-06-20 10:25 | XMS_ITS | Clinical Summary ---
Author Organization [facility] Address [address] [facility] [address] [place] [phone] Phone Care Team Providers Care Hris Developer Name Role Phone Harriet Mccall NERY Primary Care Provider Allergies No known active allergies Medications albuterol HFA (PROVENTIL HFA;VENTOLIN HFA) 108 (90 Base) MCG/ACT inhaler TAKE 2 PUFFS BY MOUTH EVERY 6 HOURS 03/01/2022 Active Flovent HFA 44 MCG/ACT inhaler Inhale 2 puffs 2 (two) times a day 04/03/2022 Active atorvastatin (LIPITOR) 20 MG tablet Take 20 mg by mouth at bed time 09/26/2022 Active Active Problems Problem Noted Date Diagnosed Date Chronic kidney disease, stage 2 (mild) Acute nontraumatic kidney injury 03/24/2022 Nephrolithiasis 03/24/2022 Social History Tobacco Use Types Packs/Day Years Used Date Smoking Tobacco: Former Cigarettes Smokeless Tobacco: Never Tobacco Cessation:Counseling Given: Not Answered Alcohol Use Standard Drinks/Week Comments Not Currently 0 (1 standard drink = 0.6 oz pur e alcohol) Sex and Gender Information Value Date Recorded Sex Assigned at Not on file Legal Sex Male 8:07 AM EST Gender Identity Not on file Sexual Orientation Not on file Last Filed Vital Signs Vital Sign Reading Time Taken Comments Blood Pressure 118/78 10/07/2022 4:16 PM EDT Pulse 80 10/07/2022 4:16 PM EDT Temperature - - Respiratory Rate - - Oxygen Saturation 95% 10/07/2022 4:16 PM EDT Inhaled Oxygen Concentration - - Weight 83 kg (183 lb) 10/07/2022 4:16 PM EDT Height 177.8 cm (5' 10 ) 04/09/2022 3:32 PM EST Body Mass Index 26.26 04/09/2022 3:32 PM EST Plan of Treatment Health Maintenance Due Date Last Done Comments Pneumococcal Vaccine: Pediat rics (0 to 5 Years) and At-Risk Patients (6 to 64 Years) (1 of 2 - PCV) 06/15/1971 Hepatitis B Vaccine (1 of 3 - 19+ 3-dose series) 06/15 Colorectal Cancer Screening: Annual FOBT 06/15/2016 Colorectal Cancer Screening: Colonoscopy 06/15/2016 Colorectal Cancer Screening: Sigmoidoscopy 06/15/2016 Influenza Vaccine (#1) 2023 Insurance [facility] Care Teams Hris Developer Relationship Specialty Start Date End Date Harriet Mccall CNP [address] [place] [address] PCP - General 03/17/22
== END 2024-06-20 09:41 | disposition home or self-care (01) ==
LOC: HO.HKA 09:20
PROVIDERS: PCP Nurse Practitioner Family; Visit Provider Internal Medicine Hypertension Specialist
DX: N20.0 Calculus of kidney (principal); D86.9 Sarcoidosis, unspecified; N18.2 Chronic kidney disease, stage 2 (mild)
CPT/HCPCS: 99214

== ENCOUNTER → 2024-06-20 09:19 | Outpatient (BNVA) | payer OTHER, SELFPAY | PROVIDERS: PCP Nurse Practitioner Family; Visit Provider Internal Medicine Hypertension Specialist ==

== ENCOUNTER 2024-09-19 10:11 | Outpatient (AMB) | payer OTHER, SELFPAY ==
--- NOTE | 2024-09-19 10:13 | A.OFFPC_ITS ---
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: No Allergies No Known Allergies Allergy (Verified 09/19/24 10:29) Medication List - Last Reconciled 09/19/24 by Harriet Mccall CNP albuterol sulfate 90 mcg/actuation 2 puffs inhalation Q4-6H PRN 90 days atorvastatin 10 mg PO BEDTIME 90 days cholecalciferol (vitamin D3) 50 mcg PO DAILY 90 days hydrocodone-acetaminophen 5-325 mg 1 tab PO Q4-6H PRN Tobacco use date assessed: 09/19/24 Dental Screening Dental Screen Date: 09/19/24 Did you have a dental visit in the last 12 months?: No Did you have a dental problem in the last 6 months where you did not have access to dental care?: No Was dental information given to patient?: Patient has dentist HPI HPI Comments History of Present Illness Details 59-year-old male presents for an extende d physical exam. He admits to taking his medications as prescribed without adverse reactions. He notes that his health plan declined refilled for vitamin-D3 and he has been taking multivitamin instead. Acute issue(s) - None Past Medical History - Asthma, chronic bronchitis, sarcoidosi s, hyperlipidemia, CKD stage 2, kidney stone on left side, diverticulosis, tubular adenoma Social History - Nonsmoker. History of vaping. Does n ot drink alcohol. Denies recreational drug use - Has been making healthy dietary choice s. Walk regularly. Generally sleep well Health maintenance - He has never had an eye exam. Referred to Ophthalmology for routine eye exam - Last dental visit was over a years ago ; encouraged to schedule an appointment with his dentist for routine dental care - Last tetanus vaccine was in 02/05/2022 - He notes that he his up-to-date on the flu vaccine - He has not been vaccinated for shingle and shingles - Last colonoscopy was in 09/18/2023: Tub ular adenoma. Recommended repeat colonoscopy in 5 years [facility] Medical History Tubular adenoma of colon Diverticulosis Sarcoidosis Mediastinal lymphadenopathy Multiple pulmonary nodules Asbestos exposure Asthma Environmental allergies Chronic kidney disease, stage II (mild) Hyperlipidemia Surgical History H/O lithotripsy H/O colonoscopy History of bronchoscopy Hx of cystoscopy History of lung surgery Family History Father Stented coronary artery No family history of mental disorder Mother No family history of mental disorder Social History Household Members: Spouse, Family and Children Housing: House Are you a primary assisted living care manager to a significant other at home: No Do you presently have visiting nurse or other home services: No Alcohol intake: never Comment: non counts needed Patient Tobacco Use Status: Never used Tobacco e-Cigarette/Vaping Use: Former Use Second Hand Smoke Exposure: No Substance Use Type: Marijuana service: No Current occupational status: employed 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 1. Little interest or pleasure in doing things: not at all 2. Feeling down, depressed, or hopeless: not at all 3. Trouble falling or staying asleep, or sleeping too much: not at all 4. Feeling tired or having little energy: not at all 5. Poor appetite or overeating: not at all 6. Feeling bad about yourself - or that you are a failure or have let yourself or your family down: not at all 7. Trouble concentrating on things, such as reading the newspaper or watching television: not at all 8. Moving or speaking so slowly that other people could have noticed. Or the opposite - being so fidgety or restless that you have been moving around a lot more than usual: not at all 9. Thoughts that you would be better off or of hurting yourself in some way: not at all Total score: 0 Depression Screening Interpretation: Negative Depression Screening Done: Yes 86850 - PHQ-9 Billing: Yes Source: Developed by Drs. Willie Jordan, Nickie B.Gabriel Ypeez and colleagues, with an educational dev from [employer]. Thrive Questionnaire Date Thrive assessed: 09/19/24 I am a: Patient What is your living situation today?: I have a steady place to live Within the past 12 months, did the food you bought not last and you didn't have the money to get more?: Never true Within the past 12 months, did you worry whether your food would run out before you got money to buy more?: Never true Do you have trouble paying for medicines?: No Do you have trouble getting transportation to medical appointments?: No Do you have trouble paying your heating and electricity bill?: No Do you have trouble taking care of your child, family member or friend?: No Do you have trouble with day-to-day activities such as bathing, preparing meals, shopping, managing finances, etc.?: No Are you currently unemployed and looking for a job?: No Are you interested in more education?: No Please select the resources that you would like help with: None Currently or been in a relationship where the following occur: No concerns reported THRIVE Score: 0 AUDIT C Alcohol Use Questionnaire (AUDIT-C) 1. How often do you have a drink containing alcohol?: Never 3. How often do you have six or more drinks on one occasion?: Never Total Score: 0 Score Reviewed/Action Taken: Yes MINA-7 AMB Questionnaire MINA-7 Date MINA - 7 assessed: 09/19/24 Feeling nervous, anxious, or on edge: 0 = Not at all Not being able to stop or control worryin = Not at all Worrying too much about different things: 0 = Not at all Trouble relaxin = Not at all Being so restless that it is hard to sit still: 0 = Not at all Becoming easily annoyed or irritable: 0 = Not at all Feeling afraid as if something awful might happen: 0 = Not at all Total MINA-7 score (0-4 normal; 5-9 mild; 10-14 moderate; 15-21 severe): 0 Source: Developed by Drs. Willie Jordan, Gabriel Mcpherson and colleagues, with an educational dev from [employer]. MINA-7 Assessment Billing MINA-7 Assessment Tool: MINA-7 Assessment 56187 Review of Systems Const Details: Denies chills, Denies fatigue, Denies fever(s), Denies headache(s) and Denies weakness HEENT Denies change in vision, Denies dizziness, Denies headache(s), Denies hearing loss, Denies nasal congestion, Denies sinus pain, Denies sinus pressure and Denies sore throat Card Denies chest pain, Denies lightheadedness, Denies dyspnea and Denies other (palpitations) Resp Denies cough, Denies dyspnea and Denies wheezing GI Denies abdominal pain, Denies melena, Denies hematochezia, Denies change in bowel habits, Denies dyspepsia and Denies nausea Denies hematuria and Denies dysuria Musc Denies abnormal gait, Denies myalgias, Denies arthralgias, Denies numbness and Denies tingling Skin/Breast Denies rash, Denies unusual bruising and Denies wounds Neuro Denies abnormal gait, Denies dizziness, Denies headache(s), Denies memory loss, Denies numbness, Denies Sensory deficit (Neuro), Denies tingling and Denies weakness Psych Denies anxiety, Denies depression and Denies memory loss Endo Denies cold intolerance, Denies fatigue, Denies heat intolerance, Denies polydipsia and Denies polyuria Bal/Lymph Denies easy bleeding and Denies easy bruising Aller/Immun Denies wheezing Physical exam (Primary Care) Vital Signs: Last Vital Signs Temp 98.0 F 09/19/24 10:18 Pulse 68 09/19/24 10:18 Resp 16 09/19/24 10:18 BP 120/80 09/19/24 10:18 Pulse Ox 98 09/19/24 10:18 Oxygen Delivery Method Room Air 09/19/24 10:18 BMI result Body Mass Index 25.0 Tobacco/Smoking Status: Tobacco use Status Tobacco use date assessed 09/19/24 09/19/24 10:22 Patient Tobacco Use Status Never used Tobacco 09/19/24 10:22 e-Cigarette/Vaping Use Former Use 09/19/24 10:22 PHQ-9: PHQ-9 Score PHQ-9: Total score 0 09/19/24 10:32 Depression Screening Interpretation: Negative Thrive Assessment: Date of Thrive Assessment Date Thrive assessed 09/19/24 09/19/24 10:22 Currently or been in a relationship where the following occur: No concerns reported Const Other: General: no acute distress, well developed, alert and awake Nutritional Appearance: well nourished Orientation/consciousness: patient oriented x3 [facility] Head: Yes normocephalic and Yes atraumatic Ears: hearing grossly normal bilaterally and TM's normal bilaterally General nose exam: Normal external nose present and Normal nares present Mouth: Normal oral and palatal mucosa present and moist mucous membranes Teeth and gingiva: dentition normal Throat: Yes oropharynx normal Eyes Pupils: Equal, round and reactive pupils present and Pupil accommodation reflex normal EOM: EOMs intact bilaterally Neck Neck: Yes normal visual inspection, Yes no lymphadenopathy and Yes trachea midline Thyroid: Thyroid normal Carotids: no bruits Lymphatic: no lymphadenopathy noted Chest Chest palpation & inspection: normal inspection of the chest Resp Effort & Inspection: normal respiratory effort Auscultation: clear to auscultation bilaterally Cardio Rate: regular rate Rhythm: regular rhythm Heart sounds: S1 normal heart sound present, S2 normal heart sound present, no gallops, no murmurs and no rubs Bruits: no abdominal aortic bruits and no carotid bruits GI Palpation (GI): No Abdominal aortic bruit present, Soft to palpation, nontender, No hepatosplenomegaly present and No Rebound tenderness present Auscultation: normal bowel sounds General: Yes no CVA tenderness Back/Spine/Pelvis Back: no CVA tenderness Cervical Spine: cervical ROM normal and No Cervical spine tenderness Thoracic/Lumbar Spine: thoraco-lumbar ROM normal, No pain with thoraco-lumbar ROM, No thoracic spinal tenderness and No lumbar spinal tenderness Skin General: warm and dry. Normal skin color. Normal skin turgor Lesions: no lesions Rashes: no rashes Trauma: no lacerations or abrasions Wounds: no wounds Nails: normal Neuro General: patient oriented x3, gait normal and CN's II-XI intact bilaterally Cranial nerves: Yes Equal, round and reactive pupils present Cognition (Neuro): normal cognition Gait exam (Neuro): Normal gait present Motor exam (neuro): 5/5 motor strength present throughout Sensory Exam: No Sensory deficit (Neuro) Deep tendon reflexes (DTR's): Right patellar reflex intensity grade: 2+ and Left patellar reflex intensity grade: 2+ Extrem General: Yes normal to inspection, No edema and No calf tenderness Psych Appearance: grossly normal Affect: normal affect Attitude: cooperative Thought process: Normal thought process present Coding Level of Care Code Est Pt Prev Care 40-64y(06881) Diagnoses Normal physical examination, routine Z00.00 Vitamin D deficiency E55.9 Hyperlipidemia E78.5 Eye exam, routine Z01. Vaccine counseling Z71. Additional Codes MINA-7 Assessment Billing - MINA-7 Assessment Tool: MINA-7 Assessment 31725 ([id number]) PHQ-9 - 87303 - PHQ-9 Billing: Yes ([id number]) Assessment & Plan Assessment & Plan (1) Normal physical examination, routine: Code(s): Z00.00 - Encounter for general adult medical examination without abnormal findings Category: Medical Plan: No significant functional limitation noted. Continue current treatment regimen. Healthy diet and routine exercise encouraged. Follow-up with specialist as planned. Return for an extended physical exam on/after 09/19/2024; sooner with symptoms or concerns. Verbalized understanding and agreed with the plan. (2) Vitamin D deficiency: Code(s): E55.9 - Vitamin D deficiency, unspecified Category: Medical Plan: He notes that his health plan declined refilled for vitamin-D3 and he has been taking multivitamin instead. Will recheck vitamin-D levels and make changes as needed. Informed that the sun is a good source of vitamin-D Verbalized understanding and agreed with the plan. (3) Hyperlipidemia: Code(s): E78.5 - Hyperlipidemia, unspecified Category: Medical Plan: Continue current treatment regimen. Advised to limit foods high in saturated fat and avoid foods high in trans fat. Routine exercise encouraged. Will check lipid panel levels and make changes as needed. Verbalized understanding and agreed with the plan. (4) Eye exam, routine: Code(s): Z01. - Encounter for examination of eyes and vision without abnormal findings Category: Medical Plan: He has never had an eye exam. Referred to Ophthalmology for routine eye exam. (5) Vaccine counseling: Code(s): Z71.85 - Encounter for immunization safety counseling Category: Medical Plan: He has never been vaccinated for shingles or pneumonia. Instructed on the importance of vaccinations and encouraged to get vaccinated for both shingles and pneumonia. He may get the vaccines from the local pharmacy. Verbalized understanding and agreed with the plan. Orders: Orders Vitamin D 25-OH Total Today E55.9 - Vitamin D deficiency, unspecified Lipid Panel Today E78.5 - Hyperlipidemia, unspecified Referrals Ophthalmology Referral Z01.00 - Encounter for examination of eyes and vision without abnormal findings Medications: Discontinued hydrocodone-acetaminophen 5-325 mg Partial Fill upon patient request. Discontinued Reason: Patient no longer taking 1 tab PO Q4-6H PRN 30 tabs 0RF pain cholecalciferol (vitamin D3) Discontinued Reason: Insurance Denied 50 mcg PO DAILY 90 days 90 tabs 1RF
[2024-09-19 10:18] VITALS: BP 120/80; PULSE 68; RESP 16; TEMP 36.7; O2SAT 98; BMI 25.0
--- OUTSIDE RECORDS SUMMARY | 2024-09-19 11:46 | XMS_ITS | Clinical Summary ---
Author Organization [facility] Address [address] [facility] [address] [place] [phone] Phone Care Team Providers Care Auto Wheel Alignment Specialist Name Role Phone Harriet Mccall NERY Primary Care Provider [phone] Allergies No known active allergies Medications albuterol [...] Health Maintenance Due Date Last Done Comments Hepatitis B Vaccine (1 of 3 - 19+ 3-dose series) 06/15 Pneumococcal Vaccine: 50+ Years (1 of 2 - PCV) 987 Colorectal Cancer Screening: Annual FOBT 06/15/2016 Colorectal Cancer Screening: Colonoscopy 06/15/2016 Colorectal Cancer Screening: Sigmoidoscopy 06/15/2016 Influenza Vaccine (Season Ended) 2024 Insurance [facility] Care Teams Auto Wheel Alignment Specialist Relationship Specialty Start Date End Date Harriet Mccall CNP [address] [place] [address] PCP - General 03/17/22
== END 2024-09-19 10:53 | disposition home or self-care (01) ==
LOC: HO.HMCFM 10:12
PROVIDERS: PCP Nurse Practitioner Family; Visit Provider Nurse Practitioner Family
DX: Z00.00 Encounter for general adult medical examination without abnormal findings (principal); E55.9 Vitamin D deficiency, unspecified; E78.5 Hyperlipidemia, unspecified; Z01.00 Encounter for examination of eyes and vision without abnormal findings; Z71.85 Encounter for immunization safety counseling

== ENCOUNTER → 2024-09-19 10:11 | Outpatient (BNVA) | payer OTHER, SELFPAY | PROVIDERS: PCP Nurse Practitioner Family; Visit Provider Nurse Practitioner Family | DX: Z00.00 Encounter for general adult medical examination without abnormal findings (principal); E55.9 Vitamin D deficiency, unspecified; E78.5 Hyperlipidemia, unspecified; Z71.85 Encounter for immunization safety counseling | CPT/HCPCS: 96127 ==

== ENCOUNTER 2024-09-19 10:55 | Outpatient (REF) | payer OTHER, SELFPAY ==
[2024-09-19 14:16] LABS: Appearance Urine Clear; Color Urine Yellow; Glucose Urine UA Negative (Negative); Leukocyte Esterase Urine Trace (Negative); Nitrite Urine Negative (Negative); UMIC TRIGGER UACC YES; Urine Blood Negative (Negative); Urine Ketones Negative (Negative); Urine Protein Negative (Neg-Trace)
[2024-09-19 14:45] LABS: Bacteria Urine Trace (None Seen); Hyaline Casts Urine 0-2 /LPF (0-2); RBC Urine 0-2 /HPF (0-2); Squamous Epithelial Cell Urine 0-2 /HPF (0-2); WBC Urine 0-5 /HPF (0-5)
[2024-09-19 14:49] LABS: Anion Gap 13 (12-20); Blood Urea Nitrogen 13 mg/dL (9-16); Carbon Dioxide 30 mmol/L (22-29); Chloride 103 mmol/L (96-108); Potassium 4.2 mmol/L (3.3-5.1); Sodium 142 mmol/L (135-145)
[2024-09-19 14:50] LABS: Calcium 9.9 mg/dL (8.4-10.2); Cholesterol 137 mg/dL (<200); Estimated Glomerular Filt Rate 53; Glucose Random 106 mg/dL (60-115); HDL Cholesterol 38 mg/dL (>40); LDL Cholesterol Calculated 73 mg/dL (<100); Triglycerides 133 mg/dL (<150)
[2024-09-19 14:59] LABS: Vitamin D 25-OH Total 56.3 ng/mL (>30)
== END 2024-09-19 10:56 | disposition home or self-care (01) ==
LOC: HO.WFDLDS 10:55
PROVIDERS: Internal Medicine Hypertension Specialist; Visit Provider Nurse Practitioner Family
DX: N18.2 Chronic kidney disease, stage 2 (mild) (principal); E78.5 Hyperlipidemia, unspecified; E55.9 Vitamin D deficiency, unspecified; Z00.00 Encounter for general adult medical examination without abnormal findings
CPT/HCPCS: 36415; 80048; 80061; 81001; 82306

== ENCOUNTER 2024-11-13 07:55 | Outpatient (REF) | payer OTHER, SELFPAY ==
--- OUTSIDE RECORDS SUMMARY | 2024-11-13 07:57 | XMS_ITS | Clinical Summary ---
Author Organization [facility] Address [address] [facility] [address] [place] [phone] Phone Care Team Providers Care Worker'S Compensation Claims Examiner Name Role Phone Harriet Mccall NERY Primary Care Provider [phone] Allergies No known active allergies Medications albuterol [...] Cancer Screening: Sigmoidoscopy 06/15/2016 Influenza Vaccine (#1) 2024 Insurance [facility] Care Teams Worker'S Compensation Claims Examiner Relationship Specialty Start Date End Date Harriet Mccall CNP [address] [place] [address] PCP - General 03/17/22
[2024-11-13 12:08] LABS: Blood Urea Nitrogen 18 mg/dL (9-16); Estimated Glomerular Filt Rate 46
== END 2024-11-13 07:56 | disposition home or self-care (01) ==
LOC: HO.WFDLDS 07:55
PROVIDERS: Visit Provider Nurse Practitioner Family
DX: Z01.818 Encounter for other preprocedural examination (principal)
CPT/HCPCS: 36415; 82565; 84520

== ENCOUNTER 2024-11-17 07:38 | Outpatient (REF) | payer OTHER, SELFPAY ==
--- NOTE | ~2024-11-17 | CT_ITS ---
CLINICAL HISTORY: D86.9 - Sarcoidosis, unspecified CT chest with contrast Comparison: CT/REG/NM/SR - CT CHEST WO IV CON - 10/04/23 14:54 EDT Findings: The heart is normal size. Enlarged hilar and mediastinal lymph nodes. A subcarinal lymph node currently measures 4.6 x 2.6 cm image 80 series 11, previously 5.0 x 2.5 cm. No axillary or supraclavicular adenopathy. Unremarkable thyroid. No chest wall lesions. Esophagus is decompressed. No dense consolidation, pleural effusion or pneumothorax. There is some linear scarring in the right lung base which appears unchanged. A few scattered noncalcified pulmonary nodules on the right appears stable with the largest seen in the right middle lobe measuring up to 6 mm (Image 86 series 12). The partially visualized left kidney demonstrates some morphologic abnormalities. This is only partially seen due to collimation. No significant upper abdominal adenopathy is appreciated. No acute fractures. IMPRESSION: 1. Relatively stable hilar and mediastinal adenopathy which can be seen in the setting of sarcoidosis. Mild scarring in the cddxy-cqhzmpa-wqak-left lung base with scattered benign-appearing pulmonary nodules. 2. No evidence of acute cardiopulmonary disease. No enlarging nodules or masses. 3. Slight morphologic abnormality of the left kidney, incompletely characterized due to collimation. Consider CT or MRI abdomen with contrast on a nonemergent basis. This may simply be a congenital abnormality of the right kidney. This document has been electronically signed by: Natalee Daley MD on 11/17/2024 09:03:34
--- OUTSIDE RECORDS SUMMARY | 2024-11-17 07:40 | XMS_ITS | Clinical Summary ---
Author Organization [facility] Address [address] [facility] [address] [place] [phone] Phone Care Team Providers Care Tray Room Worker Name Role Phone Harriet Mccall NERY Primary Care Provider [phone] Allergies No known active allergies Medications albuterol [...] Sigmoidoscopy 06/15/2016 Influenza Vaccine (#1) 2024 Insurance [facility] Care Teams Tray Room Worker Relationship Specialty Start Date End Date Harriet Mccall CNP [address] [place] [address] PCP - General 03/17/22
[2024-11-17] MEDS: iohexoL 350 MG/ML 100 ML INFUS..BTL IV (08:04)
== END 2024-11-17 07:39 | disposition home or self-care (01) ==
LOC: HO.CT 07:38
PROVIDERS: PCP Nurse Practitioner Family; Visit Provider Nurse Practitioner Family
DX: D86.9 Sarcoidosis, unspecified (principal)
CPT/HCPCS: 71260; Q9967

== ENCOUNTER → 2024-11-17 07:40 | Outpatient (BNV) | payer OTHER, SELFPAY | PROVIDERS: PCP Nurse Practitioner Family; Visit Provider Radiology Diagnostic Radiology | DX: D86.9 Sarcoidosis, unspecified (principal) | CPT/HCPCS: 71260 ==

== ENCOUNTER 2024-12-29 09:59 | Outpatient (AMB) | payer OTHER, SELFPAY ==
[2024-12-29 10:03] VITALS: BP 118/82; PULSE 88; O2SAT 95; BMI 24.6
--- NOTE | 2024-12-29 10:03 | MHC.OFFVIS ---
Vital Signs 12/29/24 10:03 Height 5 ft 10 in Weight 171 lb 2 oz BMI 24.6 BP 118/82 Blood Pressure Location Rt brachial Position Sitting Pulse 88 Pulse Source Pulse Oximeter Pulse Oximetry (%) 95 Oxygen Delivery Method Room Air Intake Visit Reasons: CT FU Allergies No Known Allergies Allergy (Verified 12/29/24 10:07) HPI HPI CT FU: Details: Alcides is a pleasant 59 year old male, never tobacco smoker, with underlying sarcoidosis, asthma, asbestos exposure and h/o VATS procedure in 2000 due to empyema. Previously chest CT 09/2022 revealed medistinal lymphadenopathy and subsequent CT chest 12/2022 with enlarging lymphadnopathy. Ultimately had PET which revealed extensive FDG avid mediastinal lymphadenopathy and underwent EBUS on 02/24/[address] Epstein. Lymph node biopsy was negative for carcinoma and revealed granulomas with negative AFB stain as well as negative fungal stain, suggestive of sarcoidosis. He was treated with a course of prednisone however did not have significant radiographic changes, and had an increase in the subcarinal lymph node, previously measured 1.9 cm, now 2.6 cm with associated bulky hilar adenopathy on chest CT 09/2023. Had long discussion with patient that although previously lymphadenopathy and biopsy were consistent with sarcoidosis, CT findings did not improve with steroids and now patient with increasing lymphadenopathy, which may be suggestive of carcinoma. He then underwent mediastinoscopy with Dr. Zabala on 02/17/2024 and pathology consistent with sarcoidosis. Today he presents to review repeat chest CT. At this time he denies any respiratory symptoms. He reports using albuterol more frequently during the summer for dyspnea on exertion otherwise has used infrequently. He denies any visits to urgent care or hospitalizations related to respiratory distress. He is under the care of nephrology at this time and has previously been recommended to follow with ophthamology which he was agreeable to today. Prior EKGS have been reportedly unremarkable. FOR[facility]LY [facility] Medical History Tubular adenoma of colon Diverticulosis Sarcoidosis Mediastinal lymphadenopathy Multiple pulmonary nodules Asbestos exposure Asthma Environmental allergies Chronic kidney disease, stage II (mild) Hyperlipidemia Surgical History H/O lithotripsy H/O colonoscopy History of bronchoscopy Hx of cystoscopy History of lung surgery Family History Father Stented coronary artery No family history of mental disorder Mother No family history of mental disorder Social History Household Members: Spouse, Family and Children Both parents involved: No Caregiver staying overnight: No Housing: House Are you a primary healthcare corporate account director to a significant other at home: No Do you presently have visiting nurse or other home services: No 75 years or older and lives alone: No Alcohol intake: never Comment: non counts needed Patient Tobacco Use Status: Never used Tobacco e-Cigarette/Vaping Use: Former Use Second Hand Smoke Exposure: No Substance Use Type: Marijuana service: No Current occupational status: employed 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 Current occupational exposures/hazards: Yes Cognitive needs: No Hearing needs: No Vision needs: No Review of Systems Const Denies chills, Denies excessive sweating, Denies fever(s), Denies headache(s) and Denies night sweats Eyes Denies dry eyes, Denies irritation and Denies itchy eyes ENT Reports Normal hearing present, Denies headache(s), Denies nasal congestion, Denies nasal discharge, Denies post nasal drip and Denies sore throat Card Denies chest pain, Denies chest pain at rest, Denies chest pain with activity, Denies claudication, Denies leg edema, Denies dyspnea, Denies dyspnea on exertion, Denies orthopnea and Denies paroxysmal nocturnal dyspnea Resp Denies chest congestion, Denies cough, Denies excessive phlegm production, Denies pain on inspiration, Denies pain with cough, Denies dyspnea, Denies dyspnea on exertion, Denies stridor and Denies wheezing Musc Denies myalgias Neuro Reports Normal hearing present and Denies headache(s) Endo Denies excessive sweating Bal/Lymph Denies lymphadenopathy Aller/Immun Denies itchy eyes, Denies seasonal rhinorrhea and Denies wheezing Physical Exam Vital Signs: Last Vital Signs Pulse 88 12/29/24 10:03 BP 118/82 12/29/24 10:03 Pulse Ox 95 12/29/24 10:03 Oxygen Delivery Method Room Air 12/29/24 10:03 BMI result Body Mass Index 24.6 Const General: cooperative, healthy appearing, comfortable, no acute distress, well developed and alert Orientation/consciousness: patient oriented x3 Limitations: no limitations HEENT Head: Yes normal to inspection, Yes normocephalic and Yes atraumatic Ears: hearing grossly normal bilaterally and external ears normal Eyes General: appearance normal, both eyes and all related structures Eyelids: Yes eyelids normal Sclerae: sclerae normal EOM: EOMs intact bilaterally Neck Neck: Yes normal visual inspection and Yes no lymphadenopathy Lymphatic: no lymphadenopathy noted Chest Chest palpation & inspection: normal inspection of the chest Resp Effort & Inspection: normal respiratory effort, able to speak in complete sentences, no audible wheezes, no cough, no stridor, not tachypneic, no tripod positioning and no use of accessory muscles Auscultation: clear to auscultation bilaterally Cardio Jugular venous distension: no JVD Rate: regular rate Rhythm: regular rhythm Skin Other: warm, dry General skin exam: no rashes or lesions noted Neuro General: patient oriented x3 Cranial nerves: Yes Normal hearing present Cognition (Neuro): normal cognition Gait exam (Neuro): Normal gait present Extrem General: Yes normal to inspection, Yes capillary refill normal, Yes no clubbing, cyanosis or edema and Yes no pedal edema Psych Appearance: grossly normal and well kempt Speech and movement: Normal speech and movement present and Clear speech present Affect: normal affect Attitude: cooperative Thought process: Normal thought process present Thought content: Normal thought content present Insight: Good insight present (Psych) Judgement: Good judgement present (Psych) Results Reviewed Results Reviewed: [address] [address] [address] Scan Report Signed Patient: Alcides Holt MR#: [id number] : 1965 Acct:[id number] Age/Sex: 59 / M ADM Date: 11/17/24 Loc: HO.CT Attending Dr: Eva Mora NP Ordering Physician: Eva Mora NP Date of Service: 11/17/24 Procedure(s): CT chest w IV con Accession Number(s): [id number] cc: Eva Mora SYSTEMS ENGINEER; Harriet Mccall STUDENT ASSISTANT~ Report Number: [id number]: Total DLP = 179.00 mGy-cm CLINICAL HISTORY: D86.9 - Sarcoidosis, unspecified CT chest with contrast Comparison: CT/REG/MI/SR - CT CHEST WO IV CON - 10/04/23 14:54 EDT Findings: The heart is normal size. Enlarged hilar and mediastinal lymph nodes. A subcarinal lymph node currently measures 4.6 x 2.6 cm image 80 series 11, previously 5.0 x 2.5 cm. No axillary or supraclavicular adenopathy. Unremarkable thyroid. No chest wall lesions. Esophagus is decompressed. No dense consolidation, pleural effusion or pneumothorax. There is some linear scarring in the right lung base which appears unchanged. A few scattered noncalcified pulmonary nodules on the right appears stable with the largest seen in the right middle lobe measuring up to 6 mm (Image 86 series 12). The partially visualized left kidney demonstrates some morphologic abnormalities. This is only partially seen due to collimation. No significant upper abdominal adenopathy is appreciated. No acute fractures. IMPRESSION: 1. Relatively stable hilar and mediastinal adenopathy which can be seen in the setting of sarcoidosis. Mild scarring in the [id number]-[id number]-left lung base with scattered benign-appearing pulmonary nodules. 2. No evidence of acute cardiopulmonary disease. No enlarging nodules or masses. 3. Slight morphologic abnormality of the left kidney, incompletely characterized due to collimation. Consider CT or MRI abdomen with contrast on a nonemergent basis. This may simply be a congenital abnormality of the right kidney. This document has been electronically signed by: Natalee Daley MD on 11/17/2024 09:03:34 Dictated By: Natalee Daley MD Signed By: <Electronically signed by Natalee Daley MD in OV> 11/17/24903 DD/ 2 TD/TT: 11/17/24902 Brush Stainer: Assessment & Plan Assessment & Plan (1) Sarcoidosis: Code(s): D86.9 - Sarcoidosis, unspecified Category: Medical (2) Asthma: Code(s): J45.909 - Unspecified asthma, uncomplicated Category: Medical (3) Multiple pulmonary nodules: Code(s): R91.8 - Other nonspecific abnormal finding of lung field Category: Medical (4) Mediastinal lymphadenopathy: Code(s): R59.0 - Localized enlarged lymph nodes Category: Medical Plan Reviewed chest CT which revealed relatively stable hilar and mediastinal adenopathy which can be seen in the setting of sarcoidosis. A subcarinal lymph node currently measures 4.6 x 2.6 cm image 80 series 11, previously 5.0 x 2.5 cm. No axillary or supraclavicular adenopathy, some linear scarring in the right lung base which appears unchanged, a few scattered noncalcified pulmonary nodules on the right appears stable with the largest seen in the right middle lobe measuring up to 6 mm. At this time lymphadenopathy appears stable, will repeat in one year to assess continued stability. Currently patient feels respiratory symptoms are controlled, rarely requiring albuterol MDI. He is aware to call if symptoms change. Encouraged patient to establish with ophthamology and continue to be monitored with nephrology. All questions were answered and patient is in agreement of plan. Will follow up in one year or sooner if needed. Orders: Orders CT chest w IV con 11 Months R59.0 - Localized enlarged lymph nodes, R91.8 - Other nonspecific abnormal finding of lung field Coding Level of Care Code Est Pt Level 4 (07341) Diagnoses Sarcoidosis D86.9 Asthma J45.909 Multiple pulmonary nodules R91.8 Mediastinal lymphadenopathy R59.0
--- OUTSIDE RECORDS SUMMARY | 2024-12-29 10:33 | XMS_ITS | Clinical Summary ---
Author Organization [facility] Address [address] [facility] [address] [place] [address] Phone Care Team Providers Care Drafter Commercial Name Role Phone Harriet Mccall NERY Primary Care Provider [phone] Allergies No known active allergies Medications albuterol [...] Sigmoidoscopy 06/15/2016 Influenza Vaccine (#1) 2024 Insurance [facility] Care Teams Drafter Commercial Relationship Specialty Start Date End Date Harriet Mccall CNP [address] [place] [address] PCP - General 03/17/22
== END 2024-12-29 10:26 | disposition home or self-care (01) ==
LOC: HO.HPSW 10:00
PROVIDERS: PCP Nurse Practitioner Family; Visit Provider Nurse Practitioner Family
DX: D86.9 Sarcoidosis, unspecified (principal); J45.909 Unspecified asthma, uncomplicated; R91.8 Other nonspecific abnormal finding of lung field; R59.0 Localized enlarged lymph nodes
CPT/HCPCS: 99214

== ENCOUNTER 2025-02-21 08:23 | Outpatient (AMB) | payer OTHER, SELFPAY ==
--- OUTSIDE RECORDS SUMMARY | 2025-02-21 08:34 | XMS_ITS | Clinical Summary ---
Author Organization [facility] Address [address] [facility] [address] [place] [phone] Phone Care Team Providers Care Bank Teller Machine Mechanic Name Role Phone Harriet Mccall NERY Primary Care Provider [phone] Allergies No known active allergies Medications albuterol [...] Sigmoidoscopy 06/15/2016 Influenza Vaccine (#1) 2024 Insurance [facility] Care Teams Bank Teller Machine Mechanic Relationship Specialty Start Date End Date Harriet Mccall CNP [address] [place] [address] PCP - General 03/17/22
--- NOTE | 2025-02-21 08:49 | A.OFFVIS_ITS ---
Intake Visit Reasons: left sided hydronephrosis and hydroureter Intake Note: Patient Is Present for [facility] ER Follow up Urology Med: None Antibiotic Allergy: None Blood Thinner: None Lead Relay Tester Required: No Accompanied by: Self / Same As Patient Allergies No Known Allergies Allergy (Verified 02/21/25 08:49) HPI Comments Details: Alexis is a pleasant male. He is a patient of Dr. Mccall. He is seen for the following urology issues - recurrent infection stones Initial presentation with mediastinal lymphadenopathy has been diagnosed with sarcoid. Sarcoid can contribute to stone creation. Reason presentation earlier this week to [facility] ER. He does have copy of Imaging. Imaging shows mid ureteric 2 stones with proximal hydro uretero ne phrosis and effacement suggesting chronicity. Recommend intervention We will add on for ureteroscopy next week Nephrolithiasis Prior mixed calcium oxalate and infectious stone Prior intervention - left ureteroscopy [facility] Medical History Tubular adenoma of colon Diverticulosis Sarcoidosis Mediastinal lymphadenopathy Multiple pulmonary nodules Asbestos exposure Asthma Environmental allergies Chronic kidney disease, stage II (mild) Hyperlipidemia Surgical History H/O lithotripsy H/O colonoscopy History of bronchoscopy Hx of cystoscopy History of lung surgery Family History Father Stented coronary artery No family history of mental disorder Mother No family history of mental disorder Social History Household Members: Spouse, Family and Children Both parents involved: No Caregiver staying overnight: No Housing: House Are you a primary health care specialist to a significant other at home: No Do you presently have visiting nurse or other home services: No 75 years or older and lives alone: No Alcohol intake: never Comment: non counts needed Patient Tobacco Use Status: Never used Tobacco e-Cigarette/Vaping Use: Former Use Second Hand Smoke Exposure: No Substance Use Type: Marijuana service: No Current occupational status: employed 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 Current occupational exposures/hazards: Yes Cognitive needs: No Hearing needs: No Vision needs: No Review of Systems Const Denies chills and Denies fever(s) Card Reports no additional complaints and Denies syncope Resp Denies cough GI Denies abdominal pain and Denies heartburn Reports as per HPI and Denies change in libido Neuro Denies syncope Psych Denies change in libido Endo Denies change in libido Physical Exam Const General: cooperative, healthy appearing, comfortable and no acute distress Orientation/consciousness: patient oriented x3 HEENT Face and sinus: Yes normal facial exam Mouth: moist mucous membranes Neck Neck: Yes normal visual inspection, Yes full ROM and Yes trachea midline Chest Chest palpation & inspection: normal inspection of the chest Resp Effort & Inspection: normal respiratory effort, able to speak in complete sentences and no respiratory distress GI Inspection: Yes normal to inspection Back/Spine/Pelvis Cervical Spine: normal cervical lordosis Thoracic/Lumbar Spine: thoracic and lumbar spine normal to inspection Skin General skin exam: no rashes or lesions noted Neuro General: patient oriented x3, gait normal, tone normal and moves all extremities Extrem General: Yes normal to inspection and Yes capillary refill normal Results AMB Urinalysis, Automated UA Leukoctes 500 Lisa/uL Last Edit by YADIRA Flores on 02/21/25 09:00 UA Nitrite Negative Last Edit by Estefani Grajeda COUNTS INCLUDE 234 BEDS AT [facility] on 02/21/25 09:00 UA Urobilinogen 0.2 mg/dL Last Edit by YADIRA Flores on 02/21/25 09:0 0 UA Protein 100 mg/dL Last Edit by Estefani Grajeda COUNTS INCLUDE 234 BEDS AT THE [facility] on 02/21/25 09:00 UA pH 6.0 Last Edit by Estefani Grajeda COUNTS INCLUDE 234 BEDS AT THE [facility] on 02/21/25 09:00 UA Blood 200 Dario/uL Last Edit by Estefani Grajeda COUNTS INCLUDE 234 BEDS AT THE [facility] on 02/21/25 09:00 UA Specific Hensley 1.015 Last Edit by CHRISTY Flores on 02/21/25 09: 00 UA Ketone Positive Last Edit by YADIRA Flores on 02/21/25 09:00 UA Bilirubin 0 mg/dL Last Edit by Estefani Grajeda COUNTS INCLUDE 234 BEDS AT THE [facility] on 02/21/25 09:00 UA Glucose 0 mg/dL Last Edit by Estefani Grajeda COUNTS INCLUDE 234 BEDS AT THE [facility] on 02/21/25 09:00 Results Reviewed Results Reviewed: Laboratory Last Values Urine pH (Auto) 6.0 02/21/25 08:58 Specific Hensley (Auto) 1.015 02/21/25 08:58 Urine Protein (Auto) 100 mg/dL 02/21/25 08:58 Glucose (UA)(Auto) 0 mg/dL 02/21/25 08:58 Urine Ketones (Auto) Positive 02/21/25 08:58 Urine Blood (Auto) 200 Dario/uL 02/21/25 08:58 Urine Nitrite (Auto) Negative 02/21/25 08:58 Urine Bilirubin (Auto) 0 mg/dL 02/21/25 08:58 Urine Urobilinogen (Auto) 0.2 mg/dL 02/21/25 08:58 Leukocyte Esterase (Auto) 500 Lisa/uL 02/21/25 08:58 Assessment & Plan Assessment & Plan (1) Hydronephrosis with obstructing calculus: Code(s): N13.2 - Hydronephrosis with renal and ureteral calculous obstruction Category: Medical Plan Ureteroscopy We discussed the nature of the decision and reasonable alternatives for performing ureteroscopy. Options such as medical therapy were discussed. Interventions include chemical dissolution, ESWL, ureteroscopy with laser lithotripsy and stent placement, PCNL. The relative uncertainties and benefits related to each alternate procedure were adequately discussed. General surgical risks including, but not limited to - pain, bleeding, infection, myocardial infarction, pulmonary embolus, deep vein thrombosis and cerebrovascular accident which may result in further hospitalization were discussed. Full disclosure of the procedure as well as all major risks, benefits and complications were discussed including but not limited to damage to the urethra, bladder and kidney infection, damage to the ureter, stent migration or malposition, scarring to the renal pelvis, remnant stone fragments, subsequent stone passage with need for secondary procedures. The overall secondary procedure rate is approximately 10-15%. The overall clearance rate is approximately 90-95%. Success of the procedure in the short-term does not necessarily guarantee that long-term success will be maintained. Suitable follow up will need to be maintained. The patient showed understanding of discussion and wishes to proceed with - cystoscopy, retrograde, ureteroscopy, possible lithotripsy/stone basketing and stent on the left side Orders: Orders AMB Urinalysis Automated Today Z13.9 - Encounter for screening, unspecified Patient Instructions: This note is constructed using voice recognition software. While every effort has been made to ensure accuracy belt cutter errors may have been included. Imaging studies, laboratory and physical exam results were discussed and reviewed in detail. No major barriers to patient understanding were identified. An opportunity to ask questions regarding the treatment plan was provided. All questions were answered. The patient expressed understanding and agreement with the above treatment plan. The patient is aware they should contact our office by phone for worsening of their current condition or the appearance of new urologic symptoms. Compliance is encouraged with any medications and followup testing that is ordered. It is a privilege to participate in the urologic care of your patient. If you have any questions or concerns regarding treatment for the above conditions, or other urologic issues, please do not hesitate to contact me. The office telephone contact is [phone]. Sincerely, Dr Ronnie Graff MD, [facility] - Urology Compassionate Specialist Care for the Genitourinary System Coding Level of Care Code Est Pt Level 4 (60265) Complex EM visit Add On G2211 Diagnoses Hydronephrosis with obstructing calculus N13.2
== END 2025-02-21 09:20 | disposition home or self-care (01) ==
LOC: HO.HUSH 08:23
PROVIDERS: PCP Nurse Practitioner Family; Visit Provider Urology
DX: N13.2 Hydronephrosis with renal and ureteral calculous obstruction (principal); Z13.9 Encounter for screening, unspecified
CPT/HCPCS: 99214; G2211

== ENCOUNTER → 2025-02-21 08:23 | Outpatient (BNVA) | payer OTHER, SELFPAY | PROVIDERS: PCP Nurse Practitioner Family; Visit Provider Urology | DX: N13.2 Hydronephrosis with renal and ureteral calculous obstruction (principal) | CPT/HCPCS: 81003 ==

== ENCOUNTER 2025-03-05 08:42 | Day surgery (SDC) | payer OTHER, SELFPAY ==
--- OUTSIDE RECORDS SUMMARY | 2025-03-01 02:37 | XMS_ITS | Clinical Summary ---
Author Organization [facility] Address [address] [facility] [address] [place] [phone] Phone Care Team Providers Care Cloud Services Architect Name Role Phone Harriet Mccall NERY Primary Care Provider [phone] Allergies No known active allergies Medications albuterol [...] Sigmoidoscopy 06/15/2016 Influenza Vaccine (#1) 2024 Insurance [facility] Care Teams Cloud Services Architect Relationship Specialty Start Date End Date Harriet Mccall CNP [address] [place] [address] PCP - General 03/17/22
--- NOTE | 2025-03-01 08:50 | P.CONAN_ITS ---
Documented by User: Yesy Cole NP 03/01/25 08:53 HPI - Anesthesia Eval Consult details Narrative: 59yo M for Cystoscopy, Ureteroroscopy, Retro, Laser,with stent placement Follows [facility] [place] pulmo for: sarcoidosis, asthma, asbestos exposure and h/o VATS procedure in 2000 due to empyema Stable at 12/2024 pulmo visit without respiratory symptoms, stable CT, ok for 1 year surveillence imaging PMFSH Active Problems Active Problems: All Active Problems Preprocedural examination (Acute) Eye exam, routine (Acute) Postop check (Acute) Mediastinal adenopathy (Acute) Vitamin D deficiency (Acute) Proteinuria (Acute) Mild anemia (Acute) Hospital discharge follow-up (Acute) Ureteral calculus, left (Acute) Ureteral stent retained (Acute) Kidney stone on left side (Acute) Encounter for preoperative pulmonary examination (Acute) Lower urinary tract symptoms (Acute) Sarcoidosis (Acute) Interstitial lung disease (Acute) Hydronephrosis with obstructing calculus (Acute) Urinary tract infection (Acute) Hydronephrosis (Acute) Vaccine counseling (Acute) Incidental pulmonary nodule, greater than or equal to 8mm (Acute) Elevated serum creatinine (Acute) Colon cancer screening (Acute) Shortness of breath (Acute) Elevated fasting glucose (Acute) Bronchitis, chronic with acute exacerbation (Acute) Current cannabis vaping on some days (Acute) Tubular adenoma of colon (Acute) Diverticulosis (Acute) Chronic kidney disease, stage II (mild) (Acute) Hyperlipidemia (Acute) Mediastinal lymphadenopathy (Acute) Multiple pulmonary nodules (Acute) Asthma (Acute) Asbestos exposure (Acute) Environmental allergies (Acute) Past Medical History Medical History Tubular adenoma of colon Diverticulosis Sarcoidosis Mediastinal lymphadenopathy Multiple pulmonary nodules Asbestos exposure Asthma Environmental allergies Chronic kidney disease, stage II (mild) Hyperlipidemia Family History Family History Father Stented coronary artery No family history of mental disorder Mother No family history of mental disorder Family history of problems with anesthesia: No Surgical History Surgical History H/O lithotripsy H/O colonoscopy History of bronchoscopy Hx of cystoscopy History of lung surgery History of Problems with Anesthesia: Yes (ponv, low saturations in pacu per patient) Social History Social History Household Members: Spouse, Family and Children Housing: House Are you a primary patient care nursing assistant to a significant other at home: No Do you presently have visiting nurse or other home services: No Alcohol intake: never Comment: non counts needed Patient Tobacco Use Status: Never used Tobacco e-Cigarette/Vaping Use: Former Use Second Hand Smoke Exposure: No Use of substances other than those prescribed or required for medical reasons: Yes Substance Use Type: Marijuana Substance Use Type Other:: edible few times a week Are you DNR?: No Advance Directives: No Advance Directives Information Provided: Yes service: No Current occupational status: employed 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 Cognitive needs: No Hearing needs: No Vision needs: No Meds Allergies Allergy/AdvReac Type Severity Reaction Status Date / Time No Known Allergies Allergy Verified 03/05/25 09:19 Home Medications ?Medication ?Instructions ?Recorded ?Confirmed ?Last Taken ?Type cholecalciferol (vitamin D3) 25 25 mcg PO DAILY 03/05/25 Unknown History mcg (1,000 unit) capsule Exam Pertinent Lab Results Pertinent Lab Results: Laboratory Tests 01/27/24 09/19/24 11/13/24 07:36 10:58 07:57 WBC 6.5 Hgb 15.3 Hct 46.0 Plt Count 274 Sodium 142 Potassium 4.2 Chloride 103 Carbon Dioxide 30 H BUN 18 H Creatinine 1.56 H Narrative Narrative: chest CT which revealed relatively stable hilar and mediastinal adenopathy which can be seen in the setting of sarcoidosis. A subcarinal lymph node currently measures 4.6 x 2.6 cm image 80 series 11, previously 5.0 x 2.5 cm. No axillary or supraclavicular adenopathy, some linear scarring in the right lung base which appears unchanged, a few scattered noncalcified pulmonary nodules on the right appears stable with the largest seen in the right middle lobe measuring up to 6 mm. Assessment and Plan Assessment Anesthesia Assessment: Chart Reviewed Final Anesthetic Review Family History of Problems with Anesthesia: No History of Problems with Anesthesia: Yes (ponv, low saturations in pacu per patient) Documented by User: Jean Carlos Miles MD 03/05/25 09:46 PMFSH Past Medical History Medical History Tubular adenoma of colon Diverticulosis Sarcoidosis Mediastinal lymphadenopathy Multiple pulmonary nodules Asbestos exposure Asthma Environmental allergies Chronic kidney disease, stage II (mild) Hyperlipidemia Family History Family History Father Stented coronary artery No family history of mental disorder Mother No family history of mental disorder Surgical History Surgical History H/O lithotripsy H/O colonoscopy History of bronchoscopy Hx of cystoscopy History of lung surgery Social History Social History Household Members: Spouse, Family and Children Housing: House Are you a primary patient care nursing assistant to a significant other at home: No Do you presently have visiting nurse or other home services: No Alcohol intake: never Comment: non counts needed Patient Tobacco Use Status: Never used Tobacco e-Cigarette/Vaping Use: Former Use Second Hand Smoke Exposure: No Use of substances other than those prescribed or required for medical reasons: Yes Substance Use Type: Marijuana Substance Use Type Other:: edible few times a week Are you DNR?: No Advance Directives: No Advance Directives Information Provided: Yes service: No Current occupational status: employed 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 Cognitive needs: No Hearing needs: No Vision needs: No Meds Allergies Allergy/AdvReac Type Severity Reaction Status Date / Time No Known Allergies Allergy Verified 03/05/25 09:19 Home Medications ?Medication ?Instructions ?Recorded ?Confirmed ?Last Taken ?Type cholecalciferol (vitamin D3) 25 25 mcg PO DAILY 03/05/25 Unknown History mcg (1,000 unit) capsule Exam Airway Mallampati Class: II TM Dist: >3cm Neck ROM: Full Loose/Missing/Broken Teeth: No Heart: Rrr Lungs: cta Assessment and Plan Final Anesthetic Review NPO: Yes ASA Class: II Final Preanesthetic Review: No Changes in Pt Med Stat, Meds/Allgs Chart Reviewed and Consent Obtained/Reviewed Patient Risk: Low Procedure Risk: Low Anesthetic Plan Anesthetic Plan: GA Disposition: Standard PACU
[2025-03-01 11:59] VITALS: BMI 25.0
[2025-03-05] VITALS (7 sets, daily range): BP systolic 128–142; BP diastolic 77–86; PULSE 85–100; RESP 13–20; TEMP 36.4–36.7; O2SAT 93–99; BMI 24.1
--- NOTE | ~2025-03-05 | FL_ITS ---
EXAMINATION: FL GUIDANCE ONLY HISTORY: cysto special with retrograde COMPARISON: Correlation is made with a CT of the abdomen and pelvis without contrast dated 08/31/2023. TECHNIQUE: Fluoroscopy time: 3 minutes, 21 seconds. Cumulative Dose: 67.30 mGy. DAP: 42686.80 mGycm2 Images: 4. FINDINGS: Fluoroscopic spot films of the left hemipelvis demonstrate placement of a nephroureteral stent. FL/FL guidance in OR IMPRESSION: Fluoroscopy during procedure. Please see procedure report for additional information. Electronically signed by: Willie Marroquin MD 03/05/2025 11:39 AM EST
[2025-03-05] MEDS: Lactated Ringers 1,000 ML 100 ML IVCONT (09:29)
--- NOTE | 2025-03-05 09:42 | MHC.SHP ---
Pre-Procedural Eval Section A - 24 Hr Update-Section A only Date of Service: 03/05/25 The patient is an INPATIENT: No Changes since office visit: No Cold of Flu in the past 2 weeks, No New Medical Problems, No Changes in Medication and No Patient answered all questions The patient has been examined within 24 hours of the surgical procedure. The History & Physical has been completed within 30 days and I have reviewed it.: Yes Section B - Complete if H&P > 30 days Chief Complaint: Calculus of ureter Details of Present Illness: Distal left ureteric stone, mid ureteric stone, renal stone. Relevant Social History: None Present Medications: see Short Stay Collaborative assessment Medical History: No relevant PMH History of Previous Operations: Relevant previous surgery/procedure and date(s) Allergies: Allergies Allergy/AdvReac Type Severity Reaction Status Date / Time No Known Allergies Allergy Verified 03/05/25 09:19 Review of Systems Sugical H&P ROS: Negative: Constitution, Cardiovascular, Respiratory, Neurological, Psychiatric, Hem-Onc, Allergic/Immunologic, Gastrointestinal, Genitourinary, Musculoskeletal, Integumentary, Endocrine and Eyes/Ears/Nose/Throat Exam Surgical H&P Exam: Normal: HEENT, Normal: Heart, Normal: Lungs, Normal: Extremities, Normal: Abdomen, Normal: Skin and Normal: Neurological Plan Diagnosis/Plan: Unchanged I have reviewed the history and physical and performed a pertinent physical examination on my patient. No changes have occurred unless specified. Time Spent With Patient Time: Total time managing care of this patient today ____ minutes.
--- NOTE | 2025-03-05 10:53 | W.PM.OPN ---
Operative Note Operative Note Date of Service: 03/05/25 Narrative: PreOperative Diagnosis: Left distal ureteric stone with hydro uretero nephrosis and left renal stone Post Operative Diagnosis: Above Procedure: - cystoscopy, left retrograde - left dilatation of ureteric orifice under fluoroscopy - left rigid ureteroscopy, laser lithotripsy, stone basketing - left flexible ureteroscopy to kidney Surgeon: Dr Ronnie Graff Anesthesia: General Indications for procedure: Presentation through emergency room with distal left ureteric stone and stone seen in kidney with hydro nephrosis. Prior procedures for recurrent left kidney stone. Dilated left kidney. Procedure: After informed consent was verified the patient was brought to the operating room and placed in a supine position. Anesthesia was administered per protocol. The patient was placed in a modified dorsal lithotomy position and prepped and draped in a sterile fashion. Safety pause time-out and side of surgery were confirmed. Images were available for review. Antibiotic administration confirmed. A 22 Gabonese cystoscope was inserted per urethra. The urethra was without abnormality. The bladder was normal in its entirety. Both ureteric orifices were seen in normal position. The left ureteric orifice was cannulated and a retrograde examination was performed. Filling defects seen proximally 11 mm in distal portion of left ureter with proximal hydro uretero nephrosis . A Sensor guidewire was placed up to the level of the renal pelvis under fluoroscopy. The rigid cystoscope was removed. A Servando dilator was placed over the Sensor guidewire and used to dilate the ureteric orifice under fluoroscopy. The dilator was removed. The semi rigid ureteral scope was placed alongside the Sensor guidewire. The stone was encountered in the area was seen on the retrograde. Using a 365 micro holmium laser fiber the stone was broken into small pieces using a combination of hammer and dusting techiques. Initial settings 6 hertz and 1.2 killer joules. Stone fragments were removed from the ureter using a 2.4 Gabonese ZeroTip basket. Following clearance of the ureter flexible ureteroscopy was performed. Access sheath was placed over the wire up to the level of the renal pelvis. It disposable flexible ureteral scope was placed. Renal pelvis was explored in its entirety. Since it was dilated and effaced this was quite difficult. We were able to get on target to the stone in the left lower pole. At this point we placed the holmium laser fiber. Going back into the renal pelvis it was filled with blood from ooze from the inflamed mucosa. Due to the abnormality in the shape of the renal pelvis we were unable to navigate back to the position of the stone. This was attempted for a length of time and then a decision was made not to proceed. The flexible ureteral scope was slowly backed out of the kidney in the ureter. The ureter was examined its entirety and when seen to be intact and the decision was made not to place a stent. The bladder was emptied. The patient tolerated the procedure well and was extubated in the operating room. They were transferred in stable condition to the recovery area. Pathology: stones Drains:
== END 2025-03-05 12:33 | disposition home or self-care (01) ==
PROVIDERS: PCP Nurse Practitioner Family; Visit Provider Urology
PROC: (CPT 52353; principal; 2025-03-05 10:20)
DX: N13.2 Hydronephrosis with renal and ureteral calculous obstruction (principal); R91.8 Other nonspecific abnormal finding of lung field; D86.9 Sarcoidosis, unspecified; Z77.090 Contact with and (suspected) exposure to asbestos; J45.909 Unspecified asthma, uncomplicated; R59.0 Localized enlarged lymph nodes; N18.2 Chronic kidney disease, stage 2 (mild); E78.5 Hyperlipidemia, unspecified; Z79.899 Other long term (current) drug therapy; Z98.890 Other specified postprocedural states
CPT/HCPCS: 52353; 52352; 82365; 88300; C1758; C1769; J0131; J1100; J1956; J2003; J2405; J2704; J3010; Q9967

== ENCOUNTER → 2025-03-05 08:42 | Outpatient (BNV) | payer OTHER, SELFPAY | PROVIDERS: PCP Nurse Practitioner Family; Visit Provider Urology | DX: N13.2 Hydronephrosis with renal and ureteral calculous obstruction (principal) | CPT/HCPCS: 52353; 74420 ==

== ENCOUNTER 2025-03-15 14:31 | Outpatient (AMB) | payer OTHER, SELFPAY ==
--- NOTE | 2025-03-15 14:41 | MHC.OFFVIS ---
Intake Visit Reasons: Stent removal SET UA Intake Note: Patient Is Present for Cystoscopy Stent removal Urology Med: None Antibiotic Allergy: None Blood Thinner: None Procedure done 03/05/25 Chuck Wagon Driver Required: No Accompanied by: Self / Same As Patient Allergies No Known Allergies Allergy (Verified 03/15/25 14:48) HPI Comments Details: Alexis is a pleasant male. He is a patient of Dr. Mccall. He is seen for the following urology issues - recurrent infection stones Initial presentation with mediastinal lymphadenopathy has been diagnosed with sarcoid. Sarcoid can contribute to stone creation. Here for cystoscopy and stent removal Has residual debris within bladder Discussed bladder emptying May benefit from alpha-brooklyn Urine pH 6-7.5 - brushite stones without hypokalemia or evidence of renal tubular acidosis. Encourage fluids And allopurinol and vitamin B6 Nephrolithiasis Prior mixed calcium oxalate and infectious stone Prior intervention - left ureteroscopy - 03/06 left ureteroscopy with laser lithotripsy Stone composition - 03/06 calcium ox dihydrate 20% plus brushite 80% PFSH Medical History Tubular adenoma of colon Diverticulosis Sarcoidosis Mediastinal lymphadenopathy Multiple pulmonary nodules Asbestos exposure Asthma Environmental allergies Chronic kidney disease, stage II (mild) Hyperlipidemia Surgical History H/O lithotripsy H/O colonoscopy History of bronchoscopy Hx of cystoscopy History of lung surgery Family History Father Stented coronary artery No family history of mental disorder Mother No family history of mental disorder Social History Household Members: Spouse, Family and Children Both parents involved: No Caregiver staying overnight: No Housing: House Are you a primary day care assistant to a significant other at home: No Do you presently have visiting nurse or other home services: No 75 years or older and lives alone: No Alcohol intake: never Comment: non counts needed Patient Tobacco Use Status: Never used Tobacco e-Cigarette/Vaping Use: Former Use Second Hand Smoke Exposure: No Substance Use Type: Marijuana service: No Current occupational status: employed 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 Current occupational exposures/hazards: Yes Cognitive needs: No Hearing needs: No Vision needs: No Review of Systems Const Denies chills and Denies fever(s) Card Reports no additional complaints and Denies syncope Resp Denies cough GI Denies abdominal pain and Denies heartburn Reports as per HPI and Denies change in libido Neuro Denies syncope Psych Denies change in libido Endo Denies change in libido Physical Exam Const General: cooperative, healthy appearing, comfortable and no acute distress Orientation/consciousness: patient oriented x3 HEENT Face and sinus: Yes normal facial exam Mouth: moist mucous membranes Neck Neck: Yes normal visual inspection, Yes full ROM and Yes trachea midline Chest Chest palpation & inspection: normal inspection of the chest Resp Effort & Inspection: normal respiratory effort, able to speak in complete sentences and no respiratory distress GI Inspection: Yes normal to inspection Back/Spine/Pelvis Cervical Spine: normal cervical lordosis Thoracic/Lumbar Spine: thoracic and lumbar spine normal to inspection Skin General skin exam: no rashes or lesions noted Neuro General: patient oriented x3, gait normal, tone normal and moves all extremities Extrem General: Yes normal to inspection and Yes capillary refill normal Office Procedures Cystoscopy Consent Discussed risk and benefit or proposed procedure with the patient. Information consent for procedure given to the patient. Discussed technical aspects, risks, benefits and alternatives in full. Addressed all of the patient's questions and concerns regarding the procedure. The patient demonstrated knowledge and understanding. They wish to proceed with this procedure. Preparation The patient was prepped in the usual manner. A surgical technologist was present and in the room. Genitalia was prepped with betadine solution in a sterile manner. Lidocaine Jelly 2% was placed into the urethra and 16Fr flexible Olympus cystoscope was inserted into the meatus after adequate lubrication. Procedure Consent confirmed Genitalia prepped and draped using topical antiseptic and lidocaine jelly Clamp placed on penile glans to allow adequate dwell contact time with anesthetic Cystoscopy performed using a sterile disposable Urovue digital 16 Gambian cystoscope Meatus circumcised Urethra anterior and posterior urethra normal Prostatic Urethra unremarkable Bladder examination with retroflexion of cystoscope Bladder Orifices normal shape and position - bladder debris Bladder Capacity Normal Trabeculations Grade 0 Cellule Formation None Diverticulum Formation None Mucosal Erythema None Bladder Tumor None Patient tolerated procedure [id number] DISPOSABLE SCOPE URO-G FLEXIBLE SCOPE Procedure code (CPT) selection complete Office Meds lidocaine HCl 2 % mucosal jelly in applicator Performing Provider: Ronnie Graff MD Performing Location: [facility] Administered by: Braden Orozco LPN on 03/15/25 14:55 Dose Route Admin Location Dispensed Lot Number Expiration Date NDC Civil Rights Attorney 10 mL intra-urethral 10 mL nitrofurantoin monohydrate/macrocrystals 100 mg capsule Performing Provider: Ronnie Graff MD Performing Location: [facility] Administered by: Braden Orozco LPN on 03/15/25 14:55 Dose Route Admin Location Dispensed Lot Number Expiration Date NDC Civil Rights Attorney 100 mg PO 1 cap Results AMB Urinalysis, Automated UA Leukoctes 0 Lisa/uL Last Edit by Mayra Dahl [facility] on 03/15/25 14:55 UA Nitrite Negative Last Edit by Mayra Dahl, [facility] on 03/15/25 14:55 UA Urobilinogen 0.2 mg/dL Last Edit by Mayra Dahl [facility] on 03/15/25 14:55 UA Protein 15 mg/dL Last Edit by Mayra Dahl, [facility] on 03/15/25 14:55 UA pH 6.0 Last Edit by Mayra Hesham, [facility] on 03/15/25 14:55 UA Blood 25 Dario/uL Last Edit by Mayra Hesham [facility] on 03/15/25 14:55 UA Specific [place] 1.015 Last Edit by Mayra Hesham, [facility] on 03/15/25 14:55 UA Ketone Negative Last Edit by Mayra Dahl [facility] on 03/15/25 14:55 UA Bilirubin 0 mg/dL Last Edit by Mayra Dahl [facility] on 03/15/25 14:55 UA Glucose 0 mg/dL Last Edit by Mayra Dahl [facility] on 03/15/25 14:55 Results Reviewed Results Reviewed: Laboratory Last Values Urine pH (Auto) 6.0 03/15/25 14:54 Specific [place] (Auto) 1.015 03/15/25 14:54 Urine Protein (Auto) 15 mg/dL 03/15/25 14:54 Glucose (UA)(Auto) 0 mg/dL 03/15/25 14:54 Urine Ketones (Auto) Negative 03/15/25 14:54 Urine Blood (Auto) 25 Dario/uL 03/15/25 14:54 Urine Nitrite (Auto) Negative 03/15/25 14:54 Urine Bilirubin (Auto) 0 mg/dL 03/15/25 14:54 Urine Urobilinogen (Auto) 0.2 mg/dL 03/15/25 14:54 Leukocyte Esterase (Auto) 0 Lisa/uL 03/15/25 14:54 Assessment & Plan Assessment & Plan (1) Kidney stone on left side: Code(s): N20.0 - Calculus of kidney Category: Medical Plan Start nephrolithiasis medications Orders: Orders AMB Urinalysis Automated 03/15/25 N13.8 - Other obstructive and reflux uropathy, N40.1 - Benign prostatic hyperplasia with lower urinary tract symptoms AMB Cystoscopy 03/15/25 N13.2 - Hydronephrosis with renal and ureteral calculous obstruction, Z96.0 - Presence of urogenital implants US renal BI 3 Months N20.1 - Calculus of ureter URORISK 03/15/25 N20.1 - Calculus of ureter Medications: New pyridoxine (vitamin B6) 50 mg PO DAILY 90 tabs 1RF 90 days N20.1 - Calculus of ureter allopurinol 100 mg PO DAILY 90 tabs 1RF 90 days N20.1 - Calculus of ureter Patient Instructions: This note is constructed using voice recognition software. While every effort has been made to ensure accuracy hammer runner errors may have been included. Imaging studies, laboratory and physical exam results were discussed and reviewed in detail. No major barriers to patient understanding were identified. An opportunity to ask questions regarding the treatment plan was provided. All questions were answered. The patient expressed understanding and agreement with the above treatment plan. The patient is aware they should contact our office by phone for worsening of their current condition or the appearance of new urologic symptoms. Compliance is encouraged with any medications and followup testing that is ordered. It is a privilege to participate in the urologic care of your patient. If you have any questions or concerns regarding treatment for the above conditions, or other urologic issues, please do not hesitate to contact me. The office telephone contact is [phone]. Sincerely, Dr Ronnie Graff MD, [facility] - Urology Compassionate Specialist Care for the Genitourinary System Coding Level of Care Code Est Pt Level 3 (59738) Complex visit Add On G2211 Diagnoses Kidney stone on left side N20.0 CPT Codes Cystoscopy - CPT: 99950-[id number] ([id number])
== END 2025-03-15 15:28 | disposition home or self-care (01) ==
LOC: HO.HUSH 14:33
PROVIDERS: PCP Nurse Practitioner Family; Visit Provider Urology
DX: N20.0 Calculus of kidney (principal)
CPT/HCPCS: 52000; 99213

== ENCOUNTER → 2025-03-15 14:31 | Outpatient (BNVA) | payer OTHER, SELFPAY | PROVIDERS: PCP Nurse Practitioner Family; Visit Provider Urology | DX: N20.0 Calculus of kidney (principal); Z96.0 Presence of urogenital implants | CPT/HCPCS: 52000; 81003 ==

== ENCOUNTER 2025-03-20 10:59 | Outpatient (REF) | payer OTHER, SELFPAY ==
--- NOTE | ~2025-03-20 | XR_ITS ---
EXAMINATION: XR CHEST CLINICAL INFORMATION: R06.00 - Dyspnea, unspecified COMPARISON: 12/20/2023. CT chest 11/17/2024. TECHNIQUE: 2 views of the chest were obtained. FINDINGS: The cardiac size is normal. The mediastinal contours are normal. Highly prominent bilateral marisel, in keeping with known underlying hilar lymphadenopathy is seen on the prior CT examination. Mildly elevated right hemidiaphragm with smooth pleural scarring in the right costophrenic sulcus is again noted. There is mild pulmonary hyperaeration. There are calcified granulomata bilaterally. The lungs are otherwise clear bilaterally. There is no pneumothorax or pleural effusion. There is no focal osseous or soft tissue abnormality. There are degenerative changes in the spine. XR/XR chest 2V IMPRESSION: 1. Prominent marisel in keeping with known hilar adenopathy. 2. Right basilar pleural scarring. 3. No active superimposed pulmonary disease. Electronically signed by: Rigo Mathias MD 03/20/2025 11:40 AM BAILEY
== END 2025-03-20 11:00 | disposition home or self-care (01) ==
LOC: HO.XRAY 10:59
PROVIDERS: PCP Nurse Practitioner Family; Visit Provider Nurse Practitioner Family
DX: J45.909 Unspecified asthma, uncomplicated (principal); D86.9 Sarcoidosis, unspecified; R91.8 Other nonspecific abnormal finding of lung field; R59.0 Localized enlarged lymph nodes; R06.00 Dyspnea, unspecified
CPT/HCPCS: 71046

== ENCOUNTER → 2025-03-20 11:04 | Outpatient (BNV) | payer OTHER, SELFPAY | PROVIDERS: PCP Nurse Practitioner Family; Visit Provider Radiology Diagnostic Radiology | DX: R06.00 Dyspnea, unspecified (principal) | CPT/HCPCS: 71046 ==

== ENCOUNTER 2025-03-20 14:45 | Outpatient (AMB) | payer OTHER, SELFPAY ==
--- NOTE | 2025-03-20 14:48 | MHC.OFFVIS ---
Vital Signs 03/20/25 14:58 Weight 163 lb BP 156/78 H Blood Pressure Location Lt brachial Position Sitting Pulse 91 Pulse Source Pulse Oximeter Pulse Oximetry (%) 94 Oxygen Delivery Method Room Air Intake Visit Reasons: sob, prod cough Acid Supervisor Required: No Airborne Weapons Technical Manager: Airborne Weapons Technical Manager offered & declined Accompanied by: Self / Same As Patient Allergies No Known Allergies Allergy (Verified 03/20/25 14:52) Medication List - Last Reconciled 03/20/25 by Rizwana Kim LPN albuterol sulfate 90 mcg/actuation 2 puffs inhalation Q4-6H PRN allopurinol 100 mg PO DAILY 90 days atorvastatin 10 mg PO BEDTIME 90 days cholecalciferol (vitamin D3) 25 mcg PO DAILY naproxen 500 mg PO BID PRN 7 days phenazopyridine (Pyridium) 100 mg PO TID PRN 4 days pyridoxine (vitamin B6) 50 mg PO DAILY 90 days sulfamethoxazole-trimethoprim 400-80 mg (Bactrim) 1 tab PO DAILY 60 days tamsulosin 0.4 mg PO BEDTIME 14 days HPI HPI sob, prod cough: Details: Alcides is a pleasant 59 year old male, never tobacco smoker, with underlying sarcoidosis, asthma, asbestos exposure and h/o VATS procedure in 2000 due to empyema. Chest CT 09/2022 revealed medistinal lymphadenopathy and subsequent CT chest 12/2022 with enlarging lymphadnopathy. Ultimately had PET which revealed extensive FDG avid mediastinal lymphadenopathy and underwent EBUS on 02/24/[address] Epstein. Lymph node biopsy was negative for carcinoma and revealed granulomas with negative AFB stain as well as negative fungal stain, suggestive of sarcoidosis. He was treated with a course of prednisone however did not have significant radiographic changes, and had an increase in the subcarinal lymph node, previously measured 1.9 cm, now 2.6 cm with associated bulky hilar adenopathy on chest CT 09/2023. Had long discussion with patient that although previously lymphadenopathy and biopsy were consistent with sarcoidosis, CT findings did not improve with steroids and now patient with increasing lymphadenopathy, which may be suggestive of carcinoma. He then underwent mediastinoscopy with Dr. Zabala on 02/17/2024 and pathology consistent with sarcoidosis. Repeat Chest CT 11/2024 demonstrated relatively stable hilar and mediastinal adenopathy which can be seen in the setting of sarcoidosis. A subcarinal lymph node currently measures 4.6 x 2.6 cm image 80 series 11, previously 5.0 x 2.5 cm. No axillary or supraclavicular adenopathy, some linear scarring in the right lung base which appears unchanged, a few scattered noncalcified pulmonary nodules on the right appears stable with the largest seen in the right middle lobe measuring up to 6 mm. At this time lymphadenopathy appears stable, will repeat in one year to assess continued stability. Today he presents for an acute visit, reporting shortness of breath that has been worsening over the last two weeks. He reports several episodes characterized by a cough and dyspnea followed by a sensation of airway restriction, wheezing, and chest tightness. Associated symptoms also include a productive cough with yellow sputum, congestion, and possible chills. These episodes are preceded by some irritation in his throat. He denies any rash or facial swelling during these events or other symptoms suggestive of an allergic reaction. He has a history of asthma and uses an albuterol inhaler frequently, which provides some benefit at times. He does not use a daily maintenance inhaler and has not used prednisone in a while. His recent chest X-ray did not reveal any acute changes. 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 He is currently taking Bactrim, which was prescribed in February for a suspected low-grade infection causing kidney stones. He recently received his COVID and flu shots. [facility] Medical History Tubular adenoma of colon Diverticulosis Sarcoidosis Mediastinal lymphadenopathy Multiple pulmonary nodules Asbestos exposure Asthma Environmental allergies Chronic kidney disease, stage II (mild) Hyperlipidemia Surgical History H/O lithotripsy H/O colonoscopy History of bronchoscopy Hx of cystoscopy History of lung surgery Family History Father Stented coronary artery No family history of mental disorder Mother No family history of mental disorder Social History Household Members: Spouse, Family and Children Both parents involved: No Caregiver staying overnight: No Housing: House Are you a primary palliative care nurse to a significant other at home: No Do you presently have visiting nurse or other home services: No 75 years or older and lives alone: No Alcohol intake: never Comment: non counts needed Patient Tobacco Use Status: Never used Tobacco e-Cigarette/Vaping Use: Former Use Second Hand Smoke Exposure: No Substance Use Type: Marijuana service: No Current occupational status: employed 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 [employer] Current occupational exposures/hazards: Yes Cognitive needs: No Hearing needs: No Vision needs: No Review of Systems Const Denies excessive sweating, Denies fever(s), Denies headache(s) and Denies night sweats Eyes Denies dry eyes, Denies irritation and Denies itchy eyes ENT Reports Normal hearing present, Denies headache(s), Denies nasal congestion, Denies nasal discharge, Denies post nasal drip and Denies sore throat Card Denies chest pain, Denies chest pain at rest, Denies chest pain with activity, Denies claudication, Denies leg edema, Denies orthopnea and Denies paroxysmal nocturnal dyspnea Resp Denies excessive phlegm production, Denies pain on inspiration, Denies pain with cough and Denies stridor Musc Denies myalgias Neuro Reports Normal hearing present and Denies headache(s) Endo Denies excessive sweating Bal/Lymph Denies lymphadenopathy Aller/Immun Denies itchy eyes and Denies seasonal rhinorrhea Physical Exam Vital Signs: Last Vital Signs Pulse 91 03/20/25 14:58 BP 156/78 H 03/20/25 14:58 Pulse Ox 94 03/20/25 14:58 Oxygen Delivery Method Room Air 03/20/25 14:58 Const General: cooperative, healthy appearing, comfortable, no acute distress, well developed and alert Orientation/consciousness: patient oriented x3 Limitations: no limitations HEENT Head: Yes normal to inspection, Yes normocephalic and Yes atraumatic Ears: hearing grossly normal bilaterally and external ears normal Eyes General: appearance normal, both eyes and all related structures Eyelids: Yes eyelids normal Sclerae: sclerae normal EOM: EOMs intact bilaterally Neck Neck: Yes normal visual inspection and Yes no lymphadenopathy Lymphatic: no lymphadenopathy noted Chest Chest palpation & inspection: normal inspection of the chest Resp Effort & Inspection: normal respiratory effort, able to speak in complete sentences, no audible wheezes, no cough, no stridor, not tachypneic, no tripod positioning and no use of accessory muscles Auscultation: wheezes and diminished lung sounds Cardio Jugular venous distension: no JVD Rate: regular rate Rhythm: regular rhythm Skin Other: warm, dry General skin exam: no rashes or lesions noted Neuro General: patient oriented x3 Cranial nerves: Yes Normal hearing present Cognition (Neuro): normal cognition Gait exam (Neuro): Normal gait present Extrem General: Yes normal to inspection, Yes capillary refill normal, Yes no clubbing, cyanosis or edema and Yes no pedal edema Psych Appearance: grossly normal and well kempt Speech and movement: Normal speech and movement present and Clear speech present Affect: normal affect Attitude: cooperative Thought process: Normal thought process present Thought content: Normal thought content present Insight: Good insight present (Psych) Judgement: Good judgement present (Psych) Assessment & Plan Assessment & Plan (1) Sarcoidosis: Code(s): D86.9 - Sarcoidosis, unspecified Category: Medical (2) Asthma: Code(s): J45.909 - Unspecified asthma, uncomplicated Category: Medical (3) Multiple pulmonary nodules: Code(s): R91.8 - Other nonspecific abnormal finding of lung field Category: Medical (4) Mediastinal lymphadenopathy: Code(s): R59.0 - Localized enlarged lymph nodes Category: Medical Plan Discussed with the patient that his symptoms of shortness of breath, wheezing, and chest tightness are consistent with an asthma exacerbation. Explained that while his albuterol inhaler helps with acute symptoms, a daily controller medication is needed to manage the inflammation. The plan includes starting a 5-day course of prednisone for rapid symptom relief, initiating a Symbicort inhaler for long-term control, and prescribing a course of azithromycin for a possible infectious component. Informed him that this office will contact his urologist, Dr. Graff, to coordinate care regarding his current Bactrim prescription and the new course of azithromycin, advising him to pause the Bactrim unless instructed otherwise. Provided clear return precautions, advising him to go to the emergency room for any worsening of his breathing and to call the office if his symptoms do not improve with the new regimen. A follow-up appointment was scheduled in two months to re-evaluate his condition. All quesions were answered and patient is in agreement of plan. Medications: New prednisone 40 mg (2 x 20 mg) PO DAILY 10 tabs 0RF budesonide-formoterol 80-4.5 mcg/actuation (Symbicort) 2 puffs inhalation Q12H 10.2 grams 3RF azithromycin For 250 mg dose pack: take 500 mg today (day 1), then 250 mg for 4 days (days 2-5) PO 6 tabs 0RF Coding Level of Care Code Est Pt Level 4 (30157) Diagnoses Sarcoidosis D86.9 Asthma J45.909 Multiple pulmonary nodules R91.8 Mediastinal lymphadenopathy R59.0
[2025-03-20 14:58] VITALS: BP 156/78; PULSE 91; O2SAT 94
== END 2025-03-20 15:14 | disposition home or self-care (01) ==
LOC: HO.HPSW 14:46
PROVIDERS: PCP Nurse Practitioner Family; Visit Provider Nurse Practitioner Family
DX: D86.9 Sarcoidosis, unspecified (principal); J45.909 Unspecified asthma, uncomplicated; R91.8 Other nonspecific abnormal finding of lung field; R59.0 Localized enlarged lymph nodes
CPT/HCPCS: 99214

== ENCOUNTER 2025-03-27 16:09 | Outpatient (AMB) | payer OTHER, SELFPAY ==
[2025-03-27 16:14] VITALS: BP 120/64; PULSE 90; O2SAT 96
--- NOTE | 2025-03-27 16:14 | HO.NEPHOV_ITS ---
Vital Signs 03/27/25 16:14 Weight 175 lb BP 120/64 Blood Pressure Location Rt brachial Position Sitting Pulse 90 Pulse Source Pulse Oximeter Pulse Oximetry (%) 96 Oxygen Delivery Method Room Air Intake Visit Reasons: [employer] Assistant Principal Required: No Accompanied by: Self / Same As Patient Allergies No Known Allergies Allergy (Verified 03/27/25 16:16) Medication List - Last Reconciled 03/27/25 by Melvin Gimenez MD albuterol sulfate 90 mcg/actuation 2 puffs inhalation Q4-6H PRN allopurinol 100 mg PO DAILY 90 days atorvastatin 10 mg PO BEDTIME 90 days azithromycin For 250 mg dose pack: take 500 mg today (day 1), then 250 mg for 4 days (days 2-5) PO budesonide-formoterol 80-4.5 mcg/actuation (Symbicort) 2 puffs inhalation Q12H cholecalciferol (vitamin D3) 25 mcg PO DAILY naproxen 500 mg PO BID PRN 7 days phenazopyridine (Pyridium) 100 mg PO TID PRN 4 days prednisone 40 mg (2 x 20 mg) PO DAILY pyridoxine (vitamin B6) 50 mg PO DAILY 90 days sulfamethoxazole-trimethoprim 400-80 mg (Bactrim) 1 tab PO DAILY 60 days tamsulosin 0.4 mg PO BEDTIME 14 days HPI Comments Details: . 58-year-old man with a history of sarcoidosis and multiple renal stones has been referred for evaluation of proteinuria. He had nephrolithiasis several years ago and underwent ESWL. Left kidney is atrophic with chronic hydronephrosis. Stent is in place. Right kidney had a 0.3 cm stone and underwent ESWL. He has history of sarcoidosis he was treated with the prednisone. He is currently in remission. In Recent serum calcium levels have been normal. He has not undergone any metabolic workup for nephrolithiasis 12/23/23 Underwent uro proceedure on 12/20/23: PreOperative Diagnosis: Left retained stent with extensive calcifications Post Operative Diagnosis: Left retained ureteric stent with extensive proximal calcifications Procedure: - cystoscopy, left retrograde - left dilatation of ureteric orifice under fluoroscopy - left ureteroscopy, laser lithotripsy, stone basketing - stent removal modifier 22 150% longer than typical proximally 120 minutes longer 03/27/2025 Overall doing well. Recently seen by Urology and underwent procedure. Currently he is on Bactrim once a day for almost 90 days [facility] Medical History Tubular adenoma of colon Diverticulosis Sarcoidosis Mediastinal lymphadenopathy Multiple pulmonary nodules Asbestos exposure Asthma Environmental allergies Chronic kidney disease, stage II (mild) Hyperlipidemia Surgical History H/O lithotripsy H/O colonoscopy History of bronchoscopy Hx of cystoscopy History of lung surgery Family History Father Stented coronary artery No family history of mental disorder Mother No family history of mental disorder Social History Household Members: Spouse, Family and Children Both parents involved: No Caregiver staying overnight: No Housing: House Are you a primary care professionals to a significant other at home: No Do you presently have visiting nurse or other home services: No 75 years or older and lives alone: No Alcohol intake: never Comment: non counts needed Patient Tobacco Use Status: Never used Tobacco e-Cigarette/Vaping Use: Former Use Second Hand Smoke Exposure: No Substance Use Type: Marijuana service: No Current occupational status: employed 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 Lungs entry equal no rales. Heart S1-S2 heard no gallop or rub. Abdomen soft nontender. Neuro alert awake oriented. No asterixis. Extremities no edema. Assessment & Plan Assessment & Plan (1) Chronic kidney disease, stage II (mild): Code(s): N18.2 - Chronic kidney disease, stage 2 (mild) Category: Medical (2) Kidney stone on left side: Code(s): N20.0 - Calculus of kidney Category: Medical (3) Sarcoidosis: Code(s): D86.9 - Sarcoidosis, unspecified Category: Medical Plan Middle-aged man with a Sarcoidosis has recurrent nephrolithiasis. History of atrophic left kidney with chronic hydronephrosis. PreOperative Diagnosis: Left retained stent with extensive calcifications Post Operative Diagnosis: Left retained ureteric stent with extensive proximal calcifications Procedure: - cystoscopy, left retrograde - left dilatation of ureteric orifice under fluoroscopy - left ureteroscopy, laser lithotripsy, stone basketing - stent removal Results of 24 hour urine collection was reviewed. Encouraged him to stay on low-sodium diet Maintain urine output more than 2 L by increasing p.o. fluid intake. Stay on low oxalate diet and increase citrate intake by drinking lemonade. Avoid strawberries and cola drinks. Currently on Bactrim. This could inhibit the tubular secretion of creatinine. Check serum creatinine potassium levels while on Bactrim. Encouraged him to increase p.o. fluid intake. Orders: Orders Basic Metabolic Panel Today N18.2 - Chronic kidney disease, stage 2 (mild) Coding Level of Care Code Est Pt Level 4 (68183) Diagnoses Chronic kidney disease, stage II (mild) N18.2 Kidney stone on left side N20.0 Sarcoidosis D86.9
== END 2025-03-27 16:33 | disposition home or self-care (01) ==
LOC: HO.HKA 16:10
PROVIDERS: PCP Nurse Practitioner Family; Visit Provider Internal Medicine Hypertension Specialist
DX: N18.2 Chronic kidney disease, stage 2 (mild) (principal); N20.0 Calculus of kidney; D86.9 Sarcoidosis, unspecified
CPT/HCPCS: 99214